=== PATIENT | male | born 1955 | race Two or more races ===

== ENCOUNTER 2024-10-15 12:56 | Inpatient (IN) | payer MEDICARE, MEDICAID ==
[~2024-10-15] VITALS: Ht 182.9 cm; Wt 88.2 kg
--- NOTE | 2024-10-15 14:45 | DVH ---
EXAM: CT HEAD WITHOUT CONTRAST INDICATION: leg weakness TECHNIQUE: CT of the head without intravenous contrast. Radiation Dose Information: CT Dose: CTDI volume is 59.57 mGy. Dose-length product is 1172.08 mGy*cm The dose indicators for CT are the volume Computed Tomography (CT) Dose Index (CTDIvol) and the Dose Length Product (DLP), and are measured in units of mGy and mGy-cm, respectively. These indicators are not patient dose, but values generated from the CT scanner acquisition factors. The report includes radiation exposure data for exposures received during this examination. COMPARISON: None FINDINGS: There is no evidence of acute intracranial hemorrhage, extra-axial collection, mass effect, midline s hift, herniation or hydrocephalus. The ventricles, sulci and cisterns are age appropriate. The bradford-white differentiation is intact. Patchy periventricular and subcortical white matter hypoattenuation is nonspecific but may be related to small vessel ischemic disease. The visualized paranasal sinuses and mastoid air cells are clear. The surrounding soft tissues and osseous structures are unremarkable. IMPRESSION: 1. No CT evidence of acute intracranial abnormality. HS:Y
--- NOTE | 2024-10-15 14:50 | ED.PDOC ---
Musculoskeletal HPI Comments 69Y M presents to ED for chief complaint bilateral lower extremity weakness [id number]. Pt states he is unable to walk or stand. Symptoms have worsened in the last 2 days and pt feels very weak and unsteady. Pt states he feels "disconnected from the hip and back". Pt denies all pain, urine symptoms, and n/v/d. Pt does not have PCP. Chief Complaint: Lower Extremity Time Seen by MD: 14:13 Reviewed Notes: Nurses Notes, Medications, Allergies Allergies: Coded Allergies: NO KNOWN ALLERGIES (Unverified , 10/15/24) Information Source: Patient Mode of Arrival: Wheelchair Location: Bilateral Extremity Location: Leg Timing: Months Severity: Moderate Able to Move Extremity: Yes Bear Weight: Limited Pain: None Onset of Symptoms: Spontaneous DVT Risk Factors: NONE Associated signs and symptoms: Weakness Past Medical History PAST MEDICAL HISTORY: Denies Surgical History: Denies all surgeries Family History Family History: Unknown Social History Smoker: Cigarettes Alcohol: Denies ETOH Use Drugs: Denies Drug Use Lives In: Home Constitutional: reports: weakness; denies: chills, diaphoresis, fatigue, fever, malaise, sweats, others EENTM: denies: blurred vision, double vision, ear bleeding, ear discharge, ear drainage, ear pain, ear ringing, eye pain, eye redness, hearing loss, mouth pain, mouth swelling, nasal discharge, nose bleeding, nose congestion, nose pain, photophobia, tearing, throat pain, throat swelling, voice changes, others Respiratory: denies: cough, hemoptysis, orthopnea, SOB at rest, shortness of breath, SOB with excertion, stridor, wheezing, others Cardiovascular: denies: chest pain, dizzy spells, diaphoresis, Dyspnea on exertion, edema, irregular heart beat, left arm pain, lightheadedness, palpitations, PND, syncope, others Gastrointestinal: denies: abdomen distended, abdominal pain, blood streaked bowels, constipated, diarrhea, dysphagia, difficulty swallowing, hematemesis, melena, nausea, poor appetite, poor fluid intake, rectal bleeding, rectal pain, vomiting, others Genitourinary: denies: burning, dysuria, flank pain, frequency, hematuria, incontinence, penile discharge, penile sore, pain, testicle pain, testicle swelling, urgency, others Neurological: reports: weakness, others (unbalanced); denies: dizziness, fainting, headache, left sided numbness, left sided weakness, numbness, paresthesia, pre-existing deficit, right sided numbness, right sided weakness, seizure, speech problems, tingling, tremors Musculoskeletal: denies: back pain, gout, joint pain, joint swelling, muscle pain, muscle stiffness, neck pain, others Integumetry: denies: bruises, change in color, change in hair/nails, dryness, laceration, lesions, lumps, rash, wounds, others Allergic/Immunocompromised: denies: Difficulty Healing, Frequent Infections, Hives, Itching, others Hematologic/Lymphatic: denies: anemia, blood clots, easy bleeding, easy bruising, swollen glands, others Endocrine: denies: excessive hunger, excessive sweating, excessive thirst, excessive urination, flushing, intolerance to cold, intolerance to heat, unexp lained weight gain, unexplained weight loss, others Psychiatric: denies: anxiety, bipolar disorder, depression, hopeless, panic disorder, schizophrenia, sleepless, suicidal, others All Other Systems: Reviewed and Negative Physical Exam General Appearance: No Apparent Distress, Normal HEENT: Normal ENT Inspection, Pharynx Normal, TMs Normal Neck: Full Range of Motion, Non-Tender, Normal, Normal Inspection Respiratory: Chest Non-Tender, Lungs Clear, No Accessory Muscle Use, No Respiratory Distress, Normal Breath Sounds Cardiovascular: No Edema, No JVD, No Murmur, No Gallop, Normal Peripheral Pulse s, Regular Rate/Rhythm Breast Exam: Deferred Gastrointestinal: No Organomegaly, Non Tender, No Pulsatile Mass, Normal Bowel Sounds, Soft Genitalia: Deferred Pelvic: Deferred Rectal: Deferred Extremities: No calf tenderness, Normal capillary refill, Normal inspection, Normal range of motion, Non-tender, No pedal edema Musculoskeletal : Apperance: Normal Neurologic: Alert, Motor Weakness (bilateral lower extremities), Normal Affect, Normal Mood, No Sensory Deficits Cerebellar Function: Normal Reflexes: Normal Skin: Dry, Normal Color, Warm Lymphatic: No Adenopathy Was a procedure done? Was a procedure done?: No Differential Diagnosis EXT Differential Diagnosis: Fracture, Sprain, Strain, Neurovascular injury, Other (transverse myelitis, GBS, neuropathy, cuada equina, spinal stenosis, herniated disks) X-Ray, Labs, Meds, VS Vital Signs Date Time Temp Pulse Resp B/P (MAP) Pulse Ox O2 Delivery O2 Flow Rate FiO2 10/15/24 13:33 98.2 110 16 18/72 (54) 95 Lab Test 10/15/24 14:44 Range/Units White Blood Count 9.6 4.4-10.8 10^3/uL Red Blood Count 6.02 H 4.5-5.90 10^6/uL Hemoglobin 19.0 H 13.5-17.5 g/dL Hematocrit 55.3 H 41.0-53.0 % Mean Corpuscular Volume 91.9 80.0-100.0 fL Mean Corpuscular Hemoglobin 31.6 28.0-32.0 pg Mean Corpuscular Hemoglobin Concent 34.4 32.0-36.0 g/dL Red Cell Distribution Width 13.8 11.8-14.3 % Platelet Count 256 140-450 10^3/uL Mean Platelet Volume 7.8 6.9-10.8 fL Neutrophils (%) (Auto) 80.9 H 37.0-80.0 % Lymphocytes (%) (Auto) 10.2 10.0-50.0 % Monocytes (%) (Auto) 8.0 0.0-12.0 % Eosinophils (%) (Auto) 0.3 0.0-7.0 % Basophils (%) (Auto) 0.6 0.0-2.0 % Neutrophils # (Auto) 7.7 1.6-8.6 10 ^3/uL Lymphocytes # (Auto) 1.0 0.4-5.4 10 ^3/uL Monocytes # (Auto) 0.8 0-1.3 10 ^3/uL Eosinophils # (Auto) 0 0-0.8 10 ^3/uL Basophils # (Auto) 0.1 0-0.2 10 ^3/uL Nucleated Red Blood Cells 0.1 % Sodium Level 139 136-145 mmol/L Potassium Level 5.0 3.5-5.1 mmol/L Chloride Level 104 98-107 mmol/L Carbon Dioxide Level 29 20-31 mmol/L Anion Gap 6 5-15 Blood Urea Nitrogen 12 9-23 mg/dL Creatinine 0.97 0.700-1.30 mg/dL Glomerular Filtration Rate Calc 84 >90 mL/min BUN/Creatinine Ratio 12.4 10.0-20.0 Serum Glucose 104 74-106 mg/dL Calcium Level 10.1 8.7-10.4 mg/dL Plasma/Serum Blood Alcohol 4.3 <10 mg/dL [address] [address] Ph: [phone] DIAGNOSTIC IMAGING Diagnostic Imaging Report : [id number] Signed PATIENT: ANTONI MCCANNACCT: [id number] UNIT: [id number] : 1955 LOC: ER ROOM / BED: / AGE / SEX: 69 / M ADM STATUS: REG ER SERVICE 1421 ORDERING PHYSICIAN: GUY SOLARES MD PROCEDURE(s): HWOCT - HEAD WITHOUT CONTRAST REASON: leg weakness ORDER NUMBER(s): [id number], ACCESSION NUMBER(s): [id number] EXAM: CT HEAD WITHOUT CONTRAST INDICATION: leg weakness TECHNIQUE: CT of the head without intravenous contrast. Radiation Dose Information: CT Dose: CTDI volume is 59.57 mGy. Dose-length product is 1172.08 mGy*cm The dose indicators for CT are the volume Computed Tomography (CT) Dose Index (CTDIvol) and the Dose Length Product (DLP), and are measured in units of mGy and mGy-cm, respectively. These indicators are not patient dose, but values generated from the CT scanner acquisition factors. The report includes radiation exposure data for exposures received during this examination. COMPARISON: None FINDINGS: There is no evidence of acute intracranial hemorrhage, extra-axial collection, mass effect, midline shift, herniation or hydrocephalus. The ventricles, sulci and cisterns are age appropriate. The bradford-white differentiation is intact. Patchy periventricular and subcortical white matter hypoattenuation is nonspecific but may be related to small vessel ischemic disease. The visualized paranasal sinuses and mastoid air cells are clear. The surrounding soft tissues and osseous structures are unremarkable. IMPRESSION: 1. No CT evidence of acute intracranial abnormality. HS:Y ATED BY: BILLY SALGUERO DO DICTATED DATE/TIME: 10/15/241441 SIGNED BY: BILLY SALGUERO DO SIGNED DATE/TIME: 10/15/24 144 CC: [address] [address] Ph: [phone] DIAGNOSTIC IMAGING Diagnostic Imaging Report : [id number] Signed PATIENT: ANTONI MCCANNT: [id number] UNIT: [id number] : 1955 LOC: ER ROOM / BED: / AGE / SEX: 69 / M ADM STATUS: REG ER SERVICE 1421 ORDERING PHYSICIAN: GUY SOLARES MD PROCEDURE(s): LS2CT - LS SPINE WO CONTRAST REASON: leg weakness ORDER NUMBER(s): [id number], ACCESSION NUMBER(s): [id number] CT LS SPINE WO CONTRAST INDICATION: leg weakness EXAM DATE: 10/15/2024 02:23 PM COMPARISON: None RADIATION DOSE: CTDIvol: 59.57 mGy, DLP: 2160.95 mGy*cm Technique: Utilizing the CT scanner, contiguous axial scans were obtained through the lumbar spine. Coronal and sagittal reformatted images were then generated. All CT scans at this medical facility are performed using dose modulation techniques as appropriate to a performed exam including the following: Automated exposure control was utilized; adjustment of the MA and/or KV according to patient size; and use of iterative reconstruction technique. FINDINGS: 5 iyp-egt-nngylvy lumbar-type vertebrae. Minimal levoconvex curvature of the lumbar spine. Vertebral body heights are maintained. No evidence of acute traumatic fractures or spondylolisthesis. Multilevel mild and moderate degenerative changes of the lumbar spine. T12-L1: Minimal posterior disc bulge without significant spinal canal or neural foramina stenosis. L1-L2: Minimal posterior disc bulge without significant spinal canal stenosis. Mild bilateral neural foramina stenosis. L2-L3: Minimal posterior disc bulge without significant spinal canal stenosis. Mild bilateral neural foramina stenosis. L3-L4: Minimal posterior disc bulge without significant spinal canal stenosis. Moderate right with mild left-sided neural foramina stenosis. L4-L5: Mild posterior disc bulge with superimposed disc extrusion causing mild spinal canal stenosis with mild to moderate right and moderate left-sided neural foramina stenosis. L5-S1: Mild posterior disc bulge causing mild spinal canal stenosis with moderate to severe bilateral neural foramina stenosis. The paraspinal muscles are unremarkable. Mild wall thickening of the partially visualized ascending colon with mild wall thickening of the sigmoid. 1.1 cm right renal cyst. Partially visualized bibasilar ground-glass opacities. IMPRESSION: Multilevel mild and moderate degenerative changes of the lumbar spine as detailed above. Moderate to severe bilateral neural foramina stenosis at L5-S1 with moderate left-sided neural foramina stenosis at L4-L5 and moderate right-sided neural foramina stenosis at L3-L4. Mild wall thickening of the partially visualized ascending colon and sigmoid. Correlate for colitis. 1.1 cm right renal cyst ATED BY: MANJULA MARIE DO DICTATED DATE/TIME: 10/15/24 1503 SIGNED BY: MANJULA MARIE DO SIGNED DATE/TIME: 10/15/24 1503 CC: Time of 1ST Reevaluation: 14:43 Reevaluation 1ST: Unchanged Patient Education/Counseling: Diagnosis, Treatment Family Education/Counseling: No Family Present Additional Information I reviewed the following notes from patient's past medical encounters: None The following tests were ordered, and results were reviewed by me: CBC, BMP, urine ethanol, CT head WO contrast, CT LS Spine WO contrast Additional Information was gathered from interviewing the following independent historians: None I reviewed and agreed with the following test results read by other providers: CT head WO contrast, CT LS Spine WO contrast I discussed treatment and results with medical personnel. Departure 1 Departure Time of Disposition: 17:00 Impression: Primary Impression: Leg weakness, bilateral Additional Impression: Neuroforaminal stenosis of lumbar spine Disposition: ADMITTED INPATIENT Admit to: Med Surg Condition: Stable Discharged With: Self Critical Care Note Critical Care Time?: Yes (55 min-critical care time only) Critical care comment: Due to concerns for patients condition deteriorating, the care required my highest level of attention and readiness to intervene. I assessed the patient, reviewed the medical records, ordered the appropriate tests and treatments, then reassessed for results and responsiveness. I communicated with medical personnel and consultants and formulated a plan of care. Total critical care time excludes any procedures Stability Stability form required: No Heart Score Heart Score: Heart Score Response (Comments) Value History N/A 0 EKG N/A 0 Age N/A 0 Risk Factors N/A 0 Troponin N/A 0 Total 0 I personally scribed for GUY SOLARES MD ([facility]) on 10/15/24 at 14:50. Electronically submitted by Sabina Nascimento ([facility]). I personally scribed for GUY SOLARES MD ([facility]) on 10/15/24 at 14:52. Electronically submitted by Sabina Nascimento ([facility]). I personally scribed for GUY SOLARES MD ([facility]) on 10/15/24 at 16:50. Electronically submitted by Sabina Nascimento ([facility]). I personally scribed for GUY SOLARES MD ([facility]) on 10/15/24 at 16:51. Electronically submitted by Sabina Nascimento ([facility]). GUY SOLARES MD Oct 15, 2024 14:50
[2024-10-15 15:04] LABS: Eosinophils # (auto) 0 10 ^3/uL (0-0.8); Monocytes # (auto) 0.8 10 ^3/uL (0-1.3); Nucleated Red Blood Cells % 0.1 %; Red Cell Distribution Width 13.8 % (11.8-14.3)
--- NOTE | 2024-10-15 15:05 | DVH ---
CT LS SPINE WO CONTRAST INDICATION: leg weakness EXAM DATE: 10/15/2024 02:23 PM COMPARISON: None RADIATION DOSE: CTDIvol: 59.57 mGy, DLP: 2160.95 mGy*cm Technique: Utilizing the CT scanner, contiguous axial scans were obtained through the lumbar spine. C oronal and sagittal reformatted images were then generated. All CT scans at this medical facility are performed using dose modulation techniques as appropriate t o a performed exam including the following: Automated exposure control was utilized; adjustment of th e MA and/or KV according to patient size; and use of iterative reconstruction technique. FINDINGS: 5 ucn-gzy-moiuknf lumbar-type vertebrae. Minimal levoconvex curvature of the lumbar spine. Vertebral body heights are maintained. No evidence of acute traumatic fractures or spondylolisthesis. Multilev el mild and moderate degenerative changes of the lumbar spine. T12-L1: Minimal posterior disc bulge without significant spinal canal or neural foramina stenosis. L1-L2: Minimal posterior disc bulge without significant spinal canal stenosis. Mild bilateral neural foramina stenosis. L2-L3: Minimal posterior disc bulge without significant spinal canal stenosis. Mild bilateral neural foramina stenosis. L3-L4: Minimal posterior disc bulge without significant spinal canal stenosis. Moderate right with mi ld left-sided neural foramina stenosis. L4-L5: Mild posterior disc bulge with superimposed disc extrusion causing mild spinal canal stenosis with mild to moderate right and moderate left-sided neural foramina stenosis. L5-S1: Mild posterior disc bulge causing mild spinal canal stenosis with moderate to severe bilateral neural foramina stenosis. The paraspinal muscles are unremarkable. Mild wall thickening of the partially visualized ascending colon with mild wall thickening of the sig moid. 1.1 cm right renal cyst. Partially visualized bibasilar ground-glass opacities. IMPRESSION: Multilevel mild and moderate degenerative changes of the lumbar spine as detailed above. Moderate to severe bilateral neural foramina stenosis at L5-S1 with moderate left-sided neural forami na stenosis at L4-L5 and moderate right-sided neural foramina stenosis at L3-L4. Mild wall thickening of the partially visualized ascending colon and sigmoid. Correlate for colitis. 1.1 cm right renal cyst
[2024-10-15 15:06] LABS: Basophils # (auto) 0.1 10 ^3/uL (0-0.2); Basophils % (auto) 0.6 % (0.0-2.0); Eosinophils % (auto) 0.3 % (0.0-7.0); Hematocrit 55.3 % (41.0-53.0); Lymphocytes % (auto) 10.2 % (10.0-50.0); Mean Corpuscular Hemoglobin 31.6 pg (28.0-32.0); Mean Corpuscular Hgb Conc. 34.4 g/dL (32.0-36.0); Mean Corpuscular Volume 91.9 fL (80.0-100.0); Neutrophils # (auto) 7.7 10 ^3/uL (1.6-8.6); Neutrophils % (auto) 80.9 % (37.0-80.0); Platelet Count (auto) 256 10^3/uL (140-450); Red Blood Cells 6.02 10^6/uL (4.5-5.90); White Blood Cell 9.6 10^3/uL (4.4-10.8)
[2024-10-15 15:22] LABS: Chloride 104 mmol/L (98-107); Sodium 139 mmol/L (136-145)
[2024-10-15 15:23] LABS: Anion Gap 6 (5-15); Carbon Dioxide 29 mmol/L (20-31)
[2024-10-15 15:24] LABS: Calcium 10.1 mg/dL (8.7-10.4)
[2024-10-15 15:28] LABS: BUN/Creatinine Ratio 12.4 (10.0-20.0); Blood Urea Nitrogen 12 mg/dL (9-23); Glucose 104 mg/dL (74-106)
[2024-10-15 15:29] LABS: Blood Alcohol 4.3 mg/dL (<10)
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
[2024-10-16] VITALS (9 sets, daily range): BP systolic 107–122; BP diastolic 68–81; PULSE 71–87; RESP 17–18; TEMP 97.4–97.9; O2SAT 90–96
[2024-10-16] MEDS: GABAPENTIN 300 MG CAP PO SCH (01:42)
[2024-10-16] MEDS: SODIUM CHLORIDE 0.9% 1,000 ML IV ONE (01:43)
--- NOTE | 2024-10-16 07:20 | DVHPNRES ---
Progress Note Objective vital signs Vital Sign Date Time Temp Pulse Resp B/P (MAP) Pulse Ox O2 Delivery O2 Flow Rate FiO2 10/16/24 05:00 97.4 83 18 122/76 (91) 92 97.4 10/16/24 03:00 Room Air* 0 21 Total Intake and Output 10/15/24 10/15/24 10/16/24 15:00 23:00 07:00 Intake Total 450 ml Output Total 600 ml Balance -150 ml medications Current Medications Medications Dose Ordered Sig/Bob Route Start Time Stop Time Status Last Admin Dose Admin Acetaminophen/ Hydrocodone Bitart 1 tab Q4HPRN PRN PO 10/15/24 21:30 Gabapentin 300 mg BID PO 10/15/24 22:00 10/16/24 01:42 300 MG Enoxaparin Sodium 40 mg DAILY SC 10/16/24 10:00 Famotidine 20 mg DAILY PO 10/16/24 10:00 laboratory and microbiology Laboratory Tests 10/15/24 14:44 Test 10/15/24 14:44 Range/Units Serum Glucose 104 74-106 mg/dL My Orders My Orders Orders - BETH LOPEZ RESIDENT Procedure Category Date Status Time Complete Blood Count LAB 10/16/24 Verified 07:18 Comprehensive LAB 10/16/24 Verified Metabolic Panel 07:18 Drug Screen LAB 10/16/24 Verified 07:18 Urinalysis LAB 10/16/24 Verified 07:18 Prothrombin Time W/ LAB 10/16/24 Verified INR 07:18 BETH LOPEZ RESIDENT Oct 16, 2024 07:19
--- NOTE | 2024-10-16 08:47 | DVH ---
PROCEDURE: MRI thoracic spine without contrast. INDICATION: bilateral leg weakness COMPARISON: None TECHNIQUE: MRI thoracic spine without intravenous contrast utilizing multiplanar, multisequence tech nique. FINDINGS: Alignment and curvature of the thoracic spine are maintained. The marrow signal is homogenous. The ve rtebral body heights are maintained. There is multilevel intervertebral disc space narrowing. There is a posterior central disc protrusion at T7-T8 which causes moderate canal stenosis and flattens th e ventral surface of the cervical spinal cord. The thoracic spinal canal is otherwise patent. No sign ificant neural foraminal stenosis. The thoracic spinal cord is otherwise normal in caliber and signal characteristics. Other: None. Impression: 1. Posterior central disc protrusion at T7-T8 which contributes to moderate spinal stenosis and royce ening of the ventral surface of the thoracic spinal cord. No evidence of spinal cord signal change.
--- NOTE | 2024-10-16 09:05 | DVH ---
PROCEDURE: MRI lumbar spine without contrast. INDICATION: Bilateral leg weakness COMPARISON: CT of the lumbar spine dated 10/15/2024 TECHNIQUE: MRI lumbar spine without intravenous contrast utilizing multiplanar, multisequence techni que. FINDINGS: The alignment and curvature of the lumbar spine are preserved. Bone marrow signal is homogeneous. End plate marrow edema at L3-4, L4-5 and L5-S1 disc degeneration. Schmorl's node in the S1 vertebral bod y. The vertebral body heights are maintained. No acute fracture. Multilevel intervertebral disc space narrowing and desiccation most severe at L4-L5 and L5-S1. The conus medullaris is normal in signal c haracteristics and terminates at the T12-L1 level. Paraspinal muscles are unremarkable. At the T12-L1 level, there is no evidence of central spinal canal or neuroforaminal stenosis. At the L1-L2 level, there is no evidence of central spinal canal stenosis. There is mild right neura l foraminal stenosis. The left neural foramina is patent. At the L2-L3 level, there is no evidence of central spinal canal stenosis. There is mild bilateral ne ural foraminal stenosis due to facet arthropathy. At the L3-L4 level, there is broad-based posterior disc bulge, ligamentum and facet hypertrophy. The re is mild canal stenosis. There is moderate left and moderate right neural foraminal stenosis. At the L4-L5 level, there is broad-based posterior disc bulge, ligamentum and facet hypertrophy. Ther e is severe narrowing of the lateral recesses. There is mild canal stenosis. Moderate to severe left and moderate right neural foraminal stenosis. At the L5-S1 level, there is broad-based posterior disc bulge and facet hypertrophy. There is mild ca nal stenosis. There is severe left and moderate to severe right neural foraminal stenosis. Other: There is a 1.1 cm T2 hyperintense lesion in the right kidney compatible with a cyst. IMPRESSION: 1. Multilevel lumbar spondylosis. This includes moderate bilateral neural foraminal stenosis at L3-L4 , moderate to severe left and moderate right neural foraminal stenosis at L4-L5, and severe left neur al foraminal stenosis at L5-S1. Mild canal stenosis at L3-L4. No disc herniation. 2. Right renal cyst.
[2024-10-16] MEDS: FAMOTIDINE 20 MG TAB PO SCH (09:14)
[2024-10-16] MEDS: ENOXAPARIN SOD 40 MG/0.4 ML SYRINGE SC SCH (09:14)
[2024-10-16 10:36] LABS: Basophils # (auto) 0 10 ^3/uL (0-0.2); Eosinophils # (auto) 0.1 10 ^3/uL (0-0.8); Hemoglobin 17.9 g/dL (13.5-17.5); Lymphocytes # (auto) 1.1 10 ^3/uL (0.4-5.4); Red Cell Distribution Width 13.8 % (11.8-14.3)
[2024-10-16 10:38] LABS: Basophils % (auto) 0.5 % (0.0-2.0); Eosinophils % (auto) 1.1 % (0.0-7.0); Lymphocytes % (auto) 12.9 % (10.0-50.0); Mean Corpuscular Hemoglobin 31.3 pg (28.0-32.0); Mean Corpuscular Hgb Conc. 34.4 g/dL (32.0-36.0); Monocytes % (auto) 11.5 % (0.0-12.0); Neutrophils # (auto) 6.5 10 ^3/uL (1.6-8.6); Platelet Count (auto) 251 10^3/uL (140-450); Red Blood Cells 5.71 10^6/uL (4.5-5.90); White Blood Cell 8.8 10^3/uL (4.4-10.8)
[2024-10-16 10:39] LABS: Alkaline Phosphatase 84 U/L (46-116); Anion Gap 9 (5-15); BUN/Creatinine Ratio 17.2 (10.0-20.0); Blood Urea Nitrogen 17 mg/dL (9-23); Calcium 9.7 mg/dL (8.7-10.4); Carbon Dioxide 26 mmol/L (20-31); Chloride 106 mmol/L (98-107); INR 1.07 (0.9-1.15); Potassium 4.3 mmol/L (3.5-5.1); Prothrombin Time 11.3 sec (9.3-11.8); Sodium 141 mmol/L (136-145)
[2024-10-16 10:40] LABS: Albumin 4.3 g/dL (3.2-4.8); CRP High Sensitivity 0.32 mg/dL (<1.0)
[2024-10-16 10:41] LABS: Bilirubin, Total 0.7 mg/dL (0.2-1.0); Total Protein 6.8 g/dL (5.7-8.2)
[2024-10-16 10:45] LABS: Alanine Aminotransferase 54 U/L (7-40); Aspartate Aminotransferase 41 U/L (13-40); Creatine Kinase IFCC 383 U/L (46-171); Glucose 129 mg/dL (74-106)
[2024-10-16 10:55] LABS: Erythrocyte Sedimentation Rate 4 mm/hr (0-20)
[2024-10-16] MEDS: predniSONE 20 MG TAB PO SCH (11:27)
[2024-10-16] MEDS: CARISOPRODOL 350 MG TAB PO SCH (13:57)
--- NOTE | 2024-10-16 18:16 | DVHINCON2 ---
Consultation - Spinal Surgery Date Seen: Oct 16, 2024 Referring Physician Referring Physician Resident Creating Document: NEGRA JOSE RESIDENT Reason for Consultation Lower extremity weakness and low back pain History of Present Illness History of Present Illness History of Present Illness Patient is a 69-year-old male with no diagnosed past medical history came to the ED with a chief complaint of lower extremity weakness for the last 1 week. 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 After the episode patient has started to have difficulty in balance while walking and a was not able to walk up the stairs more than 2 stairs at a time. The difficulty walking and imbalance continued to progress until about 1 week ago since when he is having severe difficulty in walking and could not walk without support. Patient has difficulty getting up chair but once he stands he can walk, but not for with support. Patient denied urinary or fecal incontinence. Reports no sensory abnormality in the lower limbs. Patient came to the ER and was sitting in a wheelchair and reports that it was difficult for him to get up without support. Not able to walk without support Denied pain in bilateral lower extremities. Mild pain in the lower back Past Medical/Surgical History Past Medical/Surgical History Past medical history: None Past surgical history: None Family and Social History Family and Social History Social history: Patient lives alone and smokes half a pack of cigarettes for the last 35 years, occasional alcohol, denied marijuana. 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 Home medication: none Allergies and medications Allergies: Coded Allergies: NO KNOWN ALLERGIES (Unverified , 10/15/24) Home Meds No Active Prescriptions or Reported Meds Review of systems Review of Systems: HEENT:Normal, CVS:Normal, RESPIRATORY:Normal, GI:Normal, :Normal, MSK:Abnormal (Right lower extremity 4/5, left lower extremity 5/5), NEURO:Abnormal (Bilateral knee reflex diminished-absent, bilateral ankle reflex could not be elicited, plantar reflex absent) Examination Vital signs Imaging studies Pending MRI of the C-spine without contrast - ordered today PROCEDURE: MRI thoracic spine without contrast. INDICATION: bilateral leg weakness COMPARISON: None TECHNIQUE: MRI thoracic spine without intravenous contrast utilizing multiplanar, multisequence technique. FINDINGS: Alignment and curvature of the thoracic spine are maintained. The marrow signal is homogenous. The vertebral body heights are maintained. There is multilevel intervertebral disc space narrowing. There is a posterior central disc protrusion at T7-T8 which causes moderate canal stenosis and flattens the ventral surface of the cervical spinal cord. The thoracic spinal canal is otherwise patent. No significant neural foraminal stenosis. The thoracic spinal cord is otherwise normal in caliber and signal characteristics. Other: None. Impression: 1. Posterior central disc protrusion at T7-T8 which contributes to moderate spinal stenosis and flattening of the ventral surface of the thoracic spinal cord. No evidence of spinal cord signal change. EDURE: MRI lumbar spine without contrast. INDICATION: Bilateral leg weakness COMPARISON: CT of the lumbar spine dated 10/15/2024 TECHNIQUE: MRI lumbar spine without intravenous contrast utilizing multiplanar, multisequence technique. FINDINGS: The alignment and curvature of the lumbar spine are preserved. Bone marrow signal is homogeneous. Endplate marrow edema at L3-4, L4-5 and L5-S1 disc degeneration. Schmorl's node in the S1 vertebral body. The vertebral body heights are maintained. No acute fracture. Multilevel intervertebral disc space narrowing and desiccation most severe at L4-L5 and L5-S1. The conus medullaris is normal in signal characteristics and terminates at the T12-L1 level. Paraspinal muscles are unremarkable. At the T12-L1 level, there is no evidence of central spinal canal or neuroforaminal stenosis. At the L1-L2 level, there is no evidence of central spinal canal stenosis. There is mild right neural foraminal stenosis. The left neural foramina is patent. At the L2-L3 level, there is no evidence of central spinal canal stenosis. There is mild bilateral neural foraminal stenosis due to facet arthropathy. At the L3-L4 level, there is broad-based posterior disc bulge, ligamentum and facet hypertrophy. There is mild canal stenosis. There is moderate left and moderate right neural foraminal stenosis. At the L4-L5 level, there is broad-based posterior disc bulge, ligamentum and facet hypertrophy. There is severe narrowing of the lateral recesses. There is mild canal stenosis. Moderate to severe left and moderate right neural foraminal stenosis. At the L5-S1 level, there is broad-based posterior disc bulge and facet hypertrophy. There is mild canal stenosis. There is severe left and moderate to severe right neural foraminal stenosis. Other: There is a 1.1 cm T2 hyperintense lesion in the right kidney compatible with a cyst. IMPRESSION: 1. Multilevel lumbar spondylosis. This includes moderate bilateral neural foraminal stenosis at L3-L4, moderate to severe left and moderate right neural foraminal stenosis at L4-L5, and severe left neural foraminal stenosis at L5-S1. Mild canal stenosis at L3-L4. No disc herniation. 2. Right renal cyst. Vital Signs Date Time Temp Pulse Resp B/P (MAP) Pulse Ox O2 Delivery O2 Flow Rate FiO2 10/16/24 17:00 97.6 87 18 108/73 (85) 90 97.6 10/16/24 08:00 Room Air* 0 21 Medications Current Medications Medications (Trade) Dose Ordered Sig/Bob Route PRN Reason Start Time Stop Time Status Last Admin Acetaminophen/ Hydrocodone Bitart ([place] 5/325MG Tab) 1 tab Q4HPRN PRN PO SEVERE PAIN (7-10 PAIN SCALE) 10/15/24 21:30 Gabapentin (Neurontin Capsule) 300 mg BID PO 10/15/24 22:00 10/16/24 09:13 Enoxaparin Sodium (Lovenox) 40 mg DAILY SC 10/16/24 10:00 10/16/24 09:14 Famotidine (Pepcid Tablet) 20 mg DAILY PO 10/16/24 10:00 10/16/24 09:14 Carisoprodol (Soma Tablet) 350 mg TID PO 10/16/24 14:00 10/16/24 13:57 Prednisone 60 mg DAILY PO 10/16/24 11:00 10/16/24 11:27 Laboratory Labs Test 10/16/24 10:52 10/16/24 10:00 10/15/24 14:44 Range/Units White Blood Count 8.8 4.4-10.8 10^3/uL Red Blood Count 5.71 4.5-5.90 10^6/uL Hemoglobin 17.9 H 13.5-17.5 g/dL Hematocrit 52.0 41.0-53.0 % Mean Corpuscular Volume 91.0 80.0-100.0 fL Mean Corpuscular Hemoglobin 31.3 28.0-32.0 pg Mean Corpuscular Hemoglobin Concent 34.4 32.0-36.0 g/dL Red Cell Distribution Width 13.8 11.8-14.3 % Platelet Count 251 140-450 10^3/uL Mean Platelet Volume 8.0 6.9-10.8 fL Neutrophils (%) (Auto) 74.0 37.0-80.0 % Lymphocytes (%) (Auto) 12.9 10.0-50.0 % Monocytes (%) (Auto) 11.5 0.0-12.0 % Eosinophils (%) (Auto) 1.1 0.0-7.0 % Basophils (%) (Auto) 0.5 0.0-2.0 % Neutrophils # (Auto) 6.5 1.6-8.6 10 ^3/uL Lymphocytes # (Auto) 1.1 0.4-5.4 10 ^3/uL Monocytes # (Auto) 1.0 0-1.3 10 ^3/uL Eosinophils # (Auto) 0.1 0-0.8 10 ^3/uL Basophils # (Auto) 0 0-0.2 10 ^3/uL Nucleated Red Blood Cells 0.0 % Erythrocyte Sedimentation Rate 4 0-20 mm/hr Prothrombin Time 11.3 9.3-11.8 sec Prothrombin Time INR 1.07 0.9-1.15 Sodium Level 141 136-145 mmol/L Potassium Level 4.3 3.5-5.1 mmol/L Chloride Level 106 98-107 mmol/L Carbon Dioxide Level 26 20-31 mmol/L Anion Gap 9 5-15 Blood Urea Nitrogen 17 9-23 mg/dL Creatinine 0.99 0.700-1.30 mg/dL Glomerular Filtration Rate Calc 82 >90 mL/min BUN/Creatinine Ratio 17.2 10.0-20.0 Serum Glucose 129 H 74-106 mg/dL Hemoglobin A1c 6.0 H <5.7 % A1C Calcium Level 9.7 8.7-10.4 mg/dL Total Bilirubin 0.7 0.2-1.0 mg/dL Aspartate Amino Transferase (AST) 41 H 13-40 U/L Alanine Aminotransferase (ALT) 54 H 7-40 U/L Alkaline Phosphatase 84 46-116 U/L Creatine Kinase 383 H 46-171 U/L C-Reactive Protein High Sensitivity 0.32 <1.0 mg/dL Total Protein 6.8 5.7-8.2 g/dL Albumin 4.3 3.2-4.8 g/dL Vitamin B12 Level 658 211-911 pg/mL Thyroid Stimulating Hormone (TSH) 2.48 0.55-4.78 uIU/mL Plasma/Serum Blood Alcohol 4.3 <10 mg/dL Examination: GENERAL:Normal (Has complaints of any pain to his back or spine, patient says he has balance issues with no complaints of headaches or shoulder pain. Patient is demonstrating absence of reflexes bilateral knees, ankles and plantars), HEENT:Normal, NECK:Normal, LUNGS:Normal, CVS:Normal, ABDOMEN:Normal, MSK:Abnormal (Bilateral knee reflex diminished-absent, bilateral ankle reflex could not be elicited, plantar reflex absent), SKIN:Normal, NEURO:Abnormal (Bilateral knee reflex diminished-absent, bilateral ankle reflex could not be elicited, plantar reflex absent), :Normal Problem List/Assessment/Plan Problems: (1) Thoracic stenosis (2) Leg weakness, bilateral (3) Neuroforaminal stenosis of lumbar spine Assessment and Plan 1. Posterior central disc protrusion at T7-T8 which contributes to moderate spinal stenosis and flattening of the ventral surface of the thoracic spinal cord. No evidence of spinal cord signal change. 2. Multilevel lumbar spondylosis. This includes moderate bilateral neural foraminal stenosis at L3-L4, moderate to severe left and moderate right neural foraminal stenosis at L4-L5, and severe left neural foraminal stenosis at L5-S1. Mild canal stenosis at L3-L4. No disc herniation. 3. MRI of the C-spine without contrast is pending Continue supportive care per admitting team's discretion Recommend physical therapy evaluation and treatment recommendations Ensure patient is receiving adequate muscle relaxer coverage Your patient is receiving appropriate oral analgesia Spine surgery will comment further after the MRI of the C-spine is complete Call with wendi Arzate [facility] Orthopaedic Spine Surgery nurse practitioner For Dr Carlos Estrada Patient was examined, chart reviewed, labs evaluated, and diagnostic studies and findings analyzed. Case was discussed with Dr. Josafat Estrada who formulated the plan of care. This medical document was created using an electronic medical record system with [employer] (formerly [employer]) dictation system. Although this document has been carefully reviewed, there might still be some phonetic and typographical errors. These areas are purely typographical due to imperfections of the software programs, and do not reflect any compromise in the patient's medical care. Plan discussed with Plan discussed with: Patient, Other (Naomy galindo [id number]) YESSI ARZATE NP Oct 16, 2024 18:16
--- NOTE | 2024-10-16 20:09 | DVHPN2 ---
Progress Note - Dictate Date Seen: Oct 16, 2024 Medical Necessity Reason Pt with a Central, PICC or Fol: No vital signs Vital Sign Date Time Temp Pulse Resp B/P (MAP) Pulse Ox O2 Delivery O2 Flow Rate FiO2 10/16/24 17:00 97.6 87 18 108/73 (85) 90 97.6 10/16/24 08:00 Room Air* 0 21 Total Intake and Output 10/15/24 10/15/24 10/16/24 15:00 23:00 07:00 Intake Total 450 ml Output Total 600 ml Balance -150 ml medications Current Medications Medications Dose Ordered Sig/Bob Route Start Time Stop Time Status Last Admin Dose Admin Acetaminophen/ Hydrocodone Bitart 1 tab Q4HPRN PRN PO 10/15/24 21:30 Gabapentin 300 mg BID PO 10/15/24 22:00 10/16/24 09:13 300 MG Enoxaparin Sodium 40 mg DAILY SC 10/16/24 10:00 10/16/24 09:14 40 MG Famotidine 20 mg DAILY PO 10/16/24 10:00 10/16/24 09:14 20 MG Carisoprodol 350 mg TID PO 10/16/24 14:00 10/16/24 13:57 350 MG Prednisone 60 mg DAILY PO 10/16/24 11:00 10/16/24 11:27 60 MG objective General Appearance: alert, no distress HEENT: EOMI, PERRLA, normal external inspect of ears, no icterus, no nasal drainage Neck: no carotid bruit, no jugular venous distention (JVD), no lymphadenopathy Chest: normal thorax Respiratory: clear to auscultation, normal air movement Cardiovascular: regular rate and rhythm, no diastolic murmur, no jugular venous distention (JVD), no rub, no systolic murmur Abdominal: soft, no hepatomegaly, no mass, no splenomegaly, no tenderness Musculoskeletal: no joint tenderness, no swelling Extremities: normal pulses, no calf tenderness, no clubbing, no cyanosis, no edema Skin: no bruising, no jaundice, no rash Neurological: alert, No focal deficit laboratory and microbiology Laboratory Tests 10/16/24 10:00 Test 10/16/24 10:00 Range/Units Serum Glucose 129 H 74-106 mg/dL Problem List - Lower extremity weakness Orthopedic spinal consult, surgery consult, monitoring -Severe lumbar spinal stenosis Orthopedic spinal consult, surgeon consult, muscle relaxants, steroids, medication, monitoring -Gait disturbance Monitoring -Smoker Smoking cessation Assessment/Plan Subjective Patient is awake and alert. Objective Patient was admitted for lower extremity weakness. CT imaging of lumbar shows severe lumbar stenosis. Orthopedic surgeon was consulted. Patient is a smoker. Plan Orthopedic spinal consult. Start muscle relaxers and steroids. Continue PPI DVT prophylaxis. Smoking cessation. Plan discussed with: Patient, Other OLGA LIDIA MEDINA NP Oct 16, 2024 20:08
[2024-10-17] VITALS (8 sets, daily range): BP systolic 101–134; BP diastolic 66–84; PULSE 72–103; RESP 17–19; TEMP 97.5–98.2; O2SAT 90–96
--- NOTE | 2024-10-17 08:48 | DVH ---
CLINICAL INFORMATION: 69 years old, Male; Rule out cervical spinal stenosis causing lower extremity weakness. TECHNIQUE: Multisequence multiplanar MRI images of the cervical spine were obtained without contrast . COMPARISON: None FINDINGS: Bones: Straightening of the normal cervical lordosis. There is up to 3 mm retrolisthesis of C5 on C6. Vertebral body heights are maintained. Posterior elements are intact. No acute fracture. No focal kirkpatrick spicious marrow signal abnormality. Spinal cord: Spinal cord is normal in signal intensity and morphology. Paraspinal soft tissues: Paraspinal and prevertebral soft tissues are unremarkable. Other: No other significant findings. Cervical disc levels: C2-C3: Disc desiccation. No significant spinal canal or neural foraminal stenosis. C3-C4: Disc desiccation with diffuse disc bulge superimposed on congenital spinal canal narrowing, co ntributing to moderate spinal canal stenosis and partial effacement of the lateral recesses. Facet an d uncinate hypertrophy with mild bilateral neural foraminal stenoses, left greater than right. C4-C5: Disc desiccation with moderate to severe disc space narrowing and diffuse disc bulge superimpo sed on congenital spinal canal narrowing causing moderate spinal canal stenosis and partial effacemen t of the lateral recesses. Facet and uncinate hypertrophy with [id number] bilateral neural fora mel stenoses. C5-C6: Disc desiccation with moderate to severe disc space narrowing and diffuse disc bulge superimpo sed on congenital spinal canal narrowing causing moderate spinal canal stenosis effacement of the lat eral recesses. The disc bulge closely approximates the ventral aspect of the spinal cord. Facet and u ncinate hypertrophy with moderate to severe right and severe left neural foraminal stenoses. C6-C7: Disc desiccation with severe disc space narrowing and diffuse disc bulge superimposed on conge nital spinal canal narrowing, causing moderate spinal canal stenosis and effacement of the lateral re cesses. Facet and uncinate hypertrophy with moderate right and moderate to severe left neural foramin al stenoses. C7-T1: Disc desiccation with moderate severe disc space narrowing mild disc bulge mildly indenting t he ventral aspect of the thecal sac. No significant spinal canal or neural foraminal stenosis. Perine ural cyst in the left neural foramen. IMPRESSION: 1. 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 2. There is a degree of congenital spinal canal narrowing contributing to the spinal canal stenoses. 3. Straightening of the normal cervical lordosis with mild retrolisthesis of C5 on C6. 4. Additional findings as detailed above.
[2024-10-17 12:06] LABS: Anti-Centromere B Antibody <0.2 AI (0.0-0.9); Anti-Jo-1 Antibody <0.2 AI (0.0-0.9); Anti-dsDNA Antibody 1 IU/mL (0-9); Antichromatin Antibody <0.2 AI (0.0-0.9); Antiscleroderma-70 Antibody <0.2 AI (0.0-0.9); RNP Antibody <0.2 AI (0.0-0.9); Sjogren's Anti-SS-A Antibody <0.2 AI (0.0-0.9); Sjogren's Anti-SS-B Antibody <0.2 AI (0.0-0.9); Smith Antibody <0.2 AI (0.0-0.9)
--- NOTE | 2024-10-17 16:22 | PRN ---
Misceleneous Note Note Note Pt spoke to Dr Estrada about his recommendation for cervical spinal decompression and fusion of c3-6. message to Antonio FERNANDEZ requesting cardiac/medical clearance. Patient will speak to his family, he is in agreement at this time for surgery. we will put him on the OR schedule for Sunday10/21/2024, and await the clearance. Yessi Castro MEAT LOINER for Dr Josafat Estrada call with questions. YESSI CASTRO NP Oct 17, 2024 16:22
--- NOTE | 2024-10-17 17:57 | DVHPN2 ---
Progress Note Date Seen: Oct 17, 2024 Medical Necessity Reason Pt with a Central, PICC or Fol: No Subjective Review of Systems: CVS:Normal, RESPIRATORY:Normal, GI:Normal, NEURO:Normal Objective vital signs Vital Sign Date Time Temp Pulse Resp B/P (MAP) Pulse Ox O2 Delivery O2 Flow Rate FiO2 10/17/24 17:00 97.6 76 17 108/66 (80) 90 97.6 10/17/24 08:00 Room Air* 0 21 Total Intake and Output 10/16/24 10/16/24 10/17/24 15:00 23:00 07:00 Intake Total 790 ml 240 ml Output Total 2 ml Balance 790 ml 238 ml medications Current Medications Medications Dose Ordered Sig/Bob Route Start Time Stop Time Status Last Admin Dose Admin Acetaminophen/ Hydrocodone Bitart 1 tab Q4HPRN PRN PO 10/15/24 21:30 Gabapentin 300 mg BID PO 10/15/24 22:00 10/17/24 09:14 300 MG Enoxaparin Sodium 40 mg DAILY SC 10/16/24 10:00 10/17/24 09:14 40 MG Famotidine 20 mg DAILY PO 10/16/24 10:00 10/17/24 09:14 20 MG Carisoprodol 350 mg TID PO 10/16/24 14:00 10/17/24 13:59 350 MG Prednisone 60 mg DAILY PO 10/16/24 11:00 10/17/24 09:14 60 MG Examination: GENERAL:Normal, LUNGS:Normal, CVS:Normal, ABDOMEN:Normal, SKIN:Normal, NEURO:Normal laboratory and microbiology Laboratory Tests 10/16/24 10:00 Test 10/16/24 10:00 Range/Units Serum Glucose 129 H 74-106 mg/dL Labs and/or images reviewed: Labs reviewed by me, Image(s) reviewed by me Problem List/Assessment/Plan Problem List/Assessment/Plan - Lower extremity weakness Orthopedic spinal consult, surgery consult, monitoring -Severe lumbar spinal stenosis Orthopedic spinal consult, surgeon consult, muscle relaxants, steroids, medication, monitoring -Gait disturbance Monitoring -Smoker Smoking cessation Assessment/Plan Subjective Patient is awake and alert. Objective Patient was admitted for lower extremity weakness. CT imaging of lumbar shows severe lumbar stenosis. Orthopedic surgeon was consulted. Patient is a smoker. 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 Plan Orthopedic spinal consult. Start muscle relaxers and steroids. Continue PPI DVT prophylaxis. Smoking cessation. Plan discussed with: Patient Date of Service: Oct 17, 2024 Billing Provider: HOUSTON LIN MD Common Visit Codes: [id number] INP/OBS CARE (MOD) KATJA BRAVO PRODUCT MARKETING CONSULTANT Oct 17, 2024 17:57
[2024-10-18 05:00] VITALS: BP 117/80; PULSE 61; RESP 18; TEMP 97.6; O2SAT 96
[2024-10-18 09:00] VITALS: BP 115/77; PULSE 66; RESP 16; TEMP 97.6; O2SAT 100
[2024-10-18 13:00] VITALS: BP 126/86; PULSE 77; RESP 16; TEMP 98.1; O2SAT 92
[2024-10-18 17:00] VITALS: BP 118/80; PULSE 75; RESP 16; TEMP 98.3; O2SAT 92
--- NOTE | 2024-10-18 18:10 | DVHPN2 ---
Progress Note Date Seen: Oct 18, 2024 Medical Necessity Reason Pt with a Central, PICC or Fol: No Subjective Review of Systems: HEENT:Normal, RESPIRATORY:Normal, GI:Normal, :Normal, NEURO:Normal Objective vital signs Vital Sign Date Time Temp Pulse Resp B/P (MAP) Pulse Ox O2 Delivery O2 Flow Rate FiO2 10/18/24 17:00 98.3 75 16 118/80 (93) 92 98.3 10/18/24 08:00 Room Air* 0 21 Total Intake and Output 10/17/24 10/17/24 10/18/24 15:00 23:00 07:00 Intake Total 660 ml 720 ml Balance 660 ml 720 ml medications Current Medications Medications Dose Ordered Sig/Bob Route Start Time Stop Time Status Last Admin Dose Admin Acetaminophen/ Hydrocodone Bitart 1 tab Q4HPRN PRN PO 10/15/24 21:30 Gabapentin 300 mg BID PO 10/15/24 22:00 10/18/24 08:17 300 MG Enoxaparin Sodium 40 mg DAILY SC 10/16/24 10:00 10/18/24 08:17 40 MG Famotidine 20 mg DAILY PO 10/16/24 10:00 10/18/24 08:17 20 MG Carisoprodol 350 mg TID PO 10/16/24 14:00 10/18/24 14:59 350 MG Prednisone 60 mg DAILY PO 10/16/24 11:00 10/18/24 08:17 60 MG Examination: GENERAL:Normal, LUNGS:Normal, CVS:Normal, ABDOMEN:Normal, NEURO:Normal laboratory and microbiology Laboratory Tests 10/16/24 10:00 Test 10/16/24 10:00 Range/Units Serum Glucose 129 H 74-106 mg/dL Labs and/or images reviewed: Labs reviewed by me, Image(s) reviewed by me Problem List/Assessment/Plan Problem List/Assessment/Plan - Lower extremity weakness Orthopedic spinal consult, surgery consult, monitoring -Severe lumbar spinal stenosis Orthopedic spinal consult, surgeon consult, muscle relaxants, steroids, medication, monitoring -Gait disturbance Monitoring -Smoker Smoking cessation Assessment/Plan Subjective Patient is awake and alert. Objective Patient was admitted for lower extremity weakness. CT imaging of lumbar shows severe lumbar stenosis. Orthopedic surgeon was consulted. Patient is a smoker. 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 Case discussed with Debo FERNANDEZ we will plan for spine surgery, however needs cardiac clearance Plan Orthopedic spinal consult. Start muscle relaxers and steroids. Continue PPI DVT prophylaxis. Smoking cessation.. We will obtain echo for cardiac clearance, consult Cardiology for clearance, we will plan for spine surgery per Dr. Estrada Plan discussed with: Patient My Orders My Orders Orders - KATJA BRAVO Procedure Category Date Status Time *Consult Dr. Hancock CONS 10/18/24 Transmitted 10:55 Date of Service: Oct 18, 2024 Billing Provider: HOUSTON LIN MD Common Visit Codes: [id number] INP/OBS CARE (MOD) KATJA BRAVO Oct 18, 2024 18:10
--- NOTE | 2024-10-18 19:12 | DVHINCON2 ---
Date of service: Oct 18, 2024 Referring Physician Shayan Dorsey NP Reason for Consultation Cardiac Pre-Operative Risk Stratification History of Present Illness This is a 69-year old male who initially presented (10/15/2024) with progressive bilateral lower extremity weakness over the course of the past 2 months subsequently found to have both spinal canal and neuroforaminal stenosis involving the spine which patient underwent evaluation by Spinal Surgery with recommendation to pursue surgical intervention. Cardiology services have now been involved for cardiac pre-operative risk stratification should the patient undergoing plan of spinal surgery. Past Medical History Past medical history reports current tobacco use as well as previous history of methamphetamine use Past Surgical History Reviewed Family History: Patient reports no known family medical history. Allergies: Coded Allergies: NO KNOWN ALLERGIES (Unverified , 10/15/24) Home Meds No Active Prescriptions or Reported Meds Review of Systems A 14-point review of systems is negative unless otherwise noted above Vital Signs Vital Signs Date Time Temp Pulse Resp B/P (MAP) Pulse Ox O2 Delivery O2 Flow Rate FiO2 10/18/24 17:00 98.3 75 16 118/80 (93) 92 98.3 10/18/24 08:00 Room Air* 0 21 Physical Exam Heart: S1 and S2 regular. The patient is in sinus rhythm. Lungs:Clear to auscultation Abdomen: Benign. Extremities: Distal pulses palpable, 2+. No evidence for peripheral edema Labs/Diagnostic Data Labs Test 10/16/24 10:52 10/16/24 10:00 10/15/24 14:44 Range/Units Anti-Nuclear Antibody Comment Comment . MARIA ELENA-1 Antibody <0.2 0.0-0.9 AI SS-A/Ro Antibody <0.2 0.0-0.9 AI SS-B/La Antibody <0.2 0.0-0.9 AI Sm Antibody <0.2 0.0-0.9 AI [facility] ASSISTANT Antibody <0.2 0.0-0.9 AI Scl-70 (Scleroderma) Antibody <0.2 0.0-0.9 AI Anti-Double Strand DNA Antibody 1 0-9 IU/mL Chromatin Antibody <0.2 0.0-0.9 AI Centromere B Antibody <0.2 0.0-0.9 AI White Blood Count 8.8 4.4-10.8 10^3/uL Red Blood Count 5.71 4.5-5.90 10^6/uL Hemoglobin 17.9 H 13.5-17.5 g/dL Hematocrit 52.0 41.0-53.0 % Mean Corpuscular Volume 91.0 80.0-100.0 fL Mean Corpuscular Hemoglobin 31.3 28.0-32.0 pg Mean Corpuscular Hemoglobin Concent 34.4 32.0-36.0 g/dL Red Cell Distribution Width 13.8 11.8-14.3 % Platelet Count 251 140-450 10^3/uL Mean Platelet Volume 8.0 6.9-10.8 fL Neutrophils (%) (Auto) 74.0 37.0-80.0 % Lymphocytes (%) (Auto) 12.9 10.0-50.0 % Monocytes (%) (Auto) 11.5 0.0-12.0 % Eosinophils (%) (Auto) 1.1 0.0-7.0 % Basophils (%) (Auto) 0.5 0.0-2.0 % Neutrophils # (Auto) 6.5 1.6-8.6 10 ^3/uL Lymphocytes # (Auto) 1.1 0.4-5.4 10 ^3/uL Monocytes # (Auto) 1.0 0-1.3 10 ^3/uL Eosinophils # (Auto) 0.1 0-0.8 10 ^3/uL Basophils # (Auto) 0 0-0.2 10 ^3/uL Nucleated Red Blood Cells 0.0 % Erythrocyte Sedimentation Rate 4 0-20 mm/hr Prothrombin Time 11.3 9.3-11.8 sec Prothrombin Time INR 1.07 0.9-1.15 Sodium Level 141 136-145 mmol/L Potassium Level 4.3 3.5-5.1 mmol/L Chloride Level 106 98-107 mmol/L Carbon Dioxide Level 26 20-31 mmol/L Anion Gap 9 5-15 Blood Urea Nitrogen 17 9-23 mg/dL Creatinine 0.99 0.700-1.30 mg/dL Glomerular Filtration Rate Calc 82 >90 mL/min BUN/Creatinine Ratio 17.2 10.0-20.0 Serum Glucose 129 H 74-106 mg/dL Hemoglobin A1c 6.0 H <5.7 % A1C Calcium Level 9.7 8.7-10.4 mg/dL Total Bilirubin 0.7 0.2-1.0 mg/dL Aspartate Amino Transferase (AST) 41 H 13-40 U/L Alanine Aminotransferase (ALT) 54 H 7-40 U/L Alkaline Phosphatase 84 46-116 U/L Creatine Kinase 383 H 46-171 U/L C-Reactive Protein High Sensitivity 0.32 <1.0 mg/dL Total Protein 6.8 5.7-8.2 g/dL Albumin 4.3 3.2-4.8 g/dL Vitamin B12 Level 658 211-911 pg/mL Thyroid Stimulating Hormone (TSH) 2.48 0.55-4.78 uIU/mL Plasma/Serum Blood Alcohol 4.3 <10 mg/dL Plan/Recommendation ASSESSMENT: This is a 69-year old male who initially presented (10/15/2024) with progressive bilateral lower extremity weakness over the course of the past 2 months subsequently found to have both spinal canal and neuroforaminal stenosis involving the spine which patient underwent evaluation by Spinal Surgery with recommendation to pursue surgical intervention. Cardiology services have now been involved for cardiac pre-operative risk stratification should the patient undergoing plan of spinal surgery. Cardiac pre-operative risk stratification Neuroforaminal stenosis Spinal canal stenosis Pre-diabetes mellitus Transaminitis Methamphetamine abuse, history of Nicotine dependence Cardiac Suggestions for Management: Request for baseline EKG Request for 2D Echocardiogram Request for HS Troponin level Request for Chest x-ray Request for Lipid Panel Request for BNP level Await ordered UDS Proceed with close rate and rhythm surveillance Proceed with close hemodynamic surveillance Proceed with optimized blood pressure control Transfuse to sustain HGB level above 7.0 Sustain Magnesium level greater than 2.0 Sustain Potassium level greater than 4.0 Follow up renal function and electrolytes Counseled on importance of tobacco cessation Counseled on importance of drug cessation Management in telemetry Follow up medical economics consultant recommendations Will proceed to follow from a cardiac perspective Further recommendations per clinical progression All available diagnostic labs, EKG's, and images were personally reviewed Patient's status, findings, and plan of care was reviewed and discussed with supervising physician Dr. Hancock, who is in agreement with current plan of care. Plan of care discussed with and agreed upon by patient / primary RN Prognosis: Guarded Thank you for allowing me to participate in the care of this patient. Further recommendations based on patients clinical course and progression, primary attending, and other consultants. Will continue to follow with primary attending. If you have any questions or concerns, please do not hesitate to contact me. A total of 75 minutes was spent reviewing the patient record, examining the patient, making a diagnostic and therapeutic plan, discussing this plan with medical personnel, following up on diagnostic studies and following the patient for clinical stability excluding any and all procedures. At least 50% of this time was spent in direct, [id number] contact. Plan discussed with: Patient (Patient and Primary RN ) CHIRAG BRICENO Oct 18, 2024 19:12
[2024-10-18 20:50] LABS: Triglycerides 122 mg/dL (< 150)
[2024-10-18 20:51] LABS: LDL Cholesterol 59 mg/dL (< 100)
[2024-10-18 20:52] LABS: Cholesterol 132 mg/dL (< 200); HDL Cholesterol 60 mg/dL (40-59)
[2024-10-18 21:00] VITALS: BP 138/84; PULSE 94; RESP 17; TEMP 98.1; O2SAT 100
[2024-10-19] VITALS (7 sets, daily range): BP systolic 105–141; BP diastolic 72–91; PULSE 64–92; RESP 17–20; TEMP 97.5–98.9; O2SAT 93–100
--- NOTE | 2024-10-19 06:24 | DVHPN2 ---
Progress Note - Dictate Date Seen: Oct 19, 2024 Medical Necessity Reason Pt with a Central, PICC or Fol: No Subjective Patient seen and examined at the bedside within telemetry. Chart reviewed. vital signs Vital Sign Date Time Temp Pulse Resp B/P (MAP) Pulse Ox O2 Delivery O2 Flow Rate FiO2 10/19/24 05:00 97.5 64 17 112/75 (87) 93 97.5 10/18/24 20:00 Room Air* 0 21 Total Intake and Output 10/18/24 10/18/24 10/19/24 15:00 23:00 07:00 Intake Total 240 ml 100 ml Output Total 650 ml 410 ml 550 ml Balance -650 ml -170 ml -450 ml medications Current Medications Medications Dose Ordered Sig/Bob Route Start Time Stop Time Status Last Admin Dose Admin Acetaminophen/ Hydrocodone Bitart 1 tab Q4HPRN PRN PO 10/15/24 21:30 Gabapentin 300 mg BID PO 10/15/24 22:00 10/18/24 21:00 300 MG Enoxaparin Sodium 40 mg DAILY SC 10/16/24 10:00 10/18/24 08:17 40 MG Famotidine 20 mg DAILY PO 10/16/24 10:00 10/18/24 08:17 20 MG Carisoprodol 350 mg TID PO 10/16/24 14:00 10/19/24 05:16 350 MG Prednisone 60 mg DAILY PO 10/16/24 11:00 10/18/24 08:17 60 MG laboratory and microbiology Laboratory Tests 10/16/24 10:00 Test 10/16/24 10:00 Range/Units Serum Glucose 129 H 74-106 mg/dL Assessment/Plan ASSESSMENT: This is a 69-year old male who initially presented (10/15/2024) with progressive bilateral lower extremity weakness over the course of the past 2 months subsequently found to have both spinal canal and neuroforaminal stenosis involving the spine which patient underwent evaluation by Spinal Surgery with recommendation to pursue surgical intervention. Cardiology services have now been involved for cardiac pre-operative risk stratification should the patient undergoing plan of spinal surgery. HS troponin: 4 LDL: 59 A1C: 6.0 BNP: 20.16 Chest x-ray revealed: IMPRESSION: No acute cardiopulmonary disease. Cardiac pre-operative risk stratification Neuroforaminal stenosis Spinal canal stenosis Pre-diabetes mellitus Transaminitis Methamphetamine abuse, history of Nicotine dependence Cardiac Suggestions for Management: Awaiting requested baseline EKG Awaiting request 2D Echocardiogram Await ordered UDS Risk stratification dependent on the above ordered findings Proceed with close rate and rhythm surveillance Proceed with close hemodynamic surveillance Proceed with optimized blood pressure control Transfuse to sustain HGB level above 7.0 Sustain Magnesium level greater than 2.0 Sustain Potassium level greater than 4.0 Follow up renal function and electrolytes Counseled on importance of tobacco cessation Counseled on importance of drug cessation Management in telemetry Follow up merchandising consultant recommendations Will proceed to follow from a cardiac perspective Further recommendations per clinical progression All available diagnostic labs, EKG's, and images were personally reviewed Patient's status, findings, and plan of care was reviewed and discussed with supervising physician Dr. Hancock, who is in agreement with current plan of care. Plan of care discussed with and agreed upon by patient / primary RN Prognosis: Guarded Thank you for allowing me to participate in the care of this patient. Further recommendations based on patients clinical course and progression, primary attending, and other consultants. Will continue to follow with primary attending. If you have any questions or concerns, please do not hesitate to contact me. A total of 75 minutes was spent reviewing the patient record, examining the patient, making a diagnostic and therapeutic plan, discussing this plan with medical personnel, following up on diagnostic studies and following the patient for clinical stability excluding any and all procedures. At least 50% of this time was spent in direct, [id number] contact. Plan discussed with: Other (Patient and Primary RN ) CHIRAG BRICENO Oct 19, 2024 06:24
--- NOTE | 2024-10-19 08:36 | DVH ---
CHEST RADIOGRAPH Indication: pre op, pain Technique: Single frontal view of the chest was obtained Comparison: None FINDINGS: Lines and Tubes: None Lungs: No focal consolidation. Pleura: No effusion. No pneumothorax. Cardiomediastinal contours: Unremarkable Bones: No acute osseous abnormality. IMPRESSION: No acute cardiopulmonary disease.
--- NOTE | 2024-10-19 09:37 | ECG ---
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
--- NOTE | 2024-10-19 09:41 | DVHPN2 ---
Progress Note Date Seen: Oct 19, 2024 Medical Necessity Reason Pt with a Central, PICC or Fol: No Subjective Patient reports: No new complaints Objective vital signs Vital Sign Date Time Temp Pulse Resp B/P (MAP) Pulse Ox O2 Delivery O2 Flow Rate FiO2 10/19/24 08:30 97.7 64 17 116/72 (87) 95 97.7 10/18/24 20:00 Room Air* 0 21 Total Intake and Output 10/18/24 10/18/24 10/19/24 15:00 23:00 07:00 Intake Total 240 ml 100 ml Output Total 650 ml 410 ml 550 ml Balance -650 ml -170 ml -450 ml medications Current Medications Medications Dose Ordered Sig/Bob Route Start Time Stop Time Status Last Admin Dose Admin Acetaminophen/ Hydrocodone Bitart 1 tab Q4HPRN PRN PO 10/15/24 21:30 Gabapentin 300 mg BID PO 10/15/24 22:00 10/19/24 08:55 300 MG Enoxaparin Sodium 40 mg DAILY SC 10/16/24 10:00 10/19/24 08:54 40 MG Famotidine 20 mg DAILY PO 10/16/24 10:00 10/19/24 08:54 20 MG Carisoprodol 350 mg TID PO 10/16/24 14:00 10/19/24 05:16 350 MG Prednisone 60 mg DAILY PO 10/16/24 11:00 10/19/24 08:55 60 MG Examination: GENERAL:Normal, LUNGS:Normal, CVS:Normal, ABDOMEN:Normal, SKIN:Normal, NEURO:Normal laboratory and microbiology Test 10/19/24 09:25 Range/Units Serum Glucose Pending Labs and/or images reviewed: Labs reviewed by me, Image(s) reviewed by me Problem List/Assessment/Plan Problem List/Assessment/Plan - Lower extremity weakness Orthopedic spinal consult, surgery consult, monitoring -Severe lumbar spinal stenosis Orthopedic spinal consult, surgeon consult, muscle relaxants, steroids, medication, monitoring -Gait disturbance Monitoring -Smoker Smoking cessation Assessment/Plan Subjective Patient is awake and alert. Objective Patient was admitted for lower extremity weakness. CT imaging of lumbar shows severe lumbar stenosis. Orthopedic surgeon was consulted. Patient is a smoker. 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 Case discussed with Debo FERNANDEZ we will plan for spine surgery, however needs cardiac clearance Plan Orthopedic spinal consult. Start muscle relaxers and steroids. Continue PPI DVT prophylaxis. Smoking cessation.. We will obtain echo for cardiac clearance, consult Cardiology for clearance, we will plan for spine surgery per Dr. Estrada Plan discussed with: Patient My Orders My Orders Orders - KATJA BRAVO Procedure Category Date Status Time *Consult Dr. Hancock CONS 10/18/24 Transmitted 10:55 Complete Blood Count LAB 10/19/24 In Process 05:00 Basic Metabolic Panel LAB 10/19/24 In Process 05:00 Date of Service: Oct 19, 2024 Billing Provider: HOUSTON LIN MD Common Visit Codes: [id number] INP/OBS CARE (MOD) KATJA BRAVO Oct 19, 2024 09:41
[2024-10-19 10:16] LABS: Basophils # (auto) 0.1 10 ^3/uL (0-0.2); Basophils % (auto) 0.5 % (0.0-2.0); Eosinophils # (auto) 0.1 10 ^3/uL (0-0.8); Eosinophils % (auto) 0.6 % (0.0-7.0); Hematocrit 47.9 % (41.0-53.0); Hemoglobin 16.1 g/dL (13.5-17.5); Lymphocytes # (auto) 2.2 10 ^3/uL (0.4-5.4); Lymphocytes % (auto) 19.6 % (10.0-50.0); Mean Corpuscular Hemoglobin 31.1 pg (28.0-32.0); Mean Corpuscular Hgb Conc. 33.7 g/dL (32.0-36.0); Mean Corpuscular Volume 92.3 fL (80.0-100.0); Monocytes # (auto) 0.9 10 ^3/uL (0-1.3); Neutrophils # (auto) 8.1 10 ^3/uL (1.6-8.6); Neutrophils % (auto) 71.3 % (37.0-80.0); Nucleated Red Blood Cells % 0.1 %; Platelet Count (auto) 237 10^3/uL (140-450); Red Blood Cells 5.19 10^6/uL (4.5-5.90); White Blood Cell 11.3 10^3/uL (4.4-10.8)
[2024-10-19 10:27] LABS: Anion Gap 8 (5-15); Carbon Dioxide 28 mmol/L (20-31); Chloride 106 mmol/L (98-107); Potassium 3.6 mmol/L (3.5-5.1); Sodium 142 mmol/L (136-145)
[2024-10-19 10:29] LABS: Calcium 9.6 mg/dL (8.7-10.4)
[2024-10-19 10:34] LABS: Blood Urea Nitrogen 20 mg/dL (9-23)
[2024-10-19 10:36] LABS: Glucose 146 mg/dL (74-106)
[2024-10-19 18:31] LABS: Urine Bacteria None Seen /hpf (None Seen)
[2024-10-19 18:45] LABS: Urine Blood Negative /uL (Negative); Urine Clarity Clear (Clear); Urine Color Light-Yellow (Yellow); Urine Protein, UAD Negative (Negative); Urine Squamous Epithelial Cell FEW /hpf (<5); Urine Urobilinogen Normal (Negative); Urine WBC 1 /hpf (0 - 3)
[2024-10-20] VITALS (7 sets, daily range): BP systolic 106–139; BP diastolic 76–98; PULSE 57–102; RESP 17–20; TEMP 97.5–98.3; O2SAT 90–100
--- NOTE | 2024-10-20 08:21 | DVHSR ---
APPROVED REPORT EXAM: Two-dimensional and M-mode echocardiogram with Doppler and color Doppler. Blood Pressure: 115/77 mmHg INDICATION R/O CHF RISK FACTORS Height: 6'0", Weight: 188 DIMENSIONS LVDd4.4 (3.8-5.7cm)LA (2D)3.7 (1.9-4.0cm)Aortic Root3.9 (2.0-3.7cm) LVDs2.9 (2.5-4.0cm)LA (MM) (1.9-4.0cm)Aortic Cusp Exc1.9 (1.5-2.0cm) EF (%) 63.0 (55-70%)Rt. Atrium4.0 (1.9-4.0cm)Asc. Aorta cm IVSd1.1 (0.7-1.1cm)RV (D)4.4 (1.8-2.4cm) PWd0.9 (0.7-1.1cm) Mitral Valve MitralMitral Stenosis E wave0.60m/sMV Mean GR.mmHg A wave0.88m/sMV Peak GR.mmHg E/A ratio0.72D MVAcm2 DECEL [id number] 1/2 Timems Aortic Valve Aortic ValveAortic Stenosis V10.75m/Estefany Mean GR.5mmHg V21.54m/Estefany Peak GR.9mmHg LVOT Diameter2.3 (1.8-2.4cm)Doppler AVA2.02cm2 Pulmonic Valve V20.85m/s Conclusion Left ventricle: Left ventricle was normal sized with normal systolic function. LVEF was 65-70%. Th ere was no gross wall motion abnormality. Right ventricle: Right ventricle was mildly dilated with normal systolic function. Both atria were normal sized. Aortic valve: Aortic valve was trileaflet. There was no aortic insufficiency/stenosis. There was tr ivial mitral regurgitation. There was no tricuspid regurgitation. Pulmonary valve was not well visu alized. As there was no good tricuspid regurgitation jet, right ventricular systolic pressure could not be es timated. There was no pericardial effusion. IVC was not well visualized. There was no echocardiogr aphic evidence for pulmonary hypertension.
--- NOTE | 2024-10-20 10:51 | ECG ---
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
--- NOTE | 2024-10-20 10:52 | DVHPN2 ---
Progress Note - Dictate Date Seen: Oct 20, 2024 Medical Necessity Reason Pt with a Central, PICC or Fol: No vital signs Vital Sign Date Time Temp Pulse Resp B/P (MAP) Pulse Ox O2 Delivery O2 Flow Rate FiO2 10/20/24 08:00 98.2 68 18 131/84 (100) 92 98.2 10/19/24 20:00 Room Air* 0 21 Total Intake and Output 10/19/24 10/19/24 10/20/24 15:00 23:00 07:00 Intake Total 480 ml 800 ml Output Total 501 ml 1000 ml Balance -21 ml -200 ml medications Current Medications Medications Dose Ordered Sig/Bob Route Start Time Stop Time Status Last Admin Dose Admin Acetaminophen/ Hydrocodone Bitart 1 tab Q4HPRN PRN PO 10/15/24 21:30 Gabapentin 300 mg BID PO 10/15/24 22:00 10/20/24 09:47 300 MG Enoxaparin Sodium 40 mg DAILY SC 10/16/24 10:00 10/20/24 09:48 40 MG Famotidine 20 mg DAILY PO 10/16/24 10:00 10/20/24 09:47 20 MG Carisoprodol 350 mg TID PO 10/16/24 14:00 10/20/24 05:15 350 MG Prednisone 60 mg DAILY PO 10/16/24 11:00 10/20/24 09:47 60 MG laboratory and microbiology Laboratory Tests 10/19/24 09:25 Test 10/19/24 09:25 Range/Units Serum Glucose 146 H 74-106 mg/dL Assessment/Plan ASSESSMENT: This is a 69-year old male who initially presented (10/15/2024) with progressive bilateral lower extremity weakness over the course of the past 2 months subsequently found to have both spinal canal and neuroforaminal stenosis involving the spine which patient underwent evaluation by Spinal Surgery with recommendation to pursue surgical intervention. Cardiology services have now been involved for cardiac pre-operative risk stratification should the patient undergoing plan of spinal surgery. HS troponin: 4 LDL: 59 A1C: 6.0 BNP: 20.16 Chest x-ray revealed: IMPRESSION: No acute cardiopulmonary disease. EKG revealed: NSR, LAD, no specific ST T changes Echocardiogram reported: Left ventricle: Left ventricle was normal sized with normal systolic function. LVEF was 65-70%. There was no gross wall motion abnormality. Right ventricle: Right ventricle was mildly dilated with normal systolic function. Both atria were normal sized. Aortic valve: Aortic valve was trileaflet. There was no aortic insufficiency/stenosis. There was trivial mitral regurgitation. There was no tricuspid regurgitation. Pulmonary valve was not well visualized. As there was no good tricuspid regurgitation jet, right ventricular systolic pressure could not be estimated. There was no pericardial effusion. IVC was not well visualized. There was no echocardiographic evidence for pulmonary hypertension. Cardiac pre-operative risk stratification Neuroforaminal stenosis Spinal canal stenosis Pre-diabetes mellitus Transaminitis Methamphetamine abuse, history of Nicotine dependence Cardiac Suggestions for Management: Cardiac curtis, patient is moderate risk patient for moderate risk surgery. Cardiac curtis, you can proceed with surgery under appropriate intra and post operative hemodynamic monitoring. Avoid Hypotension. Risk stratification dependent on the above ordered findings Proceed with close rate and rhythm surveillance Proceed with close hemodynamic surveillance Proceed with optimized blood pressure control Transfuse to sustain HGB level above 7.0 Sustain Magnesium level greater than 2.0 Sustain Potassium level greater than 4.0 Follow up renal function and electrolytes Counseled on importance of tobacco cessation Counseled on importance of drug cessation Management in telemetry Follow up product support consultant recommendations Will proceed to follow from a cardiac perspective Further recommendations per clinical progression All available diagnostic labs, EKG's, and images were personally reviewed Plan of care discussed with and agreed upon by patient / primary RN Prognosis: Guarded Thank you for allowing me to participate in the care of this patient. Further recommendations based on patients clinical course and progression, primary attending, and other consultants. Will continue to follow with primary attending. If you have any questions or concerns, please do not hesitate to contact me. A total of 55 minutes was spent reviewing the patient record, examining the patient, making a diagnostic and therapeutic plan, discussing this plan with medical personnel, following up on diagnostic studies and following the patient for clinical stability excluding any and all procedures. At least 50% of this time was spent in direct, [id number] contact. Plan discussed with: Patient, Other (nurse) RHONDA LICONA MD Oct 20, 2024 10:52
--- NOTE | 2024-10-20 12:35 | DVHPN2 ---
Progress Note - Dictate Date Seen: Oct 20, 2024 Medical Necessity Reason Pt with a Central, PICC or Fol: No vital signs Vital Sign Date Time Temp Pulse Resp B/P (MAP) Pulse Ox O2 Delivery O2 Flow Rate FiO2 10/20/24 08:00 98.2 68 18 131/84 (100) 92 98.2 10/19/24 20:00 Room Air* 0 21 Total Intake and Output 10/19/24 10/19/24 10/20/24 15:00 23:00 07:00 Intake Total 480 ml 800 ml Output Total 501 ml 1000 ml Balance -21 ml -200 ml medications Current Medications Medications Dose Ordered Sig/Bob Route Start Time Stop Time Status Last Admin Dose Admin Acetaminophen/ Hydrocodone Bitart 1 tab Q4HPRN PRN PO 10/15/24 21:30 Gabapentin 300 mg BID PO 10/15/24 22:00 10/20/24 09:47 300 MG Enoxaparin Sodium 40 mg DAILY SC 10/16/24 10:00 10/20/24 09:48 40 MG Famotidine 20 mg DAILY PO 10/16/24 10:00 10/20/24 09:47 20 MG Carisoprodol 350 mg TID PO 10/16/24 14:00 10/20/24 05:15 350 MG Prednisone 60 mg DAILY PO 10/16/24 11:00 10/20/24 09:47 60 MG objective General Appearance: alert, no distress HEENT: EOMI, PERRLA, normal external inspect of ears, no icterus, no nasal drainage Neck: no carotid bruit, no jugular venous distention (JVD), no lymphadenopathy Chest: normal thorax Respiratory: clear to auscultation, normal air movement Cardiovascular: regular rate and rhythm, no diastolic murmur, no jugular venous distention (JVD), no rub, no systolic murmur Abdominal: soft, no hepatomegaly, no mass, no splenomegaly, no tenderness Musculoskeletal: no joint tenderness, no swelling Extremities: normal pulses, no calf tenderness, no clubbing, no cyanosis, no edema Skin: no bruising, no jaundice, no rash Neurological: alert, No focal deficit laboratory and microbiology Laboratory Tests 10/19/24 09:25 Test 10/19/24 09:25 Range/Units Serum Glucose 146 H 74-106 mg/dL Problem List - Lower extremity weakness Orthopedic spinal consult, surgery consult, monitoring -Severe lumbar spinal stenosis Orthopedic spinal consult, surgeon consult, muscle relaxants, steroids, medication, monitoring -Gait disturbance Monitoring -Smoker Smoking cessation Assessment/Plan Subjective Patient is awake and alert. Objective Patient states he has had some minimal increased movement in regards to being able to stand and take several steps since admission. Patient states he had a fall several weeks ago. Patient had severe pain to his lower back. Imaging shows severe lumbar spinal stenosis. Patient has gait disturbance. Patient was seen by orthopedic spinal surgeon. Ejection fraction is 65 to 70%. Patient is tentatively scheduled for surgery tomorrow, pending cardiac clearance. Plan: Continue current treatment. Plan for spinal surgery if cleared by cardiology in a.m. Plan discussed with: Patient, Other OLGA LIDIA MEDINA NP Oct 20, 2024 12:35
[2024-10-21] VITALS (8 sets, daily range): BP systolic 110–131; BP diastolic 73–89; PULSE 65–88; RESP 17–20; TEMP 97.5–98.3; O2SAT 89–98
--- NOTE | 2024-10-21 07:33 | DVHPN2 ---
Progress Note - Dictate Date Seen: Oct 21, 2024 Medical Necessity Reason Pt with a Central, PICC or Fol: No vital signs Vital Sign Date Time Temp Pulse Resp B/P (MAP) Pulse Ox O2 Delivery O2 Flow Rate FiO2 10/21/24 05:00 97.9 66 17 112/79 (90) 93 97.9 10/20/24 20:00 Room Air* 0 21 Total Intake and Output 10/20/24 10/20/24 10/21/24 15:00 23:00 07:00 Intake Total 700 ml 0 ml Balance 700 ml 0 ml medications Current Medications Medications Dose Ordered Sig/Bob Route Start Time Stop Time Status Last Admin Dose Admin Acetaminophen/ Hydrocodone Bitart 1 tab Q4HPRN PRN PO 10/15/24 21:30 Gabapentin 300 mg BID PO 10/15/24 22:00 10/20/24 21:06 300 MG Enoxaparin Sodium 40 mg DAILY SC 10/16/24 10:00 10/20/24 09:48 40 MG Famotidine 20 mg DAILY PO 10/16/24 10:00 10/20/24 09:47 20 MG Carisoprodol 350 mg TID PO 10/16/24 14:00 10/21/24 05:29 350 MG Prednisone 60 mg DAILY PO 10/16/24 11:00 10/20/24 09:47 60 MG laboratory and microbiology Laboratory Tests 10/19/24 09:25 Test 10/19/24 09:25 Range/Units Serum Glucose 146 H 74-106 mg/dL Assessment/Plan ASSESSMENT: This is a 69-year old male who initially presented (10/15/2024) with progressive bilateral lower extremity weakness over the course of the past 2 months subsequently found to have both spinal canal and neuroforaminal stenosis involving the spine which patient underwent evaluation by Spinal Surgery with recommendation to pursue surgical intervention. Cardiology services have now been involved for cardiac pre-operative risk stratification should the patient undergoing plan of spinal surgery. HS troponin: 4 LDL: 59 A1C: 6.0 BNP: 20.16 Chest x-ray revealed: IMPRESSION: No acute cardiopulmonary disease. EKG revealed: NSR, LAD, no specific ST T changes Echocardiogram reported: Left ventricle: Left ventricle was normal sized with normal systolic function. LVEF was 65-70%. There was no gross wall motion abnormality. Right ventricle: Right ventricle was mildly dilated with normal systolic function. Both atria were normal sized. Aortic valve: Aortic valve was trileaflet. There was no aortic insufficiency/stenosis. There was trivial mitral regurgitation. There was no tricuspid regurgitation. Pulmonary valve was not well visualized. As there was no good tricuspid regurgitation jet, right ventricular systolic pressure could not be estimated. There was no pericardial effusion. IVC was not well visualized. There was no echocardiographic evidence for pulmonary hypertension. Cardiac pre-operative risk stratification Neuroforaminal stenosis Spinal canal stenosis Pre-diabetes mellitus Transaminitis Methamphetamine abuse, history of Nicotine dependence Cardiac Suggestions for Management: Cardiac curtis, patient is moderate risk patient for moderate risk surgery. Cardiac curtis, you can proceed with surgery under appropriate intra and post operative hemodynamic monitoring. Avoid Hypotension. Risk stratification dependent on the above ordered findings Proceed with close rate and rhythm surveillance Proceed with close hemodynamic surveillance Proceed with optimized blood pressure control Transfuse to sustain HGB level above 7.0 Sustain Magnesium level greater than 2.0 Sustain Potassium level greater than 4.0 Follow up renal function and electrolytes Counseled on importance of tobacco cessation Counseled on importance of drug cessation Management in telemetry Follow up customer care consultant recommendations Will proceed to follow from a cardiac perspective Further recommendations per clinical progression All available diagnostic labs, EKG's, and images were personally reviewed Plan of care discussed with and agreed upon by patient / primary RN Prognosis: Guarded Thank you for allowing me to participate in the care of this patient. Further recommendations based on patients clinical course and progression, primary attending, and other consultants. Will continue to follow with primary attending. If you have any questions or concerns, please do not hesitate to contact me. A total of 55 minutes was spent reviewing the patient record, examining the patient, making a diagnostic and therapeutic plan, discussing this plan with medical personnel, following up on diagnostic studies and following the patient for clinical stability excluding any and all procedures. At least 50% of this time was spent in direct, [id number] contact. Plan discussed with: Other (nurse) RHONDA LICONA MD Oct 21, 2024 07:33
--- NOTE | 2024-10-21 12:46 | DVHPN2 ---
Progress Note - Dictate Date Seen: Oct 21, 2024 Medical Necessity Reason Pt with a Central, PICC or Fol: No vital signs Vital Sign Date Time Temp Pulse Resp B/P (MAP) Pulse Ox O2 Delivery O2 Flow Rate FiO2 10/21/24 09:03 98.0 65 20 110/77 (88) 98 98.0 10/21/24 08:00 Room Air* 0 21 Total Intake and Output 10/20/24 10/20/24 10/21/24 15:00 23:00 07:00 Intake Total 700 ml 0 ml Balance 700 ml 0 ml medications Current Medications Medications Dose Ordered Sig/Bob Route Start Time Stop Time Status Last Admin Dose Admin Acetaminophen/ Hydrocodone Bitart 1 tab Q4HPRN PRN PO 10/15/24 21:30 Gabapentin 300 mg BID PO 10/15/24 22:00 10/21/24 10:21 300 MG Enoxaparin Sodium 40 mg DAILY SC 10/16/24 10:00 10/21/24 10:21 40 MG Famotidine 20 mg DAILY PO 10/16/24 10:00 10/21/24 10:21 20 MG Carisoprodol 350 mg TID PO 10/16/24 14:00 10/21/24 05:29 350 MG Prednisone 60 mg DAILY PO 10/16/24 11:00 10/21/24 10:21 60 MG objective General Appearance: alert, no distress HEENT: EOMI, PERRLA, normal external inspect of ears, no icterus, no nasal drainage Neck: no carotid bruit, no jugular venous distention (JVD), no lymphadenopathy Chest: normal thorax Respiratory: clear to auscultation, normal air movement Cardiovascular: regular rate and rhythm, no diastolic murmur, no jugular venous distention (JVD), no rub, no systolic murmur Abdominal: soft, no hepatomegaly, no mass, no splenomegaly, no tenderness Musculoskeletal: no joint tenderness, no swelling Extremities: normal pulses, no calf tenderness, no clubbing, no cyanosis, no edema Skin: no bruising, no jaundice, no rash Neurological: alert, No focal deficit laboratory and microbiology Laboratory Tests 10/19/24 09:25 Test 10/19/24 09:25 Range/Units Serum Glucose 146 H 74-106 mg/dL Problem List - Lower extremity weakness Orthopedic spinal consult, surgery consult, monitoring -Severe lumbar spinal stenosis Orthopedic spinal consult, surgeon consult, muscle relaxants, steroids, medication, monitoring -Gait disturbance Monitoring -Smoker Smoking cessation Assessment/Plan Subjective Patient is awake and alert. Objective Patient surgery was canceled today due to him eating. Patient was cardiac clearance and was moderate risk for surgery. UA was negative. Patient is pending surgery for severe spinal stenosis. Plan Continue current treatment. Patient is rescheduled for surgery tomorrow. Continue pain medication as needed. Plan discussed with: Patient, Other OLGA LIDIA MEDINA NP Oct 21, 2024 12:46
[2024-10-22] VITALS (8 sets, daily range): BP systolic 111–126; BP diastolic 72–88; PULSE 52–84; RESP 17–19; TEMP 97.7–98.9; O2SAT 90–97
--- NOTE | 2024-10-22 07:34 | DVHPN2 ---
Progress Note - Dictate Date Seen: Oct 22, 2024 Medical Necessity Reason Pt with a Central, PICC or Fol: No vital signs Vital Sign Date Time Temp Pulse Resp B/P (MAP) Pulse Ox O2 Delivery O2 Flow Rate FiO2 10/22/24 05:00 98.0 64 17 111/72 (85) 95 98.0 10/21/24 20:00 Room Air* 0 21 Total Intake and Output 10/21/24 10/21/24 10/22/24 15:00 23:00 07:00 Intake Total 950 ml 0 ml Output Total 400 ml 800 ml Balance 550 ml -800 ml medications Current Medications Medications Dose Ordered Sig/Bob Route Start Time Stop Time Status Last Admin Dose Admin Acetaminophen/ Hydrocodone Bitart 1 tab Q4HPRN PRN PO 10/15/24 21:30 Gabapentin 300 mg BID PO 10/15/24 22:00 10/21/24 21:07 300 MG Enoxaparin Sodium 40 mg DAILY SC 10/16/24 10:00 10/21/24 10:21 40 MG Famotidine 20 mg DAILY PO 10/16/24 10:00 10/21/24 10:21 20 MG Carisoprodol 350 mg TID PO 10/16/24 14:00 10/22/24 05:42 350 MG Prednisone 60 mg DAILY PO 10/16/24 11:00 10/21/24 10:21 60 MG laboratory and microbiology Laboratory Tests 10/19/24 09:25 Test 10/19/24 09:25 Range/Units Serum Glucose 146 H 74-106 mg/dL Assessment/Plan ASSESSMENT: This is a 69-year old male who initially presented (10/15/2024) with progressive bilateral lower extremity weakness over the course of the past 2 months subsequently found to have both spinal canal and neuroforaminal stenosis involving the spine which patient underwent evaluation by Spinal Surgery with recommendation to pursue surgical intervention. Cardiology services have now been involved for cardiac pre-operative risk stratification should the patient undergoing plan of spinal surgery. HS troponin: 4 LDL: 59 A1C: 6.0 BNP: 20.16 Chest x-ray revealed: IMPRESSION: No acute cardiopulmonary disease. EKG revealed: NSR, LAD, no specific ST T changes Echocardiogram reported: Left ventricle: Left ventricle was normal sized with normal systolic function. LVEF was 65-70%. There was no gross wall motion abnormality. Right ventricle: Right ventricle was mildly dilated with normal systolic function. Both atria were normal sized. Aortic valve: Aortic valve was trileaflet. There was no aortic insufficiency/stenosis. There was trivial mitral regurgitation. There was no tricuspid regurgitation. Pulmonary valve was not well visualized. As there was no good tricuspid regurgitation jet, right ventricular systolic pressure could not be estimated. There was no pericardial effusion. IVC was not well visualized. There was no echocardiographic evidence for pulmonary hypertension. Cardiac pre-operative risk stratification Neuroforaminal stenosis Spinal canal stenosis Pre-diabetes mellitus Transaminitis Methamphetamine abuse, history of Nicotine dependence Cardiac Suggestions for Management: Cardiac curtis, patient is moderate risk patient for moderate risk surgery. Cardiac curtis, you can proceed with surgery under appropriate intra and post operative hemodynamic monitoring. Avoid Hypotension. Risk stratification dependent on the above ordered findings Proceed with close rate and rhythm surveillance Proceed with close hemodynamic surveillance Proceed with optimized blood pressure control Transfuse to sustain HGB level above 7.0 Sustain Magnesium level greater than 2.0 Sustain Potassium level greater than 4.0 Follow up renal function and electrolytes Counseled on importance of tobacco cessation Counseled on importance of drug cessation Management in telemetry Follow up rewards consultant recommendations Will proceed to follow from a cardiac perspective Further recommendations per clinical progression All available diagnostic labs, EKG's, and images were personally reviewed Plan of care discussed with and agreed upon by patient / primary RN Prognosis: Guarded Thank you for allowing me to participate in the care of this patient. Further recommendations based on patients clinical course and progression, primary attending, and other consultants. Will continue to follow with primary attending. If you have any questions or concerns, please do not hesitate to contact me. A total of 55 minutes was spent reviewing the patient record, examining the patient, making a diagnostic and therapeutic plan, discussing this plan with medical personnel, following up on diagnostic studies and following the patient for clinical stability excluding any and all procedures. At least 50% of this time was spent in direct, [id number] contact. Dietary Evaluation Review Comments: 1) Continue current plan of care Expected Outcomes/Goals: F/U in 3-5 days Plan discussed with: Patient, Other (nurse) RHONDA LICONA MD Oct 22, 2024 07:34
--- NOTE | 2024-10-22 10:16 | DVHPN2 ---
Progress Note - Dictate Date Seen: Oct 22, 2024 Medical Necessity Reason Pt with a Central, PICC or Fol: No vital signs Vital Sign Date Time Temp Pulse Resp B/P (MAP) Pulse Ox O2 Delivery O2 Flow Rate FiO2 10/22/24 08:44 98.9 63 18 123/77 (92) 92 98.9 10/21/24 20:00 Room Air* 0 21 Total Intake and Output 10/21/24 10/21/24 10/22/24 15:00 23:00 07:00 Intake Total 950 ml 0 ml Output Total 400 ml 800 ml Balance 550 ml -800 ml medications Current Medications Medications Dose Ordered Sig/Bob Route Start Time Stop Time Status Last Admin Dose Admin Acetaminophen/ Hydrocodone Bitart 1 tab Q4HPRN PRN PO 10/15/24 21:30 Gabapentin 300 mg BID PO 10/15/24 22:00 10/22/24 09:45 300 MG Enoxaparin Sodium 40 mg DAILY SC 10/16/24 10:00 10/21/24 10:21 40 MG Famotidine 20 mg DAILY PO 10/16/24 10:00 10/22/24 09:45 20 MG Carisoprodol 350 mg TID PO 10/16/24 14:00 10/22/24 05:42 350 MG Prednisone 60 mg DAILY PO 10/16/24 11:00 10/22/24 09:46 60 MG objective General Appearance: alert, no distress HEENT: EOMI, PERRLA, normal external inspect of ears, no icterus, no nasal drainage Neck: no carotid bruit, no jugular venous distention (JVD), no lymphadenopathy Chest: normal thorax Respiratory: clear to auscultation, normal air movement Cardiovascular: regular rate and rhythm, no diastolic murmur, no jugular venous distention (JVD), no rub, no systolic murmur Abdominal: soft, no hepatomegaly, no mass, no splenomegaly, no tenderness Musculoskeletal: no joint tenderness, no swelling Extremities: normal pulses, no calf tenderness, no clubbing, no cyanosis, no edema Skin: no bruising, no jaundice, no rash Neurological: alert, No focal deficit laboratory and microbiology Laboratory Tests 10/19/24 09:25 Test 10/19/24 09:25 Range/Units Serum Glucose 146 H 74-106 mg/dL Problem List - Lower extremity weakness Orthopedic spinal consult, surgery consult, monitoring -Severe lumbar spinal stenosis Orthopedic spinal consult, surgeon consult, muscle relaxants, steroids, medication, monitoring -Gait disturbance Monitoring -Smoker Smoking cessation Assessment/Plan Subjective Patient is awake and alert. Objective RN called down to surgery and found that patient was rescheduled for surgery tomorrow. Patient was restarted on diet. Plan Continue current treatment. Patient scheduled for spinal surgery by Dr. Estrada in a.m. Continue physical therapy and pain medication as needed. Dietary Evaluation Review Comments: 1) Continue current plan of care Expected Outcomes/Goals: F/U in 3-5 days Plan discussed with: Patient, Other OLGA LIDIA MEDINA NP Oct 22, 2024 10:16
[2024-10-22 11:02] LABS: Partial Thromboplastin Time 25.4 SEC (24.5-34.5); Prothrombin Time 10.6 sec (9.3-11.8)
[2024-10-22 11:03] LABS: Basophils # (auto) 0.1 10 ^3/uL (0-0.2); Basophils % (auto) 0.5 % (0.0-2.0); Eosinophils # (auto) 0.1 10 ^3/uL (0-0.8); Eosinophils % (auto) 1.1 % (0.0-7.0); Hemoglobin 16.7 g/dL (13.5-17.5); Lymphocytes # (auto) 2.5 10 ^3/uL (0.4-5.4); Lymphocytes % (auto) 19.7 % (10.0-50.0); Mean Corpuscular Hgb Conc. 33.4 g/dL (32.0-36.0); Mean Corpuscular Volume 92.9 fL (80.0-100.0); Monocytes # (auto) 1.1 10 ^3/uL (0-1.3); Monocytes % (auto) 8.9 % (0.0-12.0); Neutrophils # (auto) 8.7 10 ^3/uL (1.6-8.6); Neutrophils % (auto) 69.8 % (37.0-80.0); Nucleated Red Blood Cells % 0.1 %; Platelet Count (auto) 275 10^3/uL (140-450); Red Blood Cells 5.39 10^6/uL (4.5-5.90); Red Cell Distribution Width 13.8 % (11.8-14.3); White Blood Cell 12.5 10^3/uL (4.4-10.8)
[2024-10-22 11:11] LABS: Albumin 4.1 g/dL (3.2-4.8); Alkaline Phosphatase 71 U/L (46-116); Anion Gap 8 (5-15); Aspartate Aminotransferase 29 U/L (13-40); BUN/Creatinine Ratio 20.2 (10.0-20.0); Blood Urea Nitrogen 19 mg/dL (9-23); Calcium 9.6 mg/dL (8.7-10.4); Carbon Dioxide 26 mmol/L (20-31); Chloride 105 mmol/L (98-107); Glucose 86 mg/dL (74-106); Potassium 3.8 mmol/L (3.5-5.1); Sodium 139 mmol/L (136-145)
[2024-10-22 11:12] LABS: Alanine Aminotransferase 87 U/L (7-40); Bilirubin, Total 0.4 mg/dL (0.2-1.0); Total Protein 6.5 g/dL (5.7-8.2)
--- NOTE | 2024-10-22 11:25 | PRN ---
Misceleneous Note Note Note Spoke to patient and confirmed he is on the OR schedule tomorrow, enforced no food after midnight tonight Pt verbalized understanding Yessi Castro Spine surgery [employer] for DR Josafat CASTRO,YESSI Jones [employer] T[employer] Oct 22, 2024 11:25
[2024-10-22] MEDS: HYDROcodone-ACET 5/325MG TAB PO PRN (20:18)
[2024-10-23 01:00] VITALS: BP 105/73; PULSE 59; RESP 18; TEMP 97.6; O2SAT 90
[2024-10-23 05:00] VITALS: BP 120/72; PULSE 64; RESP 20; TEMP 98.2; O2SAT 95
[2024-10-23] MEDS: DOXAPRAM HCL 20 MG/ML 20ML VIAL INJ IV ONE (06:40)
[2024-10-23] MEDS: ROCURONIUM 10MG/ML 10ML VIAL IV ONE (06:40)
[2024-10-23] MEDS: SUCCINYLCHOLINE CHLORIDE 20 MG/ML 10ML VIAL IV ONE (06:40)
[2024-10-23] MEDS ORDERED: KETAMINE 50mg/ML 1ml syringe ONE (06:45)
[2024-10-23] MEDS ORDERED: fentaNYL CITRATE 100 MCG/2 ML VL ONE (06:45)
[2024-10-23] MEDS ORDERED: SODIUM CHLORIDE LOCK 50 ML ONE (06:46)
[2024-10-23] MEDS ORDERED: MIDAZOLAM HCL 2MG/2ML 2ml VIAL (1mg/ml) ONE (06:46)
[2024-10-23] MEDS ORDERED: LIDOCAINE 2% TOPICAL JELLY 5 ML URJT TOP ONE (06:46)
[2024-10-23] MEDS ORDERED: MEPERIDINE HCL (25 MG/ML) 1ML VIAL ONE (06:46)
[2024-10-23] MEDS ORDERED: PROPOFOL 10 MG/ML 20 ML IV ONE ×3 (06:46→09:54)
[2024-10-23] MEDS ORDERED: LIDOCAINE 1% INJ PF 5ML AMP ONE (06:46)
[2024-10-23] MEDS: TRANEXAMIC ACID 20 ML ONE (06:50)
[2024-10-23] MEDS: ceFAZolin 2 GM/D5W100ml 100 ML IV ONE (06:51)
[2024-10-23] MEDS: VANCOMYCIN HCL 1000 MG VL ONE ×2 (06:51→08:38)
--- NOTE | 2024-10-23 07:07 | DVHPN2 ---
Progress Note - Dictate Date Seen: Oct 23, 2024 Medical Necessity Reason Pt with a Central, PICC or Fol: No vital signs Vital Sign Date Time Temp Pulse Resp B/P (MAP) Pulse Ox O2 Delivery O2 Flow Rate FiO2 10/23/24 05:00 98.2 64 20 120/72 (88) 95 98.2 10/22/24 20:00 Room Air* 0 21 Total Intake and Output 10/22/24 10/22/24 10/23/24 15:00 23:00 07:00 Intake Total 980 ml 600 ml Output Total 1120 ml 250 ml Balance -140 ml 350 ml medications Current Medications Medications Dose Ordered Sig/Bob Route Start Time Stop Time Status Last Admin Dose Admin Acetaminophen/ Hydrocodone Bitart 1 tab Q4HPRN PRN PO 10/15/24 21:30 10/22/24 20:18 1 TAB Gabapentin 300 mg BID PO 10/15/24 22:00 10/22/24 21:26 300 MG Enoxaparin Sodium 40 mg DAILY SC 10/16/24 10:00 10/21/24 10:21 40 MG Famotidine 20 mg DAILY PO 10/16/24 10:00 10/22/24 09:45 20 MG Carisoprodol 350 mg TID PO 10/16/24 14:00 10/22/24 21:26 350 MG Prednisone 60 mg DAILY PO 10/16/24 11:00 10/22/24 09:46 60 MG laboratory and microbiology Laboratory Tests 10/22/24 10:20 Test 10/22/24 10:20 Range/Units Serum Glucose 86 74-106 mg/dL Assessment/Plan ASSESSMENT: This is a 69-year old male who initially presented (10/15/2024) with progressive bilateral lower extremity weakness over the course of the past 2 months subsequently found to have both spinal canal and neuroforaminal stenosis involving the spine which patient underwent evaluation by Spinal Surgery with recommendation to pursue surgical intervention. Cardiology services have now been involved for cardiac pre-operative risk stratification should the patient undergoing plan of spinal surgery. HS troponin: 4 LDL: 59 A1C: 6.0 BNP: 20.16 Chest x-ray revealed: IMPRESSION: No acute cardiopulmonary disease. EKG revealed: NSR, LAD, no specific ST T changes Echocardiogram reported: Left ventricle: Left ventricle was normal sized with normal systolic function. LVEF was 65-70%. There was no gross wall motion abnormality. Right ventricle: Right ventricle was mildly dilated with normal systolic function. Both atria were normal sized. Aortic valve: Aortic valve was trileaflet. There was no aortic insufficiency/stenosis. There was trivial mitral regurgitation. There was no tricuspid regurgitation. Pulmonary valve was not well visualized. As there was no good tricuspid regurgitation jet, right ventricular systolic pressure could not be estimated. There was no pericardial effusion. IVC was not well visualized. There was no echocardiographic evidence for pulmonary hypertension. Cardiac pre-operative risk stratification Neuroforaminal stenosis Spinal canal stenosis Pre-diabetes mellitus Transaminitis Methamphetamine abuse, history of Nicotine dependence Cardiac Suggestions for Management: Cardiac curtis, patient is moderate risk patient for moderate risk surgery. Cardiac curtis, you can proceed with surgery under appropriate intra and post operative hemodynamic monitoring. Avoid Hypotension. Risk stratification dependent on the above ordered findings Proceed with close rate and rhythm surveillance Proceed with close hemodynamic surveillance Proceed with optimized blood pressure control Transfuse to sustain HGB level above 7.0 Sustain Magnesium level greater than 2.0 Sustain Potassium level greater than 4.0 Follow up renal function and electrolytes Counseled on importance of tobacco cessation Counseled on importance of drug cessation Management in telemetry Follow up sales operations consultant recommendations Will proceed to follow from a cardiac perspective Further recommendations per clinical progression All available diagnostic labs, EKG's, and images were personally reviewed Plan of care discussed with and agreed upon by patient / primary RN Prognosis: Guarded Thank you for allowing me to participate in the care of this patient. Further recommendations based on patients clinical course and progression, primary attending, and other consultants. Will continue to follow with primary attending. If you have any questions or concerns, please do not hesitate to contact me. A total of 55 minutes was spent reviewing the patient record, examining the patient, making a diagnostic and therapeutic plan, discussing this plan with medical personnel, following up on diagnostic studies and following the patient for clinical stability excluding any and all procedures. At least 50% of this time was spent in direct, [id number] contact. Dietary Evaluation Review Comments: 1) Continue current plan of care Expected Outcomes/Goals: F/U in 3-5 days Plan discussed with: Other (nurse) RHONDA LICONA MD Oct 23, 2024 07:07
[2024-10-23] MEDS ORDERED: HYDROmorphone HCL 2 MG/ML VL/or syr IV PRN ×3 (07:30)
[2024-10-23] MEDS ORDERED: MORPHINE SULFATE INJ 2 MG/ml SYRG IV PRN ×2 (07:30→07:45)
[2024-10-23] MEDS: KETOROLAC TROMETH 30 MG/ML 1ML VIAL IV ONE (07:30)
[2024-10-23] MEDS ORDERED: fentaNYL CITRATE 100 MCG/2 ML VL IV PRN (07:30)
[2024-10-23] MEDS: METOCLOPRAMIDE HCL 5MG/ml INJ 2ml VIAL IV ONE (07:30)
--- NOTE | 2024-10-23 07:34 | DVHHP2 ---
History Allergies: Coded Allergies: NO KNOWN ALLERGIES (Unverified , 10/15/24) Chief Complaint: Bilateral leg weakness, difficulty ambulating Present Illness(Onset/Duration Patient has been having weak legs for several years, no pain is associated with his bilateral lower extremities, however he feels weakness and it limits his ability to ambulate Noncontributory Exam Exam General Appearance: Normal HEENT: Normal ENT Inspection Neck: Non-Tender, Normal Respiratory: No Accessory Muscle Use, No Respiratory Distress Cardiovascular: No Edema, No JVD Breast Exam: None Gastrointestinal: Non Tender, Other (No complaints of any abdominal distress) Genitalia: Deferred Pelvic: Other (Non applicable) Rectal: Deferred Extremities: Normal capillary refill, Normal inspection (Limited ability to arm raise bilaterally) Neurologic: Alert, Motor Weakness Cerebellar Function: Unable to Test Skin: Normal Color Plan Additional comments: Patient here for elective cervical spine surgery C3-7 anterior cervical discectomy and fusion with Dr. Josafat estrada, processes explained to patient postoperative expectations were presented patient is agreeable to sign consent. The patient was informed of the risks and benefits of the procedure. These include but are not limited to complications of anesthesia, postoperative infection, incomplete relief of symptoms, recurrence of symptoms, damage to blood vessels, nerves and tendons, deep venous thrombosis, pulmonary embolism and possible need for repeat surgery in the future. The risks/benefits/alternatives of surgery including but not limited to pain, bleeding, infection, damage to surrounding soft tissue structures, need for reoperation or future surgery, persistent pain/disability/deformity, pseudoarthrotsis, bone graft collapse or extrusion of interbody device, instrumentation failure, need for instrumentation removal, dural tear, temporary or permanent nerve root damage, paralysis, stroke, deep vein thrombosis, pulmonary embolism, and any associated anesthetic risk (dry mouth, sore throat, dental damage, myocardial infarction, respiratory depression, blindness) were described to the patient in detail and the patient wishes to proceed. No guarantee of surgical outcome/improvement was implied. All of the questions were answered thoroughly and consents were obtained. We will obtain all the necessary preop tests in order for the patient to be cleared medically. Call with questions Carmel Castro [facility] Orthopaedic Spine Surgery nurse practitioner For Dr Carlos Estrada Patient was examined, chart reviewed, labs evaluated, and diagnostic studies and findings analyzed. Case was discussed with Dr. Josafat Estrada who formulated the plan of care. This medical document was created using an electronic medical record system with [employer] computerized dictation system. Although this document has been carefully reviewed, there might still be some phonetic and typographical errors. These areas are purely typographical due to imperfections of the software programs, and do not reflect any compromise in the patient's medical care. YESSI CASTRO NP Oct 23, 2024 07:34
[2024-10-23] MEDS ORDERED: THROAT LOZENGES(CEPASTAT) MT PRN (07:45)
[2024-10-23] MEDS ORDERED: ONDANSETRON HCL 4 MG/2 ML VIAL IV PRN (07:45)
[2024-10-23] MEDS ORDERED: levoFLOXacin 500MG 100 ML IV ONE (07:45)
[2024-10-23] MEDS ORDERED: HYDROcodone-ACET 7.5/325MG TAB PO PRN (07:45)
[2024-10-23] MEDS ORDERED: DOCUSATE SOD 100 MG CAP PO PRN (07:45)
[2024-10-23] MEDS ORDERED: ACETAMINOPHEN 325 MG TAB PO PRN (07:45)
[2024-10-23 08:00] VITALS: PULSE 60; RESP 21; O2SAT 96
[2024-10-23] MEDS: CIPROFLOXACIN 400MG/200ML 0 ML IV ONE (08:38)
[2024-10-23] MEDS: LIDOCAINE W/ EPINEPHRINE 1% 20ML VIAL ONE (09:10)
[2024-10-23] MEDS ORDERED: fentaNYL CITRATE 5 ML ONE (09:25)
[2024-10-23] MEDS ORDERED: GLYCOPYRROLATE 0.2 MG/ML 1ML VIAL ONE (10:16)
[2024-10-23] MEDS ORDERED: NEOSTIGMINE 1 MG/ML INJ (10mg/10ML VIAL) ONE (10:16)
--- NOTE | 2024-10-23 10:21 | DVHOP2 ---
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 These include but are not limited to complications of anesthesia, postoperative infection, incomplete relief of symptoms, recurrence of symptoms, damage to blood vessels, nerves and tendons, deep venous thrombosis, pulmonary embolism and possible need for repeat surgery in the future. Name of Procedure Performed see detailed note Procedure Details Procedure Details: Pre Op Diagnosis: Cervical Degenerative Disk Disease and Severe Spinal Stenosis Causing incapacitating neck pain, radiculopathy and progressive neurologic deficit Post Op Diagnosis: 1. Cervical Degenerative Disk Disease and Spinal Stenosis Causing incapacitating neck pain, radiculopathy and progressive neurologic deficit Procedure: Cervical 3 to 4 anterior cervical discectomy with Cervical 3-4 foraminotomies and facetectomies to decompression the spinal canal and Cervical 4 nerve roots Cervical 4 to 5 anterior cervical discectomy with Cervical 4-5 foraminotomies and facetectomies to decompression the spinal canal and Cervical 5 nerve roots Cervical 5 to 6 anterior cervical discectomy with Cervical 5-6 foraminotomies and facetectomies to decompression the spinal canal and Cervical 6 nerve roots Cervical 3-6 anterior cervical Fusion Cervical 3-6 anterior cervical instrumentation with freestanding cages Cervical 3-4 placement of allograft prosthetic device Cervical 4-5 placement of allograft prosthetic device Cervical 5-6 placement of allograft prosthetic device Microscope for micro dissection Surgeon: Josafat Estrada MD Anesthesia: General Assist: Germaine Castro NP Fluids and EBL: see anesthesia note Procedure Note: The patient was seen in the Pre-anesthesia Care Unit and the site of the in cision was initialed by me with a felt tipped marker. All questions by the patient were answered to the satisfaction of the patient and the chart was reviewed. The patient was taken to the operating room and placed supine on the [facility] Flat top table. General anesthesia was induced. Neuromonitoring leads were placed. A rolled towel was placed between the shoulder blades to hyperextend out the chest which will allow better exposure of the cervical spine. Halter traction to 10 pounds was placed. The arms were padded and adducted to the patients side making sure all pulses in the hands were present. Tape traction was undertaken on the shoulders to give us better radiographic exposure of the distal cervical spine. A gel-pad was placed under the occiput and 5 degrees of extension was placed on the neck without adverse effects to the patient. The anterior neck was prepped and draped. Pre-operative antibiotics were given 30 minutes prior to the start of the procedure. A c-arm fluoroscope was used to pradeep out the incision site. At this time, a time out was taken per usual protocol. Next an incision was made through the skin with a 15 blade scalpel through the subcutaneous tissue down to the platysma. Self-retainers were placed. The platysma was incised along the longitudinal border with a Metzenbaum scissors. Blunt dissection was made through the deep cervical and pre-tracheal fascia taking care to protect the carotid sheath laterally and the Trachea/esophagus medially. The dissection was carried down to the prevertebral fascia. Any crossing vessels were ligated using a vascular clip or coagulated with a bovie. An esophageal retractor was next used to retract the trachea/esophagus and a bent [address] through the anterior yosvany ulus of the cervical disk and a lateral C-arm fluoroscopic image was taken to confirm that we were at the correct level. Next, bovie electrocautery was used to expose the bones of cervical 3,4,5,6 and bipolar electrocuatery was used to lift up the Longus colli and capitus muscles. Black-Belt Self Retainers were used to retract the longus colli and capitus muscles bilaterally as well as the trachea/esophagus to the right and the carotid sheath to the left. Smooth thin Black-Belt retractors were placed pr oximally and distally and a needle was placed again in the anterior annulus of the disk and an image taken to confirm the correct level. At this point, the microscope was wheeled in and an 11 blade scalpel incised the anterior annulus of the cervical 3/4 and 4/5 and 5/6 disks. Next, straight and curved curettes removed the remainder of the disks all the way down to the posterior longitudinal ligament. Carefully, a Deonte number one rongeur incised the posterior longitudinal ligament at the lateral end of the above disks and using a micro, blunt tip nerve hook to separate the posterior longitudinal ligament from the dura, alternating 1 mm and 2 mm Kerison rongeurs removed the posterior longitudinal ligament. Next, Kerison 1mm and 2 mm rongeurs were alternated to get under the uncinate processes and undercut them to perform foraminotomies and factectomies at the cervical 3/4 and 4/5 and 5/6 levels to decompress the central canal and cervical 4,5 and 6 nerve roots. Next the microscope was wheeled away and the c-arm fluoroscope was wheeled into the field and a lateral image was obtained. Increasing size graft trials were used starting at a 5 mm thick size until the proper tension in the disk space and height spiritism obtained. We then placed final free standing cages at C3/4 and 4/5 and 5/6. All three interbody prosthetic devices were 7mm in thickness. xtant spine. Satisfactory placement was confirmed in the AP and lateral views using a C-arm fluoroscope. Copious irrigation of the wound with sterile saline and all bleeding was controlled before closure initiated. At this point, a 10 Prydeinig round Jaime Drain was place deep to the Platysma muscle and the Platysma was approximated with one interrupted 0-Vicryl suture. The subcutaneous tissue was closed with interrupted 2-0 vicryl sutures and the skin was closed with jigar. Sterile dressings were placed and a cervical c ollar placed, the patient extubated, transferred to the stretcher and taken to the Recovery Room in unremarkable condition. Other Notes: Following the case, in PACU, the patient had placement of a Pauma J equivalent cervical collar and external bone stimulator Condition Stable Disposition Still a Patient JOSAFAT ESTRADA MD Oct 23, 2024 10:21
--- NOTE | 2024-10-23 11:43 | DVH ---
C-ARM FLUOROSCOPY: PROCEDURE: C3 through C6 anterior cervical discectomy and fusion FLUOROSCOPY TIME: 5.9 sec DAP: 0.5 mgy FINDINGS: Spot intraoperative C arm radiographs demonstrating cergical fusion. IMPRESSION: Please refer to surgical report for detailed findings.
--- NOTE | 2024-10-23 12:35 | DVHPN2 ---
Progress Note - Dictate Date Seen: Oct 24, 2024 Medical Necessity Reason Pt with a Central, PICC or Fol: No vital signs Vital Sign Date Time Temp Pulse Resp B/P (MAP) Pulse Ox O2 Delivery O2 Flow Rate FiO2 10/23/24 11:25 78 12 138/75 (96) 96 10/23/24 10:50 Nasal Cannula 2.0 10/23/24 10:37 97.9 97.9 10/22/24 20:00 21 Total Intake and Output 10/22/24 10/22/24 10/23/24 15:00 23:00 07:00 Intake Total 980 ml 700 ml Output Total 1120 ml 250 ml Balance -140 ml 450 ml medications Current Medications Medications Dose Ordered Sig/Bob Route Start Time Stop Time Status Last Admin Dose Admin Acetaminophen/ Hydrocodone Bitart 1 tab Q4HPRN PRN PO 10/15/24 21:30 10/22/24 20:18 1 TAB Gabapentin 300 mg BID PO 10/15/24 22:00 10/23/24 12:21 300 MG Enoxaparin Sodium 40 mg DAILY SC 10/16/24 10:00 10/21/24 10:21 40 MG Famotidine 20 mg DAILY PO 10/16/24 10:00 10/23/24 12:21 20 MG Carisoprodol 350 mg TID PO 10/16/24 14:00 10/22/24 21:26 350 MG Prednisone 60 mg DAILY PO 10/16/24 11:00 10/23/24 12:21 60 MG Ondansetron HCl 4 mg Q4HP PRN IV 10/23/24 07:45 Acetaminophen 650 mg Q6HP PRN PO 10/23/24 07:45 Acetaminophen/ Hydrocodone Bitart 1 tab Q4HP PRN PO 10/23/24 07:45 Morphine Sulfate 4 mg Q4HP PRN IV 10/23/24 07:45 Docusate Sodium 100 mg Q12HP PRN PO 10/23/24 07:45 Cefazolin Sodium 50 ml @ 50 mls/hr Q8H IV 10/23/24 07:45 10/24/24 00:44 Throat Lozenges 1 krystina Q2HP PRN MT 10/23/24 07:45 Cyclobenzaprine HCl 10 mg Q8HR PO 10/23/24 14:00 objective General Appearance: alert, no distress HEENT: EOMI, PERRLA, normal external inspect of ears, no icterus, no nasal drainage Neck: no carotid bruit, no jugular venous distention (JVD), no lymphadenopathy Chest: normal thorax Respiratory: clear to auscultation, normal air movement Cardiovascular: regular rate and rhythm, no diastolic murmur, no jugular venous distention (JVD), no rub, no systolic murmur Abdominal: soft, no hepatomegaly, no mass, no splenomegaly, no tenderness Musculoskeletal: no joint tenderness, no swelling Extremities: normal pulses, no calf tenderness, no clubbing, no cyanosis, no edema Skin: no bruising, no jaundice, no rash Neurological: alert, No focal deficit laboratory and microbiology Laboratory Tests 10/22/24 10:20 Test 10/22/24 10:20 Range/Units Serum Glucose 86 74-106 mg/dL Problem List - Lower extremity weakness Orthopedic spinal consult, surgery consult, monitoring -Severe lumbar spinal stenosis Orthopedic spinal consult, surgeon consult, muscle relaxants, steroids, medication, monitoring -Gait disturbance Monitoring -Smoker Smoking cessation Assessment/Plan Subjective Patient is awake and alert. Objective Patient is status post anterior cervical surgery by Dr. Estrada. Patient is currently doing well and is sitting up in bed and eating lunch. Plan Continue current treatment. PT evaluation pending. Discharge planning. Dietary Evaluation Review Comments: 1) Continue current plan of care Expected Outcomes/Goals: F/U in 3-5 days Plan discussed with: Patient, Other OLGA LIDIA MEDINA NP Oct 23, 2024 12:34
[2024-10-23 12:47] VITALS: BP 130/82; PULSE 71; RESP 18; TEMP 98.1; O2SAT 90
[2024-10-23 13:53] LABS: Potassium 4.2 mmol/L (3.5-5.1); Sodium 139 mmol/L (136-145)
[2024-10-23 13:54] LABS: Anion Gap 5 (5-15); Carbon Dioxide 26 mmol/L (20-31)
[2024-10-23 13:55] LABS: Calcium 8.8 mg/dL (8.7-10.4)
[2024-10-23 13:57] LABS: Basophils # (auto) 0 10 ^3/uL (0-0.2); Basophils % (auto) 0.2 % (0.0-2.0); Eosinophils # (auto) 0 10 ^3/uL (0-0.8); Eosinophils % (auto) 0.1 % (0.0-7.0); Hematocrit 45.2 % (41.0-53.0); Hemoglobin 15.1 g/dL (13.5-17.5); Lymphocytes # (auto) 0.7 10 ^3/uL (0.4-5.4); Lymphocytes % (auto) 3.9 % (10.0-50.0); Mean Corpuscular Hgb Conc. 33.4 g/dL (32.0-36.0); Mean Corpuscular Volume 92.8 fL (80.0-100.0); Monocytes # (auto) 0.5 10 ^3/uL (0-1.3); Monocytes % (auto) 3.1 % (0.0-12.0); Neutrophils # (auto) 15.8 10 ^3/uL (1.6-8.6); Neutrophils % (auto) 92.7 % (37.0-80.0); Platelet Count (auto) 246 10^3/uL (140-450); Red Blood Cells 4.87 10^6/uL (4.5-5.90); Red Cell Distribution Width 14.1 % (11.8-14.3)
[2024-10-23 14:00] LABS: BUN/Creatinine Ratio 21.9 (10.0-20.0); Blood Urea Nitrogen 21 mg/dL (9-23)
[2024-10-23 14:01] LABS: Chloride 108 mmol/L (98-107); Glucose 110 mg/dL (74-106)
[2024-10-23 14:04] LABS: INR 1.03 (0.9-1.15); Prothrombin Time 10.9 sec (9.3-11.8)
[2024-10-23] MEDS: CYCLOBENZAPRINE HCL 10 MG TAB PO SCH (15:06)
[2024-10-23] MEDS: ceFAZolin 1GM/50ML 50 ML IV SCH (17:18)
[2024-10-23 17:26] VITALS: BP 130/78; PULSE 84; RESP 18; TEMP 98.9; O2SAT 91
[2024-10-23 21:00] VITALS: BP 141/92; PULSE 94; RESP 18; TEMP 98.1; O2SAT 94
[2024-10-24] VITALS (8 sets, daily range): BP systolic 133–142; BP diastolic 64–93; PULSE 68–95; RESP 16–96; TEMP 97.7–98.3; O2SAT 93–97
--- NOTE | 2024-10-24 07:34 | DVHPN2 ---
Progress Note - Dictate Date Seen: Oct 24, 2024 Medical Necessity Reason Pt with a Central, PICC or Fol: No vital signs Vital Sign Date Time Temp Pulse Resp B/P (MAP) Pulse Ox O2 Delivery O2 Flow Rate FiO2 10/24/24 05:00 97.7 75 18 138/90 (106) 94 97.7 10/23/24 20:00 Room Air* 0 21 Total Intake and Output 10/23/24 10/23/24 10/24/24 15:00 23:00 07:00 Intake Total 50 ml 800 ml Output Total 10 ml 600 ml 1100 ml Balance -10 ml -550 ml -300 ml medications Current Medications Medications Dose Ordered Sig/Bob Route Start Time Stop Time Status Last Admin Dose Admin Acetaminophen/ Hydrocodone Bitart 1 tab Q4HPRN PRN PO 10/15/24 21:30 10/22/24 20:18 1 TAB Gabapentin 300 mg BID PO 10/15/24 22:00 10/23/24 23:13 300 MG Enoxaparin Sodium 40 mg DAILY SC 10/16/24 10:00 10/21/24 10:21 40 MG Famotidine 20 mg DAILY PO 10/16/24 10:00 10/23/24 12:21 20 MG Carisoprodol 350 mg TID PO 10/16/24 14:00 10/24/24 05:36 350 MG Prednisone 60 mg DAILY PO 10/16/24 11:00 10/23/24 12:21 60 MG Ondansetron HCl 4 mg Q4HP PRN IV 10/23/24 07:45 Acetaminophen 650 mg Q6HP PRN PO 10/23/24 07:45 Acetaminophen/ Hydrocodone Bitart 1 tab Q4HP PRN PO 10/23/24 07:45 Morphine Sulfate 4 mg Q4HP PRN IV 10/23/24 07:45 Docusate Sodium 100 mg Q12HP PRN PO 10/23/24 07:45 Throat Lozenges 1 krystina Q2HP PRN MT 10/23/24 07:45 Cyclobenzaprine HCl 10 mg Q8HR PO 10/23/24 14:00 10/24/24 05:36 10 MG laboratory and microbiology Laboratory Tests 10/23/24 13:02 Test 10/23/24 13:02 Range/Units Serum Glucose 110 H 74-106 mg/dL Assessment/Plan ASSESSMENT: This is a 69-year old male who initially presented (10/15/2024) with progressive bilateral lower extremity weakness over the course of the past 2 months subsequently found to have both spinal canal and neuroforaminal stenosis involving the spine which patient underwent evaluation by Spinal Surgery with recommendation to pursue surgical intervention. Cardiology services have now been involved for cardiac pre-operative risk stratification should the patient undergoing plan of spinal surgery. HS troponin: 4 LDL: 59 A1C: 6.0 BNP: 20.16 Chest x-ray revealed: IMPRESSION: No acute cardiopulmonary disease. EKG revealed: NSR, LAD, no specific ST T changes Echocardiogram reported: Left ventricle: Left ventricle was normal sized with normal systolic function. LVEF was 65-70%. There was no gross wall motion abnormality. Right ventricle: Right ventricle was mildly dilated with normal systolic function. Both atria were normal sized. Aortic valve: Aortic valve was trileaflet. There was no aortic insufficiency/stenosis. There was trivial mitral regurgitation. There was no tricuspid regurgitation. Pulmonary valve was not well visualized. As there was no good tricuspid regurgitation jet, right ventricular systolic pressure could not be estimated. There was no pericardial effusion. IVC was not well visualized. There was no echocardiographic evidence for pulmonary hypertension. Cardiac pre-operative risk stratification Neuroforaminal stenosis Spinal canal stenosis Pre-diabetes mellitus Transaminitis Methamphetamine abuse, history of Nicotine dependence Cardiac Suggestions for Management: Cardiac curtis, patient is moderate risk patient for moderate risk surgery. Cardiac curtis, you can proceed with surgery under appropriate intra and post operative hemodynamic monitoring. Avoid Hypotension. Risk stratification dependent on the above ordered findings Proceed with close rate and rhythm surveillance Proceed with close hemodynamic surveillance Proceed with optimized blood pressure control Transfuse to sustain HGB level above 7.0 Sustain Magnesium level greater than 2.0 Sustain Potassium level greater than 4.0 Follow up renal function and electrolytes Counseled on importance of tobacco cessation Counseled on importance of drug cessation Management in telemetry Follow up intelligence consultant recommendations Will proceed to follow from a cardiac perspective Further recommendations per clinical progression All available diagnostic labs, EKG's, and images were personally reviewed Will sign off, please call for follow up PRN Plan of care discussed with and agreed upon by patient / primary RN Prognosis: Guarded Thank you for allowing me to participate in the care of this patient. Further recommendations based on patients clinical course and progression, primary attending, and other consultants. Will continue to follow with primary attending. If you have any questions or concerns, please do not hesitate to contact me. A total of 55 minutes was spent reviewing the patient record, examining the patient, making a diagnostic and therapeutic plan, discussing this plan with medical personnel, following up on diagnostic studies and following the patient for clinical stability excluding any and all procedures. At least 50% of this time was spent in direct, [id number] contact. Dietary Evaluation Review Comments: 1) Continue current plan of care Expected Outcomes/Goals: F/U in 3-5 days Plan discussed with: Patient, Other (nurse) RHONDA LICONA MD Oct 24, 2024 07:34
--- NOTE | 2024-10-24 09:55 | DVHPN2 ---
Progress Note - Dictate Date Seen: Oct 24, 2024 Medical Necessity Reason Pt with a Central, PICC or Fol: No vital signs Vital Sign Date Time Temp Pulse Resp B/P (MAP) Pulse Ox O2 Delivery O2 Flow Rate FiO2 10/24/24 09:00 97.9 95 20 137/90 (106) 96 97.9 10/23/24 20:00 Room Air* 0 21 Total Intake and Output 10/23/24 10/23/24 10/24/24 15:00 23:00 07:00 Intake Total 50 ml 850 ml Output Total 10 ml 600 ml 1100 ml Balance -10 ml -550 ml -250 ml medications Current Medications Medications Dose Ordered Sig/Bob Route Start Time Stop Time Status Last Admin Dose Admin Acetaminophen/ Hydrocodone Bitart 1 tab Q4HPRN PRN PO 10/15/24 21:30 10/22/24 20:18 1 TAB Gabapentin 300 mg BID PO 10/15/24 22:00 10/24/24 09:24 300 MG Enoxaparin Sodium 40 mg DAILY SC 10/16/24 10:00 10/24/24 09:25 40 MG Famotidine 20 mg DAILY PO 10/16/24 10:00 10/24/24 09:25 20 MG Carisoprodol 350 mg TID PO 10/16/24 14:00 10/24/24 05:36 350 MG Prednisone 60 mg DAILY PO 10/16/24 11:00 10/24/24 09:25 60 MG Ondansetron HCl 4 mg Q4HP PRN IV 10/23/24 07:45 Acetaminophen 650 mg Q6HP PRN PO 10/23/24 07:45 Acetaminophen/ Hydrocodone Bitart 1 tab Q4HP PRN PO 10/23/24 07:45 Morphine Sulfate 4 mg Q4HP PRN IV 10/23/24 07:45 Docusate Sodium 100 mg Q12HP PRN PO 10/23/24 07:45 Throat Lozenges 1 krystina Q2HP PRN MT 10/23/24 07:45 Cyclobenzaprine HCl 10 mg Q8HR PO 10/23/24 14:00 10/24/24 05:36 10 MG objective General Appearance: alert, no distress HEENT: EOMI, PERRLA, normal external inspect of ears, no icterus, no nasal drainage Neck: no carotid bruit, no jugular venous distention (JVD), no lymphadenopathy Chest: normal thorax Respiratory: clear to auscultation, normal air movement Cardiovascular: regular rate and rhythm, no diastolic murmur, no jugular venous distention (JVD), no rub, no systolic murmur Abdominal: soft, no hepatomegaly, no mass, no splenomegaly, no tenderness Musculoskeletal: no joint tenderness, no swelling Extremities: normal pulses, no calf tenderness, no clubbing, no cyanosis, no edema Skin: no bruising, no jaundice, no rash Neurological: alert, No focal deficit laboratory and microbiology Laboratory Tests 10/23/24 13:02 Test 10/23/24 13:02 Range/Units Serum Glucose 110 H 74-106 mg/dL Problem List - Lower extremity weakness Orthopedic spinal consult, surgery consult, monitoring -Severe lumbar spinal stenosis Orthopedic spinal consult, surgeon consult, muscle relaxants, steroids, medication, monitoring -Gait disturbance Monitoring -Smoker Smoking cessation Assessment/Plan Subjective Patient is awake and alert. Patient is requesting to be discharged home today however patient still has drain in place. Objective Patient has not been seen yet by orthopedic surgeon. Patient is postop day 1. Status post anterior cervical spinal surgery by . Plan Continue current treatment. Arrange for home health and front wheel walker. DC planning. Dietary Evaluation Review Comments: 1) Continue current plan of care Expected Outcomes/Goals: F/U in 3-5 days Plan discussed with: Patient, Other OLGA LIDIA MEDINA NP Oct 24, 2024 09:55
[2024-10-24 10:53] LABS: Basophils # (auto) 0 10 ^3/uL (0-0.2); Basophils % (auto) 0.3 % (0.0-2.0); Eosinophils # (auto) 0 10 ^3/uL (0-0.8); Eosinophils % (auto) 0.1 % (0.0-7.0); Hematocrit 47.5 % (41.0-53.0); Lymphocytes % (auto) 6.2 % (10.0-50.0); Mean Corpuscular Hemoglobin 31.2 pg (28.0-32.0); Mean Corpuscular Hgb Conc. 33.7 g/dL (32.0-36.0); Mean Corpuscular Volume 92.6 fL (80.0-100.0); Monocytes # (auto) 1.8 10 ^3/uL (0-1.3); Monocytes % (auto) 11.3 % (0.0-12.0); Neutrophils # (auto) 13.2 10 ^3/uL (1.6-8.6); Neutrophils % (auto) 82.1 % (37.0-80.0); Nucleated Red Blood Cells % 0.1 %; Platelet Count (auto) 262 10^3/uL (140-450); Red Blood Cells 5.13 10^6/uL (4.5-5.90); Red Cell Distribution Width 14.4 % (11.8-14.3); White Blood Cell 16.1 10^3/uL (4.4-10.8)
[2024-10-24 11:05] LABS: Chloride 107 mmol/L (98-107); Potassium 4.1 mmol/L (3.5-5.1); Sodium 141 mmol/L (136-145)
[2024-10-24 11:06] LABS: Anion Gap 8 (5-15); Calcium 9.7 mg/dL (8.7-10.4); Carbon Dioxide 26 mmol/L (20-31)
[2024-10-24 11:11] LABS: BUN/Creatinine Ratio 23.2 (10.0-20.0); Blood Urea Nitrogen 22 mg/dL (9-23); Glucose 102 mg/dL (74-106)
[2024-10-24] MEDS ORDERED: HYDR-4069 PO (17:43)
[2024-10-24] MEDS ORDERED: DOCU-265 PO (17:43)
[2024-10-24] MEDS ORDERED: CYCL-611 PO (17:43)
--- NOTE | 2024-10-24 18:00 | DVHDS2 ---
ASSESSMENT ASSESSMENT Hospital Course The patient arrived for a elective spine surgery with Dr. ESTRADA. Surgery went as planned with no complications. After a short stay in the PACU patient was admitted to the hospital for postoperative care and pain management over the course of 1 postoperative days the patient was able to tolerate a diet, ambulate independently, the pain has been managed with oral analgesics rarely. The surgical site is well-approximated with jigar, some residual drainage continues from drain insertion sites after removal, however it is manageable with daily wound care and dressing changes. Great improvement to preoperative symptoms of extremities, strength and motion. There is no reported post operative pain to the surgical site. The patient will follow-up with Dr. Estrada for wound check andwound check and staple removal. Patient is ambulating safely, still has some residual soreness when he swallows. He may use Cepacol lozenges that he can obtain [id number] once an hour. Spoke to patient about using ice to help soothe the discomfort. It should start diminishing over the next few days. You may turn your head from [id number] slowly to establish range of motion and to keep the muscles active. You may resume your normal previous diet, please be careful not to eat any excessive sugars and monitor your blood sugar closely. Excessively high blood sugars can lead to higher chances of getting a wound infection to your surgical site. Please call Dr. Walton's office if you do not have an appointment already set up. Call [phone] for a appointment [id number] [id number] Your prescribed oral pain medication, and muscle relaxers as well as a stool softener were sent to the pharmacy on file You may let your wound be open to air as long as there is no clothing touching the site. When you shower you may let the water run over your surgical incision however do not scrub the incision. Use a sterile 4x4s to pat the incision dry. If you are going to be out in public and wearing clothes they are coming into contact with your incision you must wear a dressing. Assessment same as pre op Problems: (1) Cervical stenosis of spinal canal Assessments: Resolved with surgery patient doing well (2) Muscle spasms of neck Assessments: Treated with Flexeril prescription given (3) Constipation due to opioid therapy Assessments: Treated with stool softener prescription given (4) Postoperative pain after spinal surgery Assessments: Treated with oral pain medication prescription given YESSI ARZATE NP Oct 24, 2024 18:00
--- NOTE | 2024-10-24 18:03 | DVHDS2 ---
Discharge Summary Date of Admission Oct 15, 2024 at 21:27 Date of Discharge: Oct 24, 2024 Admitting Diagnosis Cervical spinal stenosis requiring surgery Wounds: Left anterior neck wound edges well approximated with jigar no swelling minimal drainage present, patient has normal range of motion Labs/Diagnostic Data: Laboratory Results Test 10/24/24 10:33 10/23/24 13:02 10/22/24 10:20 10/19/24 10:30 White Blood Count 16.1 10^3/uL (4.4-10.8) Red Blood Count 5.13 10^6/uL (4.5-5.90) Hemoglobin 16.0 g/dL (13.5-17.5) Hematocrit 47.5 % (41.0-53.0) Mean Corpuscular Volume 92.6 fL (80.0-100.0) Mean Corpuscular Hemoglobin 31.2 pg (28.0-32.0) Mean Corpuscular Hemoglobin Concent 33.7 g/dL (32.0-36.0) Red Cell Distribution Width 14.4 % (11.8-14.3) Platelet Count 262 10^3/uL (140-450) Mean Platelet Volume 7.7 fL (6.9-10.8) Neutrophils (%) (Auto) 82.1 % (37.0-80.0) Lymphocytes (%) (Auto) 6.2 % (10.0-50.0) Monocytes (%) (Auto) 11.3 % (0.0-12.0) Eosinophils (%) (Auto) 0.1 % (0.0-7.0) Basophils (%) (Auto) 0.3 % (0.0-2.0) Neutrophils # (Auto) 13.2 10 ^3/uL (1.6-8.6) Lymphocytes # (Auto) 1.0 10 ^3/uL (0.4-5.4) Monocytes # (Auto) 1.8 10 ^3/uL (0-1.3) Eosinophils # (Auto) 0 10 ^3/uL (0-0.8) Basophils # (Auto) 0 10 ^3/uL (0-0.2) Nucleated Red Blood Cells 0.1 % Sodium Level 141 mmol/L (136-145) Potassium Level 4.1 mmol/L (3.5-5.1) Chloride Level 107 mmol/L (98-107) Carbon Dioxide Level 26 mmol/L (20-31) Anion Gap 8 (5-15) Blood Urea Nitrogen 22 mg/dL (9-23) Creatinine 0.95 mg/dL (0.700-1.30) Glomerular Filtration Rate Calc 86 mL/min (>90) BUN/Creatinine Ratio 23.2 (10.0-20.0) Serum Glucose 102 mg/dL (74-106) Calcium Level 9.7 mg/dL (8.7-10.4) Prothrombin Time 10.9 sec (9.3-11.8) Prothrombin Time INR 1.03 (0.9-1.15) Activated Partial Thromboplast Time 25.4 SEC (24.5-34.5) Total Bilirubin 0.4 mg/dL (0.2-1.0) Aspartate Amino Transferase (AST) 29 U/L (13-40) Alanine Aminotransferase (ALT) 87 U/L (7-40) Alkaline Phosphatase 71 U/L (46-116) Total Protein 6.5 g/dL (5.7-8.2) Albumin 4.1 g/dL (3.2-4.8) Urine Color Light-yellow (Yellow) Urine Clarity Clear (Clear) Urine pH 5.0 (5.0-9.0) Urine Specific Caraway 1.020 (1.001-1.035) Urine Protein Negative (Negative) Urine Ketones Negative (Negative) Urine Blood Negative /uL (Negative) Urine Nitrite Negative (Negative) Urine Bilirubin Negative (Negative) Urine Urobilinogen Normal mg/dL (Negative) Urine Leukocyte Esterase Negative /uL (Negative) Urine RBC 2 /hpf (0 - 3) Urine WBC 1 /hpf (0 - 3) Urine Squamous Epithelial Cells Few /hpf (<5) Urine Bacteria None seen /hpf (None Seen) Urine Glucose Normal mg/dL (Normal) Test 10/18/24 20:20 10/16/24 10:52 10/16/24 10:00 10/15/24 14:44 Troponin I High Sensitivity 4 ng/L (</=54) B-Type Natriuretic Peptide 20.16 pg/mL (0-100) Triglycerides Level 122 mg/dL (< 150) Cholesterol Level 132 mg/dL (< 200) LDL Cholesterol 59 mg/dL (< 100) HDL Cholesterol 60 mg/dL (40-59) Anti-Nuclear Antibody Comment Comment (.) MARIA ELENA-1 Antibody <0.2 AI (0.0-0.9) SS-A/Ro Antibody <0.2 AI (0.0-0.9) SS-B/La Antibody <0.2 AI (0.0-0.9) Sm Antibody <0.2 AI (0.0-0.9) PRODUCT TRAINER Antibody <0.2 AI (0.0-0.9) Scl-70 (Scleroderma) Antibody <0.2 AI (0.0-0.9) Anti-Double Strand DNA Antibody 1 IU/mL (0-9) Chromatin Antibody <0.2 AI (0.0-0.9) Centromere B Antibody <0.2 AI (0.0-0.9) Erythrocyte Sedimentation Rate 4 mm/hr (0-20) Hemoglobin A1c 6.0 % A1C (<5.7) Creatine Kinase 383 U/L (46-171) C-Reactive Protein High Sensitivity 0.32 mg/dL (<1.0) Vitamin B12 Level 658 pg/mL (211-911) Thyroid Stimulating Hormone (TSH) 2.48 uIU/mL (0.55-4.78) Plasma/Serum Blood Alcohol 4.3 mg/dL (<10) Other Laboratory Tests 10/24/24 10:33 Brief Hx & Hospital Course: The patient arrived for a elective spine surgery with Dr. ESTRADA. Surgery went as planned with no complications. After a short stay in the PACU patient was admitted to the hospital for postoperative care and pain management over the course of 1 postoperative days the patient was able to tolerate a diet, ambulate independently, the pain has been managed with oral analgesics rarely. The surgical site is well-approximated with jigar, some residual drainage continues from drain insertion sites after removal, however it is manageable with daily wound care and dressing changes. Great improvement to preoperative symptoms of extremities, strength and motion. There is no reported post operative pain to the surgical site. The patient will follow-up with Dr. Estrada for wound check andwound check and staple removal. Patient is ambulating safely, still has some residual soreness when he swallows. He may use Cepacol lozenges that he can obtain [id number] once an hour. Spoke to patient about using ice to help soothe the discomfort. It should start diminishing over the next few days. You may turn your head from [id number] slowly to establish range of motion and to keep the muscles active. You may resume your normal previous diet, please be careful not to eat any excessive sugars and monitor your blood sugar closely. Excessively high blood sugars can lead to higher chances of getting a wound infection to your surgical site. Please call Dr. Walton's office if you do not have an appointment already set up. Call [phone] for a appointment [id number] [facility] [employer], [address], [place] [id number] Your prescribed oral pain medication, and muscle relaxers as well as a stool softener were sent to the pharmacy on file You may let your wound be open to air as long as there is no clothing touching the site. When you shower you may let the water run over your surgical incision however do not scrub the incision. Use a sterile 4x4s to pat the incision dry. If you are going to be out in public and wearing clothes they are coming into contact with your incision you must wear a dressing. Operations or Procedures Anterior cervical diskectomy and fusion Condition at Discharge: Good Final Diagnosis/Problems List Treated with oral pain medication prescription given Discharge Disposition: Home Discharge Instruct/Medications Diet: Regular Diet comment: Patient may resume his regular diet Activity: Light activity Activity comment: Please continue turn your head left to right and up and down in a slow fashion, to help increase flexibility Limit any heavy lifting to 10 lb Follow Up/Referral: Call [phone] for a appointment in 6 days for wound check [id number] [address] [facility] [employer], [address] [address] Medications: See discharge list New Medications: Cyclobenzaprine HCl (Cyclobenzaprine Hydrochlo) 10 Mg Tab 10 MG PO Q8HR for 30 Days, #90 TAB Docusate Sodium (Docusate Sodium) 100 Mg Cap 100 MG PO Q12HP PRN for 30 Days, #60 CAP Hydrocodone-Acetaminophen (Hydrocodone/Acetaminophen 7.5-325 mg) 1 Tab Tab 1 TAB PO Q4HP PRN for 10 Days, #50 TAB Discharge Statement: "Patient was advised to return to the ER or call 911 if any headaches, dizziness, shortness of breath, chest pain, abdominal pain, bleeding, fevers, or worsening of medical condition. Patient was counseled about treatment plan, medications, possible side effects, patientverbalized understanding. All questions were answered to the best of my ability. This discharge took greater then 30 minutes in planning, reviewing documentation, counseling the patient, and discussing with other team members." ASSESSMENT ASSESSMENT Hospital Course The patient arrived for a elective spine surgery with Dr. ESTRADA. Surgery went as planned with no complications. After a short stay in the PACU patient was admitted to the hospital for postoperative care and pain management over the course of 1 postoperative days the patient was able to tolerate a diet, ambulate independently, the pain has been managed with oral analgesics rarely. The surgical site is well-approximated with jigar, some residual drainage continues from drain insertion sites after removal, however it is manageable with daily wound care and dressing changes. Great improvement to preoperative symptoms of extremities, strength and motion. There is no reported post operative pain to the surgical site. The patient will follow-up with Dr. Estrada for wound check andwound check and staple removal. Patient is ambulating safely, still has some residual soreness when he swallows. He may use Cepacol lozenges that he can obtain [id number] once an hour. Spoke to patient about using ice to help soothe the discomfort. It should start diminishing over the next few days. You may turn your head from [id number] slowly to establish range of motion and to keep the muscles active. You may resume your normal previous diet, please be careful not to eat any excessive sugars and monitor your blood sugar closely. Excessively high blood sugars can lead to higher chances of getting a wound infection to your surgical site. Please call Dr. Walton's office if you do not have an appointment already set up. Call [phone] for a appointment [id number] [facility] [address] [address] Your prescribed oral pain medication, and muscle relaxers as well as a stool softener were sent to the pharmacy on file You may let your wound be open to air as long as there is no clothing touching the site. When you shower you may let the water run over your surgical incision however do not scrub the incision. Use a sterile 4x4s to pat the incision dry. If you are going to be out in public and wearing clothes they are coming into contact with your incision you must wear a dressing. Assessment Treated with oral pain medication prescription given Problems: (1) Cervical stenosis of spinal canal Assessments: Resolved with surgery patient doing well (2) Muscle spasms of neck Assessments: Treated with Flexeril prescription given (3) Constipation due to opioid therapy Assessments: Treated with stool softener prescription given (4) Postoperative pain after spinal surgery Assessments: Treated with oral pain medication prescription given YESSI ARZATE NP Oct 24, 2024 18:03
== END 2024-10-24 20:27 | disposition home or self-care (01) | DRG 473 ==
LOC: ER 12:56 → OVERFLOW 21:27 → WEST WING 10-16 02:42
PROVIDERS: ADMIT Nurse Practitioner; ATTEND Nurse Practitioner
PROC: 0RB30ZZ Excision of Cervical Vertebral Disc, Open Approach (ICD-10-PCS; 2024-10-23)
PROC: 01N10ZZ Release Cervical Nerve, Open Approach (ICD-10-PCS; 2024-10-23)
PROC: 00NW0ZZ Release Cervical Spinal Cord, Open Approach (ICD-10-PCS; 2024-10-23)
PROC: 4A11X4G Monitoring of Peripheral Nervous Electrical Activity, Intraoperative, External Approach (ICD-10-PCS; 2024-10-23)
PROC: 0RG20K0 Fusion of 2 or more Cervical Vertebral Joints with Nonautologous Tissue Substitute, Anterior Approach, Anterior Column, Open Approach (ICD-10-PCS; 2024-10-23)
PROC: 0RG20A0 Fusion of 2 or more Cervical Vertebral Joints with Interbody Fusion Device, Anterior Approach, Anterior Column, Open Approach (ICD-10-PCS; principal; 2024-10-23 07:41)
DX: M48.02 Spinal stenosis, cervical region (principal); M48.07 Spinal stenosis, lumbosacral region; M48.04 Spinal stenosis, thoracic region; M50.122 Cervical disc disorder at C5-C6 level with radiculopathy; M47.816 Spondylosis without myelopathy or radiculopathy, lumbar region; M48.061 Spinal stenosis, lumbar region without neurogenic claudication; F15.10 Other stimulant abuse, uncomplicated; M51.24 Other intervertebral disc displacement, thoracic region; F17.210 Nicotine dependence, cigarettes, uncomplicated; R73.03 Prediabetes; R74.01 Elevation of levels of liver transaminase levels; K59.03 Drug induced constipation; T40.2X5A Adverse effect of other opioids, initial encounter; M62.838 Other muscle spasm
CPT/HCPCS: 36415; 70450; 71045; 72040; 72131; 72141; 72146; 72148; 76000; 80048; 80053; 80061; 80320; 81001; 82550; 82607; 83036; 83516; 83880; 84443; 84484; 85025; 85610; 85652; 85730; 86141; 86225; 86235; 86850; 86900; 86901; 93005; 93306; 97110; 97116; 97163; 97530; 99291; G0378; J0330; J2250; J2704

== ENCOUNTER 2025-05-20 18:04 | Inpatient (IN) | payer MEDICARE, MEDICAID ==
[~2025-05-20] VITALS: Ht 180.3 cm; Wt 89.2 kg
[~2025-05-20 18:04] MED LIST: CYCL-611 PO; DOCU-265 PO; HYDR-4069 PO
--- NOTE | 2025-05-20 19:23 | DVH ---
CLINICAL HISTORY: left leg pain TECHNIQUE: Color and duplex doppler imaging of the left lower extremity veins was performed. Vessel c ompression if possible was also performed. WID: COMPARISON: None FINDINGS: Left common femoral vein: Normal compressibility and flow. Left femoral vein: Normal compressibility and flow. Left popliteal vein: Normal compressibility and flow. Proximal calf veins are normally compressible. IMPRESSION: NO SONOGRAPHIC EVIDENCE FOR DEEP VENOUS THROMBOSIS IN THE LEFT LOWER EXTREMITY VEINS.
[2025-05-20 19:45] VITALS: PULSE 87; RESP 20; O2SAT 94
--- NOTE | 2025-05-20 19:57 | ED.PDOC ---
Musculoskeletal HPI Comments 69-year-old male presents to ER with complaints of bilateral lower extremity weakness x2 weeks. Patient reports he has been experiencing bilateral lower extremity weakness with multiple falls x 2 weeks due to his "legs giving out on him". Reports last fall was a ground level fall today with positive head injury, denying LOC. Denies any pain and notes that he did have similar symptoms in October of this year and received cervical spine surgery for cervical stenosis by Dr. Estrada while admitted in this facility. Denies use of blood thinners, back pain, numbness/tingling, fever, abdominal/pelvic pain, changes in urination/bm or any further symptoms/complaints Chief Complaint: Lower Extremity Time Seen by MD: 18:13 Primary Care Provider: NONE Reviewed Notes: Nurses Notes, Medications, Allergies Allergies: Coded Allergies: NO KNOWN ALLERGIES (Unverified , 10/15/24) Home Meds Active Scripts Hydrocodone-Acetaminophen (Hydrocodone/Acetaminophen 7.5-325 mg) 1 Tab Tab, 1 TAB PO Q4HP PRN for 10 Days, #50 TAB Prov:YESSI ARZAET MARKETING ANALYTICS ANALYST 10/24/24 Docusate Sodium (Docusate Sodium) 100 Mg Cap, 100 MG PO Q12HP PRN for 30 Days, #60 CAP Prov:YESSI ARZATE MARKETING ANALYTICS ANALYST 10/24/24 Cyclobenzaprine HCl (Cyclobenzaprine Hydrochlo) 10 Mg Tab, 10 MG PO Q8HR for 30 Days, #90 TAB Prov:YESSI ARZATE MARKETING ANALYTICS ANALYST 10/24/24 Information Source: Patient Mode of Arrival: EMS Past Medical History Past Medical History (Other): stenosis cervical spine Surgical History (Other): cervical spine surgery Family History Family History: Unknown Social History Smoker: Cigarettes, Less Than 1 Pack/Day Alcohol: Denies ETOH Use Drugs: Denies Drug Use Lives In: Home Constitutional: denies: chills, diaphoresis, fatigue, fever, malaise, sweats, weakness, others EENTM: denies: blurred vision, double vision, ear bleeding, ear discharge, ear drainage, ear pain, ear ringing, eye pain, eye redness, hearing loss, mouth pain, mouth swelling, nasal discharge, nose bleeding, nose congestion, nose pain, photophobia, tearing, throat pain, throat swelling, voice changes, others Respiratory: denies: cough, hemoptysis, orthopnea, SOB at rest, shortness of breath, SOB with excertion, stridor, wheezing, others Cardiovascular: denies: chest pain, dizzy spells, diaphoresis, Dyspnea on exertion, edema, irregular heart beat, left arm pain, lightheadedness, palpitations, PND, syncope, others Gastrointestinal: denies: abdomen distended, abdominal pain, blood streaked bowels, constipated, diarrhea, dysphagia, difficulty swallowing, hematemesis, melena, nausea, poor appetite, poor fluid intake, rectal bleeding, rectal pain, vomiting, others Genitourinary: denies: burning, dysuria, flank pain, frequency, hematuria, incontinence, penile discharge, penile sore, pain, testicle pain, testicle swelling, urgency, others Neurological: reports: others (As stated in HPI) Musculoskeletal: reports: others (As stated in HPI) Integumetry: denies: bruises, change in color, change in hair/nails, dryness, laceration, lesions, lumps, rash, wounds, others Allergic/Immunocompromised: denies: Difficulty Healing, Frequent Infections, Hives, Itching, others Hematologic/Lymphatic: denies: anemia, blood clots, easy bleeding, easy bruising, swollen glands, others Endocrine: denies: excessive hunger, excessive sweating, excessive thirst, excessive urination, flushing, intolerance to cold, intolerance to heat, unexplained weight gain, unexplained weight loss, others Psychiatric: denies: anxiety, bipolar disorder, depression, hopeless, panic disorder, schizophrenia, sleepless, suicidal, others Physical Exam General Appearance: No Apparent Distress HEENT: Normal ENT Inspection, PERRL/EOMI, Pharynx Normal, TMs Normal Neck: Full Range of Motion, Non-Tender, Normal Respiratory: Chest Non-Tender, Lungs Clear, No Accessory Muscle Use, No Respiratory Distress, Normal Breath Sounds Cardiovascular: No Murmur, No Gallop, Regular Rate/Rhythm Breast Exam: Deferred Gastrointestinal: NOT DONE Genitalia: Deferred Pelvic: Deferred Rectal: Deferred Extremities: Normal capillary refill, Normal range of motion Neurologic: Alert, check grader II-XII nml as Tested, Motor Weakness (Bilateral lower extremities), Normal Affect, Normal Mood, No Sensory Deficits Cerebellar Function: Normal Reflexes: Normal Skin: Dry, Normal Color, Warm Lymphatic: No Adenopathy Was a procedure done? Was a procedure done?: No Sedation Sedation?: No Differential Diagnosis EXT Differential Diagnosis: Fracture, Neurovascular injury, Other (Subdural hematoma, subarachnoid hemorrhage, fracture, mass) X-Ray, Labs, Meds, VS Vital Signs Date Time Temp Pulse Resp B/P (MAP) Pulse Ox O2 Delivery O2 Flow Rate FiO2 05/20/25 21:30 97 20 123/74 (90) 94 05/20/25 20:00 84 05/20/25 19:45 87 20 94 Room Air* 0 21 05/20/25 19:45 98.2 87 20 122/83 (96) 94 98.2 05/20/25 19:45 87 20 94 Room Air* 0 21 05/20/25 18:07 98.2 94 18 121/80 99 98.2 Lab Test 05/20/25 19:53 Range/Units White Blood Count 12.0 H 4.4-10.8 10^3/uL Red Blood Count 5.50 4.5-5.90 10^6/uL Hemoglobin 17.0 13.5-17.5 g/dL Hematocrit 50.0 41.0-53.0 % Mean Corpuscular Volume 90.9 80.0-100.0 fL Mean Corpuscular Hemoglobin 31.0 28.0-32.0 pg Mean Corpuscular Hemoglobin Concent 34.1 32.0-36.0 g/dL Red Cell Distribution Width 14.6 H 11.8-14.3 % Platelet Count 299 140-450 10^3/uL Mean Platelet Volume 7.8 6.9-10.8 fL Neutrophils (%) (Auto) 78.2 37.0-80.0 % Lymphocytes (%) (Auto) 12.4 10.0-50.0 % Monocytes (%) (Auto) 8.4 0.0-12.0 % Eosinophils (%) (Auto) 0.5 0.0-7.0 % Basophils (%) (Auto) 0.5 0.0-2.0 % Neutrophils # (Auto) 9.4 H 1.6-8.6 10 ^3/uL Lymphocytes # (Auto) 1.5 0.4-5.4 10 ^3/uL Monocytes # (Auto) 1.0 0-1.3 10 ^3/uL Eosinophils # (Auto) 0.1 0-0.8 10 ^3/uL Basophils # (Auto) 0.1 0-0.2 10 ^3/uL Nucleated Red Blood Cells 0.0 % Erythrocyte Sedimentation Rate 3 0-20 mm/hr Sodium Level 140 136-145 mmol/L Potassium Level 4.2 3.5-5.1 mmol/L Chloride Level 108 H 98-107 mmol/L Carbon Dioxide Level 23 20-31 mmol/L Anion Gap 9 5-15 Blood Urea Nitrogen 16 9-23 mg/dL Creatinine 0.78 0.700-1.30 mg/dL Glomerular Filtration Rate Calc 96 >90 mL/min BUN/Creatinine Ratio 20.5 H 10.0-20.0 Serum Glucose 96 74-106 mg/dL Calcium Level 9.2 8.7-10.4 mg/dL Current Medications Medications (Trade) Dose Ordered Sig/Bob Route Start Time Stop Time Status Last Admin Ceftriaxone Sodium 50 ml @ 100 mls/hr ONCE ONCE IV 05/20/25 20:45 05/20/25 21:14 DC 05/20/25 21:22 PATIENT: ANTONI MCCANNACCT: [id number] UNIT: [id number] : 1955 LOC: ER ROOM / BED: / AGE / SEX: 69 / M ADM STATUS: REG ER SERVICE 43 ORDERING PHYSICIAN: EVE CHACKO PROCEDURE(s): HWOCT - HEAD WITHOUT CONTRAST REASON: head injury ORDER NUMBER(s): [id number], ACCESSION NUMBER(s): [id number] Exam: CT HEAD WITHOUT CONTRAST History: head injury Technique: [address] images through the posterior fossa and the supratentorial compartment were acquired without contrast and imaged using soft tissue and bone algorithms. RADIATION DOSE: DLP 885.29 mGy.cm; CTDI vol 55.33 mGy. Comparison: MRI CERVICAL WO CONTRAST on DOS: 10/17/24, CT HEAD WITHOUT CONTRAST on DOS: 10/15/24 Findings: There is no evidence of an intracranial hemorrhage, acute large vessel infarct, mass effect, or midline shift. There is mild cerebral atrophy. Mild calcification of the carotid siphons. The calvarium, orbits, paranasal sinuses, sella, middle ears, and mastoids are unremarkable. The superficial soft tissues are within normal limits. Impression: 1. No acute intracranial abnormality. ATED BY: HANANE MCLAUGHLIN DO DICTATED DATE/TIME: 05/20/252022 SIGNED BY: HANANE MCLAUGHLIN DO SIGNED DATE/TIME: 05/20/252022 CC: PATIENT: ANTONI MCCANNACCT: [id number] UNIT: [id number] : 1955 LOC: ER ROOM / BED: / AGE / SEX: 69 / M ADM STATUS: REG ER SERVICE 43 ORDERING PHYSICIAN: EVE CHACKO PROCEDURE(s): CS2 - CERVICAL WITHOUT CONTRAST REASON: neck pain ORDER NUMBER(s): [id number], ACCESSION NUMBER(s): [id number] CT OF THE CERVICAL SPINE WITHOUT CONTRAST HISTORY: neck pain COMPARISON: XY CERVICAL SPINE 3V on DOS: 10/23/24, MRI CERVICAL WO CONTRAST on DOS: 10/17/24 TECHNIQUE: Helical images through the cervical spine were obtained without contrast. Sagittal and coronal reformats were obtained. One or more of the following radiation dose reduction techniques were used for this examination: automated exposure control, adjustment of the mA and/or kV according to patient size, use of iterative reconstruction technique. Dose: CTDIvol: 25.43 mGy, DLP: 1591.45 mGy.cm FINDINGS: There is no acute displaced fracture. Interval anterior fusion hardware spans C3 through C6 with associated artifact limiting evaluation. There are degenerative changes of the cervical spine characterized by endplate osteophytosis and intervertebral disc space narrowing. There is minimal grade 1 anterolisthesis of C2 on C3. Degenerative uncovertebral and facet hypertrophy contributes to multilevel neural foraminal stenosis. Small gas is seen within the right paraspinal tissues at the level of T1, and within the prevertebral soft tissues at the level of C7. Mild emphysematous changes are present at the lung apices. IMPRESSION: 1. No acute displaced fracture. 2. Postsurgical changes of the cervical spine as detailed. Nonspecific locules of gas seen within the right paraspinal tissues at the level of T1, within the prevertebral soft tissues of the level of CCorrelation with procedural history is suggested. Comparison with any prior postsurgical imaging is suggested in assessing acuity and interval change. Infectious processes cannot be excluded. If clinically indicated, MRI may be beneficial in further assessment. ATED BY: SERINA MINOR MD DICTATED DATE/TIME: 05/20/252041 SIGNED BY: SERINA MINOR MD SIGNED DATE/TIME: 05/20/252041 CC: CBC - WBC 12.0 BMP reviewed without any significant abnormalities Urinalysis ordered CT head without contrast reviewed CT cervical without contrast reviewed Hep-lock IV ordered Rocephin 1 g IV ordered Patient admitted to hospitalist due to increased bilateral lower extremity weakness and multiple falls over the course of two weeks and need for neurology consult/consult with Dr. Estrada Images Reviewed?: Images reviewed and evaluated by me Time of 1ST Reevaluation: 19:34 Reevaluation 1ST: N/A Patient Education/Counseling: Diagnosis, Treatment, Prognosis, Need For Follow Up Family Education/Counseling: No Family Present Departure 1 Departure Time of Disposition: 19:54 Impression: Primary Impression: Leg weakness, bilateral Additional Impressions: Multiple falls Leukocytosis Qualified Codes: D72.829 - Elevated white blood cell count, unspecified Disposition: ADMITTED INPATIENT Condition: Fair Critical Care Note Critical Care Time?: No Stability Stability form required: No Heart Score Heart Score: Heart Score Response (Comments) Value History N/A 0 EKG N/A 0 Age N/A 0 Risk Factors N/A 0 Troponin N/A 0 Total 0 EVE CHACKO May 20, 2025 19:57
[2025-05-20 20:12] LABS: Hematocrit 50.0 % (41.0-53.0); Hemoglobin 17.0 g/dL (13.5-17.5); Mean Corpuscular Hemoglobin 31.0 pg (28.0-32.0); Mean Corpuscular Volume 90.9 fL (80.0-100.0); Nucleated Red Blood Cells % 0.0 %
[2025-05-20 20:24] LABS: Potassium 4.2 mmol/L (3.5-5.1); Sodium 140 mmol/L (136-145)
[2025-05-20 20:25] LABS: Anion Gap 9 (5-15); Calcium 9.2 mg/dL (8.7-10.4); Carbon Dioxide 23 mmol/L (20-31)
--- NOTE | 2025-05-20 20:25 | DVH ---
Exam: CT HEAD WITHOUT CONTRAST History: head injury Technique: [address] images through the posterior fossa and the supratentorial compart ment were acquired without contrast and imaged using soft tissue and bone algorithms. RADIATION DOSE: DLP 885.29 mGy.cm; CTDI vol 55.33 mGy. Comparison: MRI CERVICAL WO CONTRAST on DOS: 10/17/24, CT HEAD WITHOUT CONTRAST on DOS: 10/15/24 Findings: There is no evidence of an intracranial hemorrhage, acute large vessel infarct, mass effect, or midli ne shift. There is mild cerebral atrophy. Mild calcification of the carotid siphons. The calvarium, orbits, paranasal sinuses, sella, middle ears, and mastoids are unremarkable. The superficial soft tissues are within normal limits. Impression: 1. No acute intracranial abnormality.
[2025-05-20 20:30] LABS: BUN/Creatinine Ratio 20.5 (10.0-20.0); Blood Urea Nitrogen 16 mg/dL (9-23); Glucose 96 mg/dL (74-106)
[2025-05-20 20:33] LABS: Chloride 108 mmol/L (98-107)
--- NOTE | 2025-05-20 20:45 | DVH ---
CT OF THE CERVICAL SPINE WITHOUT CONTRAST HISTORY: neck pain COMPARISON: XY CERVICAL SPINE 3V on DOS: 10/23/24, MRI CERVICAL WO CONTRAST on DOS: 10/17/24 TECHNIQUE: Helical images through the cervical spine were obtained without contrast. Sagittal and cor onal reformats were obtained. One or more of the following radiation dose reduction techniques were u sed for this examination: automated exposure control, adjustment of the mA and/or kV according to pat ient size, use of iterative reconstruction technique. Dose: CTDIvol: 25.43 mGy, DLP: 1591.45 mGy.cm FINDINGS: There is no acute displaced fracture. Interval anterior fusion hardware spans C3 through C6 with asso ciated artifact limiting evaluation. There are degenerative changes of the cervical spine characteriz ed by endplate osteophytosis and intervertebral disc space narrowing. There is minimal grade 1 eboni listhesis of C2 on C3. Degenerative uncovertebral and facet hypertrophy contributes to multilevel amalia ral foraminal stenosis. Small gas is seen within the right paraspinal tissues at the level of T1, and within the prevertebral soft tissues at the level of C7. Mild emphysematous changes are present at t he lung apices. IMPRESSION: 1. No acute displaced fracture. 2. Postsurgical changes of the cervical spine as detailed. Nonspecific locules of gas seen within th e right paraspinal tissues at the level of T1, within the prevertebral soft tissues of the level of C Correlation with procedural history is suggested. Comparison with any prior postsurgical imaging is s uggested in assessing acuity and interval change. Infectious processes cannot be excluded. If clinic ally indicated, MRI may be beneficial in further assessment.
[2025-05-20] MEDS: cefTRIAXone 1GM/50ML D5W 50 ML IV ONE (21:22)
[2025-05-20] MEDS: SODIUM CHLORIDE 0.9% 1,000 ML IV SCH (23:03)
--- NOTE | 2025-05-20 23:15 | DVHHPRES ---
History of Present Illness Resident Creating Document: YAMIL BAILEY RESIDENT History of Present Illness 69-year-old male presents to the ER due to unable to stand and walk, the symptoms started 2 weeks ago. The patient reports he is getting weaker day by day and he lost 10 lb over a period of 1 month. He did not have any diarrhea or all other gastrointestinal symptoms before the start of weakness. He did not ingest any uncooked food including uncooked poultry recently. He has no recent travel history or no known sick contacts. He reports feeling mild weakness in the upper extremities as well, in response to questioning. The patient had a history of cervical spine surgery. He denies any bowel bladder symptoms, fever, shortness of breath, chest pain or any other complaints. 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 Also works in a [employer]. PCP: Can not remember the name Smokin cigarettes per day for last 53 years Alcohol: None Drugs none Code status: Full code Review of Systems Neurological: Weakness Allergies: Coded Allergies: NO KNOWN ALLERGIES (Unverified , 10/15/24) Exam Vital Signs Vital Signs Date Time Temp Pulse Resp B/P (MAP) Pulse Ox O2 Delivery O2 Flow Rate FiO2 05/20/25 21:30 97 20 123/74 (90) 94 05/20/25 19:45 Room Air* 0 21 05/20/25 19:45 98.2 98.2 Exam Pt is lying on bed General Appearance: Alert, Oriented X3, Cooperative, Mild distress HEENT: Atraumatic, Mucous membranes moist/pink Respiratory: Clear to auscultation, Normal air movement, No added sounds Cardiovascular: Regular rate, Normal S1, Normal S2, No murmurs Abdominal/ : Active bowel sounds, Soft, no distention, no tenderness Extremities: No edema, Normal pulses, No tenderness/swelling Skin: No Significant rash, except past surgical scars Neuro: Normal speech, hip extension strength 1/5 bilaterally on resistance testing, upper extremity strength normal, sensation intact Psych/Mental Status: Mental status NL, Mood NL Nurse was there as kiln furniture saw tender during examination Labs/Xrays Labs Test 05/20/25 19:53 Range/Units White Blood Count 12.0 H 4.4-10.8 10^3/uL Red Blood Count 5.50 4.5-5.90 10^6/uL Hemoglobin 17.0 13.5-17.5 g/dL Hematocrit 50.0 41.0-53.0 % Mean Corpuscular Volume 90.9 80.0-100.0 fL Mean Corpuscular Hemoglobin 31.0 28.0-32.0 pg Mean Corpuscular Hemoglobin Concent 34.1 32.0-36.0 g/dL Red Cell Distribution Width 14.6 H 11.8-14.3 % Platelet Count 299 140-450 10^3/uL Mean Platelet Volume 7.8 6.9-10.8 fL Neutrophils (%) (Auto) 78.2 37.0-80.0 % Lymphocytes (%) (Auto) 12.4 10.0-50.0 % Monocytes (%) (Auto) 8.4 0.0-12.0 % Eosinophils (%) (Auto) 0.5 0.0-7.0 % Basophils (%) (Auto) 0.5 0.0-2.0 % Neutrophils # (Auto) 9.4 H 1.6-8.6 10 ^3/uL Lymphocytes # (Auto) 1.5 0.4-5.4 10 ^3/uL Monocytes # (Auto) 1.0 0-1.3 10 ^3/uL Eosinophils # (Auto) 0.1 0-0.8 10 ^3/uL Basophils # (Auto) 0.1 0-0.2 10 ^3/uL Nucleated Red Blood Cells 0.0 % Sodium Level 140 136-145 mmol/L Potassium Level 4.2 3.5-5.1 mmol/L Chloride Level 108 H 98-107 mmol/L Carbon Dioxide Level 23 20-31 mmol/L Anion Gap 9 5-15 Blood Urea Nitrogen 16 9-23 mg/dL Creatinine 0.78 0.700-1.30 mg/dL Glomerular Filtration Rate Calc 96 >90 mL/min BUN/Creatinine Ratio 20.5 H 10.0-20.0 Serum Glucose 96 74-106 mg/dL Calcium Level 9.2 8.7-10.4 mg/dL SEPSIS Sepsis Screen Date sepsis recognized/suspect: May 20, 2025 Time Sepsis recognized/suspect: 1944 Recent Procedure: No On Antibiotic Therapy: No Respiratory Rate >20: No Heart Rate >90: No Temp<36 C (96.8 F) or >38.3 C: No SBP <90 or MAP <65 mmHG: No New Acute Mental Status Change: No Is the patient on CPAP, BIPAP,: No Physician Orders Lt Lower Dvt (05/20/25 18:35) Head Without Contrast (05/20/25 19:44) Cervical Without Contrast (05/20/25 19:44) Heplock Iv (05/20/25 ) Urinalysis (05/20/25 20:43) Admit (05/20/25 22:34) Code Status (05/20/25 22:34) Sodium Chloride 0.9% (05/20/25 22:45) Complete Blood Count (05/21/25 04:00) Comprehensive Metabolic Panel (05/21/25 04:00) Cardiac Diet-2gna,Lofat,Lochol (05/21/25 Breakfast) Stat Ekg For Chest Pain (05/20/25 22:34) Notify Md Of Changes From Base (05/20/25 22:34) Enoxaparin Sodium (Lovenox) (05/21/25 21:00) Erythrocyte Sedimentation Rate (05/20/25 22:38) Vital Signs Date Time Temp Pulse Resp B/P (MAP) Pulse Ox O2 Delivery O2 Flow Rate FiO2 05/20/25 21:30 97 20 123/74 (90) 94 05/20/25 20:00 84 05/20/25 19:45 87 20 94 Room Air* 0 21 05/20/25 19:45 98.2 87 20 122/83 (96) 94 98.2 05/20/25 18:07 98.2 94 18 121/80 99 98.2 Laboratory Tests Test 05/20/25 19:53 White Blood Count 12.0 10^3/uL (4.4-10.8) H Medications Medications Dose Ordered Sig/Bob Route Start Time Stop Time Status Last Admin Dose Admin Ceftriaxone Sodium 50 ml @ 100 mls/hr ONCE ONCE IV 05/20/25 20:45 05/20/25 21:14 DC 05/20/25 21:22 100 MLS/HR Assessment/Plan Assessment/Plan Severe lower extremity weakness with previous cervical spine surgery due to stenosis Rule out GBS Rule out PAD Head CT: no acute intracranial abnormality Cervical spine CT: No acute displaced fracture, postsurgical changes of the cervical spine as detailed: Nonspecific locules of gas seen within the right paraspinal tissues at the level of T1, within the prevertebral soft tissues of the level of C, correlation with procedural history suggested. Comparison with any prior postsurgical imaging is suggested in assessing acuity in interval change. Infectious process can not be excluded. If clinically indicated MRI may be beneficial in further assessment. Left lower venous study: No sonographic evidence for DVT in the left lower extremity veins. Lower Extremity Arterial Duplex: There is no evidence for peripheral vascular insufficiency in the right lower extremity. There is no evidence for peripheral vascular insufficiency in the left lower extremity. No significant focal stenosis is identified. Leukocytosis present and ESR was ordered. Consider Neurology consultation to rule out GBS. -Spine surgery consulted. -Consider physical therapy GI prophylaxis: Pantoprazole DVT prophylaxis: Lovenox Diet: Cardiac Goals of care discussed with the patient for more than 27 minutes: Full code status Case discussed with , patient and RN Plan discussed with: Patient, Other My Orders Orders - YAMIL BAILEY Procedure Category Date Status Time Admit ADMIT 05/20/25 Transmitted 22:34 Code Status CODE 05/20/25 Transmitted 22:34 Sodium Chloride 0.9% PHA 05/20/25 In Process 22:45 Complete Blood Count LAB 05/21/25 Verified 04:00 Comprehensive LAB 05/21/25 Verified Metabolic Panel 04:00 Cardiac DIET 05/21/25 Transmitted Diet-2gna,Lofat,Lochol Breakfast Stat Ekg For Chest NATANAEL 05/20/25 In Process Pain 22:34 Notify Of Changes NATANAEL 05/20/25 In Process From Base 22:34 Enoxaparin Sodium PHA 05/21/25 In Process (Lovenox) 21:00 Erythrocyte LAB 05/20/25 In Process Sedimentation Rate 22:38 Date of Service: May 21, 2025 Billing Provider: JULIA MELLO MD Common Visit Codes: 18119-EPLOJCI INP/OBS CARE (HIGH) Secondary Visit Codes: 12824-VJWQIVHF CARE PLAN 30 MINUTES YAMIL BAILEY May 20, 2025 23:15
[2025-05-21] VITALS (9 sets, daily range): BP systolic 101–127; BP diastolic 67–87; PULSE 71–90; RESP 15–18; TEMP 97.6–98.3; O2SAT 92–97
--- NOTE | 2025-05-21 00:58 | DVH ---
BILATERAL Lower Extremity Arterial Duplex Date: 05/21/2025 12:04 AM Clinical History: Claudication Comparison: US LT LOWER DVT on DOS: 05/20/25 Technique: Duplex Doppler evaluation including color Doppler and spectral/pulsed waveform analysis of the lower extremity arteries was performed. Finding: RIGHT: Peak systolic velocities are as follows: DIRECTOR RISK 86 cm/s Deep femoral 38 cm/s SFA proximal 72 cm/s SFA mid-portion 74 cm/s SFA distal sign 71 cm/s Popliteal 68 cm/s Posterior tibial 66 cm/s Dorsalis pedis 92 cm/s The waveforms are triphasic. LEFT: Peak systolic velocities are as follows: DIRECTOR RISK 56 cm/s Deep femoral 39 cm/s SFA proximal 82 cm/s SFA mid-portion 78 cm/s SFA distal 78 cm/s Popliteal 60 cm/s Posterior tibial 127 cm/s Dorsalis pedis 105 cm/s The waveforms are triphasic. REFERENCE VALUES, [facility] ([facility]) vascular Imaging Lab Criteria: Peak systolic velocity ranges (in cm/sec) are as follows: <150 cm/s - <20 % stenosis 150-200 cm/s - 20-49% stenosis 200-300 cm/s - 50-75% stenosis >300 cm/s -> 75% stenosis IMPRESSION: 1. There is no evidence for peripheral vascular insufficiency in the right lower extremity. 2. There is no evidence for peripheral vascular insufficiency in the left lower extremity. 3. No significant focal stenosis is identified.
[2025-05-21] MEDS: PANTOPRAZOLE 40 MG TAB PO SCH (06:16)
[2025-05-21 07:00] LABS: Alanine Aminotransferase 56 U/L (7-40); Albumin 4.2 g/dL (3.2-4.8); Alkaline Phosphatase 77 U/L (46-116); Anion Gap 8 (5-15); BUN/Creatinine Ratio 17.8 (10.0-20.0); Bilirubin, Total 0.7 mg/dL (0.2-1.0); Blood Urea Nitrogen 13 mg/dL (9-23); Calcium 9.1 mg/dL (8.7-10.4); Carbon Dioxide 26 mmol/L (20-31); Chloride 109 mmol/L (98-107); Glucose 91 mg/dL (74-106); Potassium 3.9 mmol/L (3.5-5.1); Sodium 143 mmol/L (136-145); Total Protein 6.3 g/dL (5.7-8.2)
[2025-05-21 07:11] LABS: Hematocrit 47.4 % (41.0-53.0); Hemoglobin 16.7 g/dL (13.5-17.5); Mean Corpuscular Hemoglobin 31.9 pg (28.0-32.0); Mean Corpuscular Volume 90.6 fL (80.0-100.0); Nucleated Red Blood Cells % 0.1 %
[2025-05-21 09:30] LABS: Urine Protein, UAD Negative (Negative)
--- NOTE | 2025-05-21 14:58 | DVHINCON2 ---
YESSI ARZATE LINE INSTALLATION SUPERVISOR 05/21/25 1457: Consultation - Spinal Surgery Date Seen: May 21, 2025 Referring Physician Referring Physician Attending Doctor: Umair Mathew Resident Resident Creating Document: YAMIL BAILEY Reason for Consultation unable to walk x 2 weeks . hx of cervical spin surgery in Oct 2024 History of Present Illness History of Present Illness History of Present Illness 69-year-old male presents to the ER due to unable to stand and walk, the symptoms started 2 weeks ago. The patient reports he is getting weaker day by day and he lost 10 lb over a period of 1 month. He did not have any diarrhea or all other gastrointestinal symptoms before the start of weakness. He did not ingest any uncooked food including uncooked poultry recently. He has no recent travel history or no known sick contacts. He reports feeling mild weakness in the upper extremities as well, in response to questioning. The patient had a history of cervical spine surgery. He denies any bowel bladder symptoms, fever, shortness of breath, chest pain or any other complaints. 10/23/2024 Cervical Degenerative Disk Disease and Spinal Stenosis Causing incapacitating neck pain, radiculopathy and progressive neurologic deficit Procedure: Cervical 3 to 4 anterior cervical discectomy with Cervical 3-4 foraminotomies and facetectomies to decompression the spinal canal and Cervical 4 nerve roots Cervical 4 to 5 anterior cervical discectomy with Cervical 4-5 foraminotomies and facetectomies to decompression the spinal canal and Cervical 5 nerve roots Cervical 5 to 6 anterior cervical discectomy with Cervical 5-6 foraminotomies and facetectomies to decompression the spinal canal and Cervical 6 nerve roots Cervical 3-6 anterior cervical Fusion Cervical 3-6 anterior cervical instrumentation with freestanding cages Cervical 3-4 placement of allograft prosthetic device Cervical 4-5 placement of allograft prosthetic device Cervical 5-6 placement of allograft prosthetic device Spine surgery H and P Patient did have cervical ACDF October 2024, patient states that he started having difficulty with his legs after his surgery with weakness noted to the right greater than left. Patient is having difficulty with his bilateral toes pulling he is unable to lift his toes off the ground he drags his feet when he walks. 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 PCP: Can not remember the name Smokin cigarettes per day for last 53 years Alcohol: None Drugs none Code status: Full code Allergies and medications Allergies: Coded Allergies: NO KNOWN ALLERGIES (Unverified , 10/15/24) Home Meds Active Scripts Hydrocodone-Acetaminophen (Hydrocodone/Acetaminophen 7.5-325 mg) 1 Tab Tab, 1 TAB PO Q4HP PRN for 10 Days, #50 TAB Prov:YESSI ARZATE LINE INSTALLATION SUPERVISOR 10/24/24 Docusate Sodium (Docusate Sodium) 100 Mg Cap, 100 MG PO Q12HP PRN for 30 Days, #60 CAP Prov:YESSI ARZATE LINE INSTALLATION SUPERVISOR 10/24/24 Cyclobenzaprine HCl (Cyclobenzaprine Hydrochlo) 10 Mg Tab, 10 MG PO Q8HR for 30 Days, #90 TAB Prov:YESSI ARZATE LINE INSTALLATION SUPERVISOR 10/24/24 Review of systems Review of Systems: HEENT:Normal, CVS:Normal, RESPIRATORY:Normal, GI:Normal, :Normal, MSK:Abnormal (Pedal pushes 4/5 pedal pulls 2/5), NEURO:Abnormal Examination Vital signs Imaging: PENDING MRI 05/21/25 @ 14:48 ORDERING PHYSICIAN: BETH LOPEZ RESIDENT PROCEDURE(s): MSLW - LUMBAR SPINE WO W CONTRST REASON: ORDER NUMBER(s): [id number], ACCESSION NUMBER(s): [id number] ADDENDUM ADDENDUM # 1 FINDINGS GENERAL Multilevel disc degeneration. Alignment: Grade 1 retrolisthesis of T12 on L1. Vertebrae: Vertebral body height is well maintained without evidence of a recent compression fracture. Conus: Conus medullaris terminates at the L1 level. T12-L1: Grade 1 retrolisthesis of T12 on L1. Disc desiccation and disc bulge. Mild right lateral recess stenosis. Mild bilateral foraminal stenosis. Facet arthrosis. L1-2: Disc desiccation. No spinal canal stenosis. Mild left and severe right foraminal stenosis with potential right exiting L1 nerve root compression. Facet arthrosis. L2-3: Disc desiccation. Mild bilateral lateral recess stenosis. Mild bilateral foraminal stenosis. Facet arthrosis. L3-4: Disc desiccation and 3.9 mm disc bulge. Mild spinal canal stenosis. Mild bilateral lateral recess stenosis. Mild bilateral foraminal stenosis. Facet arthrosis. L4-5: Disc desiccation and disc bulge. Moderate disc height loss. Mild spinal canal stenosis. Moderate right and mild left lateral recess stenosis. Moderate right and mild left foraminal stenosis. Facet arthrosis. L5-S1: Disc bulge. Moderate disc height loss. Mild left lateral recess stenosis. Mild bilateral foraminal stenosis. Facet arthrosis. IMPRESSION: 1. Multilevel disc degeneration. Multilevel spinal canal stenosis, most pronounced and mild at L4-L5. Multilevel lateral recess stenosis, most pronounced and moderate at L4-L5. Multilevel foraminal stenosis, most pronounced and severe at L1-L2 with potential right exiting L1 nerve root compression. ORIGINAL REPORT PROCEDURE: MRI LUMBAR SPINE WO W CONTRST INDICATION: rule out spinal structal pathology Exam Date: 05/21/2025 04:42 PM COMPARISON: MRI LUMBAR SPINE WO CONTRAST on DOS: 10/16/24, CT LS SPINE WO CONTRAST on DOS: 10/15/24 TECHNIQUE: MRI lumbar spine without intravenous contrast. FINDINGS: Lumbar vertebrae normal in height signal intensity and alignment L1-2: Loss of disc height and signal intensity. No narrowing of the central canal and neural foramina L2-3 loss of disc height and signal intensity. No narrowing of the central canal and neural foramina L3-4 loss of disc height and signal intensity. No narrowing of the central canal or neural foramina L4-5 loss of disc height and signal intensity. Narrowing of the neural foramina by laterally bulging disc with possible effacement of the exiting L4 nerve roots L5-S1 loss of disc height and signal intensity. There is narrowing of the neural foramina bilaterally bulging disc which appears to efface the exiting L5 nerve roots peripherally. Cord ends at T12-L1 is normal in appearance IMPRESSION: 1. There is diffuse degenerative disc disease present. At L4-5 and L5-S1 lateral disc bulges narrow their respective neural foramina May efface the exiting L4 and L5 nerve roots RING PHYSICIAN: BETH LOPEZ PROCEDURE(s): MSC - CERVICAL WITH CONTRAST REASON: ORDER NUMBER(s): [id number], ACCESSION NUMBER(s): [id number] CLINICAL INFORMATION: 69 years old, Male; SPINAL PATHOLOGY. TECHNIQUE: Multisequence multiplanar MRI images of the cervical spine were obtained prior to and after the uneventful administration of Gadavist contrast. COMPARISON: CT CERVICAL WITHOUT CONTRAST on DOS: 05/20/25, XY CERVICAL SPINE 3V on DOS: 10/23/24, MRI CERVICAL WO CONTRAST on DOS: 10/17/24 FINDINGS: Anterior fusion hardware is present spanning C3 through C6 with associated artifact limiting assessment. There is no acute fracture. The spinal cord is unremarkable. The paraspinal soft tissues are unremarkable. No abnormal enhancement is seen. Cervical disc levels: C2-C3: No significant disc/facet abnormality. No significant spinal canal or neural foraminal stenosis. C3-C4: Uncovertebral hypertrophy contributes to mild left neural foraminal s tenosis. C4-C5: Uncovertebral and facet hypertrophy contribute to mild right neural foraminal stenosis. C5-C6: Uncovertebral and facet hypertrophy contribute to mild bilateral neural foraminal stenosis. C6-C7: A disc osteophyte effaces the thecal sac. There is facet arthropathy and uncovertebral hypertrophy. C7-T1: No significant disc/facet abnormality. No significant spinal canal or neural foraminal stenosis. IMPRESSION: 1. Degenerative and postsurgical changes of the cervical spine as detailed. ORDERING PHYSICIAN: EVE CHACKO PROCEDURE(s): CS2 - CERVICAL WITHOUT CONTRAST REASON: neck pain ORDER NUMBER(s): [id number], ACCESSION NUMBER(s): [id number] CT OF THE CERVICAL SPINE WITHOUT CONTRAST HISTORY: neck pain COMPARISON: XY CERVICAL SPINE 3V on DOS: 10/23/24, MRI CERVICAL WO CONTRAST on DOS: 10/17/24 TECHNIQUE: Helical images through the cervical spine were obtained without contrast. Sagittal and coronal reformats were obtained. One or more of the following radiation dose reduction techniques were used for this examination: automated exposure control, adjustment of the mA and/or kV according to patient size, use of iterative reconstruction technique. Dose: CTDIvol: 25.43 mGy, DLP: 1591.45 mGy.cm FINDINGS: There is no acute displaced fracture. Interval anterior fusion hardware spans C3 through C6 with associated artifact limiting evaluation. There are degenerative changes of the cervical spine characterized by endplate osteophytosis and intervertebral disc space narrowing. There is minimal grade 1 anterolisthesis of C2 on C3. Degenerative uncovertebral and facet hypertrophy contributes to multilevel neural foraminal stenosis. Small gas is seen within the right paraspinal tissues at the level of T1, and within the prevertebral soft tissues at the level of C7. Mild emphysematous changes are present at the lung apices. IMPRESSION: 1. No acute displaced fracture. 2. Postsurgical changes of the cervical spine as detailed. Nonspecific locules of gas seen within the right paraspinal tissues at the level of T1, within the prevertebral soft tissues of the level of CCorrelation with procedural history is suggested. Comparison with any prior postsurgical imaging is suggested in assessing acuity and interval change. Infectious processes cannot be excluded. If clinically indicated, MRI may be beneficial in further assessment. Vital Signs Date Time Temp Pulse Resp B/P (MAP) Pulse Ox O2 Delivery O2 Flow Rate FiO2 05/21/25 13:00 98.3 71 15 116/84 (95) 93 98.3 05/21/25 00:57 Room Air* 0 21 Medications Current Medications Medications (Trade) Dose Ordered Sig/Bob Route PRN Reason Start Time Stop Time Status Last Admin Sodium Chloride 1,000 ml @ 60 mls/hr [id number] IV 05/20/25 22:45 05/20/25 23:03 Enoxaparin Sodium (Lovenox) 40 mg DAILY SC 05/21/25 21:00 Pantoprazole Sodium (Protonix Tablet) 40 mg DAILY@0600 PO 05/21/25 06:00 05/21/25 06:16 Dexamethasone Sodium Phosphate (Decadron Injection) 10 mg Q8HR IV 05/21/25 12:30 Laboratory Labs Test 05/21/25 09:00 05/21/25 06:08 05/20/25 19:53 Range/Units Urine Color Yellow Yellow Urine Clarity Clear Clear Urine pH 5.0 5.0-9.0 Urine Specific Massey 1.022 1.001-1.035 Urine Protein Negative Negative Urine Ketones Negative Negative Urine Blood Negative Negative /uL Urine Nitrite Negative Negative Urine Bilirubin Negative Negative Urine Urobilinogen Normal Negative mg/dL Urine Leukocyte Esterase Negative Negative /uL Urine RBC 3 0 - 3 /hpf Urine Microscopic WBC 1 0-3 /HPF Urine Squamous Epithelial Cells None seen <5 /hpf Urine Bacteria None seen None Seen /hpf Urine Glucose Normal Normal mg/dL White Blood Count 10.2 4.4-10.8 10^3/uL Red Blood Count 5.23 4.5-5.90 10^6/uL Hemoglobin 16.7 13.5-17.5 g/dL Hematocrit 47.4 41.0-53.0 % Mean Corpuscular Volume 90.6 80.0-100.0 fL Mean Corpuscular Hemoglobin 31.9 28.0-32.0 pg Mean Corpuscular Hemoglobin Concent 35.1 32.0-36.0 g/dL Red Cell Distribution Width 14.8 H 11.8-14.3 % Platelet Count 276 140-450 10^3/uL Mean Platelet Volume 8.0 6.9-10.8 fL Neutrophils (%) (Auto) 71.9 37.0-80.0 % Lymphocytes (%) (Auto) 15.6 10.0-50.0 % Monocytes (%) (Auto) 10.7 0.0-12.0 % Eosinophils (%) (Auto) 1.4 0.0-7.0 % Basophils (%) (Auto) 0.4 0.0-2.0 % Neutrophils # (Auto) 7.4 1.6-8.6 10 ^3/uL Lymphocytes # (Auto) 1.6 0.4-5.4 10 ^3/uL Monocytes # (Auto) 1.1 0-1.3 10 ^3/uL Eosinophils # (Auto) 0.1 0-0.8 10 ^3/uL Basophils # (Auto) 0 0-0.2 10 ^3/uL Nucleated Red Blood Cells 0.1 % Sodium Level 143 136-145 mmol/L Potassium Level 3.9 3.5-5.1 mmol/L Chloride Level 109 H 98-107 mmol/L Carbon Dioxide Level 26 20-31 mmol/L Anion Gap 8 5-15 Blood Urea Nitrogen 13 9-23 mg/dL Creatinine 0.73 0.700-1.30 mg/dL Glomerular Filtration Rate Calc 98 >90 mL/min BUN/Creatinine Ratio 17.8 10.0-20.0 Serum Glucose 91 74-106 mg/dL Calcium Level 9.1 8.7-10.4 mg/dL Total Bilirubin 0.7 0.2-1.0 mg/dL Aspartate Amino Transferase (AST) 26 13-40 U/L Alanine Aminotransferase (ALT) 56 H 7-40 U/L Alkaline Phosphatase 77 46-116 U/L Creatine Kinase 408 H 46-171 U/L Total Protein 6.3 5.7-8.2 g/dL Albumin 4.2 3.2-4.8 g/dL Thyroid Stimulating Hormone (TSH) 1.84 0.55-4.78 uIU/mL Erythrocyte Sedimentation Rate 3 0-20 mm/hr Examination: GENERAL:Normal, HEENT:Normal, NECK:Normal (No complaints of neck pain left anterior cervical site is well healed), LUNGS:Normal, CVS:Normal, ABDOMEN:Normal, MSK:Normal, SKIN:Normal, NEURO:Abnormal, :Normal Problem List/Assessment/Plan Problems: (1) Lumbar stenosis with neurogenic claudication (2) Cervical stenosis of spinal canal (3) Thoracic stenosis Assessment and Plan LUMBAR: Multilevel disc degeneration. Multilevel spinal canal stenosis, most pronounced and mild at L4-L5. Multilevel lateral recess stenosis, most pronounced and moderate at L4-L5. Multilevel foraminal stenosis, most pronounced and severe at L1-L2 with potential right exiting L1 nerve root compression. Pending MRI 05-21-2025 at 2004 Continue supportive care per admitting team's discretion Further spine surgery recommendations once the MRIs are complete Pain management and muscle relaxers Physical therapy evaluation for strength of bilateral lower extremities, treatment recommendations and discharge planning Call with wendi Arzate [facility] Orthopaedic Spine Surgery nurse practitioner For Dr Carlos Estrada Patient was examined, chart reviewed, labs evaluated, and diagnostic studies and findings analyzed. Case was discussed with Dr. Josafat Estrada who formulated the plan of care. This medical document was created using an electronic medical record system with [employer] dictation system. Although this document has been carefully reviewed, there might still be some phonetic and typographical errors. These areas are purely typographical due to imperfections of the software programs, and do not reflect any compromise in the patient's medical care. Plan discussed with Plan discussed with: Patient JOSAFAT ESTRADA MD 05/24/25 1027: Consultation - Spinal Surgery Date Seen: May 24, 2025 Review of systems Review of Systems: HEENT:Normal, CVS:Normal, RESPIRATORY:Normal, GI:Normal, :Normal, MSK:Abnormal, NEURO:Abnormal Examination Examination: GENERAL:Normal, HEENT:Normal, NECK:Normal, LUNGS:Normal, CVS:Normal, ABDOMEN:Normal, MSK:Abnormal, NEURO:Abnormal, :Normal Problem List/Assessment/Plan Problems: (1) Lumbar stenosis with neurogenic claudication Assessment and Plan Plan is to get cardiac clearance and once obtained, plan for surgery lumbar spine YESSI ARZATE NP May 21, 2025 14:57 JOSAFAT ESTRADA MD May 24, 2025 10:27
[2025-05-21] MEDS: GADOTERATE MEG 10 MMOL/20ml INJ (0.5MMOL/ml) IV ONE (15:28)
--- NOTE | 2025-05-21 17:11 | DVHPNRES ---
Progress Note Date Seen: May 21, 2025 Resident Creating Document: PUMA MCDONALD RESIDENT Medical Necessity Reason Pt with a Central, PICC or Fol: No Subjective Review of Systems 69-year-old male with past history of cervical spine surgery 4 months ago for cervical spinal stenosis presented to the ED with complaints of weakness in bilateral lower limbs. The weakness began in the right lower limb 2 months ago with which gradually progressed. Two weeks ago the patient began experiencing left-sided weakness. 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 PSHx: Cervical Spinal surgery Social history: 53 pack years Home medication: None Allergic history: None General: patient denies fever, fatigue, weaknes, sweating, any recent changes in appetite and weight HEENT: No headaches, visiual changes, hearing loss, tinnitus, nasal congestion and discharge, and sore throat. Cardiovascular: Denies chest pain, palpitations, dyspnea on exertion, orthopnea, or claudication. Respiratory: No cough, and wheezing. Gastrointestinal: Denies nausea, vomiting, dysphagia, odynophagia, heartburn, abdominal pain, flatulence, bloating, diarrhea, constipation, change in stool, or blood in stool. Genitourinary: No dysuria, hematuria, discharge, frequency, urgency, nocturia, incontinence, and urinary retention. Endocrine: No heat or cold intolerance, polydipsia, polyuria, and polyphagia. Neurological: weakness of b/l upper and lower limb, No dizziness, tremors, gait disturbance, seizures, and memory impairment. Psychiatric: Denies depression, anxiety,or insomnia. Musculoskeletal: Denies neck pain, stiffness and swelling, back pain, muscle weakness, joint pain, stiffness, swelling, or limited range of motion. Skin: No rashes, itching, skin lesion, changes in hair, nail, skin texture and breast. Hematologic/Lymphatic: Denies easy bruising, bleeding tendencies, or lymph node enlargement. Objective vital signs Vital Sign Date Time Temp Pulse Resp B/P (MAP) Pulse Ox O2 Delivery O2 Flow Rate FiO2 05/21/25 16:47 98.2 72 18 101/67 (78) 92 98.2 05/21/25 08:00 Room Air* 0 21 Total Intake and Output 05/20/25 05/20/25 05/21/25 15:00 23:00 07:00 Intake Total 50 ml 0 ml Balance 50 ml 0 ml medications Current Medications Medications Dose Ordered Sig/Bob Route Start Time Stop Time Status Last Admin Dose Admin Sodium Chloride 1,000 ml @ 60 mls/hr [id number] IV 05/20/25 22:45 05/20/25 23:03 60 MLS/HR Enoxaparin Sodium 40 mg DAILY SC 05/21/25 21:00 Pantoprazole Sodium 40 mg DAILY@0600 PO 05/21/25 06:00 05/21/25 06:16 40 MG Dexamethasone Sodium Phosphate 10 mg Q8HR IV 05/21/25 12:30 Examination General Appearance: Alert, Oriented X3, Cooperative, No acute distress HEENT: Atraumatic, PERRLA, EOMI, Mucous membrane moist/pink Respiratory: Clear to auscultation, Normal air movement Cardiovascular: Regular rate, Normal S1, Normal S2, No murmurs, no chest wall tenderness Abdominal: Normal bowel sounds, Soft, No tenderness, No hepatospenomegaly, No masses Neurological: Weakness in bilateral lower limbs, strength 2/5; weakness in bilateral upper limbs, strength 3/5; absent ankle and knee reflexes Skin: No rashes, No breakdown, No significant lesion Neuro: Normal gait, Normal speech, Strength at 5/5 X4 ext, Normal tone, Sensation intact, Cranial nerves 3-12 NL, Reflexes 2+ Psych/Mental Status: Mental status NL, Mood NL laboratory and microbiology Laboratory Tests 05/21/25 06:08 Test 05/21/25 06:08 Range/Units Serum Glucose 91 74-106 mg/dL Problem List/Assessment/Plan Problem List/Assessment/Plan 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
[2025-05-21] MEDS: SODIUM CHLORIDE 0.9% 1,000 ML IV SCH (17:30)
--- NOTE | 2025-05-21 17:49 | DVH ---
PROCEDURE: MRI LUMBAR SPINE WO W CONTRST INDICATION: rule out spinal structal pathology Exam Date: 05/21/2025 04:42 PM COMPARISON: MRI LUMBAR SPINE WO CONTRAST on DOS: 10/16/24, CT LS SPINE WO CONTRAST on DOS: 10/15/24 TECHNIQUE: MRI lumbar spine without intravenous contrast. FINDINGS: Lumbar vertebrae normal in height signal intensity and alignment L1-2: Loss of disc height and signal intensity. No narrowing of the central canal and neural foramina L2-3 loss of disc height and signal intensity. No narrowing of the central canal and neural foramina L3-4 loss of disc height and signal intensity. No narrowing of the central canal or neural foramina L4-5 loss of disc height and signal intensity. Narrowing of the neural foramina by laterally bulging disc with possible effacement of the exiting L4 nerve roots L5-S1 loss of disc height and signal intensity. There is narrowing of the neural foramina bilaterally bulging disc which appears to efface the exiting L5 nerve roots peripherally. Cord ends at T12-L1 is normal in appearance IMPRESSION: 1. There is diffuse degenerative disc disease present. At L4-5 and L5-S1 lateral disc bulges narrow t heir respective neural foramina May efface the exiting L4 and L5 nerve roots
--- NOTE | 2025-05-21 19:43 | DVH ---
CLINICAL INFORMATION: 69 years old, Male; SPINAL PATHOLOGY. TECHNIQUE: Multisequence multiplanar MRI images of the cervical spine were obtained prior to and afte r the uneventful administration of Gadavist contrast. COMPARISON: CT CERVICAL WITHOUT CONTRAST on DOS: 05/20/25, XY CERVICAL SPINE 3V on DOS: 10/23/24, MRI C ERVICAL WO CONTRAST on DOS: 10/17/24 FINDINGS: Anterior fusion hardware is present spanning C3 through C6 with associated artifact limiting assessme nt. There is no acute fracture. The spinal cord is unremarkable. The paraspinal soft tissues are unre markable. No abnormal enhancement is seen. Cervical disc levels: C2-C3: No significant disc/facet abnormality. No significant spinal canal or neural foraminal stenosi s. C3-C4: Uncovertebral hypertrophy contributes to mild left neural foraminal stenosis. C4-C5: Uncovertebral and facet hypertrophy contribute to mild right neural foraminal stenosis. C5-C6: Uncovertebral and facet hypertrophy contribute to mild bilateral neural foraminal stenosis. C6-C7: A disc osteophyte effaces the thecal sac. There is facet arthropathy and uncovertebral hypert rophy. C7-T1: No significant disc/facet abnormality. No significant spinal canal or neural foraminal stenos is. IMPRESSION: 1. Degenerative and postsurgical changes of the cervical spine as detailed.
--- NOTE | 2025-05-21 19:51 | DVH ---
EXAM: MRI THORACIC SPINE WO W HISTORY: Back pain COMPARISON: CT CERVICAL WITHOUT CONTRAST on DOS: 05/20/25, MRI CERVICAL WO CONTRAST on DOS: 10/17/24, M RI THORACIC SPINE WITHOUT on DOS: 10/16/24, CT LS SPINE WO CONTRAST on DOS: 10/15/24 TECHNIQUE: Multiplanar, multisequence MRI was performed without and with IV contrast. FINDINGS: There is no acute displaced fracture. Intervertebral disc heights are well-maintained. There are mi ld multilevel endplate degenerative changes. A right paracentral disc protrusion at T7-8 effaces the thecal sac and narrows the right lateral recess. There is no MR evidence of high-grade spinal canal s tenosis. There is no abnormal enhancement. The paraspinal soft tissues are unremarkable. IMPRESSION: 1. Mild degenerative changes of the thoracic spine as detailed.
[2025-05-21] MEDS: ENOXAPARIN SOD 40 MG/0.4 ML SYRINGE SC SCH (21:29)
[2025-05-22] VITALS (8 sets, daily range): BP systolic 110–141; BP diastolic 74–91; PULSE 53–105; RESP 16–18; TEMP 97.5–98.2; O2SAT 92–95
[2025-05-22 08:13] LABS: Anion Gap 8 (5-15); Calcium 9.4 mg/dL (8.7-10.4); Carbon Dioxide 23 mmol/L (20-31); Potassium 4.5 mmol/L (3.5-5.1); Sodium 141 mmol/L (136-145)
[2025-05-22 08:19] LABS: BUN/Creatinine Ratio 21.1 (10.0-20.0); Blood Urea Nitrogen 16 mg/dL (9-23)
[2025-05-22 08:21] LABS: Chloride 110 mmol/L (98-107); Creatine Kinase IFCC 289 U/L (46-171); Glucose 126 mg/dL (74-106)
--- NOTE | 2025-05-22 18:05 | DVHPNRES ---
Progress Note Date Seen: May 22, 2025 Resident Creating Document: PUMA MCDONALD RESIDENT Medical Necessity Reason Pt with a Central, PICC or Fol: No Subjective Review of Systems Patient seen at bedside. MRI of the cervical, thoracic and lumbar spine shows degenerative disc d/s, mild neural foramina stenosis. Waiting for spinal surgery evaluation. Objective vital signs Vital Sign Date Time Temp Pulse Resp B/P (MAP) Pulse Ox O2 Delivery O2 Flow Rate FiO2 05/22/25 12:38 97.5 105 18 130/89 (103) 92 97.5 05/22/25 08:00 Room Air* 0 21 Total Intake and Output 05/21/25 05/21/25 05/22/25 15:00 23:00 07:00 Intake Total 1850 ml 240 ml Output Total 525 ml 300 ml Balance 1325 ml -60 ml medications Current Medications Medications Dose Ordered Sig/Bob Route Start Time Stop Time Status Last Admin Dose Admin Enoxaparin Sodium 40 mg DAILY SC 05/21/25 21:00 05/22/25 10:08 40 MG Pantoprazole Sodium 40 mg DAILY@0600 PO 05/21/25 06:00 05/22/25 05:16 40 MG Dexamethasone Sodium Phosphate 10 mg Q8HR IV 05/21/25 12:30 05/22/25 13:59 10 MG Sodium Chloride 1,000 ml @ 75 mls/hr [id number] IV 05/21/25 17:30 05/21/25 17:30 75 MLS/HR Examination General Appearance: Alert, Oriented X3, Cooperative, No acute distress HEENT: Atraumatic, PERRLA, EOMI, Mucous membrane moist/pink Respiratory: Clear to auscultation, Normal air movement Cardiovascular: Regular rate, Normal S1, Normal S2, No murmurs, no chest wall tenderness Abdominal: Normal bowel sounds, Soft, No tenderness, No hepatospenomegaly, No masses Neurological: Weakness in bilateral lower limbs, strength 2/5; weakness in bilateral upper limbs, strength 3/5; absent ankle and knee reflexes Skin: No rashes, No breakdown, No significant lesion Neuro: Normal gait, Normal speech, Strength at 5/5 X4 ext, Normal tone, Sensation intact, Cranial nerves 3-12 NL, Reflexes 2+ Psych/Mental Status: Mental status NL, Mood NL laboratory and microbiology Laboratory Tests 05/22/25 06:18 8/14/25 06:08 Test 05/22/25 06:18 Range/Units Serum Glucose 126 H 74-106 mg/dL Problem List/Assessment/Plan Problem List/Assessment/Plan 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
[2025-05-23] VITALS (8 sets, daily range): BP systolic 99–128; BP diastolic 50–86; PULSE 63–89; RESP 16–19; TEMP 97–98.7; O2SAT 90–96
--- NOTE | 2025-05-23 17:49 | DVHPNRES ---
Progress Note Date Seen: May 23, 2025 Resident Creating Document: YOVANY SAGASTUME RESIDENT Medical Necessity Reason Pt with a Central, PICC or Fol: No Subjective Review of Systems Brief history on admission: Conrad Vicente 69-year-old male presented to the ER with chief complain of Bilateral upper and lower limb weakness. He underwent cervical spinal surgery 4 months ago. 2 months ago, he noticed weakness in right lower limb with which gradually progressed. Two weeks ago the patient began experiencing left-sided weakness. 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 05/23/25: He was examined at bedside today. He complains difficulty in sleeping due to bilateral feet swelling. Awaiting spinal surgery consult. Objective vital signs Vital Sign Date Time Temp Pulse Resp B/P (MAP) Pulse Ox O2 Delivery O2 Flow Rate FiO2 05/23/25 16:57 98.1 63 18 109/76 (87) 96 98.1 05/23/25 08:00 Room Air* 0 21 Total Intake and Output 05/22/25 05/22/25 05/23/25 15:00 23:00 07:00 Intake Total 640 ml 1200 ml Output Total 800 ml 700 ml Balance -160 ml 500 ml medications Current Medications Medications Dose Ordered Sig/Bob Route Start Time Stop Time Status Last Admin Dose Admin Enoxaparin Sodium 40 mg DAILY SC 05/21/25 21:00 05/23/25 08:47 40 MG Pantoprazole Sodium 40 mg DAILY@0600 PO 05/21/25 06:00 05/23/25 05:57 40 MG Dexamethasone Sodium Phosphate 10 mg Q8HR IV 05/21/25 12:30 05/23/25 16:27 10 MG Sodium Chloride 1,000 ml @ 75 mls/hr [id number] IV 05/21/25 17:30 05/22/25 21:37 75 MLS/HR Examination General Appearance: Alert, Oriented X3, Cooperative, No acute distress HEENT: Atraumatic, PERRLA, EOMI, Mucous membrane moist/pink Respiratory: Clear to auscultation, Normal air movement Cardiovascular: Regular rate, Normal S1, Normal S2, No murmurs, no chest wall tenderness Abdominal: Normal bowel sounds, Soft, No tenderness, No hepatospenomegaly, No masses Neurological: Weakness in bilateral lower limbs, strength 2/5; weakness in bilateral upper limbs, strength 3/5; absent ankle and knee reflexes Skin: No rashes, No breakdown, No significant lesion Neuro: Normal gait, Normal speech, Strength at 5/5 X4 ext, Normal tone, Sensation intact, Cranial nerves 3-12 NL, Reflexes 2+ Psych/Mental Status: Mental status NL, Mood NL laboratory and microbiology Laboratory Tests 05/22/25 06:18 05/21/25 06:08 Test 05/22/25 06:18 Range/Units Serum Glucose 126 H 74-106 mg/dL Microbiology Date/Time Source Procedure Growth Status 05/23/25 14:30 Stool Stool Culture - Preliminary Resulted 05/23/25 14:30 Stool Shiga Toxin I & II - Final Resulted Problem List/Assessment/Plan Problem List/Assessment/Plan 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 Full code DISPOSITION: Med/surge Patient's status and plan discussed with the patient. Case discussed with Dr. Carr. Plan discussed with: Patient My Orders My Orders Orders - YOVANY SAGASTUME RESIDENT Procedure Category Date Status Time * Foil Operator CONS 05/23/25 Transmitted Consult Date of Service: May 23, 2025 Billing Provider: DALY CARR MD Common Visit Codes: [id number] INP/OBS CARE(HIGH) YOVANY SAGASTUME RESIDENT May 23, 2025 17:49 DALY CARR MD May 27, 2025 22:15
[2025-05-23] MEDS: MELATONIN 5 MG TAB PO ONE (22:54)
[2025-05-24] VITALS (7 sets, daily range): BP systolic 103–124; BP diastolic 63–84; PULSE 59–83; RESP 18–19; TEMP 97.5–98.1; O2SAT 92–98
--- NOTE | 2025-05-24 17:07 | DVHPNRES ---
Progress Note Date Seen: May 24, 2025 Resident Creating Document: PUMA MCDONALD Medical Necessity Reason Pt with a Central, PICC or Fol: No Subjective Review of Systems Patient seen at bedside in the morning. Bilateral upper and lower limb weakness not improved. Spine surgery requested for Cardiology clearance. Consultation requested. Objective vital signs Vital Sign Date Time Temp Pulse Resp B/P (MAP) Pulse Ox O2 Delivery O2 Flow Rate FiO2 05/24/25 13:00 98.0 62 19 124/77 (93) 94 98.0 05/24/25 08:00 Room Air* 0 21 Total Intake and Output 05/23/25 05/23/25 05/24/25 15:00 23:00 07:00 Intake Total 240 ml 1200 ml Output Total 650 ml 800 ml Balance -410 ml 400 ml medications Current Medications Medications Dose Ordered Sig/Bob Route Start Time Stop Time Status Last Admin Dose Admin Enoxaparin Sodium 40 mg DAILY SC 05/21/25 21:00 05/24/25 08:46 40 MG Pantoprazole Sodium 40 mg DAILY@0600 PO 05/21/25 06:00 05/24/25 05:13 40 MG Dexamethasone Sodium Phosphate 10 mg Q8HR IV 05/21/25 12:30 05/24/25 05:12 10 MG Sodium Chloride 1,000 ml @ 75 mls/hr [id number] IV 05/21/25 17:30 05/23/25 21:35 75 MLS/HR Examination General: patient denies fever, fatigue, weaknes, sweating, any recent changes in appetite and weight HEENT: No headaches, visiual changes, hearing loss, tinnitus, nasal congestion and discharge, and sore throat. Cardiovascular: Denies chest pain, palpitations, dyspnea on exertion, orthopnea, or claudication. Respiratory: No cough, and wheezing. Gastrointestinal: Denies nausea, vomiting, dysphagia, odynophagia, heartburn, abdominal pain, flatulence, bloating, diarrhea, constipation, change in stool, or blood in stool. Genitourinary: No dysuria, hematuria, discharge, frequency, urgency, nocturia, incontinence, and urinary retention. Endocrine: No heat or cold intolerance, polydipsia, polyuria, and polyphagia. Neurological: weakness of b/l upper and lower limb, No dizziness, tremors, gait disturbance, seizures, and memory impairment. Psychiatric: Denies depression, anxiety,or insomnia. Musculoskeletal: Denies neck pain, stiffness and swelling, back pain, muscle weakness, joint pain, stiffness, swelling, or limited range of motion. Skin: No rashes, itching, skin lesion, changes in hair, nail, skin texture and breast. Hematologic/Lymphatic: Denies easy bruising, bleeding tendencies, or lymph node enlargement. laboratory and microbiology Laboratory Tests 05/22/25 06:18 05/21/25 06:08 Test 05/22/25 06:18 Range/Units Serum Glucose 126 H 74-106 mg/dL Microbiology Date/Time Source Procedure Growth Status 05/23/25 14:30 Stool Stool Culture - Preliminary Resulted 05/23/25 14:30 Stool Shiga Toxin I & II - Final Resulted Problem List/Assessment/Plan Problem List/Assessment/Plan Possible Guillain-[place] syndrome Possible hypothyroidism Degenerative disc disease MRI showing neural foramina stenosis Bilateral upper and lower limb weakness Previous Cervical spine surgery for spinal stenosis Plan MRI Send for KRYSTAL, TSH Ruled out DVT Normal Doppler scan Spilled out peripheral vascular disease Normal duplex scan CT showed no intracranial abnormalities Plan discussed with: Patient My Orders My Orders Orders - PUMA MCDONALD Procedure Category Date Status Time * Cardiology Consult CONS 05/24/25 Transmitted 15:41 Date of Service: May 24, 2025 Billing Provider: DALY YUNG MD Common Visit Codes: [id number] INP/OBS CARE(HIGH) PUMA MCDONALD May 24, 2025 16:57 DALY YUNG MD May 27, 2025 22:20
[2025-05-24] MEDS: MELATONIN 5 MG TAB PO ONE (22:42)
--- NOTE | 2025-05-24 23:36 | DVHINCON2 ---
Date of service: May 24, 2025 Referring Physician Priyanka Reason for Consultation Cardiac clearance for spine surgery History of Present Illness This is a 69-year-old male with a PMH of stenosis cervical spine who presented to the ED on 05/20 with complaints of bilateral lower extremity weakness x 2 weeks prior to admission. Patient also reports multiple falls due to his "legs giving out on him". Reports last fall was a ground level fall on 05/20 with positive head injury. He denies LOC. Denies any pain and notes that he did have similar symptoms in October of this year and received cervical spine surgery for cervical stenosis by Dr. Estrada while admitted to [facility]. CT spine CT showed postsurgical changes of the cervical spine as detailed. Nonspecific locules of gas seen within the right paraspinal tissues at the level of T1, within the prevertebral soft tissues. LLE venous duplex: no evidence of DVTs in the LLE. CT head was unremarkable. Patient was admitted to the hospital. I am asked to consult on this patient. Family History: Patient reports no known family medical history. Allergies: Coded Allergies: NO KNOWN ALLERGIES (Unverified , 10/15/24) Home Meds Active Scripts Hydrocodone-Acetaminophen (Hydrocodone/Acetaminophen 7.5-325 mg) 1 Tab Tab, 1 TAB PO Q4HP PRN for 10 Days, #50 TAB Prov:YESSI ARZATE NP 10/24/24 Docusate Sodium (Docusate Sodium) 100 Mg Cap, 100 MG PO Q12HP PRN for 30 Days, #60 CAP Prov:YESSI ARZATE NP 10/24/24 Cyclobenzaprine HCl (Cyclobenzaprine Hydrochlo) 10 Mg Tab, 10 MG PO Q8HR for 30 Days, #90 TAB Prov:YESSI ARZATE NP 10/24/24 Review of Systems Constitutional: denies: chills, diaphoresis, fatigue, fever, malaise, sweats, weakness, others EENTM: denies: blurred vision, double vision, ear bleeding, ear discharge, ear drainage, ear pain, ear ringing, eye pain, eye redness, hearing loss, mouth pain, mouth swelling, nasal discharge, nose bleeding, nose congestion, nose pain, photophobia, tearing, throat pain, throat swelling, voice changes, others Respiratory: denies: cough, hemoptysis, orthopnea, SOB at rest, shortness of breath, SOB with excertion, stridor, wheezing, others Cardiovascular: denies: chest pain, dizzy spells, diaphoresis, Dyspnea on exertion, edema, irregular heart beat, left arm pain, lightheadedness, palpitations, PND, syncope, others Gastrointestinal: denies: abdomen distended, abdominal pain, blood streaked bowels, constipated, diarrhea, dysphagia, difficulty swallowing, hematemesis, melena, nausea, poor appetite, poor fluid intake, rectal bleeding, rectal pain, vomiting, others Genitourinary: denies: burning, dysuria, flank pain, frequency, hematuria, incontinence, penile discharge, penile sore, pain, testicle pain, testicle swelling, urgency, others Neurological: reports: others (As stated in HPI) Musculoskeletal: reports: others (As stated in HPI) Integumetry: denies: bruises, change in color, change in hair/nails, dryness, laceration, lesions, lumps, rash, wounds, others Allergic/Immunocompromised: denies: Difficulty Healing, Frequent Infections, Hives, Itching, others Hematologic/Lymphatic: denies: anemia, blood clots, easy bleeding, easy bruising, swollen glands, others Endocrine: denies: excessive hunger, excessive sweating, excessive thirst, excessive urination, flushing, intolerance to cold, intolerance to heat, unexplained weight gain, unexplained weight loss, others Psychiatric: denies: anxiety, bipolar disorder, depression, hopeless, panic disorder, schizophrenia, sleepless, suicidal, others Vital Signs Vital Signs Date Time Temp Pulse Resp B/P (MAP) Pulse Ox O2 Delivery O2 Flow Rate FiO2 05/24/25 17:00 98.1 62 19 110/77 (88) 98 98.1 05/24/25 08:00 Room Air* 0 21 Physical Exam GENERAL: Alert and oriented x 3. No acute distress. EYES: PERRL, EOMI. Anicteric. HENT: Moist mucous membranes. LUNGS: Clear to auscultation bilaterally. CARDIOVASCULAR: Regular rate and rhythm. ABDOMEN: Soft, nontender and nondistended. EXTREMITIES: No edema. NEUROLOGIC: No focal neurological deficits. SKIN: Warm, dry. Labs/Diagnostic Data Labs Test 05/22/25 06:18 05/21/25 09:00 05/21/25 06:08 05/20/25 19:53 Range/Units Sodium Level 141 136-145 mmol/L Potassium Level 4.5 3.5-5.1 mmol/L Chloride Level 110 H 98-107 mmol/L Carbon Dioxide Level 23 20-31 mmol/L Anion Gap 8 5-15 Blood Urea Nitrogen 16 9-23 mg/dL Creatinine 0.76 0.700-1.30 mg/dL Glomerular Filtration Rate Calc 97 >90 mL/min BUN/Creatinine Ratio 21.1 H 10.0-20.0 Serum Glucose 126 H 74-106 mg/dL Calcium Level 9.4 8.7-10.4 mg/dL Creatine Kinase 289 H 46-171 U/L Urine Color Yellow Yellow Urine Clarity Clear Clear Urine pH 5.0 5.0-9.0 Urine Specific [place] 1.022 1.001-1.035 Urine Protein Negative Negative Urine Ketones Negative Negative Urine Blood Negative Negative /uL Urine Nitrite Negative Negative Urine Bilirubin Negative Negative Urine Urobilinogen Normal Negative mg/dL Urine Leukocyte Esterase Negative Negative /uL Urine RBC 3 0 - 3 /hpf Urine Microscopic WBC 1 0-3 /HPF Urine Squamous Epithelial Cells None seen <5 /hpf Urine Bacteria None seen None Seen /hpf Urine Glucose Normal Normal mg/dL White Blood Count 10.2 4.4-10.8 10^3/uL Red Blood Count 5.23 4.5-5.90 10^6/uL Hemoglobin 16.7 13.5-17.5 g/dL Hematocrit 47.4 41.0-53.0 % Mean Corpuscular Volume 90.6 80.0-100.0 fL Mean Corpuscular Hemoglobin 31.9 28.0-32.0 pg Mean Corpuscular Hemoglobin Concent 35.1 32.0-36.0 g/dL Red Cell Distribution Width 14.8 H 11.8-14.3 % Platelet Count 276 140-450 10^3/uL Mean Platelet Volume 8.0 6.9-10.8 fL Neutrophils (%) (Auto) 71.9 37.0-80.0 % Lymphocytes (%) (Auto) 15.6 10.0-50.0 % Monocytes (%) (Auto) 10.7 0.0-12.0 % Eosinophils (%) (Auto) 1.4 0.0-7.0 % Basophils (%) (Auto) 0.4 0.0-2.0 % Neutrophils # (Auto) 7.4 1.6-8.6 10 ^3/uL Lymphocytes # (Auto) 1.6 0.4-5.4 10 ^3/uL Monocytes # (Auto) 1.1 0-1.3 10 ^3/uL Eosinophils # (Auto) 0.1 0-0.8 10 ^3/uL Basophils # (Auto) 0 0-0.2 10 ^3/uL Nucleated Red Blood Cells 0.1 % Total Bilirubin 0.7 0.2-1.0 mg/dL Aspartate Amino Transferase (AST) 26 13-40 U/L Alanine Aminotransferase (ALT) 56 H 7-40 U/L Alkaline Phosphatase 77 46-116 U/L Total Protein 6.3 5.7-8.2 g/dL Albumin 4.2 3.2-4.8 g/dL Vitamin B12 Level 346 211-911 pg/mL Thyroid Stimulating Hormone (TSH) 1.84 0.55-4.78 uIU/mL Erythrocyte Sedimentation Rate 3 0-20 mm/hr Microbiology Date/Time Source Procedure Growth Status 05/23/25 14:30 Stool Stool Culture - Preliminary Resulted 05/23/25 14:30 Stool Shiga Toxin I & II - Final Resulted Assessment Degenerative disc disease. Neural foramina stenosis. Bilateral upper and lower limb weakness. Previous cervical spine surgery for spinal stenosis. Plan/Recommendation I agree with your ongoing assessment and care of plan. DVT and GI prophylactics. Additional plan as per the hospital course. A total of 45 minutes was spent reviewing the patient record, examining the patient, making a diagnostic and therapeutic plan, discussing this plan with medical personnel, following up on diagnostic studies and following the patient for clinical stability excluding any and all procedures. At least 50% of this time was spent in direct, [id number] contact. Plan discussed with: Patient JIMENA REGALADO MD May 24, 2025 20:10
[2025-05-25] VITALS (7 sets, daily range): BP systolic 120–131; BP diastolic 72–87; PULSE 18–83; RESP 18–73; TEMP 97.5–97.9; O2SAT 90–98
--- NOTE | 2025-05-25 13:02 | DVHPNRES ---
Progress Note Date Seen: May 25, 2025 Resident Creating Document: PUMA MCDONALD RESIDENT Medical Necessity Reason Pt with a Central, PICC or Fol: No Subjective Review of Systems Patient seen at bedside in the morning. Bilateral upper and lower limb weakness not improved. Spine surgery evaluating. Objective vital signs Vital Sign Date Time Temp Pulse Resp B/P (MAP) Pulse Ox O2 Delivery O2 Flow Rate FiO2 05/25/25 09:00 97.6 18 73 131/76 (94) 98 97.6 05/25/25 08:00 Room Air* 0 21 Total Intake and Output 05/24/25 05/24/25 05/25/25 15:00 23:00 07:00 Intake Total 1200 ml 700 ml Output Total 750 ml 1050 ml Balance 450 ml -350 ml medications Current Medications Medications Dose Ordered Sig/Bob Route Start Time Stop Time Status Last Admin Dose Admin Enoxaparin Sodium 40 mg DAILY SC 05/21/25 21:00 05/25/25 09:33 40 MG Pantoprazole Sodium 40 mg DAILY@0600 PO 05/21/25 06:00 05/25/25 05:15 40 MG Sodium Chloride 1,000 ml @ 75 mls/hr [id number] IV 05/21/25 17:30 05/24/25 21:03 75 MLS/HR Dexamethasone 8 mg Q12HR PO 05/25/25 10:00 05/25/25 09:34 8 MG Examination General: patient denies fever, fatigue, weaknes, sweating, any recent changes in appetite and weight HEENT: No headaches, visiual changes, hearing loss, tinnitus, nasal congestion and discharge, and sore throat. Cardiovascular: Denies chest pain, palpitations, dyspnea on exertion, orthopnea, or claudication. Respiratory: No cough, and wheezing. Gastrointestinal: Denies nausea, vomiting, dysphagia, odynophagia, heartburn, abdominal pain, flatulence, bloating, diarrhea, constipation, change in stool, or blood in stool. Genitourinary: No dysuria, hematuria, discharge, frequency, urgency, nocturia, incontinence, and urinary retention. Endocrine: No heat or cold intolerance, polydipsia, polyuria, and polyphagia. Neurological: weakness of b/l upper and lower limb, No dizziness, tremors, gait disturbance, seizures, and memory impairment. Psychiatric: Denies depression, anxiety,or insomnia. Musculoskeletal: Denies neck pain, stiffness and swelling, back pain, muscle weakness, joint pain, stiffness, swelling, or limited range of motion. Skin: No rashes, itching, skin lesion, changes in hair, nail, skin texture and breast. Hematologic/Lymphatic: Denies easy bruising, bleeding tendencies, or lymph node enlargement. 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 Possible hypothyroidism Degenerative disc disease MRI showing neural foramina stenosis Bilateral upper and lower limb weakness Previous Cervical spine surgery for spinal stenosis Plan MRI Send for KRYSTAL, TSH Ruled out DVT Normal Doppler scan Spilled out peripheral vascular disease Normal duplex scan CT showed no intracranial abnormalities Plan discussed with: Patient My Orders My Orders Orders - PUMA MCDONALD RESIDENT Procedure Category Date Status Time * Cardiology Consult CONS 05/24/25 Transmitted 15:41 Date of Service: May 25, 2025 Billing Provider: DALY YUNG MD Common Visit Codes: [id number] INP/OBS CARE(HIGH) PUMA MCDONALD RESIDENT May 25, 2025 13:02 DALY YUNG MD May 27, 2025 22:45
[2025-05-25 15:47] LABS: INR 1.02 (0.9-1.15); Partial Thromboplastin Time 26.0 SEC (24.5-34.5); Prothrombin Time 10.8 sec (9.3-11.8)
--- NOTE | 2025-05-25 18:06 | DVH ---
CHEST RADIOGRAPH Indication: PRE OP Technique: Single frontal view of the chest was obtained COMPARISON: MRI THORACIC SPINE WO W on DOS: 05/21/25, XY CHEST XRAY 1 VIEW on DOS: 10/19/24, MRI THORAC IC SPINE WITHOUT on DOS: 10/16/24 FINDINGS: Lines and Tubes: None Lungs: Right lower lobe scarring/ atelectasis. No clear evidence for pneumonia Pleura: No effusion. No pneumothorax. Cardiomediastinal contours: Unremarkable Bones: Unremarkable IMPRESSION: 1. No acute disease.
[2025-05-26] VITALS (8 sets, daily range): BP systolic 113–143; BP diastolic 70–96; PULSE 54–71; RESP 13–18; TEMP 97.6–98.1; O2SAT 92–100
--- NOTE | 2025-05-26 00:01 | DVHPN2 ---
Progress Note - Dictate Date Seen: May 25, 2025 Medical Necessity Reason Pt with a Central, PICC or Fol: No Subjective Patient was seen and evaluated in follow up. Bilateral upper and lower limb weakness not improved. Spine surgery evaluating the patient. Patient stable on room air. She denies any cardiac symptoms. Telemetry reviewed. vital signs Vital Sign Date Time Temp Pulse Resp B/P (MAP) Pulse Ox O2 Delivery O2 Flow Rate FiO2 05/25/25 21:00 97.5 71 18 120/87 (98) 95 97.5 05/25/25 20:00 Room Air* 0 21 Total Intake and Output 05/24/25 05/24/25 05/25/25 15:00 23:00 07:00 Intake Total 1200 ml 700 ml Output Total 750 ml 1050 ml Balance 450 ml -350 ml medications Current Medications Medications Dose Ordered Sig/Bob Route Start Time Stop Time Status Last Admin Dose Admin Enoxaparin Sodium 40 mg DAILY SC 05/21/25 21:00 05/25/25 09:33 40 MG Pantoprazole Sodium 40 mg DAILY@0600 PO 05/21/25 06:00 05/25/25 05:15 40 MG Sodium Chloride 1,000 ml @ 75 mls/hr [id number] IV 05/21/25 17:30 05/25/25 15:07 75 MLS/HR Dexamethasone 8 mg Q12HR PO 05/25/25 10:00 05/25/25 21:37 8 MG objective GENERAL: Alert and oriented x 3. No acute distress. EYES: PERRL, EOMI. Anicteric. HENT: Moist mucous membranes. LUNGS: Clear to auscultation bilaterally. CARDIOVASCULAR: Regular rate and rhythm. ABDOMEN: Soft, nontender and nondistended. EXTREMITIES: No edema. NEUROLOGIC: No focal neurological deficits. SKIN: Warm, dry. laboratory and microbiology Laboratory Tests 05/22/25 06:18 05/21/25 06:08 Test 05/22/25 06:18 Range/Units Serum Glucose 126 H 74-106 mg/dL Problem List Degenerative disc disease. Neural foramina stenosis. Bilateral upper and lower limb weakness. Previous cervical spine surgery for spinal stenosis. Assessment/Plan Continued all current supportive medical care. IVFs. DVT and GI prophylactics. Additional plan as per the hospital course. Dietary Evaluation Review Comments: Monitor PO intake, lab values, weight trend, and I/O Expected Outcomes/Goals: To meet >75% estimated needs Fu 3-5 days Plan discussed with: Patient JIMENA REGALADO MD May 26, 2025 00:01
--- NOTE | 2025-05-26 07:47 | ECG ---
[facility] Test Date: 2025-05-25 Test Time: 20:46:37 Pat Name: ANTONI MCCANN Department: Room: 0292 A Gender: M [employer]: CASE : [id number] Requested By: PUMA MCDONALD Order Number: [id number] Reading MD: Margarito Green Measurements Intervals [place] Rate: 68 P: -31 OH: 118 QRS: -7 QRSD: 92 T: 15 QT: 403 QTc: 429 Interpretive Statements Sinus rhythm Borderline short OH interval Abnormal R-wave progression, late transition Minimal ST elevation, lateral leads Electronically Signed On 05-26-2025 22:54:30 PDT by Margarito Green Please click the below link to view image of tracing.
[2025-05-26] MEDS ORDERED: GLYCOPYRROLATE 0.2 MG/ML 1ML VIAL ONE (08:35)
[2025-05-26] MEDS ORDERED: ONDANSETRON HCL 4 MG/2 ML VIAL ONE (08:35)
[2025-05-26] MEDS ORDERED: LIDOCAINE 2% TOPICAL JELLY 5 ML URJT TOP ONE (08:35)
[2025-05-26] MEDS ORDERED: SODIUM CHLORIDE LOCK 10 ML ONE ×3 (08:35→09:42)
[2025-05-26] MEDS ORDERED: PROPOFOL 10 MG/ML 20 ML IV ONE ×2 (08:35→10:40)
[2025-05-26] MEDS ORDERED: ROCURONIUM 10MG/ML 10ML VIAL IV ONE (08:35)
[2025-05-26] MEDS ORDERED: fentaNYL CITRATE 100 MCG/2 ML VL ONE (08:36)
[2025-05-26] MEDS ORDERED: KETAMINE 50mg/ML 1ml syringe ONE (08:38)
[2025-05-26] MEDS: ACETAMINOPHEN IV 1000 MG/100ML (10MG/ML) IV ONE (08:45)
[2025-05-26] MEDS: ACETAMINOPHEN IV 100 ML IV ONE (08:46)
[2025-05-26] MEDS: GABAPENTIN 300 MG CAP ONE (08:49)
--- NOTE | 2025-05-26 08:49 | PRN ---
Misceleneous Note Note Note Surgical/procedural interval history and physical note Current H and P was reviewed. The patient was reexamined. Re-evaluation of the patient confirms the necessity for the scheduled procedure. No change has occurred in the patient's condition since the H and P/ spine consult was complete no less than 30 days ago. Physicians verification of informed consent The patient was counseled regarding the procedure, its indications, risks, potential complications, and alternatives. The risks/benefits/alternatives of surgery were explained to the patient in detail including but not limited to , stroke, paralysis, myocardial infarction, bleeding, infection, complications of anesthesia (dry mouth, sore throat, dental damage, respiratory depression, blindness), postoperative infection, incomplete relief of symptoms, recurrence of symptoms, damage to blood vessels, nerves and tendons, pulmonary embolism and possible need for repeat surgery in the future. Pain, damage to surrounding soft tissue structures, need for reoperation or future surgery, persistent pain/disability/deformity, bone graft collapse or extrusion of interbody device, instrumentation failure, need for instrumentation removal, dural tear, temporary or permanent nerve root damage, deep vein thrombosis, pulmonary embolism, were described to the patient in detail and the patient wishes to proceed. No guarantee of surgical outcome/improvement was implied. All of the questions were answered thoroughly, patient was agreeable to proceed and consents were obtained. Physicians verification of informed consent for blood transfusion There is a reasonable possibility that blood transfusions will be necessary as a result of the patient's procedure. I have discussed the following with the patient/patient's legal artists' booking representative. An explanation of benefits and risks of the transfusion of blood or blood products and possible alternatives. All questions have been answered to the patient's or they are legal representatives satisfaction. Informed consent -The patient has been informed of: -The nature of the proposed care, treatment, services, medications, interventions or procedures. -Potential benefits, risks or side effects, including potential problems related to the procedure. -The likelihood of achieving care treatment and Service goals -Possible alternatives to the procedure/proposed care, treatment and service. -The relative risks, benefits and side effects related to alternatives, inc luding possible results of not receiving care, treatment and services. -When indicated, any limitations on the confidentiality of the informed leaning from or about the patient. -if appropriate, the risks, benefits and alternatives of the drugs to be used for sedation/analgesia including moderate sedation. -if appropriate, patient has been provided information on the risks, benefits and alternatives to the transfusion of blood and/or blood products. -if appropriate, the patient has been provided information regarding the Brian Tiawah blood act. Call with questions Carmel Castro [facility] Orthopaedic Spine Surgery nurse practitioner For Dr Carlos Estrada Patient was examined, chart reviewed, labs evaluated, and diagnostic studies and findings analyzed. Case was discussed with Dr. Josafat Estrada who formulated the plan of care. This medical document was created using an electronic medical record system with [employer] dictation system. Although this document has been carefully reviewed, there might still be some phonetic and typographical errors. These areas are purely typographical due to imperfections of the software programs, a nd do not reflect any compromise in the patient's medical care. YESSI CASTRO NP May 26, 2025 08:49
[2025-05-26] MEDS ORDERED: ceFAZolin 1GM VL ONE (09:02)
[2025-05-26] MEDS ORDERED: MORPHINE SULFATE INJ 2 MG/ml SYRG IV PRN (09:45)
[2025-05-26] MEDS ORDERED: ONDANSETRON HCL 4 MG/2 ML VIAL IV PRN ×2 (09:45→12:30)
[2025-05-26] MEDS ORDERED: NITROGLYCERIN 0.4 MG SL TAB SL PRN (09:45)
[2025-05-26] MEDS ORDERED: ACETAMINOPHEN 325 MG TAB PO PRN (09:45)
[2025-05-26] MEDS ORDERED: ESMOLOL HCL 10 ML IV ONE (09:49)
--- NOTE | 2025-05-26 11:56 | DVHOP2 ---
Operative Report - 2 Report Details Date: 05/26/25 Preop Diagnosis: lumbar spinal stenosis with neurogenic claudication and progressive neurologic deficit with bilateral foot drop Postop Diagnosis: same Surgeon: Josafat Estrada MD Director Of Midwifery/Staff Midwife: Germaine Castro NP Anesthesiologist: Raimundo Anesthesia: General Consent: The patient was informed of the risks and benefits of the procedure. These include but are not limited to complications of anesthesia, postoperative infection, incomplete relief of symptoms, recurrence of symptoms, damage to blood vessels, nerves and tendons, deep venous thrombosis, pulmonary embolism and possible need for repeat surgery in the future. Name of Procedure Performed see detailed note Procedure Details Procedure Details: Pre-op Diagnosis: Lumbar Degenerative Disk Disease and Lumbar Spinal Stenosis with severe lateral recess stenosis at L3/4 and L4/5 causing Incapacitating back pain, radiculopathy and progressive neurologic deficit with bilateral foot drop Post-op Diagnosis: Lumbar Degenerative Disk Disease and Lumbar Spinal Stenosis with severe lateral recess stenosis at L3/4 and l4/5 causing Incapacitating back pain, radiculopathy and progressive neurologic deficit with bilateral foot drop Procedure: Lumbar 5 laminectomy with Lumbar 5 foraminotomies and facetectomies to decompress central canal and Lumbar 5 nerve roots Lumbar 4 laminectomy with Lumbar 4 foraminotomies and facetectomies to decompress central canal and Lumbar 4 nerve roots Lumbar 3 laminectomy with Lumbar 3 foraminotomies and facetectomies to decompress central canal and Lumbar 4 nerve roots Lumbar 3 to 4 posterior spinal interbody fusion with PEEK cage Lumbar 4 to 5 posterior spinal interbody fusion with PEEK cage Lumbar 3 to 5 posterior spinal instrumentation with pedicle screws Local Bone Autograft For Fusion Allograft Bone to augment Fusion Use of Demineralized Bone Matrix to Augment Fusion Microscope For Microdissection Surgeon: Josafat Estrada MD Assist: MANUEL Avalos Anesthesia: General Fluids and EBL: See anesthesia note Patient was seen in the Pre Anesthesia Care Unit (PACU) and the operative site was initialed by me. All questions were answered to the patients satisfaction and chart reviewed. The patient was taken to the operative room where pre- operative antibiotics were given 30 minutes prior to incision. General anesthesia was induced and neuro-monitoring leads placed. White catheter was placed. The patient was turned prone onto the [facility] spinal table. While positioning, I made sure that the belly was free to allow proper expansion of the lungs. The hips were extended and all bony prominences padded. The shoulders were abducted 80 degree and the elbows flexed 100 degrees with no tension on the brachial plexus. I check the foot arterial pulses and they were palpable. The patient was prepped and draped and time out was taken at this time per usual protocol. At this time, the C-arm fluoroscope was brought in and was used to pradeep the incision borders proximally and distally. Using a Number 10 Blade, an incision was made extending it proximally and distally per C arm pradeep from the posterior spinous process of lumbar 4,5 down to the lumbo-dorsal fascia. All bleeding was controlled with electrocautery. Self-retaining retract ors were placed. Electrocautery was then used to take down the lumbo-dorsal fascia, to free the muscle off the bone bilaterally. A Kiarra retractor was placed over the posterior spinous process proximally and a lateral C-arm fluoroscope image was taken to insure we were at the correct level. Next, using bovie electro cautery, The deep fascia laterally to the facet joints was removed to expose the transverse processes of lumbar 3, 4 and 5 while taking care to avoid injuring the facet capsule at the proximal end of the incision. Next, the microscope was bought in for visualization and using a Luxell rongeur, the posterior spinous process of lumbar 3 and 4 and 5 bone were removed and the bone was saved for use as local autograft. I used alternating Kerison 2 mm and 3 mm rongeurs to perform central laminectomies lumbar 5 and 4 and 3 to decompress the central canal. Next using alternating Kerison 2mm and 3 mm rongeurs, the superior articular facets of lumbar 3, 4 and 5 were removed bilaterally to decompress the lateral recess (facetectomies) and then extended proximally to decompress the foramen bilaterally (foraminotomies). I used a ball tipped nerve probed to insure that the respective nerve roots were able to be mobilized 5mm in each direction were unimpeded in the lateral recess and foramen. Next I carefully inspected the dura to make sure no durotomy was visible and it was not. I retracted the right lumbar 5 nerve medially and used increasing size xi until the proper size prepared and then inserted a [id number] PEEK cage in to the disc space at L4/5 using C arm fluoroscopy. I repeated this process at the L3/4 level also with a [id number] PEEK cage The darshana's bone was not very strong so the laminectomies were not technically difficult. The dura was not delicate and it did not easily get dehydrated and this also helped with the ease of the decompression. The bilateral superior articular facets of Lumbar 5 and 4 were very large and there was a requirement to perform a vigorous lateral recess excision. I covered the exposed dura with gelfoam soaked in thrombin and the microscope was wheeled away from the operative filed. The C-arm fluoroscope was brought in and perfect AP views of the lumbar 4 and 5 pedicles were obtained. I placed bilateral pedicle screws at these levels by: using a Lenke awl to make a agricultural pilot hole, then a ball tip robe to make sure there was no pedicle breach, then a tap to prepare the track and a 6.5 mm diameter 45 mm length pedicle screw was placed bilaterally. This step to place bilateral pedicle screws was repeated up to the lumbar 3, 4 and 5 level. Next, the c-arm fluoroscope took an AP and lateral x-ray to ensure proper placement of the pedicle screws. Next, the neuro-stimulation probe was placed over the tip of each screw and each screw stimulated only after a current greater than 10 mA was delivered to the screw. Next , I took a Midas Bashir Drill to decorticate the transverse process which were exposed and local bone graft, Bacterin allograft bone substitute and Demineralized bone matrix were placed along the inter transverse process intervals bilaterally (the fusion bed). Next a curved shawn sized to fit the pedicle screw interval was placed and secured to each pedicle screw using set screws, The set screws were tightened using a torque screwdriver (set to 10 N*M torque) to secure the shawn to the pedicle screws bilaterally. Final AP and lateral C arm fluoroscopic films were taken at this time. Next a 10 Greek diameter Hemovac drain was laced deep to the lumbo-dorsal fascia. The lumbo-dorsal fascia was closed with interrupted 0- Vicry sutures. The subcutaneous tissue was closed with interrupted 2-0 Vicryl sutures. The skin was closed with running 2-0 nylon suture. Sterile dressings were place. The pt. was turned supine onto the stretcher, extubated and taken to the recovery room in stable condition. CPT codes : 08150 , 13660, 42777, 54197, 44117, [id number] Condition Stable Disposition Still a Patient JOSAFAT ESTRADA MD May 26, 2025 11:56
[2025-05-26] MEDS ORDERED: NALOXONE HCL 0.4 MG/ML VIAL IV PRN (12:30)
[2025-05-26] MEDS ORDERED: HYDROmorphone HCL 2 MG/ML VL/or syr IV PRN (12:30)
[2025-05-26] MEDS ORDERED: FLUMAZENIL 0.1 MG/ML INJ 10ML MDV IV PRN (12:30)
[2025-05-26] MEDS ORDERED: fentaNYL CITRATE 100 MCG/2 ML VL IV PRN (12:30)
[2025-05-26] MEDS ORDERED: hydrALAZINE HCL 20 MG/ML VL IV PRN (12:30)
--- NOTE | 2025-05-26 13:00 | DVHPN2 ---
Progress Note - Surgical Date Seen: May 26, 2025 Post op day Post op day: 0 Subjective Patient reports: No new complaints, Other (immediate post op in PACU) Review of Systems: HEENT:Normal, CVS:Normal, RESPIRATORY:Normal, GI:Normal, :Normal, MSK:Abnormal (BLE weakness foot drop), NEURO:Abnormal (motor deficit BLE) Objective Vital signs Vital Sign Date Time Temp Pulse Resp B/P (MAP) Pulse Ox O2 Delivery O2 Flow Rate FiO2 05/26/25 09:00 97.8 59 18 143/88 (106) 97 97.8 05/25/25 20:00 Room Air* 0 21 Total Intake and Output 05/25/25 05/25/25 05/26/25 15:00 23:00 07:00 Intake Total 400 ml 1000 ml Output Total 680 ml Balance -280 ml 1000 ml Medications Current Medications Medications Dose Ordered Sig/Bob Route Start Time Stop Time Status Last Admin Dose Admin Enoxaparin Sodium 40 mg DAILY SC 05/21/25 21:00 05/25/25 09:33 40 MG Pantoprazole Sodium 40 mg DAILY@0600 PO 05/21/25 06:00 05/25/25 05:15 40 MG Sodium Chloride 1,000 ml @ 75 mls/hr [id number] IV 05/21/25 17:30 05/26/25 00:57 75 MLS/HR Dexamethasone 8 mg Q12HR PO 05/25/25 10:00 05/25/25 21:37 8 MG Dextrose/Sodium Chloride 1,000 ml @ 100 mls/hr Q10H IV 05/26/25 09:45 Ondansetron HCl 4 mg Q4HP PRN IV 05/26/25 09:45 Acetaminophen 650 mg Q6HP PRN PO 05/26/25 09:45 Acetaminophen/ Hydrocodone Bitart 1 tab Q6HP PRN PO 05/26/25 09:45 Morphine Sulfate 1 mg Q4HP PRN IV 05/26/25 09:45 Cyclobenzaprine HCl 10 mg TID PO 05/26/25 14:00 Docusate Sodium 100 mg BID PO 05/26/25 10:00 Cefazolin Sodium 50 ml @ 100 mls/hr Q8HR IV 05/26/25 14:00 05/28/25 06:29 Nitroglycerin 0.4 mg Q5MINP PRN SL 8/19/25 09:45 Morphine Sulfate 2 mg Q30M PRN IV 05/26/25 09:45 Ondansetron HCl 4 mg ONCE PRN IV 05/26/25 12:30 05/26/25 12:31 UNV Naloxone HCl 0.4 mg Q10M PRN IV 05/26/25 12:30 05/26/25 12:51 UNV Flumazenil 0.2 mg ONCE PRN IV 05/26/25 12:30 05/26/25 12:31 UNV Hydralazine HCl 5 mg Q10M PRN IV 05/26/25 12:30 05/26/25 13:21 UNV Ephedrine Sulfate 10 mg Q10M PRN IV 05/26/25 12:30 05/26/25 13:11 UNV Fentanyl Citrate 25 mcg Q1HP PRN IV 05/26/25 12:30 05/26/25 12:31 UNV Hydromorphone HCl 0.5 mg Q10M PRN IV 05/26/25 12:30 05/26/25 13:11 UNV Oxycodone HCl 10 mg ONCE PRN PO 05/26/25 12:30 UNV Laboratory Laboratory Tests 05/22/25 06:18 05/21/25 06:08 Test 05/22/25 06:18 Range/Units Serum Glucose 126 H 74-106 mg/dL Microbiology Date/Time Source Procedure Growth Status 05/23/25 14:30 Stool Stool Culture - Final Complete 05/23/25 14:30 Stool Shiga Toxin I & II - Final Complete Examination: GENERAL:Normal, HEENT:Normal, NECK:Normal (prior anterior cervical surgery), LUNGS:Normal, CVS:Normal, ABDOMEN:Normal, MSK:Abnormal (BLE weakness), SKIN:Normal (ROBERT in place, [address]), NEURO:Abnormal, :Normal (DC duron in PACU/OR) Problem List/Assessment/Plan Problems: (1) Acute post-operative pain (2) Muscle spasm of back Assessment and Plan POD #0 Dx: Lumbar Degenerative Disk Disease and Lumbar Spinal Stenosis with severe lateral recess stenosis at L3/4 and l4/5 causing Incapacitating back pain, radiculopathy and progressive neurologic deficit with bilateral foot drop Procedure: Lumbar 5 laminectomy with Lumbar 5 foraminotomies and facetectomies to decompress central canal and Lumbar 5 nerve roots Lumbar 4 laminectomy with Lumbar 4 foraminotomies and facetectomies to decompress central canal and Lumbar 4 nerve roots Lumbar 3 laminectomy with Lumbar 3 foraminotomies and facetectomies to decompress central canal and Lumbar 4 nerve roots Lumbar 3 to 4 posterior spinal interbody fusion with PEEK cage Lumbar 4 to 5 posterior spinal interbody fusion with PEEK cage Lumbar 3 to 5 posterior spinal instrumentation with pedicle screws -Disposition: -Pending -Discharge RX: Sent to [facility] on [address] Mcdermott -Follow up appointment: with Dr Estrada on previously scheduled postoperative appointment [phone] [id number] [facility] [address] Mcwilliams [address] [place] [id number] -Pain: - IV pain meds post op day 1, with PO supplementation, goal is to progress weaning off IV medications and control pain with PO only - P.O. analgesics:Tylenol 650MG (PAIN 1-3) Eudora 10/325 mg (PAIN 4-6) - Muscle relaxers scheduled administration. This is a beneficial medications for the incisional pain as it is mostly related to muscle spasms. Flexeril 10 mg TID - Cepacol throat lozenges as needed for sore throat -Antibiotics Operative recommendations: -Postoperative dose:-Post operative antibiotics cefazolin 1 g IV piggyback every 8 hours x 48 hours total of 6 doses -DVT PPX: -Hold all chemical DVT/ blood thinners for 14 days postoperatively -use mechanical DVT PPX such as SCD's, ambulation -Activity: -Pending PT evaluation and patients progression -Sit at side of bed for meals -Goal: Ambulate independently and safely (may use assistive devices if needed) -Medical Therapy goals: -Afebrile- Patient may develop a expected post operative fever by day 2-3, this may not be accompanied with a elevation in WBC. if fever develops: Acetaminophen for fever. Albuterol nebulizer Tx every 12 hours for 24 hours to facilitate adequate lung expansion and prevent development of atelectasis. -Euglycemic: bloods sugars under 130mmol/L for optimal healing -Normotensive: Avoid events of hypertension. This helps to keep post operative healing intact and avoids destabilization of beneficial hemostatic coagulation. -Lumbar: -If patient is comfortable encouraged the patient to lay on their side to facilitate wound healing -Drains: -Hemovac drains: These will be to full compression unless otherwise ordered. Please record and document output AND characteristic of fluid present independently EVERY 6 hours more often as needed. if there in no output indicate this by documenting 0ml. If output is greater than 100 ml in one hour of polina blood call provider. These drains will be removed once the drainage is at a acceptable level (generally less than 100ml in 24 hours) -Robert dressing: This will stay in place and will be removed at the patients follow up visit. Nursing is to assess the seal and power source. The seal should be intact and the power source should have a green flashing light indicating it is functioning well. Batteries can last up to 14 days. If a leak develops the dressing edges can be reinforced with a Tegaderm dressing to reestablish intact seal. The Robert dressing is NOT a wound vac. This does not get changed, it does not need home health management. -Record output independently, drain 1. Is a deep drain and drain 2. Is a superficial drain. Wound drainage is described by type, color, amount, and odor. Drainage can be 1 Serous: Clear and thin, may be present in healing healthy wound. 2 Serosanguineous containing blood may also be present and healthy healing wound 3. Sanguinous primarily blood 4. Purulent this is thick, white, and pus like. It may be indicated to give of a infection and should constitute a call to the provider immediately with the plan that the sample should be cultured. -Duron: discontinued in OR -Dressings Take care not to disrupt the ROBERT dressing seal. If there is a break in the seal it can be trouble shot with a Tegaderm dressing. -Dressing to Hemovac drains may be changed once the drains have been removed by the provider. -Bowel management: -Colace 100mg bid -Diet: -Clear liquid diet and advance as patient tolerates within dietary limitations ( example: diabetic, Cardiac) -Incentive Spirometer: -10 x hour while awake, RN please educate and observe repeat demonstration, have IS at bedside POD #1 -X-rays: - none indicated at this time -Consults: -Physical Therapy evaluation, treatment recommendations, and discharge recommendations Call with questions Carmel Arzate ACNP- Orthopaedic Spine Surgery nurse practitioner For Dr Carlos Estrada Patient was examined, chart reviewed, labs evaluated, and diagnostic studies and findings analyzed. Case was discussed with Dr. Josafat Estrada who formulated the plan of care. This medical document was created using an electronic medical record system with [employer] dictation system. Although this document has been carefully reviewed, there might still be some phonetic and typographical errors. These areas are purely typographical due to imperfections of the software programs, and do not reflect any compromise in the patient's medical care. Plan discussed with Plan discussed with: Patient, Other (PACU) Visit Coding Surgery Date of Service if different f: May 26, 2025 Billing Provider: YESSI ARZATE NP Surgery Visit Codes: NOT BILLABLE YESSI ARZATE NP May 26, 2025 13:00
[2025-05-26] MEDS: D5W/SOD CHLO 0.9% 1,000 ML IV SCH (14:42)
[2025-05-26] MEDS: DOCUSATE SOD 100 MG CAP PO SCH (14:59)
[2025-05-26] MEDS: CYCLOBENZAPRINE HCL 10 MG TAB PO SCH (14:59)
[2025-05-26] MEDS: ceFAZolin 1GM/50ML 50 ML IV SCH (15:02)
--- NOTE | 2025-05-26 19:01 | DVHPNRES ---
Progress Note Date Seen: May 26, 2025 Resident Creating Document: PUMA MCDONALD Medical Necessity Reason Pt with a Central, PICC or Fol: No Subjective Review of Systems Patient seen at the bedside. Scheduled for spine surgery today. Objective vital signs Vital Sign Date Time Temp Pulse Resp B/P (MAP) Pulse Ox O2 Delivery O2 Flow Rate FiO2 05/26/25 17:00 97.6 68 18 113/77 (89) 95 97.6 05/26/25 08:00 Room Air* 0 21 Total Intake and Output 05/25/25 05/25/25 05/26/25 15:00 23:00 07:00 Intake Total 400 ml 1000 ml Output Total 680 ml Balance -280 ml 1000 ml medications Current Medications Medications Dose Ordered Sig/Bob Route Start Time Stop Time Status Last Admin Dose Admin Enoxaparin Sodium 40 mg DAILY SC 05/21/25 21:00 05/25/25 09:33 40 MG Pantoprazole Sodium 40 mg DAILY@0600 PO 05/21/25 06:00 05/25/25 05:15 40 MG Dexamethasone 8 mg Q12HR PO 05/25/25 10:00 05/25/25 21:37 8 MG Dextrose/Sodium Chloride 1,000 ml @ 100 mls/hr Q10H IV 05/26/25 09:45 05/26/25 14:42 100 MLS/HR Ondansetron HCl 4 mg Q4HP PRN IV 05/26/25 09:45 Acetaminophen 650 mg Q6HP PRN PO 05/26/25 09:45 Acetaminophen/ Hydrocodone Bitart 1 tab Q6HP PRN PO 05/26/25 09:45 Morphine Sulfate 1 mg Q4HP PRN IV 05/26/25 09:45 Cyclobenzaprine HCl 10 mg TID PO 05/26/25 14:00 05/26/25 14:59 10 MG Docusate Sodium 100 mg BID PO 05/26/25 10:00 05/26/25 14:59 100 MG Cefazolin Sodium 50 ml @ 100 mls/hr Q8HR IV 05/26/25 14:00 05/28/25 06:29 05/26/25 15:02 100 MLS/HR Nitroglycerin 0.4 mg Q5MINP PRN SL 05/26/25 09:45 Morphine Sulfate 2 mg Q30M PRN IV 05/26/25 09:45 Oxycodone HCl 10 mg ONCE PRN PO 05/26/25 12:30 Examination General Appearance: Alert, Oriented X3, Cooperative, No acute distress HEENT: Atraumatic, PERRLA, EOMI, Mucous membrane moist/pink Respiratory: Clear to auscultation, Normal air movement Cardiovascular: Regular rate, Normal S1, Normal S2, No murmurs, no chest wall tenderness Abdominal: Normal bowel sounds, Soft, No tenderness, No hepatospenomegaly, No masses Neurological: Weakness in bilateral lower limbs, strength 2/5; weakness in bilateral upper limbs, strength 3/5; absent ankle and knee reflexes Skin: No rashes, No breakdown, No significant lesion Neuro: Normal gait, Normal speech, Strength at 5/5 X4 ext, Normal tone, Sensation intact, Cranial nerves 3-12 NL, Reflexes 2+ Psych/Mental Status: Mental status NL, Mood NL laboratory and microbiology Laboratory Tests 05/22/25 06:18 05/21/25 06:08 Test 05/22/25 06:18 Range/Units Serum Glucose 126 H 74-106 mg/dL Microbiology Date/Time Source Procedure Growth Status 05/23/25 14:30 Stool Stool Culture - Final Complete 05/23/25 14:30 Stool Shiga Toxin I & II - Final Complete Problem List/Assessment/Plan Problem List/Assessment/Plan 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 Possible hypothyroidism Degenerative disc disease MRI showing neural foramina stenosis Bilateral upper and lower limb weakness Previous Cervical spine surgery for spinal stenosis Plan MRI Send for KRYSTAL, TSH Ruled out DVT Normal Doppler scan Spilled out peripheral vascular disease Normal duplex scan CT showed no intracranial abnormalities Plan discussed with: Patient Dietary Evaluation Review Comments: Monitor PO intake, lab values, weight trend, and I/O Expected Outcomes/Goals: To meet >75% estimated needs Fu 3-5 days Date of Service: May 26, 2025 Billing Provider: DALY YUNG MD Common Visit Codes: [id number] INP/OBS CARE(HIGH) PUMA MCDONALD RESIDENT May 26, 2025 19:00 DALY YUNG MD May 27, 2025 23:14
--- NOTE | 2025-05-26 19:43 | DVH ---
C-ARM FLUOROSCOPY: PROCEDURE: Lumbar fusion and decompression. FLUOROSCOPY TIME: 55 seconds DAP: 39.11 mgy FINDINGS: Spot intraoperative C arm radiographs demonstrating c-arm intraoperatively lumbar fusion and decompre ssion. IMPRESSION: 1. Please refer to surgical report for detailed findings.
--- NOTE | 2025-05-26 20:02 | DVH ---
C-ARM FLUOROSCOPY: PROCEDURE: Lumbar fusion and decompression. FLUOROSCOPY TIME: 55 seconds DAP: 39.11 mgy FINDINGS: Spot intraoperative C arm radiographs demonstrating c-arm intraoperatively lumbar fusion and decompre ssion. IMPRESSION: 1. Please refer to surgical report for detailed findings.
--- NOTE | 2025-05-26 23:31 | DVHPN2 ---
Progress Note - Dictate Date Seen: May 26, 2025 Medical Necessity Reason Pt with a Central, PICC or Fol: No Subjective Patient was seen and evaluated in follow up. Patient is on 2 LPM NC. Patient underwent lumbar 5, 4 and 3 laminectomy with lumbar 5,4 and foraminotomies and facetectomies to decompress central canal and lumbar 5, 4 and 3 nerve roots, lumbar 3 to 4 and 4 to 5 posterior spinal interbody fusion with PEEK cage and lumbar 3 to 5 posterior spinal instrumentation with pedicle screw. Patient tolerated procedure well. Telemetry reviewed. vital signs Vital Sign Date Time Temp Pulse Resp B/P (MAP) Pulse Ox O2 Delivery O2 Flow Rate FiO2 05/26/25 21:00 98.1 71 17 123/96 (105) 92 98.1 05/26/25 13:25 Nasal Cannula 2.0 94 Total Intake and Output 05/25/25 05/25/25 05/26/25 15:00 23:00 07:00 Intake Total 400 ml 1000 ml Output Total 680 ml Balance -280 ml 1000 ml medications Current Medications Medications Dose Ordered Sig/Bob Route Start Time Stop Time Status Last Admin Dose Admin Enoxaparin Sodium 40 mg DAILY SC 05/21/25 21:00 05/25/25 09:33 40 MG Pantoprazole Sodium 40 mg DAILY@0600 PO 05/21/25 06:00 05/25/25 05:15 40 MG Dexamethasone 8 mg Q12HR PO 05/25/25 10:00 05/26/25 22:00 8 MG Dextrose/Sodium Chloride 1,000 ml @ 100 mls/hr Q10H IV 05/26/25 09:45 05/26/25 14:42 100 MLS/HR Ondansetron HCl 4 mg Q4HP PRN IV 05/26/25 09:45 Acetaminophen 650 mg Q6HP PRN PO 05/26/25 09:45 Acetaminophen/ Hydrocodone Bitart 1 tab Q6HP PRN PO 05/26/25 09:45 Morphine Sulfate 1 mg Q4HP PRN IV 05/26/25 09:45 Cyclobenzaprine HCl 10 mg TID PO 05/26/25 14:00 05/26/25 22:00 10 MG Docusate Sodium 100 mg BID PO 05/26/25 10:00 05/26/25 22:00 100 MG Cefazolin Sodium 50 ml @ 100 mls/hr Q8HR IV 05/26/25 14:00 05/28/25 06:29 05/26/25 22:05 100 MLS/HR Nitroglycerin 0.4 mg Q5MINP PRN SL 05/26/25 09:45 Morphine Sulfate 2 mg Q30M PRN IV 05/26/25 09:45 Oxycodone HCl 10 mg ONCE PRN PO 05/26/25 12:30 objective GENERAL: Alert and oriented x 3. No acute distress. EYES: PERRL, EOMI. Anicteric. HENT: Moist mucous membranes. LUNGS: Clear to auscultation bilaterally. CARDIOVASCULAR: Regular rate and rhythm. ABDOMEN: Soft, nontender and nondistended. EXTREMITIES: No edema. NEUROLOGIC: No focal neurological deficits. SKIN: Warm, dry. laboratory and microbiology Laboratory Tests 05/22/25 06:18 05/21/25 06:08 Test 05/22/25 06:18 Range/Units Serum Glucose 126 H 74-106 mg/dL Problem List Degenerative disc disease. Neural foramina stenosis. Bilateral upper and lower limb weakness. Previous cervical spine surgery for spinal stenosis. Lumbar spinal stenosis with neurogenic claudication and progressive neurologic deficit with bilateral foot drop. Assessment/Plan Continued all current supportive medical care. [facility] for pain management IV antibiotics as ordered. DVT and GI prophylactics. Additional plan as per the hospital course. Dietary Evaluation Review Comments: Monitor PO intake, lab values, weight trend, and I/O Expected Outcomes/Goals: To meet >75% estimated needs Fu 3-5 days Plan discussed with: Patient JIMENA REGALADO MD May 26, 2025 23:31
[2025-05-27] VITALS (7 sets, daily range): BP systolic 90–126; BP diastolic 50–90; PULSE 57–89; RESP 14–22; TEMP 97.4–99.4; O2SAT 90–97
[2025-05-27] MEDS: HYDROcodone-ACET 10/325MG TAB PO PRN (00:43)
[2025-05-27] MEDS: MORPHINE SULFATE INJ 2 MG/ml SYRG IV PRN (03:49)
[2025-05-27] MEDS: GABAPENTIN 300 MG CAP PO ONE (07:49)
[2025-05-27] MEDS ORDERED: KETOROLAC TROMETH 30 MG/ML 1ML VIAL IV PRN (13:45)
--- NOTE | 2025-05-27 13:56 | DVHPN2 ---
Progress Note - Surgical Date Seen: May 27, 2025 Post op day Post op day: 1 Subjective Patient reports: No new complaints, Feels better, Other (He remains very weak) Review of Systems: HEENT:Normal, CVS:Normal, RESPIRATORY:Normal, GI:Normal, :Normal, MSK:Abnormal (Bilateral lower extremities 3/5, bilateral upper extremities 4/5, footdrop), NEURO:Abnormal Objective Vital signs Vital Sign Date Time Temp Pulse Resp B/P (MAP) Pulse Ox O2 Delivery O2 Flow Rate FiO2 05/27/25 12:40 97.8 72 17 126/80 (95) 90 97.8 05/27/25 08:10 Room Air* 0 21 Total Intake and Output 05/26/25 05/26/25 05/27/25 15:00 23:00 07:00 Intake Total 0 ml 100 ml 1460 ml Output Total 1000 ml Balance 0 ml 100 ml 460 ml Medications Current Medications Medications Dose Ordered Sig/Bob Route Start Time Stop Time Status Last Admin Dose Admin Enoxaparin Sodium 40 mg DAILY SC 05/21/25 21:00 05/27/25 09:00 40 MG Pantoprazole Sodium 40 mg DAILY@0600 PO 05/21/25 06:00 05/27/25 05:43 40 MG Dexamethasone 8 mg Q12HR PO 05/25/25 10:00 05/27/25 09:00 8 MG Dextrose/Sodium Chloride 1,000 ml @ 100 mls/hr Q10H IV 05/26/25 09:45 05/27/25 03:38 100 MLS/HR Ondansetron HCl 4 mg Q4HP PRN IV 05/26/25 09:45 Acetaminophen 650 mg Q6HP PRN PO 05/26/25 09:45 Morphine Sulfate 1 mg Q4HP PRN IV 05/26/25 09:45 05/27/25 03:49 1 MG Cyclobenzaprine HCl 10 mg TID PO 05/26/25 14:00 05/27/25 05:43 10 MG Cefazolin Sodium 50 ml @ 100 mls/hr Q8HR IV 05/26/25 14:00 05/28/25 06:29 05/27/25 05:44 100 MLS/HR Nitroglycerin 0.4 mg Q5MINP PRN SL 05/26/25 09:45 Morphine Sulfate 2 mg Q30M PRN IV 05/26/25 09:45 Oxycodone HCl 10 mg ONCE PRN PO 05/26/25 12:30 Ketorolac Tromethamine 15 mg Q6HPRN PRN IV 05/27/25 13:45 05/28/25 14:00 UNV Laboratory Laboratory Tests 05/22/25 06:18 05/21/25 06:08 Test 05/22/25 06:18 Range/Units Serum Glucose 126 H 74-106 mg/dL Microbiology Date/Time Source Procedure Growth Status 05/23/25 14:30 Stool Stool Culture - Final Complete 05/23/25 14:30 Stool Shiga Toxin I & II - Final Complete Examination: GENERAL:Normal, HEENT:Normal, NECK:Normal, LUNGS:Normal, CVS:Normal, ABDOMEN:Normal, MSK:Abnormal (Poor exercise tolerance, deconditioning, weakness. Patient working with physical therapy), SKIN:Normal (Drains intact x2 robert seal intact power source functioning drain output, drain 1= 230ml, drain 2. 30ml since surgery we will keep both in at this time would like to see the patient ambulating more to allow for fluid shift), NEURO:Abnormal (Weakness, footdrop), :Normal Problem List/Assessment/Plan Problems: (1) Postoperative pain after spinal surgery (2) Muscle spasm of back (3) Acute post-operative pain Assessment and Plan POD #1 Events of today Patient is working with physical therapy however he is limited by pain, extreme weakness, and deconditioning drains intact we will keep them in another day re-evaluate drain output patient is progressing Dx: Lumbar Degenerative Disk Disease and Lumbar Spinal Stenosis with severe lateral recess stenosis at L3/4 and l4/5 causing Incapacitating back pain, radiculopathy and progressive neurologic deficit with bilateral foot drop Procedure: Lumbar 5 laminectomy with Lumbar 5 foraminotomies and facetectomies to decompress central canal and Lumbar 5 nerve roots Lumbar 4 laminectomy with Lumbar 4 foraminotomies and facetectomies to decompress central canal and Lumbar 4 nerve roots Lumbar 3 laminectomy with Lumbar 3 foraminotomies and facetectomies to decompress central canal and Lumbar 4 nerve roots Lumbar 3 to 4 posterior spinal interbody fusion with PEEK cage Lumbar 4 to 5 posterior spinal interbody fusion with PEEK cage Lumbar 3 to 5 posterior spinal instrumentation with pedicle screws -Disposition: -Pending -Discharge RX: Sent to [facility] on [address] Mcdermott -Follow up appointment: with Dr Estrada on previously scheduled postoperative appointment [phone] [id number] [facility] [address] Mcwilliams [address] [place] [id number] -Pain: - IV pain meds post op day 1, with PO supplementation, goal is to progress weaning off IV medications and control pain with PO only - P.O. analgesics:Tylenol 650MG (PAIN 1-3) Bryant 10/325 mg (PAIN 4-6) - Muscle relaxers scheduled administration. This is a beneficial medications for the incisional pain as it is mostly related to muscle spasms. Flexeril 10 mg TID - Cepacol throat lozenges as needed for sore throat -Antibiotics Operative recommendations: -Postoperative dose:-Post operative antibiotics cefazolin 1 g IV piggyback every 8 hours x 48 hours total of 6 doses -DVT PPX: -Hold all chemical DVT/ blood thinners for 14 days postoperatively -use mechanical DVT PPX such as SCD's, ambulation -Activity: -Pending PT evaluation and patients progression -Sit at side of bed for meals -Goal: Ambulate independently and safely (may use assistive devices if needed) -Medical Therapy goals: -Afebrile- Patient may develop a expected post operative fever by day 2-3, this may not be accompanied with a elevation in WBC. if fever develops: Acetaminophen for fever. Albuterol nebulizer Tx every 12 hours for 24 hours to facilitate adequate lung expansion and prevent development of atelectasis. -Euglycemic: bloods sugars under 130mmol/L for optimal healing -Normotensive: Avoid events of hypertension. This helps to keep post operative healing intact and avoids destabilization of beneficial hemostatic coagulation. -Lumbar: -If patient is comfortable encouraged the patient to lay on their side to facilitate wound healing -Drains: -Hemovac drains: These will be to full compression unless otherwise ordered. Please record and document output AND characteristic of fluid present independently EVERY 6 hours more often as needed. if there in no output indicate this by documenting 0ml. If output is greater than 100 ml in one hour of polina blood call provider. These drains will be removed once the drainage is at a acceptable level (generally less than 100ml in 24 hours) -Robert dressing: This will stay in place and will be removed at the patients follow up visit. Nursing is to assess the seal and power source. The seal should be intact and the power source should have a green flashing light indicating it is functioning well. Batteries can last up to 14 days. If a leak develops the dressing edges can be reinforced with a Tegaderm dressing to reestablish intact seal. The Robert dressing is NOT a wound vac. This does not get changed, it does not need home health management. -Record output independently, drain 1. Is a deep drain and drain 2. Is a superficial drain. Wound drainage is described by type, color, amount, and odor. Drainage can be 1 Serous: Clear and thin, may be present in healing healthy wound. 2 Serosanguineous containing blood may also be present and healthy healing wound 3. Sanguinous primarily blood 4. Purulent this is thick, white, and pus like. It may be indicated to give of a infection and should constitute a call to the provider immediately with the plan that the sample should be cultured. -White: discontinued in OR -Dressings Take care not to disrupt the ROBERT dressing seal. If there is a break in the seal it can be trouble shot with a Tegaderm dressing. -Dressing to Hemovac drains may be changed once the drains have been removed by the provider. -Bowel management: -Colace 100mg bid -Diet: -Clear liquid diet and advance as patient tolerates within dietary limitations ( example: diabetic, Cardiac) -Incentive Spirometer: -10 x hour while awake, RN please educate and observe repeat demonstration, have IS at bedside POD #1 -X-rays: - none indicated at this time -Consults: -Physical Therapy evaluation, treatment recommendations, and discharge recommendations Call with questions Carmel Arzate ACNP- Orthopaedic Spine Surgery nurse practitioner For Dr Carlos Estrada Patient was examined, chart reviewed, labs evaluated, and diagnostic studies and findings analyzed. Case was discussed with Dr. Josafat Estrada who formulated the plan of care. This medical document was created using an electronic medical record system with [employer] system. Although this document has been carefully reviewed, there might still be some phonetic and typographical errors. These areas are purely typographical due to imperfections of the software programs, and do not reflect any compromise in the patient's medical care. My Orders My Orders Orders - YESSI ARZATE NP Procedure Category Date Status Time Transfer Orders XFER 05/27/25 Transmitted 08:28 Plan discussed with Plan discussed with: Patient, Other Visit Coding Surgery Date of Service if different f: May 26, 2025 Billing Provider: YESSI ARZATE NP Surgery Visit Codes: NOT BILLABLE YESSI ARZATE NP May 27, 2025 13:56
--- NOTE | 2025-05-27 17:01 | DVHPNRES ---
Progress Note Date Seen: May 27, 2025 Resident Creating Document: PUMA MCDONALD Medical Necessity Reason Pt with a Central, PICC or Fol: No Subjective Review of Systems Patient seen at bedside. Status post spinal decompression. Patient complains of pain. Further pain management to be done by spine surgery team. Objective vital signs Vital Sign Date Time Temp Pulse Resp B/P (MAP) Pulse Ox O2 Delivery O2 Flow Rate FiO2 05/27/25 12:40 97.8 72 17 126/80 (95) 90 97.8 05/27/25 08:10 Room Air* 0 21 Total Intake and Output 05/26/25 05/26/25 05/27/25 15:00 23:00 07:00 Intake Total 0 ml 100 ml 1460 ml Output Total 1000 ml Balance 0 ml 100 ml 460 ml medications Current Medications Medications Dose Ordered Sig/Bob Route Start Time Stop Time Status Last Admin Dose Admin Pantoprazole Sodium 40 mg DAILY@0600 PO 05/21/25 06:00 05/27/25 05:43 40 MG Dexamethasone 8 mg Q12HR PO 05/25/25 10:00 05/27/25 09:00 8 MG Dextrose/Sodium Chloride 1,000 ml @ 100 mls/hr Q10H IV 05/26/25 09:45 05/27/25 03:38 100 MLS/HR Ondansetron HCl 4 mg Q4HP PRN IV 05/26/25 09:45 Acetaminophen 650 mg Q6HP PRN PO 05/26/25 09:45 Cyclobenzaprine HCl 10 mg TID PO 05/26/25 14:00 05/27/25 14:27 10 MG Cefazolin Sodium 50 ml @ 100 mls/hr Q8HR IV 05/26/25 14:00 05/28/25 06:29 05/27/25 14:27 100 MLS/HR Nitroglycerin 0.4 mg Q5MINP PRN SL 05/26/25 09:45 Morphine Sulfate 2 mg Q30M PRN IV 05/26/25 09:45 Morphine Sulfate 2 mg Q4HP PRN IV 05/27/25 14:30 Oxycodone HCl 10 mg Q6HPRN PRN PO 05/27/25 14:30 Examination General Appearance: Alert, Oriented X3, Cooperative, No acute distress HEENT: Atraumatic, PERRLA, EOMI, Mucous membrane moist/pink Respiratory: Clear to auscultation, Normal air movement Cardiovascular: Regular rate, Normal S1, Normal S2, No murmurs, no chest wall tenderness Abdominal: Normal bowel sounds, Soft, No tenderness, No hepatospenomegaly, No masses Neurological: Weakness in bilateral lower limbs, strength 2/5; weakness in bilateral upper limbs, strength 3/5; absent ankle and knee reflexes Skin: No rashes, No breakdown, No significant lesion Neuro: Normal gait, Normal speech, Strength at 5/5 X4 ext, Normal tone, Sensation intact, Cranial nerves 3-12 NL, Reflexes 2+ Psych/Mental Status: Mental status NL, Mood NL laboratory and microbiology Laboratory Tests 05/22/25 06:18 05/21/25 06:08 Test 05/22/25 06:18 Range/Units Serum Glucose 126 H 74-106 mg/dL Microbiology Date/Time Source Procedure Growth Status 05/23/25 14:30 Stool Stool Culture - Final Complete 05/23/25 14:30 Stool Shiga Toxin I & II - Final Complete Problem List/Assessment/Plan Problem List/Assessment/Plan 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 Possible hypothyroidism Degenerative disc disease Status post Spinal decompression surgery MRI showing neural foramina stenosis Bilateral upper and lower limb weakness Previous Cervical spine surgery for spinal stenosis Plan MRI Send for KRYSTAL, TSH Ruled out DVT Normal Doppler scan Spilled out peripheral vascular disease Normal duplex scan CT showed no intracranial abnormalities Plan discussed with: Patient Plan discussed with: Patient My Orders My Orders Orders - PUMA MCDONALD Procedure Category Date Status Time Complete Blood Count LAB 05/27/25 Logged 14:59 Comprehensive LAB 05/27/25 Logged Metabolic Panel 14:59 * Toolroom Attendant CONS 05/27/25 Transmitted Consult Dietary Evaluation Review Comments: Monitor PO intake, lab values, weight trend, and I/O Expected Outcomes/Goals: To meet >75% estimated needs Fu 3-5 days Date of Service: May 27, 2025 Billing Provider: DALY YUNG MD Common Visit Codes: [id number] INP/OBS CARE(HIGH) PUMA MCDONALD May 27, 2025 16:07 DALY YUNG MD May 27, 2025 22:39
[2025-05-27 17:40] LABS: Hematocrit 47.0 % (41.0-53.0); Hemoglobin 16.0 g/dL (13.5-17.5); Mean Corpuscular Hemoglobin 31.3 pg (28.0-32.0); Mean Corpuscular Volume 92.3 fL (80.0-100.0)
[2025-05-27 17:55] LABS: Alanine Aminotransferase 74 U/L (7-40); Albumin 4.1 g/dL (3.2-4.8); Alkaline Phosphatase 75 U/L (46-116); Anion Gap 10 (5-15); BUN/Creatinine Ratio 30.4 (10.0-20.0); Blood Urea Nitrogen 24 mg/dL (9-23); Calcium 8.6 mg/dL (8.7-10.4); Carbon Dioxide 26 mmol/L (20-31); Chloride 104 mmol/L (98-107); Glucose 144 mg/dL (74-106); Potassium 4.6 mmol/L (3.5-5.1); Sodium 140 mmol/L (136-145); Total Protein 5.9 g/dL (5.7-8.2)
[2025-05-27 17:56] LABS: Bilirubin, Total 0.4 mg/dL (0.2-1.0)
[2025-05-27 18:23] LABS: Total Cells Counted 100.0 (100)
[2025-05-27 18:24] LABS: Anisocytosis Slight
--- NOTE | 2025-05-27 23:13 | DVHPN2 ---
Progress Note - Dictate Date Seen: May 27, 2025 Medical Necessity Reason Pt with a Central, PICC or Fol: No Subjective Patient was seen and evaluated in follow up. Patient is on 2 LPM NC. Patient complains of back pain at the surgical site. Drain #1 30 ml dark red blood output, drain #2 30 ml red blood output. Dressings are C/D/I. Telemetry reviewed. vital signs Vital Sign Date Time Temp Pulse Resp B/P (MAP) Pulse Ox O2 Delivery O2 Flow Rate FiO2 05/27/25 12:40 97.8 72 17 126/80 (95) 90 97.8 05/27/25 08:10 Room Air* 0 21 Total Intake and Output 05/26/25 05/26/25 05/27/25 15:00 23:00 07:00 Intake Total 0 ml 100 ml 1460 ml Output Total 1000 ml Balance 0 ml 100 ml 460 ml medications Current Medications Medications Dose Ordered Sig/Bob Route Start Time Stop Time Status Last Admin Dose Admin Pantoprazole Sodium 40 mg DAILY@0600 PO 05/21/25 06:00 05/27/25 05:43 40 MG Dexamethasone 8 mg Q12HR PO 05/25/25 10:00 05/27/25 09:00 8 MG Dextrose/Sodium Chloride 1,000 ml @ 100 mls/hr Q10H IV 05/26/25 09:45 05/27/25 03:38 100 MLS/HR Ondansetron HCl 4 mg Q4HP PRN IV 05/26/25 09:45 Acetaminophen 650 mg Q6HP PRN PO 05/26/25 09:45 Cyclobenzaprine HCl 10 mg TID PO 05/26/25 14:00 05/27/25 14:27 10 MG Cefazolin Sodium 50 ml @ 100 mls/hr Q8HR IV 05/26/25 14:00 05/28/25 06:29 05/27/25 14:27 100 MLS/HR Nitroglycerin 0.4 mg Q5MINP PRN SL 05/26/25 09:45 Morphine Sulfate 2 mg Q30M PRN IV 05/26/25 09:45 Morphine Sulfate 2 mg Q4HP PRN IV 05/27/25 14:30 Oxycodone HCl 10 mg Q6HPRN PRN PO 05/27/25 14:30 objective GENERAL: Alert and oriented x 3. No acute distress. EYES: PERRL, EOMI. Anicteric. HENT: Moist mucous membranes. LUNGS: Clear to auscultation bilaterally. CARDIOVASCULAR: Regular rate and rhythm. ABDOMEN: Soft, nontender and nondistended. EXTREMITIES: No edema. NEUROLOGIC: No focal neurological deficits. SKIN: Warm, dry. laboratory and microbiology Laboratory Tests 05/22/25 06:18 05/21/25 06:08 Test 05/22/25 06:18 Range/Units Serum Glucose 126 H 74-106 mg/dL Problem List Degenerative disc disease. Neural foramina stenosis. Bilateral upper and lower limb weakness. Previous cervical spine surgery for spinal stenosis. Lumbar spinal stenosis with neurogenic claudication and progressive neurologic deficit with bilateral foot drop. Assessment/Plan Continued all current supportive medical care. Morphine for pain management IV antibiotics as ordered. GI prophylactics. Additional plan as per the hospital course. Dietary Evaluation Review Comments: Monitor PO intake, lab values, weight trend, and I/O Expected Outcomes/Goals: To meet >75% estimated needs Fu 3-5 days Plan discussed with: Patient JIMENA REGALADO MD May 27, 2025 14:54
[2025-05-28] MEDS: MORPHINE SULFATE INJ 2 MG/ml SYRG IV PRN (00:27)
[2025-05-28 01:00] VITALS: BP 95/59; PULSE 60; RESP 18; TEMP 98.2; O2SAT 96
[2025-05-28 05:00] VITALS: BP 117/70; PULSE 61; RESP 20; TEMP 97.7; O2SAT 96
[2025-05-28 09:00] VITALS: BP 103/64; PULSE 62; RESP 15; TEMP 97.2; O2SAT 95
[2025-05-28 13:00] VITALS: BP 108/74; PULSE 70; RESP 16; TEMP 98.7; O2SAT 93
--- NOTE | 2025-05-28 14:45 | DVHPN2 ---
Progress Note - Surgical Date Seen: May 28, 2025 Post op day Post op day: 2 Subjective Patient reports: No new complaints, Feels better, Other (still weak) Review of Systems: HEENT:Normal, CVS:Normal, RESPIRATORY:Normal, GI:Normal, :Normal, MSK:Abnormal (weakness- slightly improved), NEURO:Abnormal (SAVITA LE weakness) Objective Vital signs Vital Sign Date Time Temp Pulse Resp B/P (MAP) Pulse Ox O2 Delivery O2 Flow Rate FiO2 05/28/25 10:35 62 15 103/64 05/28/25 09:00 97.2 95 97.2 05/28/25 08:00 Room Air* 0 21 Total Intake and Output 05/27/25 05/27/25 05/28/25 15:00 23:00 07:00 Intake Total 250 ml 650 ml Output Total 1000 ml 1200 ml Balance -1000 ml 250 ml -550 ml Medications Current Medications Medications Dose Ordered Sig/Bob Route Start Time Stop Time Status Last Admin Dose Admin Pantoprazole Sodium 40 mg DAILY@0600 PO 05/21/25 06:00 05/28/25 05:45 40 MG Dexamethasone 8 mg Q12HR PO 05/25/25 10:00 05/28/25 08:52 8 MG Dextrose/Sodium Chloride 1,000 ml @ 100 mls/hr Q10H IV 05/26/25 09:45 05/28/25 06:44 100 MLS/HR Ondansetron HCl 4 mg Q4HP PRN IV 05/26/25 09:45 Acetaminophen 650 mg Q6HP PRN PO 05/26/25 09:45 Cyclobenzaprine HCl 10 mg TID PO 05/26/25 14:00 05/28/25 06:41 10 MG Nitroglycerin 0.4 mg Q5MINP PRN SL 05/26/25 09:45 Morphine Sulfate 2 mg Q30M PRN IV 05/26/25 09:45 Morphine Sulfate 2 mg Q4HP PRN IV 05/27/25 14:30 05/28/25 10:35 2 MG Oxycodone HCl 10 mg Q6HPRN PRN PO 05/27/25 14:30 05/27/25 20:56 10 MG Laboratory Laboratory Tests 05/27/25 17:07 Test 05/27/25 17:07 Range/Units Serum Glucose 144 H 74-106 mg/dL Microbiology Date/Time Source Procedure Growth Status 05/23/25 14:30 Stool Stool Culture - Final Complete 05/23/25 14:30 Stool Shiga Toxin I & II - Final Complete Examination: GENERAL:Normal, HEENT:Normal, NECK:Normal, LUNGS:Normal, CVS:Normal, ABDOMEN:Normal, MSK:Abnormal (weakness- improving), SKIN:Normal (robert in place seal intact, drains intact), NEURO:Abnormal (weak BLE-slight improvment, left leg extreamly weak, 2/5 pedal push pill), :Normal Problem List/Assessment/Plan Problems: (1) Postoperative pain after spinal surgery (2) Acute post-operative pain (3) Muscle spasm of back (4) Leg weakness, bilateral Assessment and Plan POD #2 Events of today Patient is working with physical therapy however he is limited by extreme weakness, deconditioning - patient slight improvement up to WC today with assistance, improved over yesterday drains intact we will keep them in another day re-evaluate drain output drain #1=210 ml out over past 24 hours. Drain #2 with 88 ml out in past 24 hours patient is progressing slowly -DVT PPX: -Hold all chemical DVT/ blood thinners for 14 days postoperatively -use mechanical DVT PPX such as SCD's, ambulation Dx: Lumbar Degenerative Disk Disease and Lumbar Spinal Stenosis with severe lateral recess stenosis at L3/4 and l4/5 causing Incapacitating back pain, radiculopathy and progressive neurologic deficit with bilateral foot drop Procedure: Lumbar 5 laminectomy with Lumbar 5 foraminotomies and facetectomies to decompress central canal and Lumbar 5 nerve roots Lumbar 4 laminectomy with Lumbar 4 foraminotomies and facetectomies to decompress central canal and Lumbar 4 nerve roots Lumbar 3 laminectomy with Lumbar 3 foraminotomies and facetectomies to decompress central canal and Lumbar 4 nerve roots Lumbar 3 to 4 posterior spinal interbody fusion with PEEK cage Lumbar 4 to 5 posterior spinal interbody fusion with PEEK cage Lumbar 3 to 5 posterior spinal instrumentation with pedicle screws -Disposition: -Pending -Discharge RX: Sent to [facility] by Dr. Mcdermott -Follow up appointment: with Dr Estrada on previously scheduled postoperative appointment [id number] [facility] [address] Mcwilliams [address] [place] [id number] -Pain: - IV pain meds post op day 1, with PO supplementation, goal is to progress weaning off IV medications and control pain with PO only - P.O. analgesics:Tylenol 650MG (PAIN 1-3) [place] 10/325 mg (PAIN 4-6) - Muscle relaxers scheduled administration. This is a beneficial medications for the incisional pain as it is mostly related to muscle spasms. Flexeril 10 mg TID - Cepacol throat lozenges as needed for sore throat -Antibiotics Operative recommendations: -Postoperative dose:-Post operative antibiotics cefazolin 1 g IV piggyback every 8 hours x 48 hours total of 6 doses -Activity: -Pending PT evaluation and patients progression -Sit at side of bed for meals -Goal: Ambulate independently and safely (may use assistive devices if needed) -Medical Therapy goals: -Afebrile- Patient may develop a expected post operative fever by day 2-3, this may not be accompanied with a elevation in WBC. if fever develops: Acetaminophen for fever. Albuterol nebulizer Tx every 12 hours for 24 hours to facilitate adequate lung expansion and prevent development of atelectasis. -Euglycemic: bloods sugars under 130mmol/L for optimal healing -Normotensive: Avoid events of hypertension. This helps to keep post operative healing intact and avoids destabilization of beneficial hemostatic coagulation. -Lumbar: -If patient is comfortable encouraged the patient to lay on their side to facilitate wound healing -Drains: -Hemovac drains: These will be to full compression unless otherwise ordered. Please record and document output AND characteristic of fluid present independently EVERY 6 hours more often as needed. if there in no output indicate this by documenting 0ml. If output is greater than 100 ml in one hour of polina blood call provider. These drains will be removed once the drainage is at a acceptable level (generally less than 100ml in 24 hours) -Robert dressing: This will stay in place and will be removed at the patients follow up visit. Nursing is to assess the seal and power source. The seal should be intact and the power source should have a green flashing light indicating it is functioning well. Batteries can last up to 14 days. If a leak develops the dressing edges can be reinforced with a Tegaderm dressing to reestablish intact seal. The Robert dressing is NOT a wound vac. This does not get changed, it does not need home health management. -Record output independently, drain 1. Is a deep drain and drain 2. Is a superficial drain. Wound drainage is described by type, color, amount, and odor. Drainage can be 1 Serous: Clear and thin, may be present in healing healthy wound. 2 Serosanguineous containing blood may also be present and healthy healing wound 3. Sanguinous primarily blood 4. Purulent this is thick, white, and pus like. It may be indicated to give of a infection and should constitute a call to the provider immediately with the plan that the sample should be cultured. -White: discontinued in OR -Dressings Take care not to disrupt the ROBERT dressing seal. If there is a break in the seal it can be trouble shot with a Tegaderm dressing. -Dressing to Hemovac drains may be changed once the drains have been removed by the provider. -Bowel management: -Colace 100mg bid -Diet: -Clear liquid diet and advance as patient tolerates within dietary limitations ( example: diabetic, Cardiac) -Incentive Spirometer: -10 x hour while awake, RN please educate and observe repeat demonstration, have IS at bedside POD #1 -X-rays: - none indicated at this time -Consults: -Physical Therapy evaluation, treatment recommendations, and discharge recommendations Call with questions Carmel Arzate [facility]- Orthopaedic Spine Surgery nurse practitioner For Dr Carlos Estrada Patient was examined, chart reviewed, labs evaluated, and diagnostic studies and findings analyzed. Case was discussed with Dr. Josafat Estrada who formulated the plan of care. This medical document was created using an electronic medical record system with [employer] dictation system. Although this document has been carefully reviewed, there might still be some phonetic and typographical errors. These areas are purely typographical due to imperfections of the software programs, and do not reflect any compromise in the patient's medical care. Plan discussed with Plan discussed with: Patient, Other (merlin WILLOUGHBY [id number]) Visit Coding Surgery Date of Service if different f: May 26, 2025 Billing Provider: YESSI ARZATE NP Surgery Visit Codes: NOT BILLABLE YESSI ARZATE NP May 28, 2025 14:45
[2025-05-28 17:00] VITALS: BP 92/60; PULSE 68; RESP 16; TEMP 99.3; O2SAT 94
--- NOTE | 2025-05-28 19:23 | DVHPNRES ---
Progress Note Date Seen: May 28, 2025 Resident Creating Document: PUMA MCDONALD Medical Necessity Reason Pt with a Central, PICC or Fol: No Subjective Review of Systems Patient is status post surgery. No new complaints. On physiotherapy. Spine surgery following up. Objective vital signs Vital Sign Date Time Temp Pulse Resp B/P (MAP) Pulse Ox O2 Delivery O2 Flow Rate FiO2 05/28/25 17:00 99.3 68 16 92/60 (71) 94 99.3 05/28/25 08:00 Room Air* 0 21 Total Intake and Output 05/27/25 05/27/25 05/28/25 15:00 23:00 07:00 Intake Total 250 ml 650 ml Output Total 1000 ml 1200 ml Balance -1000 ml 250 ml -550 ml medications Current Medications Medications Dose Ordered Sig/Bob Route Start Time Stop Time Status Last Admin Dose Admin Pantoprazole Sodium 40 mg DAILY@0600 PO 05/21/25 06:00 05/28/25 05:45 40 MG Dexamethasone 8 mg Q12HR PO 05/25/25 10:00 05/28/25 08:52 8 MG Dextrose/Sodium Chloride 1,000 ml @ 100 mls/hr Q10H IV 05/26/25 09:45 05/28/25 06:44 100 MLS/HR Ondansetron HCl 4 mg Q4HP PRN IV 05/26/25 09:45 Acetaminophen 650 mg Q6HP PRN PO 05/26/25 09:45 Cyclobenzaprine HCl 10 mg TID PO 05/26/25 14:00 05/28/25 14:59 10 MG Nitroglycerin 0.4 mg Q5MINP PRN SL 05/26/25 09:45 Morphine Sulfate 2 mg Q30M PRN IV 05/26/25 09:45 Morphine Sulfate 2 mg Q4HP PRN IV 05/27/25 14:30 05/28/25 10:35 2 MG Oxycodone HCl 10 mg Q6HPRN PRN PO 05/27/25 14:30 05/27/25 20:56 10 MG Examination General Appearance: Alert, Oriented X3, Cooperative, No acute distress HEENT: Atraumatic, PERRLA, EOMI, Mucous membrane moist/pink Respiratory: Clear to auscultation, Normal air movement Cardiovascular: Regular rate, Normal S1, Normal S2, No murmurs, no chest wall tenderness Abdominal: Normal bowel sounds, Soft, No tenderness, No hepatospenomegaly, No masses Neurological: Weakness in bilateral lower limbs, strength 2/5; weakness in bilateral upper limbs, strength 3/5; absent ankle and knee reflexes Skin: No rashes, No breakdown, No significant lesion Neuro: Normal gait, Normal speech, Strength at 5/5 X4 ext, Normal tone, Sensation intact, Cranial nerves 3-12 NL, Reflexes 2+ Psych/Mental Status: Mental status NL, Mood NL laboratory and microbiology Laboratory Tests 05/27/25 17:07 Test 05/27/25 17:07 Range/Units Serum Glucose 144 H 74-106 mg/dL Microbiology Date/Time Source Procedure Growth Status 05/23/25 14:30 Stool Stool Culture - Final Complete 05/23/25 14:30 Stool Shiga Toxin I & II - Final Complete Problem List/Assessment/Plan Problem List/Assessment/Plan 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 Possible hypothyroidism Degenerative disc disease Status post Spinal decompression surgery MRI showing neural foramina stenosis Bilateral upper and lower limb weakness Previous Cervical spine surgery for spinal stenosis Plan MRI Send for KRYSTAL, TSH Ruled out DVT Normal Doppler scan Spilled out peripheral vascular disease Normal duplex scan CT showed no intracranial abnormalities Plan discussed with: Patient Plan discussed with: Patient Dietary Evaluation Review Comments: Monitor PO intake, lab values, weight trend, and I/O Expected Outcomes/Goals: To meet >75% estimated needs Fu 3-5 days PUMA MCDONALD RESIDENT May 28, 2025 19:23
[2025-05-28 21:00] VITALS: BP 98/63; PULSE 67; RESP 19; TEMP 98.1; O2SAT 96
--- NOTE | 2025-05-28 23:50 | DVHPN2 ---
Progress Note - Dictate Date Seen: May 28, 2025 Medical Necessity Reason Pt with a Central, PICC or Fol: No Subjective Patient was seen and evaluated in follow up. No overnight events. Surgical drains remain in place with serosanguineous fluid output. vital signs Vital Sign Date Time Temp Pulse Resp B/P (MAP) Pulse Ox O2 Delivery O2 Flow Rate FiO2 05/28/25 10:35 62 15 103/64 05/28/25 09:00 97.2 95 97.2 05/28/25 08:00 Room Air* 0 21 Total Intake and Output 05/27/25 05/27/25 05/28/25 15:00 23:00 07:00 Intake Total 250 ml 650 ml Output Total 1000 ml 1200 ml Balance -1000 ml 250 ml -550 ml medications Current Medications Medications Dose Ordered Sig/Bob Route Start Time Stop Time Status Last Admin Dose Admin Pantoprazole Sodium 40 mg DAILY@0600 PO 05/21/25 06:00 05/28/25 05:45 40 MG Dexamethasone 8 mg Q12HR PO 05/25/25 10:00 05/28/25 08:52 8 MG Dextrose/Sodium Chloride 1,000 ml @ 100 mls/hr Q10H IV 05/26/25 09:45 05/28/25 06:44 100 MLS/HR Ondansetron HCl 4 mg Q4HP PRN IV 05/26/25 09:45 Acetaminophen 650 mg Q6HP PRN PO 05/26/25 09:45 Cyclobenzaprine HCl 10 mg TID PO 05/26/25 14:00 05/28/25 06:41 10 MG Nitroglycerin 0.4 mg Q5MINP PRN SL 05/26/25 09:45 Morphine Sulfate 2 mg Q30M PRN IV 05/26/25 09:45 Morphine Sulfate 2 mg Q4HP PRN IV 05/27/25 14:30 05/28/25 10:35 2 MG Oxycodone HCl 10 mg Q6HPRN PRN PO 05/27/25 14:30 05/27/25 20:56 10 MG objective GENERAL: Alert and oriented x 3. No acute distress. EYES: PERRL, EOMI. Anicteric. HENT: Moist mucous membranes. LUNGS: Clear to auscultation bilaterally. CARDIOVASCULAR: Regular rate and rhythm. ABDOMEN: Soft, nontender and nondistended. EXTREMITIES: No edema. NEUROLOGIC: No focal neurological deficits. SKIN: Warm, dry. laboratory and microbiology Laboratory Tests 05/27/25 17:07 Test 05/27/25 17:07 Range/Units Serum Glucose 144 H 74-106 mg/dL Problem List Degenerative disc disease. Neural foramina stenosis. Bilateral upper and lower limb weakness. Previous cervical spine surgery for spinal stenosis. Lumbar spinal stenosis with neurogenic claudication and progressive neurologic deficit with bilateral foot drop. Assessment/Plan Continued all current supportive medical care. Morphine for pain management IV antibiotics as ordered. GI prophylactics. Nitro SL. Additional plan as per the hospital course. Dietary Evaluation Review Comments: Monitor PO intake, lab values, weight trend, and I/O Expected Outcomes/Goals: To meet >75% estimated needs Fu 3-5 days Plan discussed with: Patient JIMENA REGALADO MD May 28, 2025 12:53
[2025-05-29] VITALS (8 sets, daily range): BP systolic 96–127; BP diastolic 53–80; PULSE 57–105; RESP 16–20; TEMP 97.9–98.1; O2SAT 87–97
[2025-05-29 09:01] LABS: Hematocrit 47.6 % (41.0-53.0); Hemoglobin 15.8 g/dL (13.5-17.5); Mean Corpuscular Hemoglobin 31.2 pg (28.0-32.0); Mean Corpuscular Volume 94.2 fL (80.0-100.0); Nucleated Red Blood Cells % 0.0 %
[2025-05-29 09:10] LABS: Albumin 4.1 g/dL (3.2-4.8); Alkaline Phosphatase 66 U/L (46-116); Anion Gap 9 (5-15); BUN/Creatinine Ratio 25.0 (10.0-20.0); Blood Urea Nitrogen 15 mg/dL (9-23); Carbon Dioxide 27 mmol/L (20-31); Chloride 102 mmol/L (98-107); Potassium 4.3 mmol/L (3.5-5.1); Sodium 138 mmol/L (136-145); Total Protein 6.1 g/dL (5.7-8.2)
[2025-05-29 09:11] LABS: Bilirubin, Total 0.4 mg/dL (0.2-1.0)
[2025-05-29 09:14] LABS: Alanine Aminotransferase 66 U/L (7-40); Calcium 8.7 mg/dL (8.7-10.4); Glucose 121 mg/dL (74-106)
--- NOTE | 2025-05-29 10:57 | DVHPN2 ---
Progress Note - Surgical Date Seen: May 29, 2025 Post op day Post op day: 3 Subjective Patient reports: No new complaints, Feels better Review of Systems: HEENT:Normal, CVS:Normal, RESPIRATORY:Normal, GI:Normal, :Normal, MSK:Abnormal (weakness BLE), NEURO:Abnormal (left leg weaker than right) Objective Vital signs Vital Sign Date Time Temp Pulse Resp B/P (MAP) Pulse Ox O2 Delivery O2 Flow Rate FiO2 05/29/25 08:54 97.9 70 17 127/74 (91) 94 97.9 05/29/25 08:08 Room Air* 0 21 Total Intake and Output 05/28/25 05/28/25 05/29/25 15:00 23:00 07:00 Intake Total 1700 ml 600 ml Output Total 1800 ml Balance -100 ml 600 ml Medications Current Medications Medications Dose Ordered Sig/Bob Route Start Time Stop Time Status Last Admin Dose Admin Pantoprazole Sodium 40 mg DAILY@0600 PO 05/21/25 06:00 05/29/25 05:37 40 MG Dexamethasone 8 mg Q12HR PO 05/25/25 10:00 05/29/25 09:22 8 MG Dextrose/Sodium Chloride 1,000 ml @ 100 mls/hr Q10H IV 05/26/25 09:45 05/29/25 08:01 100 MLS/HR Ondansetron HCl 4 mg Q4HP PRN IV 05/26/25 09:45 Acetaminophen 650 mg Q6HP PRN PO 05/26/25 09:45 Cyclobenzaprine HCl 10 mg TID PO 05/26/25 14:00 05/29/25 05:37 10 MG Nitroglycerin 0.4 mg Q5MINP PRN SL 05/26/25 09:45 Morphine Sulfate 2 mg Q30M PRN IV 05/26/25 09:45 Morphine Sulfate 2 mg Q4HP PRN IV 05/27/25 14:30 05/28/25 20:58 2 MG Oxycodone HCl 10 mg Q6HPRN PRN PO 05/27/25 14:30 05/28/25 23:16 10 MG Laboratory Laboratory Tests 05/29/25 07:37 Test 05/29/25 07:37 Range/Units Serum Glucose 121 H 74-106 mg/dL Microbiology Date/Time Source Procedure Growth Status 05/23/25 14:30 Stool Stool Culture - Final Complete 05/23/25 14:30 Stool Shiga Toxin I & II - Final Complete Examination: GENERAL:Normal, HEENT:Normal, NECK:Normal, LUNGS:Normal, CVS:Normal, ABDOMEN:Normal, MSK:Abnormal (weak savita lower extremities), SKIN:Normal (drains in place. ROBERT intact- DC drains today), NEURO:Abnormal (weak SAVITA LE), :Normal Problem List/Assessment/Plan Problems: (1) Postoperative pain after spinal surgery (2) Acute post-operative pain (3) Muscle spasm of back Assessment and Plan POD #3 Events of today Patient is working with physical therapy however he is limited by extreme weakness, deconditioning - patient slight improvement up to WC today with assistance, slightly improved over yesterday drains DC'd patient is progressing slowly patient will benefit from PT and rehab for reconditioning Clear to DC/ transfer from a spine perspective. -DVT PPX: -Hold all chemical DVT/ blood thinners for 14 days postoperatively -use mechanical DVT PPX such as SCD's, ambulation Dx: Lumbar Degenerative Disk Disease and Lumbar Spinal Stenosis with severe lateral recess stenosis at L3/4 and l4/5 causing Incapacitating back pain, radiculopathy and progressive neurologic deficit with bilateral foot drop Procedure: Lumbar 5 laminectomy with Lumbar 5 foraminotomies and facetectomies to decompress central canal and Lumbar 5 nerve roots Lumbar 4 laminectomy with Lumbar 4 foraminotomies and facetectomies to decompress central canal and Lumbar 4 nerve roots Lumbar 3 laminectomy with Lumbar 3 foraminotomies and facetectomies to decompress central canal and Lumbar 4 nerve roots Lumbar 3 to 4 posterior spinal interbody fusion with PEEK cage Lumbar 4 to 5 posterior spinal interbody fusion with PEEK cage Lumbar 3 to 5 posterior spinal instrumentation with pedicle screws -Disposition: -Pending -Discharge RX: Sent to [facility] on [facility] [address] Mcdermott -Follow up appointment: with Dr Estrada on previously scheduled postoperative appointment [phone] [id number] [facility] [address] Mcwilliams [address] [place] [id number] -Pain: - IV pain meds post op day 1, with PO supplementation, goal is to progress weaning off IV medications and control pain with PO only - P.O. analgesics:Tylenol 650MG (PAIN 1-3) [place] 10/325 mg (PAIN 4-6) - Muscle relaxers scheduled administration. This is a beneficial medications for the incisional pain as it is mostly related to muscle spasms. Flexeril 10 mg TID - Cepacol throat lozenges as needed for sore throat -Antibiotics Operative recommendations: -Postoperative dose:-Post operative antibiotics cefazolin 1 g IV piggyback every 8 hours x 48 hours total of 6 doses -Activity: -Pending PT evaluation and patients progression -Sit at side of bed for meals -Goal: Ambulate independently and safely (may use assistive devices if needed) -Medical Therapy goals: -Afebrile- Patient may develop a expected post operative fever by day 2-3, this may not be accompanied with a elevation in WBC. if fever develops: Acetaminophen for fever. Albuterol nebulizer Tx every 12 hours for 24 hours to facilitate adequate lung expansion and prevent development of atelectasis. -Euglycemic: bloods sugars under 130mmol/L for optimal healing -Normotensive: Avoid events of hypertension. This helps to keep post operative healing intact and avoids destabilization of beneficial hemostatic coagulation. -Lumbar: -If patient is comfortable encouraged the patient to lay on their side to facilitate wound healing -Dressings Take care not to disrupt the ROBERT dressing seal. If there is a break in the seal it can be trouble shot with a Tegaderm dressing. -Dressing to Hemovac drains site may be changed as needed -Bowel management: -Colace 100mg bid -Diet: -Clear liquid diet and advance as patient tolerates within dietary limitations ( example: diabetic, Cardiac) -Incentive Spirometer: -10 x hour while awake, RN please educate and observe repeat demonstration, have IS at bedside POD #1 -X-rays: - none indicated at this time -Consults: -Physical Therapy evaluation, treatment recommendations, and discharge recommendations Call with questions Carmel Arzate ACNP- Orthopaedic Spine Surgery nurse practitioner For Dr Cralos Estrada Patient was examined, chart reviewed, labs evaluated, and diagnostic studies and findings analyzed. Case was discussed with Dr. Josafat Estrada who formulated the plan of care. This medical document was created using an electronic medical record system with [employer] system. Although this document has been carefully reviewed, there might still be some phonetic and typographical errors. These areas are purely typographical due to imperfections of the software programs, and do not reflect any compromise in the patient's medical care. Plan discussed with Plan discussed with: Patient, Other Visit Coding Surgery Date of Service if different f: May 29, 2025 Billing Provider: YESSI ARZATE NP Surgery Visit Codes: NOT BILLABLE YESSI ARZATE NP May 29, 2025 10:57
[2025-05-29] MEDS ORDERED: CYCL-611 PO ×2 (11:27→11:32)
[2025-05-29] MEDS ORDERED: OXY5T PO (11:27)
--- NOTE | 2025-05-29 12:20 | DVHPNRES ---
Progress Note Date Seen: May 29, 2025 Resident Creating Document: PUMA MCDONALD Medical Necessity Reason Pt with a Central, PICC or Fol: No Subjective Review of Systems Patient seen at bedside. Physiotherapy on going. Drains out. Objective vital signs Vital Sign Date Time Temp Pulse Resp B/P (MAP) Pulse Ox O2 Delivery O2 Flow Rate FiO2 05/29/25 08:54 97.9 70 17 127/74 (91) 94 97.9 05/29/25 08:08 Room Air* 0 21 Total Intake and Output 05/28/25 05/28/25 05/29/25 15:00 23:00 07:00 Intake Total 1700 ml 600 ml Output Total 1800 ml Balance -100 ml 600 ml medications Current Medications Medications Dose Ordered Sig/Bob Route Start Time Stop Time Status Last Admin Dose Admin Pantoprazole Sodium 40 mg DAILY@0600 PO 05/21/25 06:00 05/29/25 05:37 40 MG Dexamethasone 8 mg Q12HR PO 05/25/25 10:00 05/29/25 09:22 8 MG Dextrose/Sodium Chloride 1,000 ml @ 100 mls/hr Q10H IV 05/26/25 09:45 05/29/25 08:01 100 MLS/HR Ondansetron HCl 4 mg Q4HP PRN IV 05/26/25 09:45 Acetaminophen 650 mg Q6HP PRN PO 05/26/25 09:45 Cyclobenzaprine HCl 10 mg TID PO 05/26/25 14:00 05/29/25 05:37 10 MG Nitroglycerin 0.4 mg Q5MINP PRN SL 05/26/25 09:45 Morphine Sulfate 2 mg Q30M PRN IV 05/26/25 09:45 Morphine Sulfate 2 mg Q4HP PRN IV 05/27/25 14:30 05/28/25 20:58 2 MG Oxycodone HCl 10 mg Q6HPRN PRN PO 05/27/25 14:30 05/28/25 23:16 10 MG Examination General: patient denies fever, fatigue, weaknes, sweating, any recent changes in appetite and weight HEENT: No headaches, visiual changes, hearing loss, tinnitus, nasal congestion and discharge, and sore throat. Cardiovascular: Denies chest pain, palpitations, dyspnea on exertion, orthopnea, or claudication. Respiratory: No cough, and wheezing. Gastrointestinal: Denies nausea, vomiting, dysphagia, odynophagia, heartburn, abdominal pain, flatulence, bloating, diarrhea, constipation, change in stool, or blood in stool. Genitourinary: No dysuria, hematuria, discharge, frequency, urgency, nocturia, incontinence, and urinary retention. Endocrine: No heat or cold intolerance, polydipsia, polyuria, and polyphagia. Neurological: weakness of b/l upper and lower limb, strength 2/5 in lower limbs, strength 3/5 in upper limbs. No dizziness, tremors, gait disturbance, seizures, and memory impairment. Psychiatric: Denies depression, anxiety,or insomnia. Musculoskeletal: Denies neck pain, stiffness and swelling, back pain, muscle weakness, joint pain, stiffness, swelling, or limited range of motion. Skin: No rashes, itching, skin lesion, changes in hair, nail, skin texture and breast. Hematologic/Lymphatic: Denies easy bruising, bleeding tendencies, or lymph node enlargement. laboratory and microbiology Laboratory Tests 05/29/25 07:37 Test 05/29/25 07:37 Range/Units Serum Glucose 121 H 74-106 mg/dL Microbiology Date/Time Source Procedure Growth Status 05/23/25 14:30 Stool Stool Culture - Final Complete 05/23/25 14:30 Stool Shiga Toxin I & II - Final Complete Problem List/Assessment/Plan Problem List/Assessment/Plan Degenerative disc disease Status post Spinal decompression surgery Physiotherapy ongoing MRI showing neural foramina stenosis Bilateral upper and lower limb weakness Previous Cervical spine surgery for spinal stenosis Ruled out DVT Normal Doppler scan Ruled out peripheral vascular disease Normal duplex scan CT showed no intracranial abnormalities Plan discussed with: Patient Plan discussed with Dr. Carr Plan discussed with: Patient Dietary Evaluation Review Comments: Monitor PO intake, lab values, weight trend, and I/O Expected Outcomes/Goals: To meet >75% estimated needs Fu 3-5 days PUMA MCDONALD RESIDENT May 29, 2025 12:20
--- NOTE | 2025-05-29 17:35 | DVHPN2 ---
Progress Note - Dictate Date Seen: May 29, 2025 Medical Necessity Reason Pt with a Central, PICC or Fol: No Subjective Patient was seen and evaluated in follow up. No overnight events. Physiotherapy on going. Two surgical drains in place draining serous fluid. WBC 19.2, ALT 66. vital signs Vital Sign Date Time Temp Pulse Resp B/P (MAP) Pulse Ox O2 Delivery O2 Flow Rate FiO2 05/29/25 08:54 97.9 70 17 127/74 (91) 94 97.9 05/29/25 08:08 Room Air* 0 21 Total Intake and Output 05/28/25 05/28/25 05/29/25 15:00 23:00 07:00 Intake Total 1700 ml 600 ml Output Total 1800 ml Balance -100 ml 600 ml medications Current Medications Medications Dose Ordered Sig/Bob Route Start Time Stop Time Status Last Admin Dose Admin Pantoprazole Sodium 40 mg DAILY@0600 PO 05/21/25 06:00 05/29/25 05:37 40 MG Dexamethasone 8 mg Q12HR PO 05/25/25 10:00 05/29/25 09:22 8 MG Dextrose/Sodium Chloride 1,000 ml @ 100 mls/hr Q10H IV 05/26/25 09:45 05/29/25 08:01 100 MLS/HR Ondansetron HCl 4 mg Q4HP PRN IV 05/26/25 09:45 Acetaminophen 650 mg Q6HP PRN PO 05/26/25 09:45 Cyclobenzaprine HCl 10 mg TID PO 05/26/25 14:00 05/29/25 05:37 10 MG Nitroglycerin 0.4 mg Q5MINP PRN SL 05/26/25 09:45 Morphine Sulfate 2 mg Q30M PRN IV 05/26/25 09:45 Morphine Sulfate 2 mg Q4HP PRN IV 05/27/25 14:30 05/28/25 20:58 2 MG Oxycodone HCl 10 mg Q6HPRN PRN PO 05/27/25 14:30 05/28/25 23:16 10 MG objective GENERAL: Alert and oriented x 3. No acute distress. EYES: PERRL, EOMI. Anicteric. HENT: Moist mucous membranes. LUNGS: Clear to auscultation bilaterally. CARDIOVASCULAR: Regular rate and rhythm. ABDOMEN: Soft, nontender and nondistended. EXTREMITIES: No edema. NEUROLOGIC: No focal neurological deficits. SKIN: Warm, dry. laboratory and microbiology Laboratory Tests 05/29/25 07:37 Test 05/29/25 07:37 Range/Units Serum Glucose 121 H 74-106 mg/dL Problem List Degenerative disc disease. Neural foramina stenosis. Bilateral upper and lower limb weakness. Previous cervical spine surgery for spinal stenosis. Lumbar spinal stenosis with neurogenic claudication and progressive neurologic deficit with bilateral foot drop. Assessment/Plan Continued all current supportive medical care. Tylenol for pain management Antibiotics as ordered. GI prophylactics. Nitro SL. Additional plan as per the hospital course. Dietary Evaluation Review Comments: Monitor PO intake, lab values, weight trend, and I/O Expected Outcomes/Goals: To meet >75% estimated needs Fu 3-5 days Plan discussed with: Patient JIMENA REGALADO MD May 29, 2025 12:33
[2025-05-30] VITALS (7 sets, daily range): BP systolic 90–139; BP diastolic 38–83; PULSE 51–79; RESP 17–20; TEMP 97.6–98.4; O2SAT 92–99
[2025-05-30 07:16] LABS: Hematocrit 46.9 % (41.0-53.0); Hemoglobin 15.8 g/dL (13.5-17.5); Mean Corpuscular Hemoglobin 30.9 pg (28.0-32.0); Mean Corpuscular Volume 91.5 fL (80.0-100.0)
[2025-05-30 07:31] LABS: Calcium 8.8 mg/dL (8.7-10.4); Chloride 100 mmol/L (98-107); Potassium 4.3 mmol/L (3.5-5.1); Sodium 138 mmol/L (136-145)
[2025-05-30 07:32] LABS: Anion Gap 8 (5-15); Carbon Dioxide 30 mmol/L (20-31)
[2025-05-30 07:38] LABS: BUN/Creatinine Ratio 27.1 (10.0-20.0); Blood Urea Nitrogen 19 mg/dL (9-23); Glucose 122 mg/dL (74-106)
[2025-05-30 07:58] LABS: Total Cells Counted 100.0 (100)
[2025-05-30 07:59] LABS: RBC Morphology Normal
--- NOTE | 2025-05-30 11:40 | DVHDSRES ---
Discharge Summary Date of Admission Resident Creating Document: PUMA MCDONALD RESIDENT May 20, 2025 at 22:34 Date of Discharge: May 30, 2025 Labs/Diagnostic Data: Laboratory Results Test 05/30/25 06:14 05/29/25 07:37 05/27/25 17:07 05/25/25 15:20 White Blood Count 18.6 10^3/uL (4.4-10.8) Red Blood Count 5.12 10^6/uL (4.5-5.90) Hemoglobin 15.8 g/dL (13.5-17.5) Hematocrit 46.9 % (41.0-53.0) Mean Corpuscular Volume 91.5 fL (80.0-100.0) Mean Corpuscular Hemoglobin 30.9 pg (28.0-32.0) Mean Corpuscular Hemoglobin Concent 33.8 g/dL (32.0-36.0) Red Cell Distribution Width 15.1 % (11.8-14.3) Platelet Count 283 10^3/uL (140-450) Mean Platelet Volume 8.6 fL (6.9-10.8) Neutrophils (%) (Auto) % (37.0-80.0) Lymphocytes (%) (Auto) % (10.0-50.0) Monocytes (%) (Auto) % (0.0-12.0) Basophils (%) (Auto) % (0.0-2.0) Neutrophils # (Auto) 10 ^3/uL (1.6-8.6) Lymphocytes # (Auto) 10 ^3/uL (0.4-5.4) Monocytes # (Auto) 10 ^3/uL (0-1.3) Differential Total Cells Counted 100.0 (100) Neutrophils % (Manual) 92 (37.0-80.0) Band Neutrophils % (Manual) 0 Lymphocytes % (Manual) 4 (10.0-50.0) Monocytes % (Manual) 3 (0-12) Eosinophils % (Manual) 0 (0-7) Basophils % (Manual) 0 (0.0-2.0) Metamyelocytes % (manual) 0 Myelocytes % (Manual) 0 Promyelocytes % (Manual) 0 Blast Cells % (Manual) 0 Reactive Lymphocytes 1 Platelet Estimate Adequate Red Blood Cell Morphology Normal Sodium Level 138 mmol/L (136-145) Potassium Level 4.3 mmol/L (3.5-5.1) Chloride Level 100 mmol/L (98-107) Carbon Dioxide Level 30 mmol/L (20-31) Anion Gap 8 (5-15) Blood Urea Nitrogen 19 mg/dL (9-23) Creatinine 0.70 mg/dL (0.700-1.30) Glomerular Filtration Rate Calc 99 mL/min (>90) BUN/Creatinine Ratio 27.1 (10.0-20.0) Serum Glucose 122 mg/dL (74-106) Calcium Level 8.8 mg/dL (8.7-10.4) Eosinophils (%) (Auto) 1.0 % (0.0-7.0) Eosinophils # (Auto) 0.2 10 ^3/uL (0-0.8) Basophils # (Auto) 0 10 ^3/uL (0-0.2) Nucleated Red Blood Cells 0.0 % Total Bilirubin 0.4 mg/dL (0.2-1.0) Aspartate Amino Transferase (AST) 28 U/L (13-40) Alanine Aminotransferase (ALT) 66 U/L (7-40) Alkaline Phosphatase 66 U/L (46-116) Total Protein 6.1 g/dL (5.7-8.2) Albumin 4.1 g/dL (3.2-4.8) Anisocytosis (manual) Slight Prothrombin Time 10.8 sec (9.3-11.8) Prothrombin Time INR 1.02 (0.9-1.15) Activated Partial Thromboplast Time 26.0 SEC (24.5-34.5) Test 05/22/25 06:18 05/21/25 09:00 05/21/25 06:08 05/20/25 19:53 Creatine Kinase 289 U/L (46-171) Urine Color Yellow (Yellow) Urine Clarity Clear (Clear) Urine pH 5.0 (5.0-9.0) Urine Specific [place] 1.022 (1.001-1.035) Urine Protein Negative (Negative) Urine Ketones Negative (Negative) Urine Blood Negative /uL (Negative) Urine Nitrite Negative (Negative) Urine Bilirubin Negative (Negative) Urine Urobilinogen Normal mg/dL (Negative) Urine Leukocyte Esterase Negative /uL (Negative) Urine RBC 3 /hpf (0 - 3) Urine Microscopic WBC 1 /HPF (0-3) Urine Squamous Epithelial Cells None seen /hpf (<5) Urine Bacteria None seen /hpf (None Seen) Urine Glucose Normal mg/dL (Normal) Vitamin B12 Level 346 pg/mL (211-911) Thyroid Stimulating Hormone (TSH) 1.84 uIU/mL (0.55-4.78) Erythrocyte Sedimentation Rate 3 mm/hr (0-20) Other Laboratory Tests 05/30/25 06:14 Brief Hx & Hospital Course: A 69-year-old male with a history of cervical spine surgery performed four months prior for cervical spinal stenosis presented to the emergency department with bilateral lower limb weakness. This weakness initially manifested in the right lower limb approximately two months ago and has progressively worsened over time. Two weeks ago, the patient began to experience weakness on the left side as well. Additionally, he reported swelling in both feet. 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 Imaging studies, including MRI of the cervical, thoracic, and lumbar spine, revealed degenerative disc disease and mild neural foraminal stenosis. He was evaluated for spinal surgery . The patient is status post spinal decompression surgery. The patient experienced pain, and further pain management there coordinated by the spine surgery team. He is also undergoing physiotherapy to aid in his recovery.Drains were taken out. Once a bed becomes available, the patient will be discharged to a nursing home facility for continued care. Condition at Discharge: Good Final Diagnosis/Problems List Status post Spinal decompression surgery Degenerative disc disease lumbar neural foramina stenosis history of Cervical spine surgery for spinal stenosis Ruled out DVT Ruled out peripheral vascular disease Ruled out Guillan Vera Syndrome Discharge Disposition: [facility] Discharge Instruct/Medications Scheduled Cyclobenzaprine HCl (Cyclobenzaprine Hydrochlo), 10 MG PO Q8HR Cyclobenzaprine HCl (Cyclobenzaprine Hydrochlo), 10 MG PO TID Scheduled PRN Docusate Sodium (Docusate Sodium), 100 MG PO Q12HP PRN Hydrocodone-Acetaminophen (Hydrocodone/Acetaminophen 7.5-325 mg), 1 TAB PO Q4HP PRN Oxycodone Hcl (Oxycodone Hcl), 10 MG PO Q6HPRN PRN Discharge Statement: "Patient was advised to return to the ER or call 911 if any headaches, dizziness, shortness of breath, chest pain, abdominal pain, bleeding, fevers, or worsening of medical condition. Patient was counseled about treatment plan, medications, possible side effects, patientverbalized understanding. All questions were answered to the best of my ability. This discharge took greater then 30 minutes in planning, reviewing documentation, counseling the patient, and discussing with other team members." ASSESSMENT ASSESSMENT Assessment same Date of Service: May 30, 2025 Billing Provider: CLEMENTE HERNANDEZ MD Common Visit Codes: 05567-EIC/OBS DISCH DAY >30min PUMA MCDONALD RESIDENT May 30, 2025 11:40 CLEMENTE HERNANDEZ MD Jun 01, 2025 11:15
[2025-05-30] MEDS: DOCUSATE SOD 100 MG CAP PO SCH (21:07)
--- NOTE | 2025-05-30 23:08 | DVHPN2 ---
Progress Note - Dictate Date Seen: May 30, 2025 Medical Necessity Reason Pt with a Central, PICC or Fol: No Subjective Patient was seen and evaluated in follow up. No overnight events. Patient is complaining of some back discomfort. Surgical drains have been removed. SNF placement is pending. vital signs Vital Sign Date Time Temp Pulse Resp B/P (MAP) Pulse Ox O2 Delivery O2 Flow Rate FiO2 05/30/25 08:00 97.6 72 18 99/60 (73) 92 97.6 05/29/25 20:00 Room Air* 0 21 Total Intake and Output 05/29/25 05/29/25 05/30/25 15:00 23:00 07:00 Intake Total 150 ml 2400 ml 900 ml Output Total 1000 ml Balance 150 ml 2400 ml -100 ml medications Current Medications Medications Dose Ordered Sig/Bob Route Start Time Stop Time Status Last Admin Dose Admin Pantoprazole Sodium 40 mg DAILY@0600 PO 05/21/25 06:00 05/30/25 06:04 40 MG Dexamethasone 8 mg Q12HR PO 05/25/25 10:00 05/30/25 10:42 8 MG Dextrose/Sodium Chloride 1,000 ml @ 100 mls/hr Q10H IV 05/26/25 09:45 05/29/25 17:48 100 MLS/HR Ondansetron HCl 4 mg Q4HP PRN IV 05/26/25 09:45 Acetaminophen 650 mg Q6HP PRN PO 05/26/25 09:45 Cyclobenzaprine HCl 10 mg TID PO 05/26/25 14:00 05/30/25 06:04 10 MG Nitroglycerin 0.4 mg Q5MINP PRN SL 05/26/25 09:45 Morphine Sulfate 2 mg Q30M PRN IV 05/26/25 09:45 Morphine Sulfate 2 mg Q4HP PRN IV 05/27/25 14:30 05/28/25 20:58 2 MG Oxycodone HCl 10 mg Q6HPRN PRN PO 05/27/25 14:30 05/29/25 20:13 10 MG Docusate Sodium 100 mg BID PO 05/30/25 22:00 05/31/25 23:55 objective GENERAL: Alert and oriented x 3. No acute distress. EYES: PERRL, EOMI. Anicteric. HENT: Moist mucous membranes. LUNGS: Clear to auscultation bilaterally. CARDIOVASCULAR: Regular rate and rhythm. ABDOMEN: Soft, nontender and nondistended. EXTREMITIES: No edema. NEUROLOGIC: No focal neurological deficits. SKIN: Warm, dry. laboratory and microbiology Laboratory Tests 05/30/25 06:14 Test 05/30/25 06:14 Range/Units Serum Glucose 122 H 74-106 mg/dL Problem List Degenerative disc disease. Neural foramina stenosis. Bilateral upper and lower limb weakness. Previous cervical spine surgery for spinal stenosis. Lumbar spinal stenosis with neurogenic claudication and progressive neurologic deficit with bilateral foot drop. Status post Spinal decompression surgery. Assessment/Plan Continued all current supportive medical care. Tylenol for pain management Antibiotics as ordered. GI prophylactics. Nitro SL. Additional plan as per the hospital course. Dietary Evaluation Review Comments: Monitor PO intake, lab values, weight trend, and I/O Expected Outcomes/Goals: To meet >75% estimated needs Fu 3-5 days Plan discussed with: Patient JIMENA REGALADO MD May 30, 2025 12:43
[2025-05-31 01:00] VITALS: BP 95/58; PULSE 59; RESP 19; TEMP 97.6; O2SAT 97
[2025-05-31 05:00] VITALS: BP 105/68; PULSE 65; RESP 18; TEMP 97.6; O2SAT 96
[2025-05-31 09:00] VITALS: BP 111/67; PULSE 61; RESP 20; TEMP 97.5; O2SAT 96
[2025-05-31 12:55] VITALS: BP 101/63; PULSE 72; RESP 20; TEMP 97.4; O2SAT 96
--- NOTE | 2025-05-31 17:16 | DVHPN2 ---
Subjective Cross covering for [facility] today. Patient's chart is reviewed and discussed with the nurse. Patient apparently waiting for [facility] facility bed. He is discharged yesterday however still in the hospital due to no SNF bed available. Changes from previous H/P or p: No Changes Objective Vitals Vital Signs Date Time Temp Pulse Resp B/P (MAP) Pulse Ox O2 Delivery O2 Flow Rate FiO2 05/31/25 12:55 97.4 72 20 101/63 (76) 96 97.4 05/31/25 08:00 Room Air* 0 21 Intake/Output Intake and Output 05/31/25 07:00 Intake Total 1836 ml Output Total 2200 ml Balance -364 ml Intake Oral 1836 ml Output Urine Total 2200 ml General Appearance: Alert, Oriented X3, No acute distress HEENT: Atraumatic, PERRLA, EOMI Lungs: Clear to auscultation, Normal air movement Cardiovascular: Regular rate, Normal S1, Normal S2, No murmurs Abdomen: Normal bowel sounds, Soft, No hepatospenomegaly Extremities: No clubbing, No edema, Normal pulses Neuro: Normal speech Psych/Mental Status: Mental status NL Medications Current Medications Medications Dose Ordered Sig/Bob Route Start Time Stop Time Status Last Admin Dose Admin Pantoprazole Sodium 40 mg DAILY@0600 PO 05/21/25 06:00 05/31/25 05:45 40 MG Dexamethasone 8 mg Q12HR PO 05/25/25 10:00 05/31/25 09:26 8 MG Dextrose/Sodium Chloride 1,000 ml @ 100 mls/hr Q10H IV 05/26/25 09:45 05/31/25 09:29 100 MLS/HR Ondansetron HCl 4 mg Q4HP PRN IV 05/26/25 09:45 Acetaminophen 650 mg Q6HP PRN PO 05/26/25 09:45 Cyclobenzaprine HCl 10 mg TID PO 05/26/25 14:00 05/31/25 05:45 10 MG Nitroglycerin 0.4 mg Q5MINP PRN SL 05/26/25 09:45 Morphine Sulfate 2 mg Q30M PRN IV 05/26/25 09:45 Morphine Sulfate 2 mg Q4HP PRN IV 05/27/25 14:30 05/31/25 00:15 2 MG Oxycodone HCl 10 mg Q6HPRN PRN PO 05/27/25 14:30 05/31/25 09:27 10 MG Docusate Sodium 100 mg BID PO 05/30/25 22:00 05/31/25 23:55 05/31/25 09:26 100 MG Laboratory Results Laboratory Tests 05/30/25 06:14 Urinalysis Test 05/21/25 09:00 Urine Color Yellow (Yellow) Urine Clarity Clear (Clear) Urine pH 5.0 (5.0-9.0) Urine Specific [place] 1.022 (1.001-1.035) Urine Protein Negative (Negative) Urine Ketones Negative (Negative) Urine Blood Negative /uL (Negative) Urine Nitrite Negative (Negative) Urine Bilirubin Negative (Negative) Urine Urobilinogen Normal mg/dL (Negative) Urine Leukocyte Esterase Negative /uL (Negative) Urine RBC 3 /hpf (0 - 3) Urine Microscopic WBC 1 /HPF (0-3) Urine Squamous Epithelial Cells None seen /hpf (<5) Urine Bacteria None seen /hpf (None Seen) Urine Glucose Normal mg/dL (Normal) Microbiology Microbiology Date/Time Source Procedure Growth Status 05/23/25 14:30 Stool Stool Culture - Final Complete 05/23/25 14:30 Stool Shiga Toxin I & II - Final Complete Assessment/Plan Assessment/Plan Status post Spinal decompression surgery Degenerative disc disease lumbar neural foramina stenosis history of Cervical spine surgery for spinal stenosis Ruled out DVT Ruled out peripheral vascular disease Ruled out Guillan [place] Syndrome Continue present management. Patient is clinically stable. Once [facility] facility bed available he can be discharged home either today if not tomorrow. Discussed with the nurse Plan discussed with: Other Date of Service: May 31, 2025 Billing Provider: ERIKA LUNDY MD Common Visit Codes: [id number] INP/OBS CARE(MOD) ERIKA LUNDY MD May 31, 2025 17:16
--- NOTE | 2025-05-31 20:10 | DVHPN2 ---
Progress Note - Dictate Date Seen: May 31, 2025 Medical Necessity Reason Pt with a Central, PICC or Fol: No Subjective Patient was seen and evaluated in follow up. No overnight events. Patient is complaining of back discomfort. Pending SNF placement. vital signs Vital Sign Date Time Temp Pulse Resp B/P (MAP) Pulse Ox O2 Delivery O2 Flow Rate FiO2 05/31/25 12:55 97.4 72 20 101/63 (76) 96 97.4 05/30/25 20:00 Room Air* 0 21 Total Intake and Output 05/30/25 05/30/25 05/31/25 15:00 23:00 07:00 Intake Total 800 ml 1036 ml Output Total 1900 ml 300 ml Balance -1100 ml 736 ml medications Current Medications Medications Dose Ordered Sig/Bob Route Start Time Stop Time Status Last Admin Dose Admin Pantoprazole Sodium 40 mg DAILY@0600 PO 05/21/25 06:00 05/31/25 05:45 40 MG Dexamethasone 8 mg Q12HR PO 05/25/25 10:00 05/31/25 09:26 8 MG Dextrose/Sodium Chloride 1,000 ml @ 100 mls/hr Q10H IV 05/26/25 09:45 05/31/25 09:29 100 MLS/HR Ondansetron HCl 4 mg Q4HP PRN IV 05/26/25 09:45 Acetaminophen 650 mg Q6HP PRN PO 05/26/25 09:45 Cyclobenzaprine HCl 10 mg TID PO 05/26/25 14:00 05/31/25 05:45 10 MG Nitroglycerin 0.4 mg Q5MINP PRN SL 05/26/25 09:45 Morphine Sulfate 2 mg Q30M PRN IV 05/26/25 09:45 Morphine Sulfate 2 mg Q4HP PRN IV 05/27/25 14:30 05/31/25 00:15 2 MG Oxycodone HCl 10 mg Q6HPRN PRN PO 05/27/25 14:30 05/31/25 09:27 10 MG Docusate Sodium 100 mg BID PO 05/30/25 22:00 05/31/25 23:55 05/31/25 09:26 100 MG objective GENERAL: Alert and oriented x 3. No acute distress. EYES: PERRL, EOMI. Anicteric. HENT: Moist mucous membranes. LUNGS: Clear to auscultation bilaterally. CARDIOVASCULAR: Regular rate and rhythm. ABDOMEN: Soft, nontender and nondistended. EXTREMITIES: No edema. NEUROLOGIC: No focal neurological deficits. SKIN: Warm, dry. laboratory and microbiology Laboratory Tests 05/30/25 06:14 Test 05/30/25 06:14 Range/Units Serum Glucose 122 H 74-106 mg/dL Problem List Degenerative disc disease. Neural foramina stenosis. Bilateral upper and lower limb weakness. Previous cervical spine surgery for spinal stenosis. Lumbar spinal stenosis with neurogenic claudication and progressive neurologic deficit with bilateral foot drop. Status post Spinal decompression surgery. Assessment/Plan Continued all current supportive medical care. Morphine and Oxycodone for pain management Antibiotics as ordered. GI prophylactics. Nitro SL. Additional plan as per the hospital course. Dietary Evaluation Review Comments: Monitor PO intake, lab values, weight trend, and I/O Expected Outcomes/Goals: To meet >75% estimated needs Fu 3-5 days Plan discussed with: Patient JIMENA REGALADO MD May 31, 2025 14:04
== END 2025-05-31 17:13 | DRG 448 ==
LOC: ER 18:04 → EDBD 18:04 → EDUNIT# 18:04 → OVERFLOW 22:34 → WEST WING 05-21 00:05
PROVIDERS: ADMIT Student in an Organized Health Care Education/Training Program; ATTEND Student in an Organized Health Care Education/Training Program
PROC: 01NB0ZZ Release Lumbar Nerve, Open Approach (ICD-10-PCS; 2025-05-26)
PROC: 00NY0ZZ Release Lumbar Spinal Cord, Open Approach (ICD-10-PCS; 2025-05-26)
PROC: 4A11X4G Monitoring of Peripheral Nervous Electrical Activity, Intraoperative, External Approach (ICD-10-PCS; 2025-05-26)
PROC: 0SG10AJ Fusion of 2 or more Lumbar Vertebral Joints with Interbody Fusion Device, Posterior Approach, Anterior Column, Open Approach (ICD-10-PCS; principal; 2025-05-26 08:53)
DX: M48.062 Spinal stenosis, lumbar region with neurogenic claudication (principal); M48.04 Spinal stenosis, thoracic region; M21.371 Foot drop, right foot; F17.210 Nicotine dependence, cigarettes, uncomplicated; M21.372 Foot drop, left foot; M51.16 Intervertebral disc disorders with radiculopathy, lumbar region; R29.6 Repeated falls; Z79.899 Other long term (current) drug therapy
CPT/HCPCS: 36415; 70450; 71045; 72100; 72125; 72142; 72157; 72158; 76000; 80048; 80053; 81001; 82550; 82607; 84443; 85007; 85025; 85027; 85610; 85652; 85730; 86850; 86900; 86901; 87045; 87427; 93005; 93925; 93971; 96365; 97110; 97116; 97163; 97530; A4344; G0378; J0131; J0690; J1100; J2405; J2704; J7042

== ENCOUNTER 2025-06-26 05:52 | Inpatient (IN) | payer MEDICARE, MEDICAID ==
[2025-06-26] VITALS (16 sets, daily range): BP systolic 113–131; BP diastolic 78–86; PULSE 70–103; RESP 14–25; TEMP 97.2–98.1; O2SAT 91–100
[~2025-06-26] VITALS: Ht 180.3 cm; Wt 81.0 kg
[~2025-06-26 05:52] MED LIST changes: +OXY5T PO
--- NOTE | 2025-06-26 06:20 | ED.PDOC ---
SOB-HPI HPI Comments 70-year-old male presents here with shortness of breath. He states he was lying in bed unable to sleep with a sudden he became short of breath. He had a spinal fusion a proximally 1 month ago and has been mostly bed-bound since then. Denies any recent cough cold runny nose fever or chills. Denies any nausea vomiting or diarrhea. 911 was called at home. Upon EMS arrival he was saturating 84% on room air. At this time he is saturating 94% on 3 L nasal cannula in his comfortable. He states he has no medical problems. However he does state that his legs has been swollen for the last 1 month have been bothering him. Right more than left. Patient has a known chronic smoker. However no history of COPD per the patient. Patient declines any chest pain. Chief Complaint: Shortness of Breath Time Seen by MD: 06:20 Primary Care Provider: NONE Reviewed notes: Medications, Allergies Information Source: Patient, Emergency Med Personnel Mode of Arrival: EMS Severity: Moderate Timing: Hours Duration: Since onset Context: While Asleep PE Risk Factors: None History of: None Prehospital treatment: Oxygen (4L) Modifying Factors: Nothing Associated Signs and Symptoms: Leg Swelling Past Medical History Past Medical History (Other): spinal stenosis Surgical History (Other): spinal fusion Family History Family History: Unknown Social History Smoker: Cigarettes, Less Than 1 Pack/Day Alcohol: Denies ETOH Use Drugs: Denies Drug Use Lives In: Home Constitutional: denies: chills, diaphoresis, fatigue, fever, malaise, sweats, weakness, others EENTM: denies: blurred vision, double vision, ear bleeding, ear discharge, ear drainage, ear pain, ear ringing, eye pain, eye redness, hearing loss, mouth pain, mouth swelling, nasal discharge, nose bleeding, nose congestion, nose pain, photophobia, tearing, throat pain, throat swelling, voice changes, others Respiratory: reports: shortness of breath; denies: cough, hemoptysis, orthopnea, SOB at rest, SOB with excertion, stridor, wheezing, others Cardiovascular: denies: chest pain, dizzy spells, diaphoresis, Dyspnea on exertion, edema, irregular heart beat, left arm pain, lightheadedness, palpitations, PND, syncope, others Gastrointestinal: denies: abdomen distended, abdominal pain, blood streaked bowels, constipated, diarrhea, dysphagia, difficulty swallowing, hematemesis, melena, nausea, poor appetite, poor fluid intake, rectal bleeding, rectal pain, vomiting, others Genitourinary: denies: burning, dysuria, flank pain, frequency, hematuria, incontinence, penile discharge, penile sore, pain, testicle pain, testicle swelling, urgency, others Neurological: denies: dizziness, fainting, headache, left sided numbness, left sided weakness, numbness, paresthesia, pre-existing deficit, right sided numbness, right sided weakness, seizure, speech problems, tingling, tremors, weakness, others Musculoskeletal: reports: others (BLE swelling, RT foot worse); denies: back pain, gout, joint pain, joint swelling, muscle pain, muscle stiffness, neck pain Integumetry: denies: bruises, change in color, change in hair/nails, dryness, laceration, lesions, lumps, rash, wounds, others Allergic/Immunocompromised: denies: Difficulty Healing, Frequent Infections, Hives, Itching, others Hematologic/Lymphatic: denies: anemia, blood clots, easy bleeding, easy bruising, swollen glands, others Endocrine: denies: excessive hunger, excessive sweating, excessive thirst, excessive urination, flushing, intolerance to cold, intolerance to heat, unexplained weight gain, unexplained weight loss, others Psychiatric: denies: anxiety, bipolar disorder, depression, hopeless, panic disorder, schizophrenia, sleepless, suicidal, others All Other Systems: Reviewed and Negative Physical Exam General Appearance: No Apparent Distress, Normal HEENT: Normal ENT Inspection, Pharynx Normal, TMs Normal Neck: Full Range of Motion, Non-Tender, Normal, Normal Inspection Respiratory: Chest Non-Tender, Lungs Clear, No Accessory Muscle Use, No Respiratory Distress, Normal Breath Sounds Cardiovascular: No Murmur, Normal Peripheral Pulses, Regular Rate/Rhythm Breast Exam: Deferred Gastrointestinal: Non Tender, No Pulsatile Mass, Soft Genitalia: Deferred Pelvic: Deferred Rectal: Deferred Extremities: No calf tenderness, Normal capillary refill, Normal inspection, Normal range of motion, Non-tender, Other (2+ pitting edema bilateral lower extremity worse in the right.) Musculoskeletal : Apperance: Normal Neurologic: Alert, Normal Affect, Normal Mood, No Sensory Deficits Cerebellar Function: Normal Reflexes: Normal Skin: Dry, Normal Color, Warm Lymphatic: No Adenopathy EKG EKG : Comments Sinus rhythm rate of 79, PACs, no significant ST changes Was a procedure done? Was a procedure done?: No Differential Dx Differential Diagnosis: Other Comments COPD exacerbation, pneumonia, PE, DVT, fluid overload X-Ray, Labs, Meds, VS Vital Signs Date Time Temp Pulse Resp B/P (MAP) Pulse Ox O2 Delivery O2 Flow Rate FiO2 06/26/25 07:20 98.0 83 25 131/92 (105) 95 98.0 06/26/25 07:20 83 25 95 Nasal Cannula* 3 32 06/26/25 06:20 78 20 94 Room Air* 0 21 06/26/25 06:20 98.1 89 24 131/86 (101) 94 98.1 06/26/25 05:52 79 06/26/25 05:52 98.3 83 24 117/83 94 98.3 Lab Test 06/26/25 06:47 Range/Units White Blood Count 7.0 4.4-10.8 10^3/uL Red Blood Count 4.51 4.5-5.90 10^6/uL Hemoglobin 13.8 13.5-17.5 g/dL Hematocrit 40.6 L 41.0-53.0 % Mean Corpuscular Volume 89.9 80.0-100.0 fL Mean Corpuscular Hemoglobin 30.6 28.0-32.0 pg Mean Corpuscular Hemoglobin Concent 34.0 32.0-36.0 g/dL Red Cell Distribution Width 14.4 H 11.8-14.3 % Platelet Count 395 140-450 10^3/uL Mean Platelet Volume 6.5 L 6.9-10.8 fL Neutrophils (%) (Auto) 37.0-80.0 % Lymphocytes (%) (Auto) 10.0-50.0 % Monocytes (%) (Auto) 0.0-12.0 % Basophils (%) (Auto) 0.0-2.0 % Neutrophils # (Auto) 1.6-8.6 10 ^3/uL Lymphocytes # (Auto) 0.4-5.4 10 ^3/uL Monocytes # (Auto) 0-1.3 10 ^3/uL Differential Total Cells Counted 100.0 100 Neutrophils % (Manual) 81 H 37.0-80.0 Band Neutrophils % (Manual) 0 Lymphocytes % (Manual) 12 10.0-50.0 Monocytes % (Manual) 7 0-12 Eosinophils % (Manual) 0 0-7 Basophils % (Manual) 0 0.0-2.0 Metamyelocytes % (manual) 0 Myelocytes % (Manual) 0 Promyelocytes % (Manual) 0 Blast Cells % (Manual) 0 Reactive Lymphocytes 0 Platelet Estimate Adequate D-Dimer, Quantitative 2.75 H 0.0-0.49 mg/L FEU Sodium Level 140 136-145 mmol/L Potassium Level 3.4 L 3.5-5.1 mmol/L Chloride Level 103 98-107 mmol/L Carbon Dioxide Level 27 20-31 mmol/L Anion Gap 10 5-15 Blood Urea Nitrogen 7 L 9-23 mg/dL Creatinine 0.53 L 0.700-1.30 mg/dL Glomerular Filtration Rate Calc 107 >90 mL/min BUN/Creatinine Ratio 13.2 10.0-20.0 Serum Glucose 92 74-106 mg/dL Calcium Level 8.4 L 8.7-10.4 mg/dL Troponin I High Sensitivity 7 </=54 ng/L B-Type Natriuretic Peptide 21.53 0-100 pg/mL [place] [id number] Ph: [phone] DIAGNOSTIC IMAGING Diagnostic Imaging Report : [id number] Signed PATIENT: ANTONI MCCANN ACCT: [id number] UNIT: [id number] : 1955 LOC: ER ROOM / BED: / AGE / SEX: 70 / M ADM STATUS: REG ER SERVICE 0656 ORDERING PHYSICIAN: JAVY WAGNER MD PROCEDURE(s): CXRP - CHEST PORTABLE REASON: RULE OUT PNA; PLEURAL EFFUSION ORDER NUMBER(s): [id number], ACCESSION NUMBER(s): [id number] CHEST RADIOGRAPH Indication: RULE OUT PNA; PLEURAL EFFUSION Technique: Single frontal view of the chest was obtained COMPARISON: XY CHEST PORTABLE on DOS: 05/25/25, XY CHEST XRAY 1 VIEW on DOS: 10/19/24 FINDINGS: Lines and Tubes: None Lungs: Increased interstitial prominence Pleura: No effusion. No pneumothorax. Cardiomediastinal contours: Unremarkable Bones: Unremarkable IMPRESSION: Increased interstital prominence. This may represent pulmonary vascular congestion and/or viral pneumonia. Clinical correlation advised. ATED BY: TOMASZ FERNANDEZ MD DICTATED DATE/TIME: 06/26/25733 SIGNED BY: TOMASZ FERNANDEZ MD SIGNED DATE/TIME: 06/26/25733 CC: [place] [id number] Ph: [phone] DIAGNOSTIC IMAGING Diagnostic Imaging Report : [id number] Signed PATIENT: ANTONI MCCANN ACCT: [id number] UNIT: [id number] : 1955 LOC: ER ROOM / BED: / AGE / SEX: 70 / M ADM STATUS: REG ER SERVICE 5 ORDERING PHYSICIAN: JAVY WAGNER MD PROCEDURE(s): RLDVT - RT Lower DVT REASON: Rule out DVT ORDER NUMBER(s): [id number], ACCESSION NUMBER(s): [id number] Right lower extremity venous duplex Clinical History: Rule out DVT Comparison: US BILAT LOW EXT ART DUPLEX on DOS: 05/21/25, US LT LOWER DVT on DOS: 05/20/25 Technique: Duplex Doppler evaluation of the deep venous system of the right lower extremity from the common femoral vein to the popliteal vein including color Doppler and spectral/pulsed waveform analysis was performed. Findings: The common femoral vein demonstrates appropriate compressibility and waveform variability. There is compressibility/patency of the great saphenous vein at the proximal thigh. The femoral vein demonstrates appropriate compressibility and waveform variability. The deep femoral vein demonstrates appropriate compressibility and waveform variability. The popliteal vein demonstrates appropriate compressibility and waveform variability. There is normal compressibility at the tibioperoneal trunk. Impression: No right femoropopliteal venous thrombosis. ATED BY: TOMASZ FERNANDEZ MD DICTATED DATE/TIME: 06/26/25734 SIGNED BY: TOMASZ FERNANDEZ MD SIGNED DATE/TIME: 06/26/25734 70-year-old male presents here with shortness of breath. He was found to be saturating 84% on room air. Although patient has a chronic smoker he denies any history of COPD. On my evaluation lungs are generally clear. Considered possible pneumonia, CHF exacerbation, COPD exacerbation, fluid overload, PE, DVT. At this time patient is comfortable at 94% on 3 L nasal cannula. He does have edema to bilateral lower extremity worse on the right. I have ordered a CBC BMP BNP, troponin, EKG, ultrasound of bilateral legs to rule out DVT, D- dimer as well as chest x-ray CBC BMP and BNP and troponin are within normal limits. EKG with no significant ST changes. Ultrasound to bilateral legs has been done with no evidence of DVT. Chest x-ray does demonstrate interstitial prominence which could be viral pneumonia versus pulmonary vascular congestion. His D-dimer however was elevated. Therefore a CT scan of his chest to rule out PE has been ordered and is pending. At this time he is deemed to be comfortable 94% on 3 L. however hospitalist team has been contacted for admission. Time of 1ST Reevaluation: 06:50 Reevaluation 1ST: Unchanged Patient Education/Counseling: Diagnosis, Treatment Family Education/Counseling: No Family Present SEPSIS Sepsis Screen Date sepsis recognized/suspect: Jun 26, 2025 Time Sepsis recognized/suspect: 0552 Recent Procedure: No On Antibiotic Therapy: No Respiratory Rate >20: No Heart Rate >90: No Temp<36 C (96.8 F) or >38.3 C: No SBP <90 or MAP <65 mmHG: No New Acute Mental Status Change: No Is the patient on CPAP, BIPAP,: No Physician Orders Electrocardigram (06/26/25 05:54) Chest Portable (06/26/25 06:56) Rt Lower Dvt (06/26/25 06:36) Vital Signs Date Time Temp Pulse Resp B/P (MAP) Pulse Ox O2 Delivery O2 Flow Rate FiO2 06/26/25 07:20 98.0 83 25 131/92 (105) 95 98.0 06/26/25 07:20 83 25 95 Nasal Cannula* 3 32 06/26/25 06:20 78 20 94 Room Air* 0 21 06/26/25 06:20 98.1 89 24 131/86 (101) 94 98.1 06/26/25 05:52 79 9/19/25 05:52 98.3 83 24 117/83 94 98.3 Laboratory Tests Test 06/26/25 06:47 White Blood Count 7.0 10^3/uL (4.4-10.8) Departure 1 Departure Time of Disposition: 09:47 Impression: Primary Impression: Shortness of breath Additional Impressions: Hypoxia Fluid overload Qualified Codes: E87.70 - Fluid overload, unspecified Elevated d-dimer Disposition: ADMITTED INPATIENT Condition: Stable Critical Care Note Critical Care Time?: No Stability Stability form required: No Heart Score Heart Score: Heart Score Response (Comments) Value History N/A 0 EKG N/A 0 Age N/A 0 Risk Factors N/A 0 Troponin N/A 0 Total 0 I personally scribed for JAVY WAGNER MD ([email or web address]) on 06/26/25 at 06:20. Electronically submitted by Isabella Ayers ([email or web address]). I personally scribed for JAVY WAGNER MD ([email or web address]) on 06/26/25 at 06:24. Electronically submitted by Isabella Ayers ([email or web address]). I personally scribed for JAVY WAGNER MD ([email or web address]) on 06/26/25 at 06:45. Electronically submitted by Isabella Ayers ([email or web address]). I personally scribed for JAVY WAGNER MD ([email or web address]) on 06/26/25 at 07:52. Electronically submitted by Isabella Ayers ([email or web address]). I personally scribed for JAVY WAGNER MD ([email or web address]) on 06/26/25 at 08:10. Electronically submitted by Isabella Ayers ([email or web address]). JAVY WAGNER MD Jun 26, 2025 06:20
[2025-06-26 07:22] LABS: Hematocrit 40.6 % (41.0-53.0); Hemoglobin 13.8 g/dL (13.5-17.5); Mean Corpuscular Hemoglobin 30.6 pg (28.0-32.0); Mean Corpuscular Volume 89.9 fL (80.0-100.0)
[2025-06-26 07:26] LABS: Chloride 103 mmol/L (98-107); Sodium 140 mmol/L (136-145)
[2025-06-26 07:27] LABS: Anion Gap 10 (5-15); Carbon Dioxide 27 mmol/L (20-31)
[2025-06-26 07:28] LABS: Calcium 8.4 mg/dL (8.7-10.4); Potassium 3.4 mmol/L (3.5-5.1)
[2025-06-26 07:32] LABS: BUN/Creatinine Ratio 13.2 (10.0-20.0); Glucose 92 mg/dL (74-106)
--- NOTE | 2025-06-26 07:37 | DVH ---
Right lower extremity venous duplex Clinical History: Rule out DVT Comparison: US BILAT LOW EXT ART DUPLEX on DOS: 05/21/25, US LT LOWER DVT on DOS: 05/20/25 Technique: Duplex Doppler evaluation of the deep venous system of the right lower extremity from the common femo ral vein to the popliteal vein including color Doppler and spectral/pulsed waveform analysis was perf ormed. Findings: The common femoral vein demonstrates appropriate compressibility and waveform variability. There is compressibility/patency of the great saphenous vein at the proximal thigh. The femoral vein demonstrates appropriate compressibility and waveform variability. The deep femoral vein demonstrates appropriate compressibility and waveform variability. The popliteal vein demonstrates appropriate compressibility and waveform variability. There is normal compressibility at the tibioperoneal trunk. Impression: No right femoropopliteal venous thrombosis.
[2025-06-26 07:38] LABS: Blood Urea Nitrogen 7 mg/dL (9-23)
--- NOTE | 2025-06-26 07:39 | DVHHP2 ---
History of Present Illness Reason for Visit: SOB History of Present Illness José Luis Vicente is a 70-year-old male with past medical history of spinal stenosis with spinal fusion 3 weeks ago here at [facility] who presents to the ED with shortness of breath that started last night. Patient reports that the shortness of breath suddenly woke him up. He endorses that he does not use any oxygen at home. He also reports that he does smoke about 5-6 cigarettes per day. Also reports that he still works on the [employer]. He is also complaining of bilateral lower extremity foot pain 5-610 states that it is sharp and constant. He reports that there are no triggering or alleviating factors. He denies any recent trauma or injury, recent sick contacts, recent travels, recent ingestion of spoiled food, chest pain, fever, chills, lightheadedness, weakness, dizziness, abdominal pain, nausea, vomiting, or diarrhea. He also reports that he does not take any medications because he does not like to take any pills. Patient also reports that he ambulates with a front wheel walker. He also reports that he lives at home alone. Past Medical History Spinal stenosis Past Surgical History: Other (Spinal fusion 3 weeks ago) Family History: None Smoke: <1 pack per day ALCOHOL: none Drugs: None Lives: Alone Domestic Violence: Neg Review of Systems Respiratory: Shortness of breath Allergies: Coded Allergies: NO KNOWN ALLERGIES (Unverified , 10/15/24) Exam Vital Signs Vital Signs Date Time Temp Pulse Resp B/P (MAP) Pulse Ox O2 Delivery O2 Flow Rate FiO2 06/26/25 06:20 78 20 94 Room Air* 0 21 06/26/25 06:20 98.1 131/86 (101) 98.1 General Appearance: Alert, Oriented X3, Cooperative, No acute distress HEENT: Atraumatic, PERRLA, EOMI, Mucous membr. moist/pink Respiratory: Normal air movement Cardiovascular: Regular rate, Normal S1, Normal S2 Abdominal: Normal bowel sounds, Soft Extremities: Normal pulses Neuro: Normal speech, Strength at 5/5 X4 ext, Normal tone, Sensation intact Psych/Mental Status: Mental status NL, Mood NL Labs/Xrays Labs Test 06/26/25 06:47 Range/Units White Blood Count 7.0 4.4-10.8 10^3/uL Red Blood Count 4.51 4.5-5.90 10^6/uL Hemoglobin 13.8 13.5-17.5 g/dL Hematocrit 40.6 L 41.0-53.0 % Mean Corpuscular Volume 89.9 80.0-100.0 fL Mean Corpuscular Hemoglobin 30.6 28.0-32.0 pg Mean Corpuscular Hemoglobin Concent 34.0 32.0-36.0 g/dL Red Cell Distribution Width 14.4 H 11.8-14.3 % Platelet Count 395 140-450 10^3/uL Mean Platelet Volume 6.5 L 6.9-10.8 fL Neutrophils (%) (Auto) 37.0-80.0 % Lymphocytes (%) (Auto) 10.0-50.0 % Monocytes (%) (Auto) 0.0-12.0 % Basophils (%) (Auto) 0.0-2.0 % Neutrophils # (Auto) 1.6-8.6 10 ^3/uL Lymphocytes # (Auto) 0.4-5.4 10 ^3/uL Monocytes # (Auto) 0-1.3 10 ^3/uL Sodium Level 140 136-145 mmol/L Potassium Level 3.4 L 3.5-5.1 mmol/L Chloride Level 103 98-107 mmol/L Carbon Dioxide Level 27 20-31 mmol/L Anion Gap 10 5-15 Calcium Level 8.4 L 8.7-10.4 mg/dL Left lower extremity venous duplex Clinical History: LE pain Comparison: US RT LOWER DVT on DOS: 06/26/25, US BILAT LOW EXT ART DUPLEX on DOS: 05/21/25, US LT LOWER DVT on DOS: 05/20/25 Technique: Duplex Doppler evaluation of the deep venous system of the left lower extremity from the common femoral vein to the popliteal vein including color Doppler and spectral/pulsed waveform analysis was performed. Findings: The common femoral vein demonstrates appropriate compressibility and waveform variability. There is compressibility/patency of the great saphenous vein at the proximal thigh. The femoral vein demonstrates appropriate compressibility and waveform variability. The deep femoral vein demonstrates appropriate compressibility and waveform variability. The popliteal vein demonstrates appropriate compressibility and waveform variability. There is normal compressibility at the tibioperoneal trunk. Impression: No left femoropopliteal venous thrombosis. CHEST RADIOGRAPH Indication: RULE OUT PNA; PLEURAL EFFUSION Technique: Single frontal view of the chest was obtained COMPARISON: XY CHEST PORTABLE on DOS: 05/25/25, XY CHEST XRAY 1 VIEW on DOS: 10/19/24 FINDINGS: Lines and Tubes: None Lungs: Increased interstitial prominence Pleura: No effusion. No pneumothorax. Cardiomediastinal contours: Unremarkable Bones: Unremarkable IMPRESSION: Increased interstital prominence. This may represent pulmonary vascular congestion and/or viral pneumonia. Clinical correlation advised. Right lower extremity venous duplex Clinical History: Rule out DVT Comparison: US BILAT LOW EXT ART DUPLEX on DOS: 05/21/25, US LT LOWER DVT on DOS: 05/20/25 Technique: Duplex Doppler evaluation of the deep venous system of the right lower extremity from the common femoral vein to the popliteal vein including color Doppler and spectral/pulsed waveform analysis was performed. Findings: The common femoral vein demonstrates appropriate compressibility and waveform variability. There is compressibility/patency of the great saphenous vein at the proximal thigh. The femoral vein demonstrates appropriate compressibility and waveform variability. The deep femoral vein demonstrates appropriate compressibility and waveform variability. The popliteal vein demonstrates appropriate compressibility and waveform variability. There is normal compressibility at the tibioperoneal trunk. Impression: No right femoropopliteal venous thrombosis. SEPSIS Sepsis Screen Date sepsis recognized/suspect: Jun 26, 2025 Time Sepsis recognized/suspect: 551 Recent Procedure: No On Antibiotic Therapy: No Respiratory Rate >20: No Heart Rate >90: No Temp<36 C (96.8 F) or >38.3 C: No SBP <90 or MAP <65 mmHG: No New Acute Mental Status Change: No Is the patient on CPAP, BIPAP,: No Physician Orders Electrocardigram (06/26/25 05:54) Complete Blood Count (06/26/25 06:36) Basic Metabolic Panel (06/26/25 06:36) B-Type Natriuretic Peptide (06/26/25 06:36) D-Dimer (06/26/25 06:36) Troponin-I Hs (06/26/25 06:36) Troponin-I Hs (06/26/25 07:36) Chest Portable (06/26/25 06:56) Rt Lower Dvt (06/26/25 06:36) Manual Differential (06/26/25 06:47) Vital Signs Date Time Temp Pulse Resp B/P (MAP) Pulse Ox O2 Delivery O2 Flow Rate FiO2 06/26/25 06:20 78 20 94 Room Air* 0 21 06/26/25 06:20 98.1 89 24 131/86 (101) 94 98.1 06/26/25 05:52 79 06/26/25 05:52 98.3 83 24 117/83 94 98.3 Laboratory Tests Test 06/26/25 06:47 White Blood Count 7.0 10^3/uL (4.4-10.8) Assessment/Plan Assessment/Plan Assessment Acute hypoxic respiratory failure on oxygen Elevated D-dimer rule out PE Medication noncompliance Hypokalemia Bilateral lower extremity pain rule out DVT Tobacco use History of spinal stenosis History of spinal fusion 3 weeks ago here at [facility] Plan Admit to med surge Supportive oxygen -wean as tolerated Replete lytes Duo nebs Antiemetics Pain management Chest x-ray noted Troponin noted Bilateral lower extremity venous ultrasound D-dimer noted BNP Echo ordered Lactic UA UDS Diet Per patient does not take any home medications DVT prophylaxis-Lovenox therapeutic until PE ruled out PUD prophylaxis-not indicated no history of GERD or GI bleed Discussed plan of care with patient and nurse Counseled patient on cessation of tobacco use Counseled patient on compliance of medication adherence 11766 Behavior change smoking greater than 10 minutes about use of other options also gave option of nicotine patch 74175 Preventive counseling healthy eating habits, physical activity, and regular checkups Plan discussed with: Patient Date of Service: Jun 26, 2025 Billing Provider: RANDY MONTES DE OCA Common Visit Codes: 36227-SACEPLQUPL INP/OBS CARE(LOW) Secondary Visit Codes: 74243-OIWPLHEIHL COUNSELING IND, 92054-TSMPA CHNG SMOKING >10MIN RANDY MONTES DE OCA Jun 26, 2025 07:39
[2025-06-26] MEDS ORDERED: NITROGLYCERIN 0.4 MG SL TAB SL PRN (07:45)
[2025-06-26] MEDS ORDERED: ONDANSETRON HCL 4 MG/2 ML VIAL IV PRN (07:45)
[2025-06-26] MEDS ORDERED: MORPHINE SULFATE INJ 2 MG/ml SYRG IV PRN (07:45)
[2025-06-26 08:05] LABS: Total Cells Counted 100.0 (100)
--- NOTE | 2025-06-26 08:20 | DVH ---
Left lower extremity venous duplex Clinical History: LE pain Comparison: US RT LOWER DVT on DOS: 06/26/25, US BILAT LOW EXT ART DUPLEX on DOS: 05/21/25, US LT LOWER DVT on DOS: 05/20/25 Technique: Duplex Doppler evaluation of the deep venous system of the left lower extremity from the common femor al vein to the popliteal vein including color Doppler and spectral/pulsed waveform analysis was perfo rmed. Findings: The common femoral vein demonstrates appropriate compressibility and waveform variability. There is compressibility/patency of the great saphenous vein at the proximal thigh. The femoral vein demonstrates appropriate compressibility and waveform variability. The deep femoral vein demonstrates appropriate compressibility and waveform variability. The popliteal vein demonstrates appropriate compressibility and waveform variability. There is normal compressibility at the tibioperoneal trunk. Impression: No left femoropopliteal venous thrombosis.
[2025-06-26] MEDS: IPRATROPIUM BROM 0.5 MG/2.5ML INH SOL NEB SCH (09:29)
[2025-06-26] MEDS: ALBUTEROL SULF 2.5 MG/0.5ML(0.5%) NEB SOLN NEB SCH (09:29)
[2025-06-26] MEDS: IOHEXOL 350 MG/ML 100ML IJ ONE (09:45)
[2025-06-26] MEDS: POTASSIUM CHL 20 Meq TABLET PO ONE (09:47)
[2025-06-26] MEDS ORDERED: ENOXAPARIN SOD 40 MG/0.4 ML SYRINGE SC SCH (10:00)
[2025-06-26] MEDS: ENOXAPARIN SOD 80 MG/0.8ML SYRINGE SC SCH (10:35)
--- NOTE | 2025-06-26 11:05 | DVH ---
CTA Chest with intravenous contrast INDICATION: r/o PE COMPARISON: XY CHEST PORTABLE on DOS: 06/26/25, XY CHEST PORTABLE on DOS: 05/25/25, MRI THORACIC SPINE WO W on DOS: 05/21/25, XY CHEST XRAY 1 VIEW on DOS: 10/19/24, MRI THORACIC SPINE WITHOUT on DOS: 10/16/24 TECHNIQUE: Multidetector spiral CTA of the chest was performed of the chest with intravenous contrast . PULMONARY ANGIOGRAPHY PROTOCOL was utilized using a bolus-tracking technique centered on the main p ulmonary artery. Axial, coronal and sagittal multiplanar and MIP reformats were performed. Radiation Dose : 1. Chest: CTDI volume is 24.78 mGy. Dose-length product is 905.99 mGy*cm The dose indicators for CT are the volume Computed Tomography (CT) Dose Index (CTDIvol) and the Dose Length Product (DLP), and are measured in units of mGy and mGy-cm, respectively. These indicators are not patient dose, but values generated from the CT scanner acquisition factors. The report includes radiation exposure data for exposures received during this examination. Findings: Pulmonary artery: Positive segmental and subsegmental pulmonary embolism in the left lower lobe. Lower neck: Normal thyroid. Lungs: Bilateral lower lobe airspace disease, [id number]-left. Heart/Vascular Structures: Cardiomegaly. No findings of right heart strain at this time. Lymph Nodes: No adenopathy Pleura: No pleural effusion or significant pneumothorax. Musculoskeletal: No acute osseous abnormality. Soft tissues: Normal. Upper abdomen: Hepatic steatosis. Hepatomegaly. IMPRESSION: Positive segmental and subsegmental pulmonary embolism in the left lower lobe. Bilateral lower lobe airspace disease, [id number]-left. Cardiomegaly. Hepatic steatosis. Hepatomegaly. Critical Result: Pumonary Emboli Findings discussed with PRIMARY HEALTH CARE NURSE at 06/26/2025 11:05 AM, and acknowledged receipt and understanding of t he findings.
[2025-06-26 12:28] LABS: Opiate Scree,Urine Neg (NEGATIVE)
[2025-06-26 12:29] LABS: Amphetamine Screen, Urine Pos (NEGATIVE); Barbiturate Scree,Urine Neg (NEGATIVE); Benzodiazephine Screen, Urine Neg (NEGATIVE); Cannabinoid Screen, Urine Neg (NEGATIVE); Cocaine Screen, Urine Neg (NEGATIVE); Phencyclidine Screen, Urine Neg (NEGATIVE)
[2025-06-26 12:30] LABS: Urine Budding Yeast OCCASIONAL /hpf (None Seen); Urine Protein, UAD Negative (Negative)
[2025-06-26 16:05] LABS: Hepatitis B Surface Antigen Negative (Negative)
[2025-06-26 16:08] LABS: Hepatitis C Antibody Negative (Negative)
--- NOTE | 2025-06-26 20:05 | DVHSR ---
APPROVED REPORT EXAM: Two-dimensional and M-mode echocardiogram with Doppler and color Doppler. Blood Pressure: 131/86 mmHg INDICATION Dyspnea RISK FACTORS Height: 5'11", Weight: 165 DIMENSIONS LVDd4.6 (3.8-5.7cm)LA (2D)3.5 (1.9-4.0cm)Aortic Root3.7 (2.0-3.7cm) LVDs3.4 (2.5-4.0cm)LA (MM) (1.9-4.0cm)Aortic Cusp Exc2.1 (1.5-2.0cm) EF (%) 50.0 (55-70%)Rt. Atrium (1.9-4.0cm)Asc. Aorta3.5 cm IVSd1.2 (0.7-1.1cm)RV (D) (1.8-2.4cm) PWd0.8 (0.7-1.1cm) Mitral Valve MitralMitral Stenosis E wave0.44m/sMV Mean GR.mmHg A wave0.84m/sMV Peak GR.mmHg E/A ratio0.52D MVAcm2 DECEL [id number] 1/2 Timems Aortic Valve Aortic ValveAortic Stenosis V10.69m/Estefany Mean GR.4mmHg V21.40m/Estefany Peak GR.8mmHg LVOT Diameter2.4 (1.8-2.4cm)Doppler AVA2.23cm2 Pulmonic Valve V20.71m/s Other Information Quality : Technically LimitedRhythm : Technically limited study due to body habitus and patient position. Conclusion MILD LVH AND MILDLV DIASTOLIC DYSFUNCTION LV EF IS 70% AORTIC SCLEROSIS NORMAL MV,TV AND PV NORMAL RV FUNCTION NO EFFUSION
[2025-06-26] MEDS: ACETAMINOPHEN 325 MG TAB PO PRN (23:05)
[2025-06-27] VITALS (18 sets, daily range): BP systolic 95–153; BP diastolic 75–87; PULSE 60–97; RESP 16–20; TEMP 97.3–98.5; O2SAT 90–100
[2025-06-27 07:48] LABS: Hematocrit 40.6 % (41.0-53.0); Hemoglobin 13.9 g/dL (13.5-17.5); Mean Corpuscular Hemoglobin 31.1 pg (28.0-32.0); Mean Corpuscular Volume 90.9 fL (80.0-100.0); Nucleated Red Blood Cells % 0.1 %
[2025-06-27 08:01] LABS: Chloride 104 mmol/L (98-107); Potassium 4.2 mmol/L (3.5-5.1); Sodium 139 mmol/L (136-145)
[2025-06-27 08:27] LABS: Anion Gap 12 (5-15); Carbon Dioxide 23 mmol/L (20-31)
[2025-06-27 08:28] LABS: Calcium 8.7 mg/dL (8.7-10.4)
[2025-06-27 08:31] LABS: Alkaline Phosphatase 110 U/L (46-116)
[2025-06-27 08:32] LABS: BUN/Creatinine Ratio 13.8 (10.0-20.0); Glucose 75 mg/dL (74-106)
[2025-06-27 08:33] LABS: Alanine Aminotransferase 32 U/L (7-40); Total Protein 6.4 g/dL (5.7-8.2)
[2025-06-27 08:34] LABS: Albumin 3.8 g/dL (3.2-4.8); Blood Urea Nitrogen 8 mg/dL (9-23)
[2025-06-27 08:38] LABS: Bilirubin, Total 0.4 mg/dL (0.2-1.0)
--- NOTE | 2025-06-27 17:44 | DVHPN2 ---
Subjective Was admitted for SOB Has PE Changes from previous H/P or p: Changes Respiratory: Shortness of breath Objective Vitals Vital Signs Date Time Temp Pulse Resp B/P (MAP) Pulse Ox O2 Delivery O2 Flow Rate FiO2 06/27/25 16:30 97.7 80 18 113/77 (89) 91 97.7 06/27/25 13:14 Nasal Cannula 2.0 06/27/25 13:14 28 Intake/Output Intake and Output 06/27/25 07:00 Intake Total 730 ml Balance 730 ml Intake Oral 730 ml # Voids 2 General Appearance: Alert, Oriented X3, Cooperative, No acute distress Lungs: Clear to auscultation Cardiovascular: Regular rate, Normal S1, Normal S2 Abdomen: Normal bowel sounds, Soft Extremities: No edema Medications Current Medications Medications Dose Ordered Sig/Bob Route Start Time Stop Time Status Last Admin Dose Admin Ondansetron HCl 4 mg Q4HP PRN IV 06/26/25 07:45 Acetaminophen 650 mg Q6HP PRN PO 06/26/25 07:45 06/26/25 23:05 650 MG Nitroglycerin 0.4 mg Q5MINP PRN SL 06/26/25 07:45 Morphine Sulfate 2 mg Q30M PRN IV 06/26/25 07:45 Albuterol 2.5 mg Q4HWA NEB 06/26/25 10:00 06/27/25 13:14 2.5 MG Ipratropium [place] 0.5 mg Q4HWA NEB 06/26/25 10:00 06/27/25 13:14 0.5 MG Enoxaparin Sodium 80 mg Q12HR SC 06/26/25 10:00 06/27/25 10:25 80 MG Laboratory Results Laboratory Tests 06/27/25 05:47 Chemistry Test 06/27/25 05:47 Albumin 3.8 g/dL (3.2-4.8) Calcium Level 8.7 mg/dL (8.7-10.4) Total Protein 6.4 g/dL (5.7-8.2) LFT Test 06/27/25 05:47 Alanine Aminotransferase (ALT) 32 U/L (7-40) Alkaline Phosphatase 110 U/L (46-116) Aspartate Amino Transferase (AST) 17 U/L (13-40) Total Bilirubin 0.4 mg/dL (0.2-1.0) Urinalysis Test 06/26/25 12:00 Urine Color Yellow (Yellow) Urine Clarity Clear (Clear) Urine pH 6.0 (5.0-9.0) Urine Specific [place] 1.032 (1.001-1.035) Urine Protein Negative (Negative) Urine Ketones Negative (Negative) Urine Blood Negative /uL (Negative) Urine Nitrite Negative (Negative) Urine Bilirubin Negative (Negative) Urine Urobilinogen 8 mg/dL (Negative) H Urine Leukocyte Esterase Negative /uL (Negative) Urine RBC 4 /hpf (0 - 3) Urine Microscopic WBC < 1 /HPF (0-3) Urine Squamous Epithelial Cells None seen /hpf (<5) Urine Bacteria None seen /hpf (None Seen) Urine Mucus Few (None Seen) Urine Yeast (Budding) Occasional /hpf (None Urine Glucose Normal mg/dL (Normal) Microbiology Microbiology Date/Time Source Procedure Growth Status 06/26/25 16:05 Nose MRSA Screen - Final Complete Assessment/Plan Assessment/Plan Acute hypoxic respiratory failure on oxygen PE Hypokalemia Tobacco use History of spinal stenosis History of spinal fusion 3 weeks ago Bilateral pneumonia R>L PLAN: Lovenox O2 Med-Nebs Full code Advanced directives discussed x 17 minutes Rocephin IV Plan discussed with: Patient Date of Service: Jun 27, 2025 Billing Provider: BA PERALTA MD Common Visit Codes: [id number] INP/OBS CARE(HIGH) Secondary Visit Codes: [id number] CARE PLAN 30 MINUTES BA PERALTA MD Jun 27, 2025 17:44
[2025-06-28] VITALS (19 sets, daily range): BP systolic 98–131; BP diastolic 64–88; PULSE 76–99; RESP 12–20; TEMP 97.1–98.8; O2SAT 91–100
[2025-06-28] MEDS: HYDROcodone-ACET 5/325MG TAB PO ONE (02:19)
[2025-06-28 06:41] LABS: Hematocrit 39.6 % (41.0-53.0); Hemoglobin 13.4 g/dL (13.5-17.5); Mean Corpuscular Hemoglobin 30.9 pg (28.0-32.0); Mean Corpuscular Volume 91.0 fL (80.0-100.0); Nucleated Red Blood Cells % 0.0 %
[2025-06-28 06:50] LABS: Chloride 102 mmol/L (98-107); Potassium 4.2 mmol/L (3.5-5.1); Sodium 138 mmol/L (136-145)
[2025-06-28 06:51] LABS: Anion Gap 10 (5-15); Calcium 9.0 mg/dL (8.7-10.4); Carbon Dioxide 26 mmol/L (20-31)
[2025-06-28 06:56] LABS: BUN/Creatinine Ratio 13.6 (10.0-20.0); Glucose 102 mg/dL (74-106)
[2025-06-28 06:57] LABS: Magnesium 2.1 mg/dL (1.6-2.6)
[2025-06-28 07:09] LABS: Blood Urea Nitrogen 8 mg/dL (9-23)
--- NOTE | 2025-06-28 14:27 | DVHPN2 ---
Subjective Doing well Mostly asymptomatic Changes from previous H/P or p: Changes Respiratory: Shortness of breath Objective Vitals Vital Signs Date Time Temp Pulse Resp B/P (MAP) Pulse Ox O2 Delivery O2 Flow Rate FiO2 06/28/25 13:31 89 18 95 06/28/25 13:26 Nasal Cannula 3.0 06/28/25 13:26 32 06/28/25 09:30 97.8 117/78 (91) 97.8 Intake/Output Intake and Output 06/28/25 07:00 Intake Total 450 ml Output Total 1000 ml Balance -550 ml Intake Oral 400 ml IV Total 50 ml Output Urine Total 1000 ml # Voids 3 General Appearance: Alert, Oriented X3, Cooperative, No acute distress Lungs: Clear to auscultation Cardiovascular: Regular rate, Normal S1, Normal S2 Abdomen: Normal bowel sounds, Soft Extremities: No edema Medications Current Medications Medications Dose Ordered Sig/Bob Route Start Time Stop Time Status Last Admin Dose Admin Ondansetron HCl 4 mg Q4HP PRN IV 06/26/25 07:45 Acetaminophen 650 mg Q6HP PRN PO 06/26/25 07:45 06/26/25 23:05 650 MG Nitroglycerin 0.4 mg Q5MINP PRN SL 06/26/25 07:45 Morphine Sulfate 2 mg Q30M PRN IV 06/26/25 07:45 Albuterol 2.5 mg Q4HWA [facility] 06/26/25 10:00 06/28/25 13:26 2.5 MG Ipratropium [place] 0.5 mg Q4HWA [facility] 06/26/25 10:00 06/28/25 13:26 0.5 MG Enoxaparin Sodium 80 mg Q12HR SC 06/26/25 10:00 06/28/25 09:24 80 MG Ceftriaxone Sodium 50 ml @ 100 mls/hr DAILY@09 IV 06/28/25 09:00 06/28/25 09:23 100 MLS/HR Laboratory Results Laboratory Tests 06/28/25 05:23 Chemistry Test 06/28/25 05:23 Calcium Level 9.0 mg/dL (8.7-10.4) Magnesium Level 2.1 mg/dL (1.6-2.6) Urinalysis Test 06/26/25 12:00 Urine Color Yellow (Yellow) Urine Clarity Clear (Clear) Urine pH 6.0 (5.0-9.0) Urine Specific [place] 1.032 (1.001-1.035) Urine Protein Negative (Negative) Urine Ketones Negative (Negative) Urine Blood Negative /uL (Negative) Urine Nitrite Negative (Negative) Urine Bilirubin Negative (Negative) Urine Urobilinogen 8 mg/dL (Negative) H Urine Leukocyte Esterase Negative /uL (Negative) Urine RBC 4 /hpf (0 - 3) Urine Microscopic WBC < 1 /HPF (0-3) Urine Squamous Epithelial Cells None seen /hpf (<5) Urine Bacteria None seen /hpf (None Seen) Urine Mucus Few (None Seen) Urine Yeast (Budding) Occasional /hpf (None Urine Glucose Normal mg/dL (Normal) Microbiology Microbiology Date/Time Source Procedure Growth Status 06/26/25 16:05 Nose MRSA Screen - Final Complete Assessment/Plan Assessment/Plan Acute hypoxic respiratory failure on oxygen PE Hypokalemia Tobacco use History of spinal stenosis History of spinal fusion 3 weeks ago Bilateral pneumonia R>L PLAN: Lovenox O2 Med-Nebs Full code Advanced directives discussed x 17 minutes Rocephin IV 06/28/2025: Switch Lovenox to Eliquis Oxygen as needed Rocephin Monitor closely Plan discussed with: Patient My Orders Orders - BA PERALTA MD Procedure Category Date Status Time Ceftriaxone 1gm/50ml PHA 06/28/25 In Process (Rocephin) 09:00 Incentive Spirometry ORDERS 06/27/25 Transmitted Q 1hr 17:45 Date of Service: Jun 28, 2025 Billing Provider: BA PERALTA MD Common Visit Codes: [id number] INP/OBS CARE(HIGH) BA PERALTA MD Jun 28, 2025 14:27
[2025-06-28] MEDS: APIXABAN 5 MG TAB PO SCH (21:37)
[2025-06-29] VITALS (19 sets, daily range): BP systolic 96–118; BP diastolic 61–90; PULSE 55–94; RESP 14–20; TEMP 97.3–98.7; O2SAT 91–99
--- NOTE | 2025-06-29 12:13 | ECG ---
[facility] Test Date: 2025-06-26 Test Time: 05:52:41 Pat Name: ANTONI MCCANN Department: Room: 0275T A Gender: M No Experience: [place] : 1955 Requested By: EMERGENCY EMERGENCY Order Number: [id number] Reading MD: Margarito Green Measurements Intervals [place] Rate: 79 P: 38 GA: 142 QRS: -7 QRSD: 88 T: 44 QT: 379 QTc: 435 Interpretive Statements Sinus rhythm Atrial premature complexes Probable left atrial enlargement Electronically Signed On 06-29-2025 18:41:52 PDT by Margarito Green Please click the below link to view image of tracing.
[2025-06-29] MEDS ORDERED: APIX5TAB PO (13:19)
--- NOTE | 2025-06-29 13:24 | DVHDS2 ---
Discharge Summary Date of Admission Jun 26, 2025 at 07:31 Date of Discharge: Jun 29, 2025 Labs/Diagnostic Data: Laboratory Results Test 06/28/25 05:23 06/27/25 05:47 06/26/25 12:00 06/26/25 09:44 White Blood Count 7.2 10^3/uL (4.4-10.8) Red Blood Count 4.35 10^6/uL (4.5-5.90) Hemoglobin 13.4 g/dL (13.5-17.5) Hematocrit 39.6 % (41.0-53.0) Mean Corpuscular Volume 91.0 fL (80.0-100.0) Mean Corpuscular Hemoglobin 30.9 pg (28.0-32.0) Mean Corpuscular Hemoglobin Concent 33.9 g/dL (32.0-36.0) Red Cell Distribution Width 14.5 % (11.8-14.3) Platelet Count 440 10^3/uL (140-450) Mean Platelet Volume 6.8 fL (6.9-10.8) Neutrophils (%) (Auto) 70.8 % (37.0-80.0) Lymphocytes (%) (Auto) 16.7 % (10.0-50.0) Monocytes (%) (Auto) 12.2 % (0.0-12.0) Eosinophils (%) (Auto) 0.0 % (0.0-7.0) Basophils (%) (Auto) 0.3 % (0.0-2.0) Neutrophils # (Auto) 5.1 10 ^3/uL (1.6-8.6) Lymphocytes # (Auto) 1.2 10 ^3/uL (0.4-5.4) Monocytes # (Auto) 0.9 10 ^3/uL (0-1.3) Eosinophils # (Auto) 0 10 ^3/uL (0-0.8) Basophils # (Auto) 0 10 ^3/uL (0-0.2) Nucleated Red Blood Cells 0.0 % Sodium Level 138 mmol/L (136-145) Potassium Level 4.2 mmol/L (3.5-5.1) Chloride Level 102 mmol/L (98-107) Carbon Dioxide Level 26 mmol/L (20-31) Anion Gap 10 (5-15) Blood Urea Nitrogen 8 mg/dL (9-23) Creatinine 0.59 mg/dL (0.700-1.30) Glomerular Filtration Rate Calc 104 mL/min (>90) BUN/Creatinine Ratio 13.6 (10.0-20.0) Serum Glucose 102 mg/dL (74-106) Calcium Level 9.0 mg/dL (8.7-10.4) Magnesium Level 2.1 mg/dL (1.6-2.6) Total Bilirubin 0.4 mg/dL (0.2-1.0) Aspartate Amino Transferase (AST) 17 U/L (13-40) Alanine Aminotransferase (ALT) 32 U/L (7-40) Alkaline Phosphatase 110 U/L (46-116) Total Protein 6.4 g/dL (5.7-8.2) Albumin 3.8 g/dL (3.2-4.8) Urine Color Yellow (Yellow) Urine Clarity Clear (Clear) Urine pH 6.0 (5.0-9.0) Urine Specific [place] 1.032 (1.001-1.035) Urine Protein Negative (Negative) Urine Ketones Negative (Negative) Urine Blood Negative /uL (Negative) Urine Nitrite Negative (Negative) Urine Bilirubin Negative (Negative) Urine Urobilinogen 8 mg/dL (Negative) Urine Leukocyte Esterase Negative /uL (Negative) Urine RBC 4 /hpf (0 - 3) Urine Microscopic WBC < 1 /HPF (0-3) Urine Squamous Epithelial Cells None seen /hpf (<5) Urine Bacteria None seen /hpf (None Seen) Urine Mucus Few (None Seen) Urine Yeast (Budding) Occasional /hpf (None Urine Glucose Normal mg/dL (Normal) Urine Opiates Screen Neg (NEGATIVE) Urine Fentanyl Screen Neg (NEGATIVE) Urine Barbiturates Screen Neg (NEGATIVE) Urine Phencyclidine Screen Neg (NEGATIVE) Urine Amphetamines Screen Pos (NEGATIVE) Urine Benzodiazepines Screen Neg (NEGATIVE) Urine Cocaine Screen Neg (NEGATIVE) Urine Cannabinoids Screen Neg (NEGATIVE) Lactic Acid Level 0.9 mmol/L (0.4-2.0) Test 06/26/25 08:15 06/26/25 06:47 Troponin I High Sensitivity 7 ng/L (</=54) Differential Total Cells Counted 100.0 (100) Neutrophils % (Manual) 81 (37.0-80.0) Band Neutrophils % (Manual) 0 Lymphocytes % (Manual) 12 (10.0-50.0) Monocytes % (Manual) 7 (0-12) Eosinophils % (Manual) 0 (0-7) Basophils % (Manual) 0 (0.0-2.0) Metamyelocytes % (manual) 0 Myelocytes % (Manual) 0 Promyelocytes % (Manual) 0 Blast Cells % (Manual) 0 Reactive Lymphocytes 0 Platelet Estimate Adequate D-Dimer, Quantitative 2.75 mg/L FEU (0.0-0.49) B-Type Natriuretic Peptide 21.53 pg/mL (0-100) Hepatitis A IgM Antibody Negative Hepatitis B Surface Antigen Negative (Negative) Hepatitis B Core IgM Antibody Negative (Negative) Hepatitis C Antibody Negative (Negative) Other Laboratory Tests 06/28/25 05:23 Brief Hx & Hospital Course: Final diagnoses: Acute hypoxic respiratory failure on oxygen PE Hypokalemia Tobacco use History of spinal stenosis History of spinal fusion 3 weeks ago Bilateral pneumonia R>L 70-year-old male with past medical history of spinal stenosis with spinal fusion 3 weeks ago here at [facility] who presents to the ED with shortness of breath that started last night. He was diagnoses with PE Lovenox was given He was switched to Eliquis 10 mg bid Doing well DC home on Eliquis 10 mg bid x 7 days then 5 mg bid x 6 months Condition at Discharge: Stable Final Diagnosis/Problems List Acute hypoxic respiratory failure on oxygen PE Hypokalemia Tobacco use History of spinal stenosis History of spinal fusion 3 weeks ago Bilateral pneumonia R>L Discharge Disposition: Home SNF Discharge Will this Physician continue t: No Discharge Instruct/Medications Scheduled Apixaban Base (Eliquis), 5 MG PO BID Apixaban Base (Eliquis), 10 MG PO BID Cyclobenzaprine HCl (Cyclobenzaprine Hydrochlo), 10 MG PO Q8HR Cyclobenzaprine HCl (Cyclobenzaprine Hydrochlo), 10 MG PO TID Scheduled PRN Docusate Sodium (Docusate Sodium), 100 MG PO Q12HP PRN Hydrocodone-Acetaminophen (Hydrocodone/Acetaminophen 7.5-325 mg), 1 TAB PO Q4HP PRN Oxycodone Hcl (Oxycodone Hcl), 10 MG PO Q6HPRN PRN Discharge Statement: "Patient was advised to return to the ER or call 911 if any headaches, dizziness, shortness of breath, chest pain, abdominal pain, bleeding, fevers, or worsening of medical condition. Patient was counseled about treatment plan, medications, possible side effects, patientverbalized understanding. All questions were answered to the best of my ability. This discharge took greater then 30 minutes in planning, reviewing documentation, counseling the patient, and discussing with other team members." ASSESSMENT ASSESSMENT Assessment Date of Service: Jun 29, 2025 Billing Provider: BA PERALTA MD Common Visit Codes: [id number] DISCH DAY >30min BA PERALTA MD Jun 29, 2025 13:24
--- NOTE | 2025-06-29 13:59 | PRN ---
Misceleneous Note Note Note suture removal posterior lumbar surgical site Patient identified, placed in left recumbent side-lying position Procedure explained to patient Hand hygiene performed Surgical site is well approximated all the wound edges appeared to be healed, very small area of redness noted to the medial portion approximately 1/2 inch in size, however wound edges are touching, no drainage, no fluctuance, no areas of heat or excessive redness noticed, patient complains of no increase in pain with palpation Surgical site cleaned with iodine solution [place] suture were gently retracted and released from skin superior and inferior aspects Sterile suture removal kit cut not and superior loop of subcuticular suture and the suture was gently removed from under the skin Patient tolerated well Skin was cleaned again with Iodine solution [place] dressing applied Patient tolerated procedure well Call with questions Carmel Castro [facility] Orthopaedic Spine Surgery nurse practitioner For Dr Carlos Estrada Patient was examined, chart reviewed, labs evaluated, and diagnostic studies and findings analyzed. Case was discussed with Dr. Josafat Estrada who formulated the plan of care. This medical document was created using an electronic medical record system with Clicker dictation system. Although this document has been carefully reviewed, there might still be some phonetic and typographical errors. These areas are purely typographical due to imperfections of the software programs, and do not reflect any compromise in the patient's medical care. YESSI CASTRO NP Jun 29, 2025 13:59
[2025-06-29 15:00] LABS: Base Excess 3.3 mmol/L (-2.0-3.0)
[2025-06-30] VITALS (7 sets, daily range): BP systolic 116–121; BP diastolic 81–89; PULSE 55–95; RESP 16–18; TEMP 98–98.6; O2SAT 91–97
--- NOTE | 2025-06-30 09:31 | DVHPN2 ---
Subjective No new complaints Needs home O2 Changes from previous H/P or p: Changes Respiratory: Shortness of breath Objective Vitals Vital Signs Date Time Temp Pulse Resp B/P (MAP) Pulse Ox O2 Delivery O2 Flow Rate FiO2 06/30/25 08:50 98.0 89 18 116/81 (93) 97 98.0 06/30/25 07:35 Nasal Cannula* 3 32 Intake/Output Intake and Output 06/30/25 07:00 Intake Total 1350 ml Output Total 500 ml Balance 850 ml Intake Oral 1300 ml IV Total 50 ml Output Urine Total 500 ml # Voids 6 General Appearance: Alert, Oriented X3, Cooperative, No acute distress Lungs: Clear to auscultation Cardiovascular: Regular rate, Normal S1, Normal S2 Abdomen: Normal bowel sounds, Soft Extremities: No edema Medications Current Medications Medications Dose Ordered Sig/Bob Route Start Time Stop Time Status Last Admin Dose Admin Ondansetron HCl 4 mg Q4HP PRN IV 06/26/25 07:45 Acetaminophen 650 mg Q6HP PRN PO 06/26/25 07:45 06/29/25 22:25 650 MG Nitroglycerin 0.4 mg Q5MINP PRN SL 06/26/25 07:45 Morphine Sulfate 2 mg Q30M PRN IV 06/26/25 07:45 Albuterol 2.5 mg Q4HWA [facility] 06/26/25 10:00 06/30/25 06:12 2.5 MG Ipratropium [place] 0.5 mg Q4HWA [facility] 06/26/25 10:00 06/30/25 06:12 0.5 MG Ceftriaxone Sodium 50 ml @ 100 mls/hr DAILY@09 IV 06/28/25 09:00 06/30/25 08:29 100 MLS/HR Apixaban 10 mg BID PO 06/28/25 22:00 07/05/25 21:59 06/30/25 08:28 10 MG Laboratory Results Laboratory Tests 06/28/25 05:23 Urinalysis Test 06/26/25 12:00 Urine Color Yellow (Yellow) Urine Clarity Clear (Clear) Urine pH 6.0 (5.0-9.0) Urine Specific [place] 1.032 (1.001-1.035) Urine Protein Negative (Negative) Urine Ketones Negative (Negative) Urine Blood Negative /uL (Negative) Urine Nitrite Negative (Negative) Urine Bilirubin Negative (Negative) Urine Urobilinogen 8 mg/dL (Negative) H Urine Leukocyte Esterase Negative /uL (Negative) Urine RBC 4 /hpf (0 - 3) Urine Microscopic WBC < 1 /HPF (0-3) Urine Squamous Epithelial Cells None seen /hpf (<5) Urine Bacteria None seen /hpf (None Seen) Urine Mucus Few (None Seen) Urine Yeast (Budding) Occasional /hpf (None Urine Glucose Normal mg/dL (Normal) Blood Gas Results Test 06/29/25 14:48 Arterial Blood pH 7.487 (7.350-7.450) FiO2 % 21.0 Microbiology Microbiology Date/Time Source Procedure Growth Status 06/26/25 16:05 Nose MRSA Screen - Final Complete Assessment/Plan Assessment/Plan Acute hypoxic respiratory failure on oxygen PE Hypokalemia Tobacco use History of spinal stenosis History of spinal fusion 3 weeks ago Bilateral pneumonia R>L PLAN: Lovenox O2 Med-Nebs Full code Advanced directives discussed x 17 minutes Rocephin IV 06/28/2025: Switch Lovenox to Eliquis Oxygen as needed Rocephin Monitor closely 06/30/2025: The patient was supposed to be discharged yesterday but he needs home O2 Home O2 2 L nasal cannula Discharged home on Eliquis Follow up as outpatient with his primary care physician as soon as possible Plan discussed with: Patient My Orders Orders - BA PERALTA MD Procedure Category Date Status Time Discharge DISCHARGE 06/29/25 Transmitted 13:21 Abg W/ Co-Ox RT 06/29/25 Logged 15:06 Ss Eval For Home CONS 06/29/25 Transmitted Oxygen * Lead Electrical Engineer CONS 06/29/25 Transmitted Consult Date of Service: Jun 30, 2025 Billing Provider: BA PERALTA MD Common Visit Codes: [id number] INP/OBS CARE(HIGH) BA PERALTA MD Jun 30, 2025 09:31
== END 2025-06-30 11:33 | disposition home health service (06) | DRG 177 ==
LOC: EDBD 05:52 → ER 05:54 → OVERFLOW 07:31 → WEST WING 14:06 → TELE-WESTW 17:25
PROVIDERS: ADMIT Internal Medicine Geriatric Medicine; ATTEND Internal Medicine Geriatric Medicine
DX: J15.69 Pneumonia due to other Gram-negative bacteria (principal); I26.94 Multiple subsegmental thrombotic pulmonary emboli without acute cor pulmonale; J96.01 Acute respiratory failure with hypoxia; J15.9 Unspecified bacterial pneumonia; E87.6 Hypokalemia; Z20.822 Contact with and (suspected) exposure to COVID-19; F17.210 Nicotine dependence, cigarettes, uncomplicated; E87.70 Fluid overload, unspecified; R79.89 Other specified abnormal findings of blood chemistry; M79.604 Pain in right leg; M79.605 Pain in left leg; M48.00 Spinal stenosis, site unspecified; Z98.1 Arthrodesis status; Z91.148 Patient's other noncompliance with medication regimen for other reason; Z79.01 Long term (current) use of anticoagulants
CPT/HCPCS: 36415; 36600; 71045; 71275; 80048; 80053; 80074; 80307; 81001; 82805; 83605; 83735; 83880; 84484; 85007; 85025; 85027; 85379; 87081; 93005; 93306; 93971; 94640; 99291; G0378

== ENCOUNTER 2025-09-19 19:13 | Inpatient (IN) | payer MEDICARE, MEDICAID ==
[~2025-09-19] VITALS: Ht 182.9 cm; Wt 82.8 kg
[~2025-09-19 19:13] MED LIST changes: +APIX5TAB PO
[2025-09-19 19:40] VITALS: PULSE 96; RESP 20; O2SAT 94
[2025-09-19] MEDS: SODIUM CHLORIDE 0.9% 1,000 ML IVB ONE (20:15)
--- NOTE | 2025-09-19 20:18 | ED.PDOC ---
History of Present Illness HPI Comments 70-year-old male who came to ER for shortness of breath. Patient does have history of spinal stenosis, pulmonary emboli, bilateral pneumonia (Jun 2025). Claims he takes his Eliquis as prescribed. Last night he started experiencing shortness of breath and back pains. Denies any acute chest pains nausea or vomiting. Saturating 94% on room air Chief Complaint: Shortness of Breath Time Seen by MD: 20:18 Primary Care Provider: NONE Reviewed Notes: Nurses Notes Allergies: Coded Allergies: NO KNOWN ALLERGIES (Unverified , 09/19/25) Home Meds Active Scripts Apixaban Base (ELIQUIS) 5 Mg Tab, 10 MG PO BID for 7 Days, #28 TAB 10MG BID X 7 DAYS THEN 5MG PO BID FOR AT LEAST 6 MONTHS FOR DVT/PE TREATMENT Prov:BA PERALTA MD 06/29/25 Apixaban Base (ELIQUIS) 5 Mg Tab, 5 MG PO BID for 30 Days, #60 TAB 5 Refills Prov:BA PERALTA MD 06/29/25 Cyclobenzaprine HCl (Cyclobenzaprine Hydrochlo) 10 Mg Tab, 10 MG PO TID for 30 Days, #90 TAB Prov:YESSI ARZATE NP 05/29/25 Oxycodone Hcl (OXYCODONE HCL) 5 Mg Tb, 10 MG PO Q6HPRN PRN for 7 Days, #56 TAB Prov:YESSI ARZATE NP 05/29/25 Hydrocodone-Acetaminophen (Hydrocodone/Acetaminophen 7.5-325 mg) 1 Tab Tab, 1 TAB PO Q4HP PRN for 10 Days, #50 TAB Prov:YESSI ARZATE NP 10/24/24 Docusate Sodium (Docusate Sodium) 100 Mg Cap, 100 MG PO Q12HP PRN for 30 Days, #60 CAP Prov:YESSI ARZATE NP 10/24/24 Cyclobenzaprine HCl (Cyclobenzaprine Hydrochlo) 10 Mg Tab, 10 MG PO Q8HR for 30 Days, #90 TAB Prov:YESSI ARZATE NP 10/24/24 Information Source: Patient Mode of Arrival: EMS Past Medical History PAST MEDICAL HISTORY: PE Past Medical History (Other): Spinal stenosis Surgical History: Denies all surgeries Family History Family History: Reviewed,noncontributory to illness Social History Smoker: Cigarettes, Less Than 1 Pack/Day Alcohol: Denies ETOH Use Drugs: Denies Drug Use Lives In: Home Constitutional: denies: chills, diaphoresis, fatigue, fever, malaise, sweats, weakness, others EENTM: denies: blurred vision, double vision, ear bleeding, ear discharge, ear drainage, ear pain, ear ringing, eye pain, eye redness, hearing loss, mouth pain, mouth swelling, nasal discharge, nose bleeding, nose congestion, nose pain, photophobia, tearing, throat pain, throat swelling, voice changes, others Respiratory: reports: shortness of breath; denies: cough, hemoptysis, orthopnea, SOB at rest, SOB with excertion, stridor, wheezing, others Cardiovascular: denies: chest pain, dizzy spells, diaphoresis, Dyspnea on exertion, edema, irregular heart beat, left arm pain, lightheadedness, palpitations, PND, syncope, others Gastrointestinal: denies: abdomen distended, abdominal pain, blood streaked bowels, constipated, diarrhea, dysphagia, difficulty swallowing, hematemesis, melena, nausea, poor appetite, poor fluid intake, rectal bleeding, rectal pain, vomiting, others Genitourinary: denies: burning, dysuria, flank pain, frequency, hematuria, incontinence, penile discharge, penile sore, pain, testicle pain, testicle swelling, urgency, others Neurological: denies: dizziness, fainting, headache, left sided numbness, left sided weakness, numbness, paresthesia, pre-existing deficit, right sided numbness, right sided weakness, seizure, speech problems, tingling, tremors, weakness, others Musculoskeletal: reports: back pain; denies: gout, joint pain, joint swelling, muscle pain, muscle stiffness, neck pain, others Integumetry: denies: bruises, change in color, change in hair/nails, dryness, laceration, lesions, lumps, rash, wounds, others Allergic/Immunocompromised: denies: Difficulty Healing, Frequent Infections, Hives, Itching, others Hematologic/Lymphatic: denies: anemia, blood clots, easy bleeding, easy bruising, swollen glands, others Endocrine: denies: excessive hunger, excessive sweating, excessive thirst, excessive urination, flushing, intolerance to cold, intolerance to heat, unexplained weight gain, unexplained weight loss, others Psychiatric: denies: anxiety, bipolar disorder, depression, hopeless, panic disorder, schizophrenia, sleepless, suicidal, others Physical Exam General Appearance: No Apparent Distress, Normal HEENT: Normal ENT Inspection, Pharynx Normal, TMs Normal Neck: Full Range of Motion, Non-Tender, Normal, Normal Inspection Respiratory: Chest Non-Tender, Lungs Clear, No Accessory Muscle Use, No Respiratory Distress, Normal Breath Sounds Cardiovascular: No Edema, No JVD, No Murmur, No Gallop, Normal Peripheral Pulses, Regular Rate/Rhythm Breast Exam: Deferred Gastrointestinal: No Organomegaly, Non Tender, No Pulsatile Mass, Normal Bowel Sounds, Soft Genitalia: Deferred Pelvic: Deferred Rectal: Deferred Extremities: No calf tenderness, Normal capillary refill, Normal inspection, Normal range of motion, Non-tender, No pedal edema Musculoskeletal : Apperance: Normal Neurologic: Alert, coupon collection clerk II-XII nml as Tested, No Motor Deficits, Normal Affect, Normal Mood, No Sensory Deficits Cerebellar Function: Normal Reflexes: Normal Skin: Dry, Normal Color, Warm Lymphatic: No Adenopathy Was a procedure done? Was a procedure done?: No Differential Dx Considerations may include: Anemia, electrolyte imbalance, pulmonary emboli, pneumonia, spinal stenosis X-Ray, Labs, Meds, VS Vital Signs Date Time Temp Pulse Resp B/P (MAP) Pulse Ox O2 Delivery O2 Flow Rate FiO2 09/19/25 19:40 97.9 96 20 114/63 (80) 94 97.9 09/19/25 19:40 96 20 94 Nasal Cannula* 2 28 09/19/25 19:28 97.7 101 26 114/85 95 97.7 Lab Test 09/19/25 20:30 Range/Units White Blood Count 8.0 4.4-10.8 10^3/uL Red Blood Count 5.70 4.5-5.90 10^6/uL Hemoglobin 17.8 H 13.5-17.5 g/dL Hematocrit 51.9 41.0-53.0 % Mean Corpuscular Volume 91.2 80.0-100.0 fL Mean Corpuscular Hemoglobin 31.3 28.0-32.0 pg Mean Corpuscular Hemoglobin Concent 34.3 32.0-36.0 g/dL Red Cell Distribution Width 14.7 H 11.8-14.3 % Platelet Count 305 140-450 10^3/uL Mean Platelet Volume 7.7 6.9-10.8 fL Neutrophils (%) (Auto) 69.4 37.0-80.0 % Lymphocytes (%) (Auto) 16.4 10.0-50.0 % Monocytes (%) (Auto) 10.9 0.0-12.0 % Eosinophils (%) (Auto) 2.3 0.0-7.0 % Basophils (%) (Auto) 1.0 0.0-2.0 % Neutrophils # (Auto) 5.6 1.6-8.6 10 ^3/uL Lymphocytes # (Auto) 1.3 0.4-5.4 10 ^3/uL Monocytes # (Auto) 0.9 0-1.3 10 ^3/uL Eosinophils # (Auto) 0.2 0-0.8 10 ^3/uL Basophils # (Auto) 0.1 0-0.2 10 ^3/uL Nucleated Red Blood Cells 0.1 % Prothrombin Time 10.6 9.3-11.8 sec Prothrombin Time INR 1.00 0.9-1.15 Activated Partial Thromboplast Time 27.9 24.5-34.5 SEC D-Dimer, Quantitative 0.53 H 0.0-0.49 mg/L FEU Sodium Level 139 136-145 mmol/L Potassium Level 4.3 3.5-5.1 mmol/L Chloride Level 107 98-107 mmol/L Carbon Dioxide Level 24 20-31 mmol/L Anion Gap 8 5-15 Blood Urea Nitrogen 13 9-23 mg/dL Creatinine 0.71 0.700-1.30 mg/dL Glomerular Filtration Rate Calc 98 >90 mL/min BUN/Creatinine Ratio 18.3 10.0-20.0 Serum Glucose 112 H 74-106 mg/dL Lactic Acid Level 1.4 0.4-2.0 mmol/L Calcium Level 9.3 8.7-10.4 mg/dL Total Bilirubin 0.4 0.2-1.0 mg/dL Aspartate Amino Transferase (AST) 22 13-40 U/L Alanine Aminotransferase (ALT) 37 7-40 U/L Alkaline Phosphatase 100 46-116 U/L Troponin I High Sensitivity 6 </=54 ng/L Total Protein 6.8 5.7-8.2 g/dL Albumin 4.3 3.2-4.8 g/dL Current Medications Medications (Trade) Dose Ordered Sig/Bob Route Start Time Stop Time Status Last Admin Sodium Chloride 1,000 ml @ 1,000 mls/hr Q1H ONCE IVB 09/19/25 20:15 09/19/25 21:14 DC 09/19/25 20:15 Time of 1ST Reevaluation: 20:15 Reevaluation 1ST: Unchanged Patient Education/Counseling: Diagnosis, Treatment Family Education/Counseling: No Family Present SEPSIS Sepsis Screen Date sepsis recognized/suspect: Sep 19, 2025 Time Sepsis recognized/suspect: 1942 Recent Procedure: No On Antibiotic Therapy: No Respiratory Rate >20: No Heart Rate >90: No Temp<36 C (96.8 F) or >38.3 C: No SBP <90 or MAP <65 mmHG: No New Acute Mental Status Change: No Is the patient on CPAP, BIPAP,: No Physician Orders Troponin-I Hs (09/20/25 00:00) Troponin-I Hs (09/20/25 03:00) Troponin-I Hs (09/20/25 06:00) Blood Culture (09/19/25 20:06) Chest Portable (09/19/25 20:06) Troponin-I Hs (09/19/25 23:06) Ceftriaxone Ivpb Rocephin (09/19/25 21:15) Azithromycin 500mg/250ml (Zithromax 500m (09/19/25 21:15) Vital Signs Date Time Temp Pulse Resp B/P (MAP) Pulse Ox O2 Delivery O2 Flow Rate FiO2 09/19/25 19:40 97.9 96 20 114/63 (80) 94 97.9 09/19/25 19:40 96 20 94 Nasal Cannula* 2 28 09/19/25 19:28 97.7 101 26 114/85 95 97.7 Laboratory Tests Test 09/19/25 20:30 Lactic Acid Level 1.4 mmol/L (0.4-2.0) White Blood Count 8.0 10^3/uL (4.4-10.8) Medications Medications Dose Ordered Sig/Bob Route Start Time Stop Time Status Last Admin Dose Admin Sodium Chloride 1,000 ml @ 1,000 mls/hr Q1H ONCE IVB 09/19/25 20:15 09/19/25 21:14 DC 09/19/25 20:15 Departure 1 Departure Time of Disposition: 21:15 Impression: Primary Impression: Cervical stenosis of spinal canal Additional Impressions: Thoracic stenosis RLL pneumonia Respiratory failure with hypoxia Disposition: ADMITTED INPATIENT Admit to: Med Surg Condition: Guarded Discharged With: Self Comments 70 male h/o spinal stenosis surgery now with SOB. CXR shows a RLL infiltrate. Patient will need admission for supportive care and furhter workup Critical Care Note Critical Care Time?: Yes (35 min-critical care time only) Critical care comment: Total critical care time: Approximately 36 minutes Due to a high probability of clinically significant, life threatening deterioration, the patient required my highest level of preparedness to intervene emergently and I personally spent this critical care time directly and personally managing the patient. This critical care time included obtaining a history; examining the patient; pulse oximetry; ordering and review of studies; arranging urgent treatment with development of a management plan; evaluation of patient's response to treatment; frequent reassessment; and, discussions with other providers. This critical care time was performed to assess and manage the high probability of imminent, life-threatening deterioration that could result in multi-organ failure. It was exclusive of separately billable procedures and treating other patients. Stability Stability form required: No Heart Score Heart Score: Heart Score Response (Comments) Value History N/A 0 EKG N/A 0 Age N/A 0 Risk Factors N/A 0 Troponin N/A 0 Total 0 I personally scribed for ANTOINE TRUONG MD ([email or web address]) on 09/19/25 at 20:18. Electronically submitted by Tomas Rothman ([email or web address]). ANTOINE TRUONG MD Sep 19, 2025 20:18
[2025-09-19 20:56] LABS: Hematocrit 51.9 % (41.0-53.0); Hemoglobin 17.8 g/dL (13.5-17.5); Mean Corpuscular Hemoglobin 31.3 pg (28.0-32.0); Nucleated Red Blood Cells % 0.1 %
[2025-09-19 20:58] LABS: Mean Corpuscular Volume 91.2 fL (80.0-100.0)
--- NOTE | 2025-09-19 20:59 | DVH ---
CHEST RADIOGRAPH INDICATION: SOB TECHNIQUE: Single frontal view of the chest was obtained COMPARISON: XY CHEST PORTABLE on DOS: 06/26/25, XY CHEST PORTABLE on DOS: 05/25/25, XY CHEST XRAY 1 VIEW on DOS: 10/19/24 FINDINGS: Lines and Tubes: None Lungs: Right basilar opacity. Pleura: No effusion. No pneumothorax. Cardiomediastinal contours: Unremarkable Bones: No acute osseous abnormality. Spinal fixation hardware is noted. Surgical clips Anterior over the left Lateral lower neck. IMPRESSION: Right basilar atelectasis/pneumonia.
[2025-09-19 21:05] LABS: INR 1.0 (0.9-1.15); Partial Thromboplastin Time 27.9 SEC (24.5-34.5); Prothrombin Time 10.6 sec (9.3-11.8)
[2025-09-19 21:09] LABS: Alanine Aminotransferase 37 U/L (7-40); Albumin 4.3 g/dL (3.2-4.8); Alkaline Phosphatase 100 U/L (46-116); Anion Gap 8 (5-15); BUN/Creatinine Ratio 18.3 (10.0-20.0); Blood Urea Nitrogen 13 mg/dL (9-23); Calcium 9.3 mg/dL (8.7-10.4); Carbon Dioxide 24 mmol/L (20-31); Chloride 107 mmol/L (98-107); Potassium 4.3 mmol/L (3.5-5.1); Sodium 139 mmol/L (136-145); Total Protein 6.8 g/dL (5.7-8.2)
[2025-09-19 21:10] LABS: Bilirubin, Total 0.4 mg/dL (0.2-1.0)
[2025-09-19 21:11] LABS: Glucose 112 mg/dL (74-106)
[2025-09-19] MEDS: AZITHROMYCIN 500MG/250ML 250 ML IV ONE (21:41)
[2025-09-19] MEDS ORDERED: DOCUSATE SOD 100 MG CAP PO PRN (21:45)
[2025-09-19] MEDS ORDERED: ONDANSETRON HCL 4 MG/2 ML VIAL IV PRN (21:45)
[2025-09-19] MEDS ORDERED: ACETAMINOPHEN 325 MG TAB PO PRN (21:45)
[2025-09-19] MEDS: SODIUM CHLORIDE 0.9% 1,000 ML IV SCH (21:47)
--- NOTE | 2025-09-19 23:35 | DVHHP2 ---
History of Present Illness Reason for Visit: Respiratory failure with hypoxia History of Present Illness The patient is a 70-year-old male with past medical history of pulmonary embolism and spinal stenosis who presented to [facility] ED with complaint of shortness of breaths. Patient reports that he started experiencing shortness of breaths associated with back pain since last night, getting worse today that prompted this visit. Patient was seen and evaluated in the ED, laboratory data shows WBC 8.0, platelets 305, sodium 139, potassium 4.3, BUN 13, creatinine 0.71, GFR 98, glucose 112, calcium 9.3, lactic acid 1.4, troponin 6, D-dimer 0.53, blood pressure 114/63, heart rate 96, temperature 97.9 F, O2 saturation 94% on oxygen. Chest x-ray revealing right basilar atelectasis/pneumonia. Patient was started on IV antibiotic regimen azithromycin, please see medication orders section in the computer. On my assessment, patient denied chest pain, no headache, dizziness, diaphoresis, currently on oxygen, no diarrhea, nausea, vomiting, fever, no chills. Patient was admitted for further evaluation and medical management. Past Medical History PE, Spinal stenosis, Bilateral pneumonia Past Surgical History Denies all surgeries Family History Reviewed, noncontributory to the management of this case. Past Social History The patient lives at home, smokes cigarettes less than 1 pack per day, denies alcohol or illicit drugs abuse. Review of Systems Constitutional: Yes: Weakness; No: Fever, Chills, Sweats, Malaise, Other Eyes: No: Pain, Vision change, Conjunctivae inflammation, Eyelid inflammation, Other, Redness ENT: No: Ear pain, Ear discharge, Nose pain, Nose discharge, Nose congestion, Mouth pain, Mouth swelling, Throat pain, Throat swelling, Other Respiratory: Shortness of breath, Other (SOB at rest); No: Cough, Dry, SOB with excertion, Wheezing, Hemoptysis, Pleuritic Pain, Sputum, Wheezing Cardiovascular: No: Chest Pain, Palpitations, Orthopnea, Paroxysmal Noc. Dy spnea, Edema, Lt Headedness, Other Gastrointestinal: No: Nausea, Vomiting, Abdominal Pain, Diarrhea, Constipation, Melena, Hematochezia, Other Genitourinary: No Dysuria, No Frequency, No Incontinence, No Hematuria, No Retention, No Other Musculoskeletal: back pain; No: other, neck pain, shoulder pain, arm pain, hand pain, leg pain, foot pain Skin: No: Rash, Lesions, Jaundice, Bruising, Other Neurological: No: Weakness, Numbness, Incoordination, Change in speech, Confusion, Seizures, Other Allergies: Coded Allergies: NO KNOWN ALLERGIES (Unverified , 09/19/25) Medications Current Medications Medications Dose Ordered Sig/Bob Route Start Time Stop Time Status Last Admin Dose Admin Ceftriaxone Sodium 50 ml @ 100 mls/hr DAILY@09 IV 09/20/25 09:00 Azithromycin 250 ml @ 125 mls/hr DAILY IV 09/20/25 10:00 Sodium Chloride 1,000 ml @ 60 mls/hr [id number] IV 09/19/25 21:45 09/19/25 21:47 60 MLS/HR Acetaminophen/ Hydrocodone Bitart 1 tab Q4HP PRN PO 09/19/25 21:45 Ondansetron HCl 4 mg Q4HP PRN IV 09/19/25 21:45 Docusate Sodium 100 mg BIDPRN PRN PO 09/19/25 21:45 Acetaminophen 650 mg Q6HP PRN PO 09/19/25 21:45 Exam Vital Signs Vital Signs Date Time Temp Pulse Resp B/P (MAP) Pulse Ox O2 Delivery O2 Flow Rate FiO2 09/19/25 22:06 98.1 61 18 135/88 (104) 98 98.1 09/19/25 19:40 Nasal Cannula* 2 28 General Appearance: Alert, Oriented X3, Cooperative, No acute distress HEENT: Atraumatic, PERRLA, EOMI, Mucous membr. moist/pink Respiratory: Normal air movement, Other (Diminished breath sounds) Cardiovascular: Regular rate, Normal S1, Normal S2, No murmurs Abdominal: Normal bowel sounds, Soft, No tenderness, No hepatospenomegaly, No masses Extremities: No clubbing, No cyanosis, No edema, Normal pulses, No tenderness/swelling Skin: No rashes, No significant lesion Neuro: Normal speech, Normal tone, Sensation intact, Cranial nerves 3-12 NL, Reflexes 2+, Other (Generalized weakness) Psych/Mental Status: Mental status NL, Mood NL Labs/Xrays Labs Test 09/19/25 21:30 09/19/25 20:30 Range/Units Troponin I High Sensitivity 6 </=54 ng/L White Blood Count 8.0 4.4-10.8 10^3/uL Red Blood Count 5.70 4.5-5.90 10^6/uL Hemoglobin 17.8 H 13.5-17.5 g/dL Hematocrit 51.9 41.0-53.0 % Mean Corpuscular Volume 91.2 80.0-100.0 fL Mean Corpuscular Hemoglobin 31.3 28.0-32.0 pg Mean Corpuscular Hemoglobin Concent 34.3 32.0-36.0 g/dL Red Cell Distribution Width 14.7 H 11.8-14.3 % Platelet Count 305 140-450 10^3/uL Mean Platelet Volume 7.7 6.9-10.8 fL Neutrophils (%) (Auto) 69.4 37.0-80.0 % Lymphocytes (%) (Auto) 16.4 10.0-50.0 % Monocytes (%) (Auto) 10.9 0.0-12.0 % Eosinophils (%) (Auto) 2.3 0.0-7.0 % Basophils (%) (Auto) 1.0 0.0-2.0 % Neutrophils # (Auto) 5.6 1.6-8.6 10 ^3/uL Lymphocytes # (Auto) 1.3 0.4-5.4 10 ^3/uL Monocytes # (Auto) 0.9 0-1.3 10 ^3/uL Eosinophils # (Auto) 0.2 0-0.8 10 ^3/uL Basophils # (Auto) 0.1 0-0.2 10 ^3/uL Nucleated Red Blood Cells 0.1 % Prothrombin Time 10.6 9.3-11.8 sec Prothrombin Time INR 1.00 0.9-1.15 Activated Partial Thromboplast Time 27.9 24.5-34.5 SEC D-Dimer, Quantitative 0.53 H 0.0-0.49 mg/L FEU Sodium Level 139 136-145 mmol/L Potassium Level 4.3 3.5-5.1 mmol/L Chloride Level 107 98-107 mmol/L Carbon Dioxide Level 24 20-31 mmol/L Anion Gap 8 5-15 Blood Urea Nitrogen 13 9-23 mg/dL Creatinine 0.71 0.700-1.30 mg/dL Glomerular Filtration Rate Calc 98 >90 mL/min BUN/Creatinine Ratio 18.3 10.0-20.0 Serum Glucose 112 H 74-106 mg/dL Lactic Acid Level 1.4 0.4-2.0 mmol/L Calcium Level 9.3 8.7-10.4 mg/dL Total Bilirubin 0.4 0.2-1.0 mg/dL Aspartate Amino Transferase (AST) 22 13-40 U/L Alanine Aminotransferase (ALT) 37 7-40 U/L Alkaline Phosphatase 100 46-116 U/L Total Protein 6.8 5.7-8.2 g/dL Albumin 4.3 3.2-4.8 g/dL PATIENT: ANTONI MCCANNACCT: [id number] UNIT: [id number] : 1955 LOC: ER ROOM / BED: / AGE / SEX: 70 / M ADM STATUS: REG ER SERVICE 05 ORDERING PHYSICIAN: ANTOINE TRUONG MD PROCEDURE(s): CXRP - CHEST PORTABLE REASON: SOB ORDER NUMBER(s): [id number], ACCESSION NUMBER(s): [id number] CHEST RADIOGRAPH INDICATION: SOB TECHNIQUE: Single frontal view of the chest was obtained COMPARISON: XY CHEST PORTABLE on DOS: 06/26/25, XY CHEST PORTABLE on DOS: 05/25/25, XY CHEST XRAY 1 VIEW on DOS: 10/19/24 FINDINGS: Lines and Tubes: None Lungs: Right basilar opacity. Pleura: No effusion. No pneumothorax. Cardiomediastinal contours: Unremarkable Bones: No acute osseous abnormality. Spinal fixation hardware is noted. Surgical clips Anterior over the left Lateral lower neck. IMPRESSION: Right basilar atelectasis/pneumonia. SEPSIS Sepsis Screen Date sepsis recognized/suspect: Sep 19, 2025 Time Sepsis recognized/suspect: 1942 Recent Procedure: No On Antibiotic Therapy: No Respiratory Rate >20: No Heart Rate >90: No Temp<36 C (96.8 F) or >38.3 C: No SBP <90 or MAP <65 mmHG: No New Acute Mental Status Change: No Is the patient on CPAP, BIPAP,: No Physician Orders Troponin-I Hs (09/20/25 00:00) Troponin-I Hs (09/20/25 03:00) Troponin-I Hs (09/20/25 06:00) Blood Culture (09/19/25 20:06) Chest Portable (09/19/25 20:06) Oxygen By Nasal Cannula (09/19/25 21:18) Ceftriaxone 1gm/50ml (Rocephin) (09/20/25 09:00) Azithromycin 500mg/250ml (Zithromax 500m (09/20/25 10:00) Allergies (09/19/25:34) Code Status (09/19/25:34) Sodium Chloride 0.9% (09/19/25 21:45) Oxygen Per Hour (09/19/25:34) Hydrocodone-Acet 5/325mg Tab ([place] 5/32 (09/19/25 21:45) Ondansetron Hcl (Zofran) (09/19/25 21:45) Docusate Sodium Capsule (Colace Capsule) (09/19/25 21:45) Fall Risk Precautions In Place QSHIFT (09/19/25:34) Complete Blood Count (09/20/25 04:00) Comprehensive Metabolic Panel (09/20/25 04:00) Cardiac Diet-2gna,Lofat,Lochol (09/20/25 Breakfast) Condition: Serious (09/19/25 21:34) Acetaminophen Tablet (Tylenol Tablet) (09/19/25 21:45) Maintain Bed Rest (09/19/25:34) Sequential Compression Device (09/19/25 ) Vital Signs Date Time Temp Pulse Resp B/P (MAP) Pulse Ox O2 Delivery O2 Flow Rate FiO2 09/19/25 22:06 98.1 61 18 135/88 (104) 98 98.1 09/19/25 19:40 97.9 96 20 114/63 (80) 94 97.9 09/19/25 19:40 96 20 94 Nasal Cannula* 2 28 09/19/25 19:28 97.7 101 26 114/85 95 97.7 Laboratory Tests Test 09/19/25 20:30 Lactic Acid Level 1.4 mmol/L (0.4-2.0) White Blood Count 8.0 10^3/uL (4.4-10.8) Medications Medications Dose Ordered Sig/Bob Route Start Time Stop Time Status Last Admin Dose Admin Azithromycin 250 ml @ 125 mls/hr ONCE ONCE IV 09/19/25 21:15 09/19/25 23:14 DC 09/19/25 21:41 125 MLS/HR Ceftriaxone Sodium 50 ml @ 100 mls/hr ONCE ONCE IV 09/19/25 21:15 09/19/25 21:44 DC 09/19/25 21:15 100 MLS/HR Sodium Chloride 1,000 ml @ 60 mls/hr [id number] IV 09/19/25 21:45 09/19/25 21:47 60 MLS/HR Sodium Chloride 1,000 ml @ 1,000 mls/hr Q1H ONCE IVB 09/19/25 20:15 09/19/25 21:14 DC 09/19/25 20:15 1,000 MLS/HR Assessment/Plan Assessment/Plan Respiratory failure with hypoxia Thoracic stenosis RLL pneumonia Elevated D-dimer Cervical stenosis of spinal canal Generalized weakness Plan 1. Admit to telemetry unit 2. Breathing treatment 3. Pain control management 4. IV antibiotic management 5. Management of fluids and electrolytes 6. Consultation for hospitalist 7. Diagnostic test chest x-ray 8. DVT prophylaxis-on aspirin 9. Repeat labs CBC, CMP in a.m. 10. Home medication reviewed and reconciled 11. Continue with current medical management 12. Treatment plan discussed with patient and RN. Patient verbalized understanding. Plan discussed with: Patient, Other (RN) My Orders Orders - CATRACHITO BLOUNT DNP Procedure Category Date Status Time Ceftriaxone 1gm/50ml PHA 09/20/25 In Process (Rocephin) 09:00 Azithromycin PHA 09/20/25 In Process 500mg/250ml 10:00 Allergies NATANAEL 09/19/25 In Process 21:34 Code Status CODE 09/19/25 Transmitted 21:34 Sodium Chloride 0.9% PHA 09/19/25 In Process 21:45 Oxygen Per Hour RT 09/19/25 Transmitted 21:34 Hydrocodone-Acet PHA 09/19/25 In Process 5/325mg Tab ([place] 21:45 Ondansetron Hcl PHA 09/19/25 In Process (Zofran) 21:45 Docusate Sodium PHA 09/19/25 In Process Capsule (Colace 21:45 Fall Risk Precautions NATANAEL 09/19/[address] 21:34 Complete Blood Count LAB 09/20/25 Verified 04:00 Comprehensive LAB 09/20/25 Verified Metabolic Panel 04:00 Cardiac DIET 09/20/25 Transmitted Diet-2gna,Lofat,Lochol Breakfast Condition: Serious NATANAEL 09/19/25 In Process 21:34 Acetaminophen Tablet PHA 09/19/25 In Process (Tylenol Tablet) 21:45 Maintain Bed Rest NATANAEL 09/19/25 In Process 21:34 Sequential NATANAEL 09/19/25 In Process Compression Device Problem List: (1) Respiratory failure with hypoxia (2) Thoracic stenosis (3) RLL pneumonia (4) Elevated d-dimer (5) Cervical stenosis of spinal canal (6) Generalized weakness Date of Service: Sep 19, 2025 Billing Provider: CATRACHITO BLOUNT DNP Common Visit Codes: [id number] INP/OBS CARE (HIGH) CATRACHITO BLOUNT DNP Sep 19, 2025 23:35
[2025-09-19] MEDS ORDERED: MORPHINE SULFATE INJ 2 MG/ml SYRG IV PRN (23:45)
[2025-09-19] MEDS ORDERED: NITROGLYCERIN 0.4 MG SL TAB SL PRN (23:45)
[2025-09-20] VITALS (9 sets, daily range): BP systolic 96–127; BP diastolic 60–89; PULSE 72–90; RESP 14–18; TEMP 96.2–99; O2SAT 92–98
[2025-09-20 09:54] LABS: Hematocrit 49.6 % (41.0-53.0); Hemoglobin 16.6 g/dL (13.5-17.5); Mean Corpuscular Hemoglobin 30.5 pg (28.0-32.0); Mean Corpuscular Volume 91.0 fL (80.0-100.0); Nucleated Red Blood Cells % 0.1 %
[2025-09-20] MEDS ORDERED: AZITHROMYCIN 500MG/250ML 250 ML IV SCH (10:00)
[2025-09-20 10:08] LABS: Alanine Aminotransferase 32 U/L (7-40); Albumin 3.8 g/dL (3.2-4.8); Alkaline Phosphatase 89 U/L (46-116); Anion Gap 9 (5-15); BUN/Creatinine Ratio 12.2 (10.0-20.0); Blood Urea Nitrogen 9 mg/dL (9-23); Calcium 9.0 mg/dL (8.7-10.4); Carbon Dioxide 26 mmol/L (20-31); Potassium 3.9 mmol/L (3.5-5.1); Sodium 144 mmol/L (136-145); Total Protein 6.2 g/dL (5.7-8.2)
[2025-09-20 10:09] LABS: Bilirubin, Total 0.4 mg/dL (0.2-1.0); Chloride 109 mmol/L (98-107); Glucose 112 mg/dL (74-106)
--- NOTE | 2025-09-20 13:04 | DVHPN2 ---
Reviewed: Care Plan, H&P, Labs, Medications, Previous Orders, Radiology Changes from previous H/P or p: No Changes Eyes: No Pain, No Vision change, No Conjunctivae inflammation, No Eyelid inflammation, No Other, No Redness ENT: No Ear pain, No Ear discharge, No Nose pain, No Nose discharge, No Nose congestion, No Mouth pain, No Mouth swelling, No Throat pain, No Throat swelling, No Other Cardiovascular: No Chest Pain, No Palpitations, No Orthopnea, No Paroxysmal Noc. Dyspnea, No Edema, No Lt Headedness, No Other Respiratory: No Cough, No Dry; Shortness of breath; No SOB with excertion, No Wheezing, No Hemoptysis, No Pleuritic Pain, No Sputum; Other (SOB at rest) Gastrointestinal: No Nausea, No Vomiting, No Abdominal Pain, No Diarrhea, No Constipation, No Melena, No Hematochezia, No Other Genitourinary: No Dysuria, No Frequency, No Incontinence, No Hematuria, No Retention, No Other Musculoskeletal: No other, No neck pain, No shoulder pain, No arm pain; back pain; No hand pain, No leg pain, No foot pain Skin: No Rash, No Lesions, No Jaundice, No Bruising, No Other Objective Vitals Vital Signs Date Time Temp Pulse Resp B/P (MAP) Pulse Ox O2 Delivery O2 Flow Rate FiO2 09/20/25 12:39 97.6 78 18 96/60 (72) 98 97.6 09/20/25 08:00 Room Air* 0 21 Intake/Output Intake and Output 09/20/25 07:00 Intake Total 0 ml Balance 0 ml Intake Oral 0 ml Medications Current Medications Medications Dose Ordered Sig/Bob Route Start Time Stop Time Status Last Admin Dose Admin Ceftriaxone Sodium 50 ml @ 100 mls/hr DAILY@09 IV 09/20/25 09:00 09/20/25 09:32 100 MLS/HR Azithromycin 250 ml @ 125 mls/hr DAILY IV 09/20/25 10:00 Sodium Chloride 1,000 ml @ 60 mls/hr [id number] IV 09/19/25 21:45 09/19/25 21:47 60 MLS/HR Acetaminophen/ Hydrocodone Bitart 1 tab Q4HP PRN PO 09/19/25 21:45 Ondansetron HCl 4 mg Q4HP PRN IV 09/19/25 21:45 Docusate Sodium 100 mg BIDPRN PRN PO 09/19/25 21:45 Acetaminophen 650 mg Q6HP PRN PO 09/19/25 21:45 Apixaban 5 mg BID PO 09/20/25 10:00 Laboratory Results Laboratory Tests 09/20/25 09:36 Chemistry Test 09/19/25 20:30 09/20/25 09:36 Albumin 4.3 g/dL (3.2-4.8) 3.8 g/dL (3.2-4.8) Calcium Level 9.3 mg/dL (8.7-10.4) 9.0 mg/dL (8.7-10.4) Total Protein 6.8 g/dL (5.7-8.2) 6.2 g/dL (5.7-8.2) Coagulation Test 09/19/25 20:30 Prothrombin Time 10.6 sec (9.3-11.8) Prothrombin Time INR 1.00 (0.9-1.15) Activated Partial Thromboplast Time 27.9 SEC (24.5-34.5) D-Dimer, Quantitative 0.53 mg/L FEU (0.0-0.49) H LFT Test 09/19/25 20:30 09/20/25 09:36 Alanine Aminotransferase (ALT) 37 U/L (7-40) 32 U/L (7-40) Alkaline Phosphatase 100 U/L (46-116) 89 U/L (46-116) Aspartate Amino Transferase (AST) 22 U/L (13-40) 19 U/L (13-40) Total Bilirubin 0.4 mg/dL (0.2-1.0) 0.4 mg/dL (0.2-1.0) Labs and/or images reviewed: Labs reviewed by me, Image(s) reviewed by me Assessment/Plan Assessment/Plan Acute hypoxic respiratory failure on oxygen Right lower lobe pneumonia: Rocephin doxycycline Slightly elevated troponin History of PE on Eliquis Hypokalemia Tobacco use History of cervical and lumbar spinal fusion Chronic current smoker more than 40 years: Counseling, time 20 minutes, patient does not want any patch Patient lives in a motor home in [facility] test pending Rapid flu test pending Time spent 68 minutes Advanced care planning time 20 minutes Patient is full code Plan discussed with: Patient Date of Service: Sep 20, 2025 Billing Provider: JEFFREY LOBO MD Common Visit Codes: [id number] CARE 30-74 MIN JEFFREY LOBO MD Sep 20, 2025 13:04
[2025-09-20] MEDS: APIXABAN 5 MG TAB PO SCH (13:40)
[2025-09-20] MEDS: DOXYCYCLINE 100MG/100ML 100 ML IV SCH (13:40)
[2025-09-20 17:21] LABS: COVID19 ANTIGEN SOFIA FIA NEGATIVE (NEGATIVE)
[2025-09-21] VITALS (7 sets, daily range): BP systolic 115–127; BP diastolic 81–93; PULSE 66–98; RESP 16–18; TEMP 97.5–98.3; O2SAT 93–96
[2025-09-21] MEDS: HYDROcodone-ACET 5/325MG TAB PO PRN (05:32)
[2025-09-21 13:02] LABS: Hepatitis B Surface Antigen Negative (Negative)
[2025-09-21 13:23] LABS: Hepatitis C Antibody Negative (Negative)
--- NOTE | 2025-09-21 13:35 | DVHPN2 ---
Reviewed: Care Plan, H&P, Labs, Medications, Previous Orders, Radiology Changes from previous H/P or p: No Changes Eyes: No Pain, No Vision change, No Conjunctivae inflammation, No Eyelid inflammation, No Other, No Redness ENT: No Ear pain, No Ear discharge, No Nose pain, No Nose discharge, No Nose congestion, No Mouth pain, No Mouth swelling, No Throat pain, No Throat swelling, No Other Cardiovascular: No Chest Pain, No Palpitations, No Orthopnea, No Paroxysmal Noc. Dyspnea, No Edema, No Lt Headedness, No Other Respiratory: No Cough, No Dry; Shortness of breath; No SOB with excertion, No Wheezing, No Hemoptysis, No Pleuritic Pain, No Sputum; Other (SOB at rest) Gastrointestinal: No Nausea, No Vomiting, No Abdominal Pain, No Diarrhea, No Constipation, No Melena, No Hematochezia, No Other Genitourinary: No Dysuria, No Frequency, No Incontinence, No Hematuria, No Retention, No Other Musculoskeletal: No other, No neck pain, No shoulder pain, No arm pain; back pain; No hand pain, No leg pain, No foot pain Skin: No Rash, No Lesions, No Jaundice, No Bruising, No Other Objective Vitals Vital Signs Date Time Temp Pulse Resp B/P (MAP) Pulse Ox O2 Delivery O2 Flow Rate FiO2 09/21/25 12:49 97.6 72 16 115/81 (92) 93 97.6 09/21/25 08:00 Room Air* 0 21 Intake/Output Intake and Output 09/21/25 07:00 Intake Total 960 ml Output Total 600 ml Balance 360 ml Intake Oral 910 ml IV Total 50 ml Output Urine Total 600 ml Medications Current Medications Medications Dose Ordered Sig/Bob Route Start Time Stop Time Status Last Admin Dose Admin Ceftriaxone Sodium 50 ml @ 100 mls/hr DAILY@09 IV 09/20/25 09:00 09/21/25 10:25 100 MLS/HR Sodium Chloride 1,000 ml @ 60 mls/hr [id number] IV 09/19/25 21:45 09/19/25 21:47 60 MLS/HR Acetaminophen/ Hydrocodone Bitart 1 tab Q4HP PRN PO 09/19/25 21:45 09/21/25 10:25 1 TAB Ondansetron HCl 4 mg Q4HP PRN IV 09/19/25 21:45 Docusate Sodium 100 mg BIDPRN PRN PO 09/19/25 21:45 Acetaminophen 650 mg Q6HP PRN PO 09/19/25 21:45 Apixaban 5 mg BID PO 09/20/25 10:00 09/21/25 10:25 5 MG Doxycycline Hyclate 100 ml @ 50 mls/hr Q12H IV 09/20/25 13:15 09/21/25 12:19 50 MLS/HR Laboratory Results Laboratory Tests 09/20/25 09:36 Microbiology Microbiology Date/Time Source Procedure Growth Status 09/19/25 20:36 Blood Blood Culture - Preliminary Resulted Labs and/or images reviewed: Labs reviewed by me, Image(s) reviewed by me Assessment/Plan Assessment/Plan Acute hypoxic respiratory failure on oxygen Right lower lobe pneumonia: Rocephin doxycycline Bilateral pedal edema, ruled out congestive heart failure: Echocardiogram Lasix cardiology consult Slightly elevated troponin History of PE on Eliquis Hypokalemia Tobacco use History of cervical and lumbar spinal fusion two months ago [facility] Chronic current smoker more than 40 years: Counseling, time 20 minutes, patient does not want any patch Patient lives in a motor home in [facility] test negative Rapid flu test negative Time spent 58 minutes Advanced care planning time 20 minutes Patient is full code Plan discussed with: Patient Date of Service: Sep 21, 2025 Billing Provider: JEFFREY LOBO MD Common Visit Codes: [id number] INP/OBS CARE(HIGH) JEFFREY LOBO MD Sep 21, 2025 13:35
--- NOTE | 2025-09-21 15:14 | DVHINCON2 ---
JHAJJNEGRA RESIDENT 09/21/25 1514: Date Seen: Sep 21, [address] Ross Reason for Consultation Bilateral lower extremity swelling History of Present Illness Patient is a 70-year-old male who presented to the hospital with a chief complaint of shortness of the breath and inability to walk. Patient underwent spinal surgery for multilevel lumbar degenerative disc disease and spinal stenosis in July 2025 and a few weeks after that he was diagnosed with acute pulmonary embolism and was started on Eliquis. He reports not being able to move out of the bed without help since his surgery and has not gotten adequate physical therapy rehabilitation. Before this admission patient did report of having some shortness of breath while he was in bed for which he was brought to the hospital for further evaluation. Patient denied any orthopnea, PND. Past Medical History Spinal stenosis status post surgery, PE Past Surgical History Surgery for spinal stenosis and degenerative disc disease Family History: Patient reports no known family medical history. Family History Noncontributory Social History Denies alcohol, drug use Smokes half a pack of cigarettes per day for the last 40 years Allergies: Coded Allergies: NO KNOWN ALLERGIES (Unverified , 09/19/25) Home Meds Active Scripts Apixaban Base (ELIQUIS) 5 Mg Tab, 10 MG PO BID for 7 Days, #28 TAB 10MG BID X 7 DAYS THEN 5MG PO BID FOR AT LEAST 6 MONTHS FOR DVT/PE TREATMENT Prov:BA PERALTA MD 06/29/25 Apixaban Base (ELIQUIS) 5 Mg Tab, 5 MG PO BID for 30 Days, #60 TAB 5 Refills Prov:BA PERALTA MD 06/29/25 Cyclobenzaprine HCl (Cyclobenzaprine Hydrochlo) 10 Mg Tab, 10 MG PO TID for 30 Days, #90 TAB Prov:YESSI ARZATE NP 05/29/25 Oxycodone Hcl (OXYCODONE HCL) 5 Mg Tb, 10 MG PO Q6HPRN PRN for 7 Days, #56 TAB Prov:YESIS ARZATE NP 05/29/25 Hydrocodone-Acetaminophen (Hydrocodone/Acetaminophen 7.5-325 mg) 1 Tab Tab, 1 TAB PO Q4HP PRN for 10 Days, #50 TAB Prov:YESSI ARZATE NP 10/24/24 Docusate Sodium (Docusate Sodium) 100 Mg Cap, 100 MG PO Q12HP PRN for 30 Days, #60 CAP Prov:YESSI ARZATE OFFICE CLERK ROUTINE 10/24/24 Cyclobenzaprine HCl (Cyclobenzaprine Hydrochlo) 10 Mg Tab, 10 MG PO Q8HR for 30 Days, #90 TAB Prov:YESSI ARZATE OFFICE CLERK ROUTINE 10/24/24 Current Medications Current Medications Medications (Trade) Dose Ordered Sig/Bob Route PRN Reason Start Time Stop Time Status Last Admin Furosemide (Lasix Injection) 40 mg BIDD IV 09/21/25 18:00 Review of Systems Denies any shortness of breath, chest pain, pain in lower extremities Vital Signs Vital Signs Date Time Temp Pulse Resp B/P (MAP) Pulse Ox O2 Delivery O2 Flow Rate FiO2 09/21/25 12:49 97.6 72 16 115/81 (92) 93 97.6 09/21/25 08:00 Room Air* 0 21 Physical Exam Skin - Patients skin is warm and dry. HEENT - normocephalic, atraumatic, moist mucous membranes. Neck - full ROM, no LAD, no JVD Pulmonary - B/L clear breath sounds without any wheezing or rales cardiovascular - regular S1,S2 heard, no added sounds, no murmurs heard. peripheral pulses normal radial 2+, pedal 2+. capillary refill normal 3 secs. GI - soft, nontender abdomen. no hepatospleenomegaly. Bowel sounds normoactive Neurological - Patient is A/O X 4 . Bilateral upper extremity strength 4/5, bilateral lower extremity strength 3/5, no facial droop, normal speech, no tremor, no sensory deficiets. Labs/Diagnostic Data Labs Test 09/20/25 16:25 09/20/25 09:36 09/19/25 21:30 09/19/25 20:30 Range/Units Influenza Type A Antigen Negative Negative Influenza Type B Antigen Negative Negative SARS-CoV-2 Antigen (Rapid) Negative NEGATIVE White Blood Count 9.7 4.4-10.8 10^3/uL Red Blood Count 5.45 4.5-5.90 10^6/uL Hemoglobin 16.6 13.5-17.5 g/dL Hematocrit 49.6 41.0-53.0 % Mean Corpuscular Volume 91.0 80.0-100.0 fL Mean Corpuscular Hemoglobin 30.5 28.0-32.0 pg Mean Corpuscular Hemoglobin Concent 33.5 32.0-36.0 g/dL Red Cell Distribution Width 14.4 H 11.8-14.3 % Platelet Count 276 140-450 10^3/uL Mean Platelet Volume 7.6 6.9-10.8 fL Neutrophils (%) (Auto) 79.5 37.0-80.0 % Lymphocytes (%) (Auto) 8.9 L 10.0-50.0 % Monocytes (%) (Auto) 9.5 0.0-12.0 % Eosinophils (%) (Auto) 1.4 0.0-7.0 % Basophils (%) (Auto) 0.7 0.0-2.0 % Neutrophils # (Auto) 7.7 1.6-8.6 10 ^3/uL Lymphocytes # (Auto) 0.9 0.4-5.4 10 ^3/uL Monocytes # (Auto) 0.9 0-1.3 10 ^3/uL Eosinophils # (Auto) 0.1 0-0.8 10 ^3/uL Basophils # (Auto) 0.1 0-0.2 10 ^3/uL Nucleated Red Blood Cells 0.1 % Sodium Level 144 # 136-145 mmol/L Potassium Level 3.9 3.5-5.1 mmol/L Chloride Level 109 H 98-107 mmol/L Carbon Dioxide Level 26 20-31 mmol/L Anion Gap 9 5-15 Blood Urea Nitrogen 9 9-23 mg/dL Creatinine 0.74 0.700-1.30 mg/dL Glomerular Filtration Rate Calc 97 >90 mL/min BUN/Creatinine Ratio 12.2 10.0-20.0 Serum Glucose 112 H 74-106 mg/dL Calcium Level 9.0 8.7-10.4 mg/dL Total Bilirubin 0.4 0.2-1.0 mg/dL Aspartate Amino Transferase (AST) 19 13-40 U/L Alanine Aminotransferase (ALT) 32 7-40 U/L Alkaline Phosphatase 89 46-116 U/L Total Protein 6.2 5.7-8.2 g/dL Albumin 3.8 3.2-4.8 g/dL Troponin I High Sensitivity 6 </=54 ng/L Prothrombin Time 10.6 9.3-11.8 sec Prothrombin Time INR 1.00 0.9-1.15 Activated Partial Thromboplast Time 27.9 24.5-34.5 SEC D-Dimer, Quantitative 0.53 H 0.0-0.49 mg/L FEU Lactic Acid Level 1.4 0.4-2.0 mmol/L Hepatitis B Surface Antigen Negative Negative Hepatitis C Antibody Negative Negative Microbiology Date/Time Source Procedure Growth Status 09/19/25 20:36 Blood Blood Culture - Preliminary Resulted Assessment Bilateral lower extremity swelling likely dependent edema from immobility/diastolic dysfunction h/o segment pulmonary embolism Mild Pulmonary vascular congestion Cardiomegaly Recent Echocardiogram showed LVEF 70% with mild diastolic dysfunction Probable pneumonia/atelectasis Plan/Recommendation - diuresis for euvolemia - low-salt diet - continue Eliquis - strict I&Os Thank you for consulting Cardiology will sign off, no further procedures indicated Goals of care discussed with the patient Plan discussed with Dr. Mcdaniel Plan discussed with: Patient NYHA Physical activity limitations: NA Date of Service: Sep 21, 2025 Billing Provider: SHELBY MCDANIEL MD Cardiology Common Codes: [id number] INP/OBS CARE (High) SHELBY MCDANIEL MD 09/22/25 1650: Family History: Patient reports no known family medical history. Allergies: Coded Allergies: NO KNOWN ALLERGIES (Unverified , 09/19/25) Home Meds Active Scripts Apixaban Base (ELIQUIS) 5 Mg Tab, 10 MG PO BID for 7 Days, #28 TAB 10MG BID X 7 DAYS THEN 5MG PO BID FOR AT LEAST 6 MONTHS FOR DVT/PE TREATMENT Prov:BA PERALTA MD 06/29/25 Apixaban Base (ELIQUIS) 5 Mg Tab, 5 MG PO BID for 30 Days, #60 TAB 5 Refills Prov:BA PERALTA MD 06/29/25 Cyclobenzaprine HCl (Cyclobenzaprine Hydrochlo) 10 Mg Tab, 10 MG PO TID for 30 Days, #90 TAB Prov:YESSI ARZATE NP 05/29/25 Oxycodone Hcl (OXYCODONE HCL) 5 Mg Tb, 10 MG PO Q6HPRN PRN for 7 Days, #56 TAB Prov:YESSI ARZATE NP 05/29/25 Hydrocodone-Acetaminophen (Hydrocodone/Acetaminophen 7.5-325 mg) 1 Tab Tab, 1 TAB PO Q4HP PRN for 10 Days, #50 TAB Prov:YESSI ARZATE OFFICE CLERK ROUTINE 10/24/24 Docusate Sodium (Docusate Sodium) 100 Mg Cap, 100 MG PO Q12HP PRN for 30 Days, #60 CAP Prov:YESSI ARZATE OFFICE CLERK ROUTINE 10/24/24 Cyclobenzaprine HCl (Cyclobenzaprine Hydrochlo) 10 Mg Tab, 10 MG PO Q8HR for 30 Days, #90 TAB Prov:YESSI ARZATE OFFICE CLERK ROUTINE 10/24/24 Plan/Recommendation normal lvef pt doesnt walk, he has dependent edema 2/2 to this fu with his specialist signing off Plan discussed with: Patient NEGRA JOSE RESIDENT Sep 21, 2025 15:14 SHELBY MCDANIEL MD Sep 22, 2025 16:50
--- NOTE | 2025-09-21 16:02 | DVH ---
US BiLat Lower DVT HISTORY: rule out dvt COMPARISON: US LT LOWER DVT on DOS: 06/26/25, US RT LOWER DVT on DOS: 06/26/25 TECHNIQUE: Realtime grayscale, color flow, and Doppler ultrasound images of the deep venous structures with spectral waveform analysis were obtained. Doppler spectral waveform analysis of the bilateral lower extremity veins was performed. FINDINGS: Right Lower Extremity: Right common femoral vein: Normal compressibility and flow. Right femoral vein: Normal compressibility and flow. Right popliteal vein: Normal compressibility and flow. Left Lower Extremity: Left common femoral vein: Normal compressibility and flow. Left femoral vein: Normal compressibility and flow. Left popliteal vein: Normal compressibility and flow. IMPRESSION: NO SONOGRAPHIC EVIDENCE FOR DEEP VENOUS THROMBOSIS IN THE BILATERAL LOWER EXTREMITY VEINS.
[2025-09-21] MEDS: FUROSEMIDE 40 MG/4 ML VIAL IV SCH (17:50)
[2025-09-22] VITALS (9 sets, daily range): BP systolic 95–128; BP diastolic 64–89; PULSE 74–100; RESP 14–17; TEMP 97.5–98.2; O2SAT 91–97
--- NOTE | 2025-09-22 12:44 | DVHPN2 ---
Reviewed: Care Plan, H&P, Labs, Medications, Previous Orders, Radiology Changes from previous H/P or p: No Changes Eyes: No Pain, No Vision change, No Conjunctivae inflammation, No Eyelid inflammation, No Other, No Redness ENT: No Ear pain, No Ear discharge, No Nose pain, No Nose discharge, No Nose congestion, No Mouth pain, No Mouth swelling, No Throat pain, No Throat swelling, No Other Cardiovascular: No Chest Pain, No Palpitations, No Orthopnea, No Paroxysmal Noc. Dyspnea, No Edema, No Lt Headedness, No Other Respiratory: No Cough, No Dry; Shortness of breath; No SOB with excertion, No Wheezing, No Hemoptysis, No Pleuritic Pain, No Sputum; Other (SOB at rest) Gastrointestinal: No Nausea, No Vomiting, No Abdominal Pain, No Diarrhea, No Constipation, No Melena, No Hematochezia, No Other Genitourinary: No Dysuria, No Frequency, No Incontinence, No Hematuria, No Retention, No Other Musculoskeletal: No other, No neck pain, No shoulder pain, No arm pain; back pain; No hand pain, No leg pain, No foot pain Skin: No Rash, No Lesions, No Jaundice, No Bruising, No Other Objective Vitals Vital Signs Date Time Temp Pulse Resp B/P (MAP) Pulse Ox O2 Delivery O2 Flow Rate FiO2 09/22/25 08:40 97.8 90 14 116/89 (98) 91 97.8 09/21/25 20:00 Room Air* 0 21 Intake/Output Intake and Output 09/22/25 07:00 Intake Total 1520 ml Output Total 2875 ml Balance -1355 ml Intake Oral 1420 ml IV Total 100 ml Output Urine Total 2875 ml Medications Current Medications Medications Dose Ordered Sig/Bob Route Start Time Stop Time Status Last Admin Dose Admin Ceftriaxone Sodium 50 ml @ 100 mls/hr DAILY@09 IV 09/20/25 09:00 09/22/25 09:02 100 MLS/HR Acetaminophen/ Hydrocodone Bitart 1 tab Q4HP PRN PO 09/19/25 21:45 09/21/25 10:25 1 TAB Ondansetron HCl 4 mg Q4HP PRN IV 09/19/25 21:45 Docusate Sodium 100 mg BIDPRN PRN PO 09/19/25 21:45 Acetaminophen 650 mg Q6HP PRN PO 09/19/25 21:45 Apixaban 5 mg BID PO 09/20/25 10:00 09/22/25 09:02 5 MG Doxycycline Hyclate 100 ml @ 50 mls/hr Q12H IV 09/20/25 13:15 09/22/25 01:29 50 MLS/HR Furosemide 40 mg BIDD IV 09/21/25 18:00 09/22/25 05:31 40 MG Laboratory Results Laboratory Tests 09/20/25 09:36 Cardiac Markers Test 09/21/25 15:19 B-Type Natriuretic Peptide 15.60 pg/mL (0-100) HgA1c, TSH Test 09/21/25 15:19 Thyroid Stimulating Hormone (TSH) 3.23 uIU/mL (0.55-4.78) Microbiology Microbiology Date/Time Source Procedure Growth Status 09/19/25 20:36 Blood Blood Culture - Preliminary Resulted Labs and/or images reviewed: Labs reviewed by me, Image(s) reviewed by me Assessment/Plan Assessment/Plan Acute hypoxic respiratory failure oxygen by nasal cannula Right lower lobe pneumonia: Rocephin doxycycline Bilateral pedal edema likely dependent edema due to immobility DVT ruled out Possible diastolic congestive heart failure echocardiogram 70 percent ejection fraction, cardiology consult by Dr. Zhou appreciated Slightly elevated troponin History of PE on Eliquis Hypokalemia Tobacco use History of cervical and lumbar spinal fusion two months ago [facility] Chronic current smoker more than 40 years: Counseling, time 20 minutes, patient does not want any patch Patient lives alone in a motor home in [facility] test negative Rapid flu test negative Time spent 58 minutes Advanced care planning time 20 minutes Patient is full code Plan discussed with: Patient My Orders Orders - JEFFREY LOBO MD Procedure Category Date Status Time Furosemide Injection PHA 09/21/25 In Process (Lasix Injection) 18:00 * Cardiology Consult CONS 09/21/25 Transmitted 13:35 Bilat Lower Dvt US 09/21/25 Resulted 14:12 Drug Screen LAB 09/21/25 Logged 14:12 Date of Service: Sep 22, 2025 Billing Provider: JEFFREY LOBO MD Common Visit Codes: [id number] INP/OBS CARE(HIGH) JEFFREY LOBO MD Sep 22, 2025 12:44
[2025-09-23 01:00] VITALS: BP 115/83; PULSE 90; RESP 17; TEMP 98.8; O2SAT 94
[2025-09-23 05:00] VITALS: BP 123/91; PULSE 83; RESP 18; TEMP 97.8; O2SAT 96
[2025-09-23 08:00] VITALS: PULSE 94; RESP 18; O2SAT 100
[2025-09-23 08:40] LABS: Amphetamine Screen, Urine Neg (NEGATIVE)
[2025-09-23 08:42] LABS: Barbiturate Scree,Urine Neg (NEGATIVE); Benzodiazephine Screen, Urine Neg (NEGATIVE); Cannabinoid Screen, Urine Neg (NEGATIVE); Cocaine Screen, Urine Neg (NEGATIVE); Opiate Scree,Urine Neg (NEGATIVE); Phencyclidine Screen, Urine Neg (NEGATIVE)
[2025-09-23 08:51] VITALS: BP 104/80; PULSE 94; RESP 16; TEMP 97.9; O2SAT 100
--- NOTE | 2025-09-23 10:43 | DVHPN2 ---
Reviewed: Care Plan, H&P, Labs, Medications, Previous Orders, Radiology Changes from previous H/P or p: No Changes Eyes: No Pain, No Vision change, No Conjunctivae inflammation, No Eyelid inflammation, No Other, No Redness ENT: No Ear pain, No Ear discharge, No Nose pain, No Nose discharge, No Nose congestion, No Mouth pain, No Mouth swelling, No Throat pain, No Throat swelling, No Other Cardiovascular: No Chest Pain, No Palpitations, No Orthopnea, No Paroxysmal Noc. Dyspnea, No Edema, No Lt Headedness, No Other Respiratory: No Cough, No Dry; Shortness of breath; No SOB with excertion, No Wheezing, No Hemoptysis, No Pleuritic Pain, No Sputum; Other (SOB at rest) Gastrointestinal: No Nausea, No Vomiting, No Abdominal Pain, No Diarrhea, No Constipation, No Melena, No Hematochezia, No Other Genitourinary: No Dysuria, No Frequency, No Incontinence, No Hematuria, No Retention, No Other Musculoskeletal: No other, No neck pain, No shoulder pain, No arm pain; back pain; No hand pain, No leg pain, No foot pain Skin: No Rash, No Lesions, No Jaundice, No Bruising, No Other Objective Vitals Vital Signs Date Time Temp Pulse Resp B/P (MAP) Pulse Ox O2 Delivery O2 Flow Rate FiO2 09/23/25 08:51 97.9 94 16 104/80 (88) 100 97.9 09/22/25 20:00 Room Air* 2 N/A Nasal Cannula* Intake/Output Intake and Output 09/23/25 07:00 Intake Total 2390 ml Output Total 2000 ml Balance 390 ml Intake Oral 2140 ml IV Total 250 ml Output Urine Total 2000 ml # Voids 2 # Bowel Movements 1 Medications Current Medications Medications Dose Ordered Sig/Bob Route Start Time Stop Time Status Last Admin Dose Admin Ceftriaxone Sodium 50 ml @ 100 mls/hr DAILY@09 IV 09/20/25 09:00 09/23/25 09:02 100 MLS/HR Ondansetron HCl 4 mg Q4HP PRN IV 09/19/25 21:45 Docusate Sodium 100 mg BIDPRN PRN PO 09/19/25 21:45 Acetaminophen 650 mg Q6HP PRN PO 09/19/25 21:45 Apixaban 5 mg BID PO 09/20/25 10:00 09/23/25 09:03 5 MG Doxycycline Hyclate 100 ml @ 50 mls/hr Q12H IV 09/20/25 13:15 09/23/25 00:57 50 MLS/HR Furosemide 40 mg BIDD IV 09/21/25 18:00 09/23/25 05:09 40 MG Laboratory Results Laboratory Tests 09/20/25 09:36 Microbiology Microbiology Date/Time Source Procedure Growth Status 09/19/25 20:36 Blood Blood Culture - Preliminary Resulted Labs and/or images reviewed: Labs reviewed by me, Image(s) reviewed by me Assessment/Plan Assessment/Plan Acute hypoxic respiratory failure oxygen by nasal cannula Right lower lobe pneumonia: Rocephin doxycycline Bilateral pedal edema likely dependent edema due to immobility DVT ruled out Possible diastolic congestive heart failure echocardiogram 70 percent ejection fraction, BNP 15 Slightly elevated troponin History of PE on Eliquis Hypokalemia Tobacco use Peripheral neuropathy: Gabapentin 300 mg PO TID Chronic Pain syndrome: Minter 10 q.6 hours History of cervical and lumbar spinal fusion two months ago [facility] Chronic current smoker more than 40 years: Counseling, time 20 minutes, patient does not want any patch Patient lives alone in a motor home in [facility] test negative Rapid flu test negative Time spent 58 minutes Advanced care planning time 20 minutes Patient is full code Plan discussed with: Patient My Orders Orders - EJFFREY LOBO MD Procedure Category Date Status Time Insert Midline ORDERS 09/22/25 Transmitted 12:35 Hydrocodone-Acet PHA 09/23/25 Logged 10/325mg Tab (Minter 10:45 Date of Service: Sep 23, 2025 Billing Provider: JEFFREY LOBO MD Common Visit Codes: [id number] INP/OBS CARE(HIGH) JEFFREY LOBO MD Sep 23, 2025 10:43
[2025-09-23] MEDS ORDERED: HYDROcodone-ACET 10/325MG TAB PO PRN (10:45)
--- NOTE | 2025-09-23 10:52 | DVHDS2 ---
Discharge Summary Date of Admission Sep 19, 2025 at 23:34 Date of Discharge: Sep 23, 2025 Admitting Diagnosis Shortness of breath and generalized weakness Wounds: None Labs/Diagnostic Data: Laboratory Results Test 09/23/25 08:00 09/21/25 15:19 09/20/25 16:25 09/20/25 09:36 Urine Opiates Screen Neg (NEGATIVE) Urine Fentanyl Screen Neg (NEGATIVE) Urine Barbiturates Screen Neg (NEGATIVE) Urine Phencyclidine Screen Neg (NEGATIVE) Urine Amphetamines Screen Neg (NEGATIVE) Urine Benzodiazepines Screen Neg (NEGATIVE) Urine Cocaine Screen Neg (NEGATIVE) Urine Cannabinoids Screen Neg (NEGATIVE) B-Type Natriuretic Peptide 15.60 pg/mL (0-100) Thyroid Stimulating Hormone (TSH) 3.23 uIU/mL (0.55-4.78) Influenza Type A Antigen Negative (Negative) Influenza Type B Antigen Negative (Negative) SARS-CoV-2 Antigen (Rapid) Negative (NEGATIVE) White Blood Count 9.7 10^3/uL (4.4-10.8) Red Blood Count 5.45 10^6/uL (4.5-5.90) Hemoglobin 16.6 g/dL (13.5-17.5) Hematocrit 49.6 % (41.0-53.0) Mean Corpuscular Volume 91.0 fL (80.0-100.0) Mean Corpuscular Hemoglobin 30.5 pg (28.0-32.0) Mean Corpuscular Hemoglobin Concent 33.5 g/dL (32.0-36.0) Red Cell Distribution Width 14.4 % (11.8-14.3) Platelet Count 276 10^3/uL (140-450) Mean Platelet Volume 7.6 fL (6.9-10.8) Neutrophils (%) (Auto) 79.5 % (37.0-80.0) Lymphocytes (%) (Auto) 8.9 % (10.0-50.0) Monocytes (%) (Auto) 9.5 % (0.0-12.0) Eosinophils (%) (Auto) 1.4 % (0.0-7.0) Basophils (%) (Auto) 0.7 % (0.0-2.0) Neutrophils # (Auto) 7.7 10 ^3/uL (1.6-8.6) Lymphocytes # (Auto) 0.9 10 ^3/uL (0.4-5.4) Monocytes # (Auto) 0.9 10 ^3/uL (0-1.3) Eosinophils # (Auto) 0.1 10 ^3/uL (0-0.8) Basophils # (Auto) 0.1 10 ^3/uL (0-0.2) Nucleated Red Blood Cells 0.1 % Sodium Level 144 mmol/L (136-145) Potassium Level 3.9 mmol/L (3.5-5.1) Chloride Level 109 mmol/L (98-107) Carbon Dioxide Level 26 mmol/L (20-31) Anion Gap 9 (5-15) Blood Urea Nitrogen 9 mg/dL (9-23) Creatinine 0.74 mg/dL (0.700-1.30) Glomerular Filtration Rate Calc 97 mL/min (>90) BUN/Creatinine Ratio 12.2 (10.0-20.0) Serum Glucose 112 mg/dL (74-106) Calcium Level 9.0 mg/dL (8.7-10.4) Total Bilirubin 0.4 mg/dL (0.2-1.0) Aspartate Amino Transferase (AST) 19 U/L (13-40) Alanine Aminotransferase (ALT) 32 U/L (7-40) Alkaline Phosphatase 89 U/L (46-116) Total Protein 6.2 g/dL (5.7-8.2) Albumin 3.8 g/dL (3.2-4.8) Test 09/19/25 21:30 09/19/25 20:30 Troponin I High Sensitivity 6 ng/L (</=54) Prothrombin Time 10.6 sec (9.3-11.8) Prothrombin Time INR 1.00 (0.9-1.15) Activated Partial Thromboplast Time 27.9 SEC (24.5-34.5) D-Dimer, Quantitative 0.53 mg/L FEU (0.0-0.49) Lactic Acid Level 1.4 mmol/L (0.4-2.0) Hepatitis B Surface Antigen Negative (Negative) Hepatitis C Antibody Negative (Negative) Other Laboratory Tests 09/20/25 09:36 Brief Hx & Hospital Course: 70-year-old male with a history of congestive heart failure history of PE on Eliquis chronic current smoker chronic pain syndrome history of cervical and lumbar spine surgery two months ago [facility] came in complaining of generalized weakness and shortness of breaths. Found to have right lower lobe community-acquired pneumonia treated with Rocephin and doxycycline IV which he will continue for two more weeks in the half-way also also complained of bilateral pedal edema BNP is normal possibly because of immobility history of PE on Eliquis which was continued Patient is being [facility] for two weeks of IV antibiotics for pneumonia. Venous ultrasound negative for DVT. But the patient will continue on Eliquis for the old PE Consults/Reason for consult None Operations or Procedures Venous ultrasound Condition at Discharge: Fair Final Diagnosis/Problems List Acute hypoxic respiratory failure oxygen by nasal cannula Right lower lobe pneumonia: Rocephin doxycycline Bilateral pedal edema likely dependent edema due to immobility DVT ruled out Possible diastolic congestive heart failure echocardiogram 70 percent ejection fraction, BNP 15 Slightly elevated troponin History of PE on Eliquis Hypokalemia Tobacco use Peripheral neuropathy: Gabapentin 300 mg PO TID Chronic Pain syndrome: Sublette 10 q.6 hours History of cervical and lumbar spinal fusion two months ago [facility] Chronic current smoker more than 40 years: Counseling, time 20 minutes, patient does not want any patch Patient lives alone in a motor home in [facility] test negative Rapid flu test negative Discharge Disposition: Eloped Discharge Instruct/Medications Diet: Cardiac 2g Na,low cholest Activity: Light activity Follow Up/Referral: Follow up with the half-way Medications: Rocephin 1 g IV daily for two weeks Doxycycline 100 mg IV daily for two weeks Both for community-acquired pneumonia Scheduled Apixaban Base (Eliquis), 5 MG PO BID Apixaban Base (Eliquis), 10 MG PO BID Cyclobenzaprine HCl (Cyclobenzaprine Hydrochlo), 10 MG PO Q8HR Cyclobenzaprine HCl (Cyclobenzaprine Hydrochlo), 10 MG PO TID Scheduled PRN Docusate Sodium (Docusate Sodium), 100 MG PO Q12HP PRN Hydrocodone-Acetaminophen (Hydrocodone/Acetaminophen 7.5-325 mg), 1 TAB PO Q4HP PRN Oxycodone Hcl (Oxycodone Hcl), 10 MG PO Q6HPRN PRN 39 (Time taken for discharge summary 39 minutes) Discharge Statement: "Patient was advised to return to the ER or call 911 if any headaches, dizziness, shortness of breath, chest pain, abdominal pain, bleeding, fevers, or worsening of medical condition. Patient was counseled about treatment plan, medications, possible side effects, patientverbalized understanding. All questions were answered to the best of my ability. This discharge took greater then 30 minutes in planning, reviewing documentation, counseling the patient, and discussing with other team members." ASSESSMENT ASSESSMENT Hospital Course Improved Assessment Acute hypoxic respiratory failure oxygen by nasal cannula Right lower lobe pneumonia: Rocephin doxycycline Bilateral pedal edema likely dependent edema due to immobility DVT ruled out Possible diastolic congestive heart failure echocardiogram 70 percent ejection fraction, BNP 15 Slightly elevated troponin History of PE on Eliquis Hypokalemia Tobacco use Peripheral neuropathy: Gabapentin 300 mg PO TID Chronic Pain syndrome: Sublette 10 q.6 hours History of cervical and lumbar spinal fusion two months ago [facility] Chronic current smoker more than 40 years: Counseling, time 20 minutes, patient does not want any patch Patient lives alone in a motor home in [facility] test negative Rapid flu test negative Date of Service: Sep 23, 2025 Billing Provider: JEFFREY LOBO MD Common Visit Codes: 45418-JDI/OBS DISCH DAY >30min JEFFREY LOBO MD Sep 23, 2025 10:52
[2025-09-23 12:51] VITALS: BP 102/78; PULSE 99; RESP 18; TEMP 98.1; O2SAT 93
[2025-09-23] MEDS: GABAPENTIN 300 MG CAP PO SCH (13:40)
[2025-09-23 16:42] VITALS: BP 103/72; PULSE 72; RESP 16; TEMP 98; O2SAT 90
== END 2025-09-23 17:13 | DRG 177 ==
LOC: EDUNIT# 19:13 → EDBD 19:13 → ER 19:13 → OVERFLOW 23:34 → TELE-WESTW 09-20 03:00
PROVIDERS: ADMIT Family Medicine; ATTEND Family Medicine
PROC: 05HC33Z Insertion of Infusion Device into Left Basilic Vein, Percutaneous Approach (ICD-10-PCS; principal; 2025-09-22)
PROC: B54NZZA Ultrasonography of Left Upper Extremity Veins, Guidance (ICD-10-PCS; 2025-09-22)
DX: J15.69 Pneumonia due to other Gram-negative bacteria (principal); J96.01 Acute respiratory failure with hypoxia; I50.32 Chronic diastolic (congestive) heart failure; J15.9 Unspecified bacterial pneumonia; Z79.01 Long term (current) use of anticoagulants; E87.6 Hypokalemia; F17.210 Nicotine dependence, cigarettes, uncomplicated; G89.4 Chronic pain syndrome; G62.9 Polyneuropathy, unspecified; Z79.899 Other long term (current) drug therapy; Z86.711 Personal history of pulmonary embolism; Z98.1 Arthrodesis status
CPT/HCPCS: 36415; 71045; 80053; 80307; 83605; 83880; 84443; 84484; 85025; 85379; 85610; 85730; 86803; 87040; 87077; 87186; 87340; 87426; 87804; 93970; 99291; G0378